=== PATIENT | female | born 1950 | race Caucasian/White ===

== ENCOUNTER → 2023-05-17 12:20 | Outpatient (REF) | payer MEDICARE, OTHER, SELFPAY | LOC: WOUND 12:20 | PROVIDERS: ATTENDING PHYSICIAN Surgery; FAMILY PHYSICIAN Internal Medicine | DX: L97.122 Non-pressure chronic ulcer of left thigh with fat layer exposed (principal); L97.812 Non-pressure chronic ulcer of other part of right lower leg with fat layer exposed; L97.821 Non-pressure chronic ulcer of other part of left lower leg limited to breakdown of skin; C44.719 Basal cell carcinoma of skin of left lower limb, including hip; C76.51 Malignant neoplasm of right lower limb; G62.0 Drug-induced polyneuropathy; M06.9 Rheumatoid arthritis, unspecified; Z79.01 Long term (current) use of anticoagulants | CPT/HCPCS: 88305; 11042; 11102; 88341; 88342; 99214 ==

== ENCOUNTER 2023-05-19 12:19 | Emergency (ER) | payer MEDICARE, OTHER, SELFPAY ==
[2023-05-19 12:35] VITALS: BP 118/71
[2023-05-19 13:00] VITALS: BP 105/64
[2023-05-19 13:30] VITALS: BP 100/63
--- NOTE | 2023-05-19 13:46 | ED.GENMED ---
History of Present Illness
<SKYLA Valiente - Last Filed: 05/19/23 14:01>
General
Chief Complaint: Musculo-Skeletal Complaint
Source: patient
Exam Limitations: none
Time Seen by Provider: 05/19/23 13:24
Nursing documentation reviewed up to this point in time: agreed with
Travel History
Have you had any contact with someone who has COVID-19?: No
Do you have any symptoms of coronavirus? Fever > 100 degrees, chills, cough, shortness of breath, sore throat, loss of taste or smell, muscle aches, or headache?: No
History of Present Illness
History of Present Illness:
Patient is a 73 year old female with PMH of osteoporosis, colon and bladder cancer, HTN, CKD, RA presents reporting right sided arm pain and weakness x 3 days. Patient reports the pain in the right upper arm is constant and describes it as 'aching'
and 'shooting.' Patient reports the pain sometimes radiates into the neck and clavicle. Patient reports any movement of the arm makes it worse. Patient tried acetaminophen, heating pad, ice packs, and fentanyl patch with no improvement. Patient
reports she has been doing exercises to increase her strength including walking with a walker. Patient denies trauma to the affected area and rates the pain at 10/10. Patient denies numbness, tingling, neck pain, chest pain, SOB, and skin changes.
Past History
<SKYLA Valiente - Last Filed: 05/19/23 14:01>
Past History
ED Past Medical History: Cancer (currently receiving Bladder CA treatment with Keytruda the past 2.5 years and receives treatment every 3 weeks. Colon cancer, uterine cancer), Psychiatric (Depression, anxiety OCD), Other (Lower extremity DVT,
kidney stones, urinary retention, osteoporosis, SBO, Ankle/leg fractures. Compression fractures, SBO, PICC line, Chronic low back pain,) and Other (Chronic low back pain/sacral pain, lumbar and sacral compression fractures; chronic narcotic
dependence, ambulatory dysfunction utilizes walker, Ileostomy, Fistula between bladder and vagina)
ED Past Surgical History: Appendectomy (Questionable), Bowel resection (Small intestinal CA, Another resection Nov 2015, Stebts Dec 11 2015,), Cholecystectomy (questionable), Gynecological (Hysterectomy), Orthopedic (Bilateral hip replacements.
Back fusion, lumbar Vertebral plasty, left total knee replacement July 2019,), Urological (Kidney stents) and Other (Ileostomy, Green field filter)
Social History
Tobacco: Non-smoker
Alcohol: None
Drug: None
Personal: Single
Living: with family
Employment: Disabled
Family History
Family History: Cancer (mother and sister breast cancer) and Other (Noncontributory)
Phy Exam
<SKYLA Valiente - Last Filed: 05/19/23 14:01>
General Physical Exam
General Presentation: well appearing
General age: appears stated age
General Skin: warm
General Habitus: frail
General Mental: alert
General Hydration: appears well hydrated
Cardiovascular Exam
Cardiovascular Exam: regular rate/rhythm and no edema
Pulmonary Exam
Pulmonary Exam: lungs clear
Musculoskeletal Exam
Musculoskeletal Exam: neck pain (intermittently), no edema and other (extremely limited ROM on right arm)
Skin Exam
Skin Exam: warm/dry and no rash
Course
<SKYLA Valiente - Last Filed: 05/19/23 14:01>
Orders/Labs/Results
Orders:
Orders
05/19/23 13:58
Humerus, Right 2 Views [CR Humerus - Right Min 2 View*] Urgent
Comment:
Reason For Exam: pain
05/19/23 14:14
Fentanyl Citrate/Pf [Sublimaze] 50 mcg IV NOW STA
Shoulder, Right 2 Views [CR Shoulder - Right Min 2 View] Urgent
Comment:
Reason For Exam: hx cancer, pain
05/19/23 14:56
Periph Venous Upr Ext Right US [US Periph Venous UPPER Ext RT] Urgent
Comment:
Reason For Exam: PAIN, SWELLING, HX CANCER
05/19/23 15:21
BMP [Basic Metabolic Panel] Stat
CBC/No Diff [Complete Blood Count/No Diff] Stat
05/19/23 16:41
0.9% Sodium Chloride 500 ml [Nss] 500 ml IV BOLUS
Abnormal Lab Results
05/19/23
15:21
RBC 4.01 L 10^6/uL
(4.20-5.40)
Hgb 11.4 L g/dL
(12.0-16.0)
Hct 34.7 L %
(37.0-47.0)
MCHC 32.9 L g/dL
(33.0-37.0)
Sodium 132 L mmol/L
(135-145)
Chloride 97 L mmol/L
(98-107)
BUN 49 H mg/dl
(7-17)
Creatinine 1.5 H mg/dL
(0.6-1.0)
05/19/23 15:21
05/19/23 15:21
Vital Signs
Initial and Last Documented VS:
Initial Vital Signs
Temp Pulse Resp BP Pulse Ox
98.2 F 65 18 118/71 97
05/19/23 12:35 05/19/23 12:35 05/19/23 12:35 05/19/23 12:35 05/19/23 12:35
Last Documented Vital Signs
Temp Pulse Resp BP Pulse Ox
98.2 F 84 16 109/64 95
05/19/23 12:35 05/19/23 20:04 05/19/23 20:04 05/19/23 20:04 05/19/23 20:04
<Erika Garcia MD - Last Filed: 06/10/23 09:52>
Orders/Labs/Results
Orders:
Orders
05/19/23 13:58
Humerus, Right 2 Views [CR Humerus - Right Min 2 View*] Urgent
Comment:
Reason For Exam: pain
05/19/23 14:14
Fentanyl Citrate/Pf [Sublimaze] 50 mcg IV NOW STA
Shoulder, Right 2 Views [CR Shoulder - Right Min 2 View] Urgent
Comment:
Reason For Exam: hx cancer, pain
05/19/23 14:56
Periph Venous Upr Ext Right US [US Periph Venous UPPER Ext RT] Urgent
Comment:
Reason For Exam: PAIN, SWELLING, HX CANCER
05/19/23 15:21
BMP [Basic Metabolic Panel] Stat
CBC/No Diff [Complete Blood Count/No Diff] Stat
05/19/23 16:41
0.9% Sodium Chloride 500 ml [Nss] 500 ml IV BOLUS
Abnormal Lab Results
05/19/23
15:21
RBC 4.01 L 10^6/uL
(4.20-5.40)
Hgb 11.4 L g/dL
(12.0-16.0)
Hct 34.7 L %
(37.0-47.0)
MCHC 32.9 L g/dL
(33.0-37.0)
Sodium 132 L mmol/L
(135-145)
Chloride 97 L mmol/L
(98-107)
BUN 49 H mg/dl
(7-17)
Creatinine 1.5 H mg/dL
(0.6-1.0)
05/19/23 15:21
05/19/23 15:21
Vital Signs
Initial and Last Documented VS:
Initial Vital Signs
Temp Pulse Resp BP Pulse Ox
98.2 F 65 18 118/71 97
05/19/23 12:35 05/19/23 12:35 05/19/23 12:35 05/19/23 12:35 05/19/23 12:35
Last Documented Vital Signs
Temp Pulse Resp BP Pulse Ox
98.2 F 84 16 109/64 95
05/19/23 12:35 05/19/23 20:04 05/19/23 20:04 05/19/23 20:04 05/19/23 20:04
<Erika Garcia MD - Last Filed: 06/10/23 09:52>
*Critical Care Note
Total Time (30-74mins, 75-104mins- exclusive of procedures): Not Applicable
ED Attending Note
<SKYLA Valiente - Last Filed: 05/19/23 14:01>
-
Portions of this chart may have been created with voice recognition software.� Occasional wrong word or��sound alike� substitutions may have occurred due to the inherent limitations of voice recognition software.
<Erika Garcia MD - Last Filed: 06/10/23 09:52>
ED Attending Note
Patient seen and examined by attending physician: Yes
I performed a history and physical exam of patient and discussed management with resident, I reviewed resident's note and agree with documented findings and plan of care.: Yes
ED Attending Note:
73-year-old female with complaints of progressive right upper extremity pain since Wednesday. She has been using a walker more more recently and thought it may be related to increased use of her arm. However, given the extent of pain today she was
unable to use her walker properly. She denies numbness, tingling, focal weakness, recent trauma. The pain is mostly in the upper humerus/shoulder area but sometimes will radiate to the neck area. She denies chest pain or shortness of breath.
Patient wears a fentanyl patch for pain and took 2 Tylenol today without relief of symptoms. On exam, patient awake alert pleasant. Tenderness to palpation noted throughout the mid humerus extending proximally to shoulder area without bruising,
deformity. Sensation intact to light touch. No tenderness to palpation or abnormalities noted from the elbow distally. Clavicle nontender. Heart regular rate and rhythm. Differential diagnosis includes pathologic fracture, met, DVT, etc.
Patient presents to the Emergency Department with __right arm pain
Number and Complexity of Problems Addressed at the Encounter
� Chronic conditions affecting care:cancer
� Acute Exacerbation and/or Progression of Chronic Illness:
� Differential Diagnosis includes: Pathologic fracture, met, DVT, etc.
Amount and/or Complexity of Data to be Reviewed and Analyzed
� I performed an independent evaluation of and my interpretation is:
EKG:
CT:
Xrays:nad
Laboratory Studies:mild dehydration, anemia baseline
Other:There is a tubular fluid collection which extends along the anterior margin of the right humerus. Distally, there is an irregular ovoid mass with intermediate echogenicity, measuring approximately 4.1 x 5.1 x 1.2 cm. This
mass could represent a hematoma. Another possibility would be a retracted torn distal biceps tendon. The fluid within the upper arm could represent hematoma, as it is minimally complex. Differential consideration would be complex fluid within the
biceps tendon sheath.
IMPRESSION: No evidence for deep venous thrombosis of the right upper extremity.
� Review of other/old records reveals:
� Clinical information was obtained by an independent historian: Sister and caregiver who is at bedside
� Prescriptions/Medications Considered but not given:
� Further testing considered but not performed:
Risk of Complications and/or Morbidity or Mortality of Patient Management
� Social determinants of health affecting care:
� Discussion with other providers (PCP, Hospitalists, Consultants, etc):
� Escalation of care including admission/observation vs risk of discharge considered: Ultrasound consistent with possible biceps tendon tear or hematoma. Will provide a sling for patient and recommend Ortho follow-up. Patient
is neurovascularly intact. Pain well-managed. Will add as needed for breakthrough pain medication in addition to her baseline 25 mics fentanyl patch. Discussed with patient portance of follow-up and reasons return to the ER. They do have Narcan
at home
Discharge Plan
Departure
Patient Disposition: Home (Routine Discharge)
Date of Disposition: 05/19/23
Time of Disposition: 19:37
Patient with high blood pressure during this ER visit?: No
Condition: Good
Discharge Problem:
Arm pain
Instructions: Muscle Strain (DC), How to Use a Shoulder Sling
Prescriptions:
New
morphine 15 mg tablet
15 mg PO Q12H PRN (Reason: Pain) Qty: 13 0RF
No Action
magnesium oxide 400 MG capsule
800 mg PO BID
levetiracetam 250 mg Tablet
250 mg PO NOON
diphenoxylate-atropine [Lomotil] 2.5-0.025 mg Tablet
2 tab PO TID
Patient Comments:
02/08/2023: last filled 12/29/22, 540 tabs for 90 days from [facility]
sodium bicarbonate 650 mg Tablet
650 mg PO DAILY
prednisone 10 mg tablet
10 mg PO PRN PRN (Reason: joint pain)
gabapentin 400 mg capsule
400 mg PO TID
cyanocobalamin (vitamin B-12) 1,000 mcg/mL solution
1,000 mcg SC MONTHLY
prochlorperazine maleate [Compazine] 5 mg Tablet
5 mg PO TID PRN (Reason: nausea)
fentanyl 25 mcg/hr patch 72 hour
1 patch topical Q72H Qty: 5 0RF
Patient Comments:
02/08/2023: last filled 01/14/23, 10 patches for 30 days from [facility]
morphine 15 mg tablet
7.5 mg PO Q8H PRN (Reason: moderate-severe pain) Qty: 20 0RF
Patient Comments:
02/08/2023: last filled 11/17/22, 15 tabs for 10 days from [facility]
Santyl 250 unit/gram ointment
1 applic topical DAILY PRN (Reason: bed wound)
Sandostatin LAR Depot 20 mg Suspension,Extended Rel Recon
20 mg IM Q4W
Rx Instructions:
last dose: 05/27/2023
doxycycline hyclate 100 mg Tablet
100 mg PO DAILY Qty: 0 0RF
Referrals:
Amaury Chavez MD [Family Provider] -
Activity Restrictions/Additional Instructions:
YOU HAVE ABNORMALITIES ON YOUR ULTRASOUND THAT SUGGEST INJURY TO YOUR BICEPS TENDON. PLEASE SEE THE ORTHOPEDIC DOCTOR SOON YOU CAN. IF YOU DEVELOP REDNESS, WARMTH, SWELLING, INCREASING/NEW PAIN, NUMBNESS, OR OTHER WORRISOME SIGNS, GO TO THE
ER IMMEDIATELY!
Interventions
Interventions:
*Risk Screen - Suicide Last Done: 05/19/23 12:39
*General Assessment Last Done: 05/19/23 12:39
*Neglect/Abuse Screening Last Done: 05/19/23 12:39
ED- Fall Risk Assessment Last Done: 05/19/23 22:26
*ED COVID-19 Vaccine History Last Done: 05/19/23 12:41
*Nursing Disposition Last Done: 05/19/23 22:27
ED-Musculoskeletal Assessment Last Done: 05/19/23 12:41
Discharge Date and Time
Discharge Date/Time: 05/19/23 22:27
[2023-05-19 14:54] VITALS: BP 107/64
[2023-05-19 15:39] VITALS: BP 105/65
[2023-05-19] MEDS: SUBLIMAZE 50 MCG IV (15:40)
[2023-05-19 15:42] LABS: Hematocrit 34.7 % (37.0-47.0); Hemoglobin 11.4 g/dL (12.0-16.0); Mean Corp Hgb Conc. 32.9 g/dL (33.0-37.0); Mean Corpuscular Hgb 28.4 pg (27.0-31.0); Mean Corpuscular Volume 86.5 fL (81.0-99.0); Mean Platelet Volume 9.9 fL (7.4-10.4); Platelet Count 232 10^3/uL (130-400); Red Blood Cell Count 4.01 10^6/uL (4.20-5.40); Red Cell Dist. Width 14.4 % (11.5-14.5)
[2023-05-19 16:08] LABS: Blood Urea Nitrogen 49 mg/dl (7-17); Calcium 8.6 mg/dl (8.4-10.2); Carbon Dioxide 28 mmol/L (22-30); Chloride 97 mmol/L (98-107); Glucose 93 mg/dl (70-99); Potassium 4.8 mmol/L (3.5-5.1); Sodium 132 mmol/L (135-145); eGFR 36.34
[2023-05-19] MEDS: NSS 500 IV (16:52)
[2023-05-19 20:04] VITALS: BP 109/64
== END 2023-05-19 22:27 | disposition home or self-care (01) ==
LOC: EMR 12:19
PROVIDERS: EMERGENCY PHYSICIAN Emergency Medicine; FAMILY PHYSICIAN Internal Medicine
DX: M79.601 Pain in right arm (principal)
CPT/HCPCS: 99285; 96374; 96361; 73030; 73060; 80048; 85027; 93971

== ENCOUNTER → 2023-05-24 10:48 | Outpatient (REF) | payer MEDICARE, OTHER, SELFPAY | LOC: WOUND 10:48 | PROVIDERS: ATTENDING PHYSICIAN Surgery; FAMILY PHYSICIAN Internal Medicine | DX: L97.812 Non-pressure chronic ulcer of other part of right lower leg with fat layer exposed (principal); L97.821 Non-pressure chronic ulcer of other part of left lower leg limited to breakdown of skin; G62.9 Polyneuropathy, unspecified; G62.0 Drug-induced polyneuropathy; M06.9 Rheumatoid arthritis, unspecified; Z85.038 Personal history of other malignant neoplasm of large intestine; Z79.01 Long term (current) use of anticoagulants | CPT/HCPCS: 11042 ==

== ENCOUNTER → 2023-05-31 11:36 | Outpatient (REF) | payer MEDICARE, OTHER, SELFPAY ==
[2023-05-31 12:03] LABS: ALT (SGPT) 11 U/L (0-35); AST (SGOT) 23 U/L (14-36); Albumin 3.7 g/dl (3.5-5.0); Alkaline Phosphatase 125 U/L (38-126); Blood Urea Nitrogen 46 mg/dl (7-17); Carbon Dioxide 29 mmol/L (22-30); Chloride 101 mmol/L (98-107); Glucose 99 mg/dl (70-99); Magnesium 1.8 mg/dl (1.6-2.3); Phosphorus 4.6 mg/dl (2.5-4.5); Sodium 139 mmol/L (135-145); Total Bilirubin 0.5 mg/dl (0.2-1.3); eGFR 33.63
[2023-05-31 12:18] LABS: Potassium 4.5 mmol/L (3.5-5.1)
== END ==
LOC: WOUND 11:36
PROVIDERS: ATTENDING PHYSICIAN Surgery; FAMILY PHYSICIAN Internal Medicine; REFERRING PHYSICIAN Internal Medicine Endocrinology, Diabetes & Metabolism
DX: L97.812 Non-pressure chronic ulcer of other part of right lower leg with fat layer exposed (principal); L97.821 Non-pressure chronic ulcer of other part of left lower leg limited to breakdown of skin; Z85.038 Personal history of other malignant neoplasm of large intestine; Z79.01 Long term (current) use of anticoagulants; G62.9 Polyneuropathy, unspecified; M06.9 Rheumatoid arthritis, unspecified
CPT/HCPCS: 36415; 80053; 83735; 84100; 97597

== ENCOUNTER → 2023-06-08 11:08 | Outpatient (REF) | payer MEDICARE, OTHER, SELFPAY | LOC: WOUND 11:08 | PROVIDERS: ATTENDING PHYSICIAN Surgery; FAMILY PHYSICIAN Internal Medicine | DX: L97.812 Non-pressure chronic ulcer of other part of right lower leg with fat layer exposed (principal); L97.821 Non-pressure chronic ulcer of other part of left lower leg limited to breakdown of skin; G62.9 Polyneuropathy, unspecified; G62.0 Drug-induced polyneuropathy; M06.9 Rheumatoid arthritis, unspecified; Z79.01 Long term (current) use of anticoagulants; Z85.038 Personal history of other malignant neoplasm of large intestine | CPT/HCPCS: 99212 ==

== ENCOUNTER 2023-06-15 10:29 | Inpatient (IN) | payer MEDICARE, OTHER, SELFPAY ==
[2023-06-14] VITALS (10 sets, daily range): BP systolic 89–133; BP diastolic 59–82; BMI 22.4; BMI 20.3
--- NOTE | 2023-06-14 15:05 | W.IMMPOSTOP ---
Surgical Immed Post Op Note
-
Primary Surgeon: Chandrakant
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
Post-op Diagnosis: Same
Procedure Performed: cysto + bilateral ureteral stent exchange
Anesthesia Type: IV sedation
Specimen / Cultures: None/None
Estimated Blood Loss: None
Drains:
1. 6Fr x 20 cm JJ right ureteral stent
2. 6Fr x 22 cm JJ left ureteral stent
Complications: None
Operative Findings: see op note
--- NOTE | 2023-06-14 16:10 | PTCARENOTE ---
Received pt from PACU with RN at bedside, VSS, 96% on 2Lo2, pt resting comfortably with sister at bedside.
[2023-06-14] MEDS: NEURONTIN 200 MG PO ×2 (16:25→22:26)
[2023-06-14] MEDS: LOMOTIL 2 TABLET PO ×2 (16:25→22:27)
[2023-06-14] MEDS: DURAGESIC 25 MCG/HR PATCH 1 PATCH TRANSDERM (18:15)
[2023-06-14] MEDS: MAG-TAB SR 168 MG PO (22:27)
[2023-06-14] MEDS: KEPPRA 250 MG PO (22:28)
[2023-06-14] MEDS: TYLENOL 650 MG PO (22:29)
[2023-06-15 03:00] VITALS: BP 127/86
[2023-06-15 05:40] LABS: % Basophils 0.5 % (0-2); % Eosinophils 2.2 % (0-6); % Immature Granulocytes 0.2 % (0-0.5); % Monocytes 11.9 % (1.7-9.3); % Neutrophils 70.2 % (42.2-75.2); Absolute Eosinophils 0.1 10^3/uL (0-0.7); Absolute Lymphocytes 0.8 10^3/uL (1.2-3.4); Absolute Monocytes 0.7 10^3/uL (0.1-0.6); Absolute Neutrophils 3.9 10^3/uL (1.4-6.5); Hematocrit 32.9 % (37.0-47.0); Hemoglobin 10.6 g/dL (12.0-16.0); Mean Corp Hgb Conc. 32.2 g/dL (33.0-37.0); Mean Corpuscular Hgb 28.2 pg (27.0-31.0); Mean Corpuscular Volume 87.5 fL (81.0-99.0); Mean Platelet Volume 9.8 fL (7.4-10.4); Nucleated Red Blood Cells % 0 %; Platelet Count 184 10^3/uL (130-400); Red Blood Cell Count 3.76 10^6/uL (4.20-5.40); Red Cell Dist. Width 14.3 % (11.5-14.5); White Blood Cell Count 5.5 10^3/uL (4.8-10.8)
[2023-06-15 06:15] LABS: Blood Urea Nitrogen 44 mg/dl (7-17); Calcium 8.5 mg/dl (8.4-10.2); Carbon Dioxide 31 mmol/L (22-30); Chloride 93 mmol/L (98-107); Estimated Creatinine Clearance 22 ml/min; Glucose 121 mg/dl (70-99); Potassium 4.4 mmol/L (3.5-5.1); Sodium 132 mmol/L (135-145); eGFR 36.34
[2023-06-15 07:11] VITALS: BP 93/71
[2023-06-15] MEDS: SODIUM BICARBONATE 650 MG PO (08:58)
[2023-06-15] MEDS: KEPPRA 250 MG PO (08:59)
[2023-06-15] MEDS: NEURONTIN 200 MG PO ×2 (08:59→15:56)
[2023-06-15] MEDS: LOMOTIL 2 TABLET PO ×2 (08:59→15:56)
[2023-06-15] MEDS: VIBRAMYCIN 100 MG PO (08:59)
[2023-06-15] MEDS: MAG-TAB SR 168 MG PO (08:59)
--- NOTE | 2023-06-15 10:16 | CM ---
Reviewed the chart notes and spoke with the patient at the bedside. The patient resides with her sister in a two story home with two steps to enter. The patient resides on the first floor with half bath. The patient has a hospital bed,
wheelchair, and rolling walker. The patient has had [facility] in the past and been to [facility], [facility], and [facility] for rehab. The patient has a caregiver five days a weeks for four hours per day through [facility].
The patient confirmed her pharmacy of choice is the [facility]. CM continues to be available to patient/family and is monitoring medical plan for needs at discharge.
Plan: The patient anticipates being discharged today to home with no needs. The patient's sister will provide transportation.
--- NOTE | 2023-06-15 10:18 | W.DS.TRANS ---
DC Summary - [employer]
-
Discharge Instructions:
Sleep Apnea Risk Low
Discharge Diagnosis/Procedures bilateral hydronephrosis and ureteral strictures
s/p bilateral ureteral stent exchange 06/13
Diet Regular
Activity As tolerated
Driving Restrictions No driving
Bathing Restrictions None
Blood Work n/a
Wound Care n/a (from urologic standpoint), resume home
wound care as prior to admission
Instructions:
Stand-Alone Forms:
Changes to Home Medications: No
Discharge Medications:
DC Medications w/original date entered in [facility]
magnesium oxide 800 mg PO BID Supplement 01/27/21
levetiracetam 250 mg tablet 250 mg PO NOON Neurological Condition 12/04/21
diphenoxylate-atropine 2.5 mg-0.025 mg tablet (Lomotil) 2 tab PO TID Gastrointestinal issue 12/08/21
sodium bicarbonate 650 mg tablet 650 mg PO DAILY Electrolyte Repletion 12/08/21
cyanocobalamin (vitamin B-12) 1,000 mcg/mL injection solution 1,000 mcg SC MONTHLY Supplement 11/05/22
gabapentin 400 mg capsule 400 mg PO TID Neurological Condition 11/05/22
prednisone 10 mg tablet 10 mg PO PRN PRN joint pain 11/05/22
prochlorperazine maleate 5 mg tablet (Compazine) 5 mg PO TID PRN nausea 11/05/22
fentanyl 25 mcg/hr transdermal patch 1 patch topical Q72H Pain #5 ea 11/17/22
morphine 15 mg immediate release tablet 7.5 mg PO Q8H PRN moderate-severe pain #20 tabs 11/17/22
collagenase clostridium histo. 250 unit/gram topical ointment (Santyl) 1 applic topical DAILY PRN bed wound 02/08/23
octreotide,microspheres 20 mg intramuscular susp, extended release (Sandostatin LAR Depot) 20 mg IM Q4W Ileostomy 02/09/23
doxycycline hyclate 100 mg tablet 100 mg PO DAILY Ortho prophylaxis #0 tabs 02/13/23
morphine 15 mg immediate release tablet 15 mg PO Q12H PRN Pain #13 tabs 05/19/23
Home Medication Changes
Pending Results: No
[2023-06-15 11:10] VITALS: BP 104/70
[2023-06-15 15:06] VITALS: BP 99/70
--- NOTE | 2023-06-15 16:51 | VATNOTE ---
Right SQ port flushed withh 500 units of heparin and deaccessed
== END 2023-06-15 17:06 | disposition home or self-care (01) | DRG 660 ==
LOC: 2 NORTH 10:29
PROVIDERS: ADMITTING PHYSICIAN Surgery
PROC: 0TP98DZ Removal of Intraluminal Device from Ureter, Via Natural or Artificial Opening Endoscopic (ICD-10-PCS; 2023-06-14)
PROC: 0T788DZ Dilation of Bilateral Ureters with Intraluminal Device, Via Natural or Artificial Opening Endoscopic (ICD-10-PCS; 2023-06-14)
DX: N13.1 Hydronephrosis with ureteral stricture, not elsewhere classified (principal); N82.0 Vesicovaginal fistula; N39.498 Other specified urinary incontinence
CPT/HCPCS: 74018; 76000; 80048; 85025; C2617

== ENCOUNTER 2023-08-11 13:12 | Emergency (ER) | payer MEDICARE, OTHER, SELFPAY ==
[2023-08-11] VITALS (18 sets, daily range): BP systolic 102–136; BP diastolic 60–87; BMI 21.9
--- NOTE | 2023-08-11 13:58 | ED.GENMED ---
History of Present Illness
General
Chief Complaint: Breathing Problem
Source: patient
Exam Limitations: none
Time Seen by Provider: 08/11/23 13:35
Nursing documentation reviewed up to this point in time: agreed with
Travel History
Have you had any contact with someone who has COVID-19?: No
Do you have any symptoms of coronavirus? Fever > 100 degrees, chills, cough, shortness of breath, sore throat, loss of taste or smell, muscle aches, or headache?: No
History of Present Illness
History of Present Illness:
Patient presents to ED secondary to generalized fatigue, weakness, shortness of breath, with exertion or when standing up over the past 2 days. Patient states that she has had number of similar symptoms in the past, secondary to either anemia
requiring transfusion or dehydration. Denies chest pain. Denies nausea, vomiting, or diarrhea. Denies recent change in medications or diet. Denies increased leg swelling or pain. Patient does have history of blood clots, and has IVC filter in
place. Patient had been on anticoagulation, but it has been discontinued.
Past History
Past History
ED Past Medical History: Cancer (currently receiving Bladder CA treatment with Keytruda the past 2.5 years and receives treatment every 3 weeks. Colon cancer, uterine cancer), Psychiatric (Depression, anxiety OCD), Other (Lower extremity DVT,
kidney stones, urinary retention, osteoporosis, SBO, Ankle/leg fractures. Compression fractures, SBO, PICC line, Chronic low back pain,) and Other (Chronic low back pain/sacral pain, lumbar and sacral compression fractures; chronic narcotic
dependence, ambulatory dysfunction utilizes walker, Ileostomy, Fistula between bladder and vagina)
ED Past Surgical History: Appendectomy (Questionable), Bowel resection (Small intestinal CA, Another resection Nov 2015, Stebts Dec 11 2015,), Cholecystectomy (questionable), Gynecological (Hysterectomy), Orthopedic (Bilateral hip replacements.
Back fusion, lumbar Vertebral plasty, left total knee replacement July 2019,), Urological (Kidney stents) and Other (Ileostomy, Green field filter)
Social History
Tobacco: Non-smoker
Alcohol: None
Drug: None
Personal: Single
Living: with family
Employment: Disabled
Family History
Family History: Cancer (mother and sister breast cancer) and Other (Noncontributory)
Review of Systems
Review of Systems
Allergies reviewed?: Yes
All Other Systems: ROS reviewed and negative except as documented in HPI and ROS
Constitutional: Reports fatigue; Denies fever
EENT: Reports no symptoms
Respiratory: Reports trouble breathing
Cardiac: Reports no symptoms
ABD/GI: Reports no symptoms
: Reports no symptoms
Musculoskeletal: Reports no symptoms
Skin: Reports no symptoms
Neurological: Reports weakness; Denies dizzy or headache
Phy Exam
Physical Exam
Physical Exam:
Physical Exam
General: no apparent distress, not acutely ill. afebrile.
Head: nc/at. eomi
Neck: supple. no meningeal signs.
Heart: s1/s2 regular rate and rhythm, no murmur. equal radial pulses.
Lungs: no acute respiratory distress. clear bilaterally
Abdomen: normal bowel sounds. not tender. ileostomy bag in place.
Neuro: alert and oriented. no focal neurological deficits
Skin: no rash
Psychiatric: well kept. interactive and cooperative
Extremities: no edema. no calf tenderness.
Scores
Heart Failure Risk
Heart Failure Risk Score: Not Applicable
Course
Orders/Labs/Results
Orders:
Orders
08/11/23 13:46
Electrocardiogram (*1) Urgent
Reason for Study: Fatigue / Weakness
EKG- Treatment ONCE
0.9% Sodium Chloride 500 ml [Nss] 500 ml IV BOLUS
08/11/23 14:01
Complete Blood Count/With Diff Urgent
Comprehensive Metabolic Panel Urgent
D-Dimer Urgent
Magnesium Urgent
TSH Urgent
Troponin I Urgent
08/11/23 15:55
US Legs, Bilateral [US Periph Venous LOWER Ext Marino] Urgent
Comment:
Reason For Exam: leg swelling w elevated d-dimer
Abnormal Lab Results
08/11/23
14:01
RBC 4.08 L 10^6/uL
(4.20-5.40)
Hgb 11.6 L g/dL
(12.0-16.0)
Hct 35.6 L %
(37.0-47.0)
MCHC 32.6 L g/dL
(33.0-37.0)
Monocytes % 10.7 H %
(1.7-9.3)
D-Dimer 1.99 H ug/mlFEU
(0.00-0.50)
Chloride 96 L mmol/L
(98-107)
BUN 29 H mg/dl
(7-17)
Creatinine 1.5 H mg/dL
(0.6-1.0)
Alkaline Phosphatase 127 H U/L
(38-126)
Albumin 3.4 L g/dl
(3.5-5.0)
08/11/23 14:01
08/11/23 14:01
Vital Signs
Initial and Last Documented VS:
Initial Vital Signs
Pulse Resp BP
85 17 132/87
08/11/23 13:17 08/11/23 13:17 08/11/23 13:17
Last Documented Vital Signs
Temp Pulse Resp BP Pulse Ox
98.6 F 82 18 107/70 95
08/11/23 13:19 08/11/23 20:30 08/11/23 14:15 08/11/23 20:30 08/11/23 17:30
MDM/Problems Addressed
MDM/Problems Addressed:
Patient with an unremarkable workup in ED, including blood work. Patient also remains hemodynamically stable without any acute distress. Patient given IV fluids and meal, with subjective improvement symptoms. Patient will be discharged home in
stable condition, with recommendation to follow-up with PCP for reevaluation.
*Critical Care Note
Total Time (30-74mins, 75-104mins- exclusive of procedures): Not Applicable
ED Attending Note
-
Portions of this chart may have been created with voice recognition software.� Occasional wrong word or��sound alike� substitutions may have occurred due to the inherent limitations of voice recognition software.
Discharge Plan
Departure
Patient Disposition: Home (Routine Discharge)
Date of Disposition: 08/11/23
Time of Disposition: 19:43
Patient with high blood pressure during this ER visit?: Yes
Discharge Problem:
Weakness
Instructions: Weakness ED
Prescriptions:
No Action
magnesium oxide 400 MG capsule
800 mg PO BID
levetiracetam 250 mg Tablet
250 mg PO NOON
diphenoxylate-atropine [Lomotil] 2.5-0.025 mg Tablet
2 tab PO TID
Patient Comments:
02/08/2023: last filled 12/29/22, 540 tabs for 90 days from [facility]
sodium bicarbonate 650 mg Tablet
650 mg PO DAILY
prednisone 10 mg tablet
10 mg PO PRN PRN (Reason: joint pain)
gabapentin 400 mg capsule
400 mg PO TID
cyanocobalamin (vitamin B-12) 1,000 mcg/mL solution
1,000 mcg SC MONTHLY
prochlorperazine maleate [Compazine] 5 mg Tablet
5 mg PO TID PRN (Reason: nausea)
fentanyl 25 mcg/hr patch 72 hour
1 patch topical Q72H Qty: 5 0RF
Patient Comments:
02/08/2023: last filled 01/14/23, 10 patches for 30 days from [facility]
morphine 15 mg tablet
7.5 mg PO Q8H PRN (Reason: moderate-severe pain) Qty: 20 0RF
Patient Comments:
02/08/2023: last filled 11/17/22, 15 tabs for 10 days from [facility]
Santyl 250 unit/gram ointment
1 applic topical DAILY PRN (Reason: bed wound)
Sandostatin LAR Depot 20 mg Suspension,Extended Rel Recon
20 mg IM Q4W
Rx Instructions:
last dose: 05/27/2023
doxycycline hyclate 100 mg Tablet
100 mg PO DAILY Qty: 0 0RF
morphine 15 mg tablet
15 mg PO Q12H PRN (Reason: Pain) Qty: 13 0RF
Referrals:
Amaury Chavez MD [Family Provider] -
Activity Restrictions/Additional Instructions:
As discussed, please follow-up with your primary care physician for continual evaluation and treatment.
Interventions
Interventions:
*Risk Screen - Suicide Last Done: 08/11/23 13:19
*General Assessment Last Done: 08/11/23 13:19
*Neglect/Abuse Screening Last Done: 08/11/23 13:19
ED- Fall Risk Assessment Last Done: 08/11/23 13:19
ED- Cardiac Assessment Last Done: 08/11/23 14:26
ED- Pulmonary Assessment Last Done: 08/11/23 13:19
Discharge Date and Time
Print Language: KYRGYZ
[2023-08-11] MEDS: NSS 500 IV (14:09)
[2023-08-11 14:10] LABS: % Basophils 0.6 % (0-2); % Eosinophils 1.5 % (0-6); % Immature Granulocytes 0.2 % (0-0.5); % Lymphocytes 26.2 % (20.5-51.1); % Monocytes 10.7 % (1.7-9.3); % Neutrophils 60.8 % (42.2-75.2); Absolute Eosinophils 0.1 10^3/uL (0-0.7); Absolute Lymphocytes 1.4 10^3/uL (1.2-3.4); Absolute Monocytes 0.6 10^3/uL (0.1-0.6); Absolute Neutrophils 3.3 10^3/uL (1.4-6.5); Hematocrit 35.6 % (37.0-47.0); Hemoglobin 11.6 g/dL (12.0-16.0); Mean Corp Hgb Conc. 32.6 g/dL (33.0-37.0); Mean Corpuscular Hgb 28.4 pg (27.0-31.0); Mean Corpuscular Volume 87.3 fL (81.0-99.0); Mean Platelet Volume 9.6 fL (7.4-10.4); Nucleated Red Blood Cells % 0 %; Platelet Count 233 10^3/uL (130-400); Red Blood Cell Count 4.08 10^6/uL (4.20-5.40); Red Cell Dist. Width 14.1 % (11.5-14.5); White Blood Cell Count 5.4 10^3/uL (4.8-10.8)
[2023-08-11 14:27] LABS: D-Dimer 1.99 ug/mlFEU (0.00-0.50)
[2023-08-11 14:42] LABS: Troponin I < 0.012 ng/ml
[2023-08-11 14:48] LABS: ALT (SGPT) < 10 U/L (0-35); AST (SGOT) 24 U/L (14-36); Albumin 3.4 g/dl (3.5-5.0); Alkaline Phosphatase 127 U/L (38-126); Blood Urea Nitrogen 29 mg/dl (7-17); Calcium 8.8 mg/dl (8.4-10.2); Carbon Dioxide 30 mmol/L (22-30); Chloride 96 mmol/L (98-107); Estimated Creatinine Clearance 22 ml/min; Glucose 76 mg/dl (70-99); Magnesium 1.8 mg/dl (1.6-2.3); Potassium 3.8 mmol/L (3.5-5.1); Sodium 135 mmol/L (135-145); Total Bilirubin 0.5 mg/dl (0.2-1.3); Total Protein 6.7 g/dl (6.3-8.2); eGFR 36.34
[2023-08-11 15:23] LABS: TSH 2.31 uIU/ml (0.47-4.68)
== END 2023-08-11 22:24 | disposition home or self-care (01) ==
LOC: EMR 13:12
PROVIDERS: EMERGENCY PHYSICIAN Emergency Medicine; FAMILY PHYSICIAN Internal Medicine
DX: R53.1 Weakness (principal); R06.02 Shortness of breath; R53.83 Other fatigue; M79.89 Other specified soft tissue disorders; R03.0 Elevated blood-pressure reading, without diagnosis of hypertension; C67.9 Malignant neoplasm of bladder, unspecified; M54.50 Low back pain, unspecified; F32.A Depression, unspecified; F41.9 Anxiety disorder, unspecified; F42.9 Obsessive-compulsive disorder, unspecified; M81.0 Age-related osteoporosis without current pathological fracture; G89.29 Other chronic pain; Z85.038 Personal history of other malignant neoplasm of large intestine; Z85.42 Personal history of malignant neoplasm of other parts of uterus; Z86.718 Personal history of other venous thrombosis and embolism; Z87.442 Personal history of urinary calculi; Z90.49 Acquired absence of other specified parts of digestive tract; Z98.1 Arthrodesis status; Z96.652 Presence of left artificial knee joint; Z96.643 Presence of artificial hip joint, bilateral; Z88.1 Allergy status to other antibiotic agents; Z88.5 Allergy status to narcotic agent; Z88.0 Allergy status to penicillin; Z88.8 Allergy status to other drugs, medicaments and biological substances
CPT/HCPCS: 99284; 96360; 80053; 83735; 84443; 84484; 85025; 85379; 93005; 93970

== ENCOUNTER 2023-11-15 06:35 | Day surgery (SDC) | payer MEDICARE, OTHER, SELFPAY ==
[2023-11-15] VITALS (12 sets, daily range): BP systolic 75–112; BP diastolic 50–77; BMI 19.5
[2023-11-15 14:12] LABS: Hematocrit 35.7 % (37.0-47.0); Hemoglobin 11.9 g/dL (12.0-16.0); Mean Corp Hgb Conc. 33.3 g/dL (33.0-37.0); Mean Corpuscular Hgb 28.5 pg (27.0-31.0); Mean Corpuscular Volume 85.4 fL (81.0-99.0); Mean Platelet Volume 10.1 fL (7.4-10.4); Platelet Count 203 10^3/uL (130-400); Red Blood Cell Count 4.18 10^6/uL (4.20-5.40); White Blood Cell Count 5.9 10^3/uL (4.8-10.8)
[2023-11-15] MEDS: NORMOSOL-R 1000 IV (14:21)
[2023-11-15 14:26] LABS: ALT (SGPT) 14 U/L (0-35); AST (SGOT) 27 U/L (14-36); Albumin 3.2 g/dl (3.5-5.0); Alkaline Phosphatase 148 U/L (38-126); Blood Urea Nitrogen 30 mg/dl (7-17); Calcium 8.4 mg/dl (8.4-10.2); Carbon Dioxide 26 mmol/L (22-30); Chloride 98 mmol/L (98-107); Estimated Creatinine Clearance 25 ml/min; Glucose 96 mg/dl (70-99); Potassium 4.3 mmol/L (3.5-5.1); Sodium 131 mmol/L (135-145); Total Bilirubin 0.9 mg/dl (0.2-1.3); Total Protein 6.3 g/dl (6.3-8.2); eGFR 39.48
--- NOTE | 2023-11-15 16:01 | W.IMMPOSTOP ---
Surgical Immed Post Op Note
-
Primary Surgeon: Chandrakant
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
Post-op Diagnosis: Same
Procedure Performed: cysto + bilateral ureteral stent exchange
Anesthesia Type: IV sedation
Specimen / Cultures: None/None
Estimated Blood Loss: None
Drains:
1. 6Fr x 20 cm JJ right ureteral stent
2. 6Fr x 22 cm JJ left ureteral stent
Complications: None
Operative Findings: see op note
D/w Hospitalist.
Admit o/n per usual protocol for observation w/ AM labs.
--- NOTE | 2023-11-15 16:58 | SUR.PHASEI ---
patient in pacu post op stent exchange. known history of VRE. cachexia - optifoam over garry prominences on back, dressing at coccyx bedsore, repostioned, diaper on - continuous leaking of urine from fistula. Await hospitalist for admission
orders.
--- NOTE | 2023-11-15 19:11 | CON.HOSP ---
Family Physician
-
Family Physician: NOT KNOW UNKNOWN - PT DOES
Chief Complaint
-
Medical Mgmt
History of Present Illness
73F bedbound ext pmhx including Bladder Uterine Colon Ca s/p Ileostomy b/l ureteral stents chronic vesicular vaginal fistula Seizure CKD3 Neuropathy Chronic Pain Opioid Dependent short bowel syndrome presents for routine scheduled exchange ureteral
stents with Urology, admitted post-procedure observation given medical complexity. Hospitalist consulted for medical management. VSS, preop labs unremarkable, patient appears to have tolerated procedure well. Denies any new acute issues
post-procedure.
Medical History
Past Medical History
Past Medical History: Reports Other (as above)
Past Surgical History: Reports Other (as above)
Social History
Tobacco: Non-smoker
Alcohol: None
Drug: None
Living: With Family
Family History
Family History: Reviewed & Not Pertinent (reviewed)
Allergies / Home Medications
Allergies reflects when Allergies were last updated in [facility].
Home Medications with original date entered in [facility]
Allergy/Medication List:
Allergies
Allergy/AdvReac Type Severity Reaction Status Date / Time
Androgenic Anabolic Steroid Allergy Shortness Verified 11/15/23 13:40
of Breath
baclofen Allergy near Verified 11/15/23 13:40
;never
woke up
Corticosteroids Allergy can take Verified 11/15/23 13:40
(Glucocorticoids) PO, not
injection
cyclobenzaprine Allergy Hives Verified 11/15/23 13:40
[From Flexeril]
hydromorphone Allergy VOMITING Verified 11/15/23 13:40
hydromorphone HCl Allergy Vomiting Verified 11/15/23 13:40
[From Dilaudid]
mirabegron Allergy itching Verified 11/15/23 13:40
rash
nitrofurantoin Allergy Rash Verified 11/15/23 13:40
[From Macrobid]
omeprazole Allergy FLUSHING, Verified 11/15/23 13:40
HIVES
ondansetron HCl [From Zofran] Allergy VOMITING Verified 11/15/23 13:40
Penicillins Allergy Shortness Verified 11/15/23 13:40
of Breath
ranitidine Allergy flushing, Verified 11/15/23 13:40
hives
vancomycin Allergy Itching Verified 11/15/23 13:40
Home Medications
magnesium oxide 1,200 mg PO TID Supplement 01/27/21
diphenoxylate-atropine 2.5 mg-0.025 mg tablet (Lomotil) 2 tab PO BID Gastrointestinal issue 12/08/21
cyanocobalamin (vitamin B-12) 1,000 mcg/mL injection solution 1,000 mcg SC MONTHLY Supplement 11/05/22
gabapentin 400 mg capsule 400 mg PO BID Neurological Condition 11/05/22
prednisone 10 mg tablet 10 mg PO PRN PRN joint pain 11/05/22
prochlorperazine maleate 5 mg tablet (Compazine) 5 mg PO TID PRN nausea 11/05/22
octreotide,microspheres 20 mg intramuscular susp, extended release (Sandostatin LAR Depot) 20 mg IM Q4W Ileostomy 02/09/23
doxycycline hyclate 100 mg tablet 100 mg PO DAILY Ortho prophylaxis #0 tabs 02/13/23
morphine 15 mg immediate release tablet 15 mg PO Q12H PRN Pain #13 tabs 05/19/23
acetaminophen 325 mg tablet (Tylenol) 500 mg PO Q4H PRN pain 11/10/23
famotidine 20 mg tablet 20 mg PO DAILY PRN indigestion 11/10/23
famotidine 20 mg tablet (Pepcid) 20 mg PO DAILY PRN indigestion 11/10/23
fosfomycin tromethamine 3 gram oral packet 3 g PO ONCE 11/10/23
furosemide 20 mg tablet 20 mg PO DAILY PRN edema 11/10/23
loperamide 2 mg capsule 2 mg PO DAILY PRN diarrhea 11/10/23
loperamide 2 mg tablet 4 mg PO BID 11/10/23
vitamins A,C,I-nzed-oesaxu 2,148 mcg-113 mg-45 mg-17.4 mg tablet (PreserVision AREDS) 2 tab PO BID 11/10/23
fentanyl 25 mcg/hr transdermal patch 1 patch transdermal Q72H 11/15/23
Physical Exam
Vital Signs
Vital Signs
Temp Pulse Resp BP Pulse Ox
97.8 F 75 18 112/64 96
11/15/23 17:51 11/15/23 17:51 11/15/23 17:51 11/15/23 17:51 11/15/23 17:51
Laboratory Results
-
Laboratory Results
11/15/23 13:49
11/15/23 13:49
Total Bilirubin 0.9 mg/dl (0.2-1.3) 11/15/23 13:49
AST 27 U/L (14-36) 11/15/23 13:49
ALT 14 U/L (0-35) 11/15/23 13:49
Alkaline Phosphatase 148 U/L (38-126) H 11/15/23 13:49
Impression / Plan
-
Physical Exam
General: No acute distress appears comfortable at this time
HEENT: NormoCephalic, Moist mucous membranes and Atraumatic
Respiratory: Clear
Cardiac: S1/S2 and Regular Rhythm; No Murmur or Rub
GI: soft nontender bowel sounds present ileostomy present
Musculoskeletal: No Clubbing, No Cyanosis and No Edema
Skin: No Rash
Neuro: AOx3 conversant coherent
IMPRESSION:
73F bedbound ext pmhx including Bladder Uterine Colon Ca s/p Ileostomy b/l ureteral stents chronic vesicular vaginal fistula Seizure CKD3 Neuropathy Chronic Pain Opioid Dependent short bowel syndrome presents for routine scheduled exchange ureteral
stents with Urology, admitted post-procedure observation given medical complexity. Hospitalist consulted for medical management. VSS, preop labs unremarkable, patient appears to have tolerated procedure well. Denies any new acute issues
post-procedure.
PLAN:
#History of recurrent/intermittent gross hematuria/ history of bilateral JJ stents/ history of bilateral ureteral stricture due to radiation for uterine cancer/ history of metastatic bladder cancer
-completed routine exchange ureteral stents 11/14
-cont post-op care as per Urology primary
#Left total hip revision, March 2020, complicated by infected hematoma with MRSA, status post washout May 27, 2020,� completed six weeks of IV daptomycin
-cont home oral suppressive therapy, doxycycline.
# Chronic Anemia mild
monitor H&H
appears stable at this time
# CKD stage III
-Renal function stable
-cont to monitor
# History of bowel resection with ileostomy for colon cancer 1994
History of high output ileostomy
-ok to resume home Monthly octreotide on dc, consider administration inpt if stay is prolonged
-Continue loperamide lomotil
# History of distal right femur fracture
# Mild Hyponatremia
monitor
#Chronic pain opiate dependent
-Continue Fentanyl patch 25mcg.
# Severe protein calorie malnutrition
#History of seizures
-off Keppra for the past month w/o sz activity as per patient
-1st and last sz due to adverse effect Baclofen years ago also as per patient
# History of DVT/PE
#Hx IVC filter
# History of presbyesophagus/H. pylori gastritis
-Continue Protonix
#Osteoporosis
# Neuropathy
-Continue home gabapentin dose reduced from 400 mg to 300 mg BID d/t Cr Clearance
# Hx of Stage II sacral decubitus ulcer
DNR
DVT prophylaxis� SCD
Regular diet
I spent a total of 75 minutes with the patient or on the floor. More than 50% of this time involved counseling and coordination of care.
[2023-11-15] MEDS: DURAGESIC 25 MCG/HR PATCH 1 PATCH TRANSDERM (20:54)
[2023-11-15] MEDS: IMODIUM 4 MG PO (22:27)
[2023-11-15] MEDS: NEURONTIN 300 MG PO (22:27)
[2023-11-15] MEDS: LOMOTIL 2 TABLET PO (22:27)
[2023-11-16 03:24] VITALS: BP 94/57
[2023-11-16 04:37] LABS: Hematocrit 33.4 % (37.0-47.0); Hemoglobin 11.3 g/dL (12.0-16.0); Mean Corp Hgb Conc. 33.8 g/dL (33.0-37.0); Mean Corpuscular Hgb 29.7 pg (27.0-31.0); Mean Corpuscular Volume 87.7 fL (81.0-99.0); Mean Platelet Volume 10.1 fL (7.4-10.4); Platelet Count 164 10^3/uL (130-400); Red Blood Cell Count 3.81 10^6/uL (4.20-5.40); Red Cell Dist. Width 14.8 % (11.5-14.5)
[2023-11-16 05:03] LABS: Blood Urea Nitrogen 32 mg/dl (7-17); Calcium 8.3 mg/dl (8.4-10.2); Carbon Dioxide 22 mmol/L (22-30); Chloride 99 mmol/L (98-107); Estimated Creatinine Clearance 25 ml/min; Glucose 176 mg/dl (70-99); Magnesium 1.5 mg/dl (1.6-2.3); Phosphorus 2.9 mg/dl (2.5-4.5); Potassium 4.8 mmol/L (3.5-5.1); Sodium 131 mmol/L (135-145); eGFR 39.48
[2023-11-16 07:28] VITALS: BP 102/57
[2023-11-16] MEDS: VIBRAMYCIN 100 MG PO (07:31)
[2023-11-16] MEDS: NEURONTIN 300 MG PO (07:31)
[2023-11-16] MEDS: LOMOTIL 2 TABLET PO (07:32)
[2023-11-16] MEDS: IMODIUM 4 MG PO (07:32)
[2023-11-16] MEDS: MAG-TAB SR 168 MG PO (07:32)
--- NOTE | 2023-11-16 09:54 | W.PN.HOSP.TC ---
Today's Communication/Plan
-
discharge
Assessment / Plan
Assessment / Plan
Physical Exam
General: No acute distress appears comfortable at this time
HEENT: NormoCephalic, Moist mucous membranes and Atraumatic
Respiratory: Clear
Cardiac: S1/S2 and Regular Rhythm; No Murmur or Rub
GI: soft nontender bowel sounds present ileostomy present
Musculoskeletal: No Clubbing, No Cyanosis and No Edema
Skin: No Rash
Neuro: AOx3 conversant coherent
IMPRESSION:
73F bedbound ext pmhx including Bladder Uterine Colon Ca s/p Ileostomy b/l ureteral stents chronic vesicular vaginal fistula Seizure CKD3 Neuropathy Chronic Pain Opioid Dependent short bowel syndrome presents for routine scheduled exchange ureteral
stents with Urology, admitted post-procedure observation given medical complexity. Hospitalist consulted for medical management. VSS, preop labs unremarkable, patient appears to have tolerated procedure well. Denies any new acute issues
post-procedure.
PLAN:
#History of recurrent/intermittent gross hematuria/ history of bilateral JJ stents/ history of bilateral ureteral stricture due to radiation for uterine cancer/ history of metastatic bladder cancer
-completed routine exchange ureteral stents 11/14
-Stable for discharge as per Urology primary
#Hypomagnesemia
Repleted with IV supplementation
home PO magnesium supplementation resumed
#Left total hip revision, March 2020, complicated by infected hematoma with MRSA, status post washout May 27, 2020,� completed six weeks of IV daptomycin
-cont home oral suppressive therapy, doxycycline.
# Chronic Anemia mild
monitor H&H
appears stable at this time
# CKD stage III
-Renal function stable
# History of bowel resection with ileostomy for colon cancer 1994
History of high output ileostomy
-ok to resume home Monthly octreotide on dc
-Continue loperamide lomotil
# History of distal right femur fracture
# Mild Hyponatremia
monitor
#Chronic pain opiate dependent
-Continue Fentanyl patch 25mcg.
# Severe protein calorie malnutrition
#History of seizures
-off Keppra for the past month w/o sz activity as per patient
-1st and last sz due to adverse effect Baclofen years ago also as per patient
# History of DVT/PE
#Hx IVC filter
# History of presbyesophagus/H. pylori gastritis
-Continue Protonix
#Osteoporosis
# Neuropathy
-Continue home gabapentin dose reduced from 400 mg to 300 mg BID d/t Cr Clearance
# Hx of Stage II sacral decubitus ulcer
DNR
DVT prophylaxis� SCD
Regular diet
Medically stable for discharge.
I spent a total of 40 minutes with the patient or on the floor. More than 50% of this time involved counseling and coordination of care.
Anticipated Discharge: Today
Subjective/Interval History
-
Date of Service: November 16, 2023
Seen and examined at bedside in no acute distress. denies new acute issues at this time. reports overall feeling well. Eager to go home.
Objective Data
-
Labs:
Laboratory Results
11/16/23
04:04
WBC 6.0
Hgb 11.3 L
Hct 33.4 L
Plt Count 164
Sodium 131 L
Potassium 4.8
Chloride 99
Carbon Dioxide 22
BUN 32 H
Creatinine 1.4 H
Glucose 176 H
Calcium 8.3 L
Vital Signs:
Vital Signs
Temp Pulse Resp BP Pulse Ox
97.8 F 68 17 102/57 97
11/16/23 07:28 11/16/23 07:28 11/16/23 07:28 11/16/23 07:28 11/16/23 07:28
I&O
11/15/23 11/16/23 11/17/23
06:59 06:59 06:59
Output Total 200 / 200
Balance -200 / -200
[2023-11-16] MEDS: MAGNESIUM SULFATE 50 IV (10:28)
[2023-11-16 10:56] VITALS: BP 104/64
--- NOTE | 2023-11-16 12:16 | CM ---
Case management following for discharge planning
Met with pt at bedside
Pt reports she lives with her sister in a 2 story home. Ramp access, with FF set-up
Pt reports she needs assist with ADL's, transfers, mostly wheel chair bound, occasionally uses rolling walker
Has paid care-taker 4 hrs/d M-F - [facility]
Receiving Palliative Care thru [place]
DME - hospital bed, wheel chair, rolling walker, ostomy supplies
SNF - [facility] in past
HH - Current with [facility] in past
PCP - Dr Juan Chavez
Kimmy - Rodrigo
Pt will have ride home at discharge with sister
Given information from area [facility] - home care-takers
Plan - anticipate home with LUNA payne/Syd
--- NOTE | 2023-11-16 13:24 | W.DS.TRANS ---
DC Summary - On Call Pharmacy Technician
-
Discharge Instructions:
Sleep Apnea Risk Low
Discharge Diagnosis/Procedures bilateral ureteral obstruction s/p bilateral
stent exchange 11/14
Diet Regular
Activity As tolerated
Driving Restrictions No driving
Bathing Restrictions None
Instructions:
Stand-Alone Forms:
Changes to Home Medications: No
Discharge Medications:
DC Medications w/original date entered in [facility]
magnesium oxide 1,200 mg PO TID Supplement 01/27/21
diphenoxylate-atropine 2.5 mg-0.025 mg tablet (Lomotil) 2 tab PO BID Gastrointestinal issue 12/08/21
cyanocobalamin (vitamin B-12) 1,000 mcg/mL injection solution 1,000 mcg SC MONTHLY Supplement 11/05/22
gabapentin 400 mg capsule 400 mg PO BID Neurological Condition 11/05/22
prednisone 10 mg tablet 10 mg PO PRN PRN joint pain 11/05/22
prochlorperazine maleate 5 mg tablet (Compazine) 5 mg PO TID PRN nausea 11/05/22
octreotide,microspheres 20 mg intramuscular susp, extended release (Sandostatin LAR Depot) 20 mg IM Q4W Ileostomy 02/09/23
doxycycline hyclate 100 mg tablet 100 mg PO DAILY Ortho prophylaxis #0 tabs 02/13/23
morphine 15 mg immediate release tablet 15 mg PO Q12H PRN Pain #13 tabs 05/19/23
acetaminophen 325 mg tablet (Tylenol) 500 mg PO Q4H PRN pain 11/10/23
famotidine 20 mg tablet 20 mg PO DAILY PRN indigestion 11/10/23
famotidine 20 mg tablet (Pepcid) 20 mg PO DAILY PRN indigestion 11/10/23
fosfomycin tromethamine 3 gram oral packet 3 g PO ONCE URINARY TRACT INFECTION 11/10/23
furosemide 20 mg tablet 20 mg PO DAILY PRN edema 11/10/23
loperamide 2 mg capsule 2 mg PO DAILY PRN diarrhea 11/10/23
loperamide 2 mg tablet 4 mg PO BID diarrhea 11/10/23
vitamins A,C,N-osyb-qovxpu 2,148 mcg-113 mg-45 mg-17.4 mg tablet (PreserVision AREDS) 2 tab PO BID Supplement 11/10/23
fentanyl 25 mcg/hr transdermal patch 1 patch transdermal Q72H Pain 11/15/23
Home Medication Changes
Pending Results: No
--- NOTE | 2023-11-16 13:25 | W.PN.UPDATE ---
Update Note
Progress Note Update
11/14: s/p bilateral ureteral stent exchange (uncomplicated).
CBC/BMP normal on AM labs.
Plan:
- OK to d/c home (via transportation as patient is bed-bound)
- F/U in 02/2024 w/ Dr. Stallings to schedule q5-6 mo stent exchange in 03/2024
[2023-11-16 15:09] VITALS: BP 114/63
== END 2023-11-16 15:25 | disposition home or self-care (01) ==
LOC: SDS 06:35
PROVIDERS: ATTENDING PHYSICIAN Surgery; CONSULT PHYSICIAN Internal Medicine
DX: N13.1 Hydronephrosis with ureteral stricture, not elsewhere classified (principal); N82.0 Vesicovaginal fistula; E83.42 Hypomagnesemia; D63.1 Anemia in chronic kidney disease; N18.30 Chronic kidney disease, stage 3 unspecified; F11.20 Opioid dependence, uncomplicated; G89.29 Other chronic pain; K90.829 Short bowel syndrome, unspecified; W88.1XXA Exposure to radioactive isotopes, initial encounter; E87.1 Hypo-osmolality and hyponatremia; E43 Unspecified severe protein-calorie malnutrition; R56.9 Unspecified convulsions; M81.0 Age-related osteoporosis without current pathological fracture; G62.9 Polyneuropathy, unspecified; Z66 Do not resuscitate; Z68.1 Body mass index [BMI] 19.9 or less, adult; Z79.899 Other long term (current) drug therapy; Z79.82 Long term (current) use of aspirin; Z86.711 Personal history of pulmonary embolism; Z86.718 Personal history of other venous thrombosis and embolism
CPT/HCPCS: 52332; 74018; 76000; 80048; 80053; 83735; 84100; 85027; C2617

== ENCOUNTER 2024-02-17 12:17 | Inpatient (IN) | payer MEDICARE, OTHER, SELFPAY ==
[2024-02-15 18:01] VITALS: BP 119/85
[2024-02-15 18:40] VITALS: BMI 21.6
--- NOTE | 2024-02-15 19:14 | ED.GENMED ---
History of Present Illness
General
Chief Complaint: Musculo-Skeletal Complaint
Source: patient
Exam Limitations: none
Time Seen by Provider: 02/15/24 18:37
Nursing documentation reviewed up to this point in time: agreed with
History of Present Illness
History of Present Illness:
73-year-old female with past medical history of dementia, previous bowel obstruction, renal failure, multiple low back surgeries and significant decreased function chronically of the lower extremities presenting to the emergency department today
with concerns of discomfort to her left heel and ankle that occurred when stepping. She typically is able to stand and pivot for transfer into a wheelchair she is does not walk at baseline. She felt her ankle invert and felt sharp pain and a
crunch. Denies additional concerns or additional injuries did not fall.
Past History
Past History
ED Past Medical History: Cancer (currently receiving Bladder CA treatment with Keytruda the past 2.5 years and receives treatment every 3 weeks. Colon cancer, uterine cancer), Psychiatric (Depression, anxiety OCD), Other (Lower extremity DVT,
kidney stones, urinary retention, osteoporosis, SBO, Ankle/leg fractures. Compression fractures, SBO, PICC line, Chronic low back pain,) and Other (Chronic low back pain/sacral pain, lumbar and sacral compression fractures; chronic narcotic
dependence, ambulatory dysfunction utilizes walker, Ileostomy, Fistula between bladder and vagina)
ED Past Surgical History: Appendectomy (Questionable), Bowel resection (Small intestinal CA, Another resection Nov 2015, Stebts Dec 11 2015,), Cholecystectomy (questionable), Gynecological (Hysterectomy), Orthopedic (Bilateral hip replacements.
Back fusion, lumbar Vertebral plasty, left total knee replacement July 2019,), Urological (Kidney stents) and Other (Ileostomy, Green field filter)
Social History
Tobacco: Non-smoker
Alcohol: None
Drug: None
Personal: Single
Living: with family
Employment: Disabled
Family History
Family History: Cancer (mother and sister breast cancer) and Other (Noncontributory)
Review of Systems
Review of Systems
Allergies reviewed?: Yes
All Other Systems: ROS reviewed and negative except as documented in HPI and ROS
Phy Exam
Physical Exam
Physical Exam:
GENERAL: Alert , in no apparent distress
EYE: pupils equal and reactive
NECK: Supple, no significant adenopathy.
ENT: o/p clr, mmm.
CARDIAC: Regular rate and rhythm .
LUNGS: Clear breath sounds bilaterally, no acute respiratory distress, no wheezes/rales/rhonchi
ABDOMEN: Soft, without focal tenderness, no r/g, no cvat
NEUROLOGICAL: Alert and oriented, no focal neuro deficits
SKIN: Warm and dry, skin intact.
MUSCULOSKELETAL: Vague discomfort to the left ankle but no obvious redness or swelling no tenderness throughout the foot walters or hip patient is unable to move on her own but she claims this is her baseline. No edema, well perfused.
PSYCH: Normal and appropriate interaction.
Course
Orders/Labs/Results
Orders:
Orders
02/15/24 19:02
Ankle, left 3 view CR [CR Ankle - Left Min 3 Views ] Urgent
Comment:
Reason For Exam: ankel pain after inversion injury
CR Foot - Left Min 3 Views Urgent
Comment:
Reason For Exam: foot pain
Hip, Left 2-3 Views [CR Hip - LT w/wo Pel 2-3 Vw*] Urgent
Comment:
Reason For Exam: left hip pain hx of dislocation
Include a pelvis x-ray?: Yes
02/15/24 20:42
Acetaminophen [Tylenol] 650 mg PO NOW STA
Morphine Sulfate 15 mg PO NOW STA
02/15/24 21:28
BMP [Basic Metabolic Panel] Urgent
CBC/With Diff [Complete Blood Count/With Diff] Urgent
02/15/24 21:35
Case Management Consult ONCE
Case Management Consult: Penitentiary Placement
Pt Eval And Treat Urgent
Activity Level: Ambulate
Abnormal Lab Results
02/15/24
21:28
RBC 3.84 L 10^6/uL
(4.20-5.40)
Hgb 11.1 L g/dL
(12.0-16.0)
Hct 34.5 L %
(37.0-47.0)
MCHC 32.2 L g/dL
(33.0-37.0)
Abs Immat Gran (auto) 0.1 H 10^3/uL
(0-0.05)
Immature Gran % 0.8 H %
(0-0.5)
Lymphocytes % 17.1 L %
(20.5-51.1)
02/15/24 21:28
Vital Signs
Initial and Last Documented VS:
Initial Vital Signs
Temp Pulse Resp BP Pulse Ox
99 F 93 16 119/85 95
02/15/24 18:01 02/15/24 18:01 02/15/24 18:01 02/15/24 18:01 02/15/24 18:01
Last Documented Vital Signs
Temp Pulse Resp BP Pulse Ox
99 F 93 16 119/85 95
02/15/24 18:01 02/15/24 18:01 02/15/24 18:01 02/15/24 18:01 02/15/24 18:01
MDM/Problems Addressed
MDM/Problems Addressed:
73-year-old female presenting to the emergency department today with concerns of ankle and foot discomfort after stepping awkwardly when trying to stand and pivot into her wheelchair prior to arrival. Vague discomfort to the left ankle mainly to
the lateral malleolus. She was also concerned that her hip had some mild discomfort into her ER stay. X-ray was ordered of the hip as well. X-ray is read as injury of the ankle foot and hip. There was a questionable line through the calcaneus
unclear if this could represent an acute injury or not. Patient claims that she did have symptoms to the area was unable to stand up. She claims that at baseline she stands and pivots at home but has significant issues with ambulation at baseline.
With her current symptoms she is unable to perform the necessities for life at her current living situation. Considering this patient will be brought in for PT and case management consult.
*Critical Care Note
Total Time (30-74mins, 75-104mins- exclusive of procedures): Not Applicable
ED Attending Note
-
Portions of this chart may have been created with voice recognition software.� Occasional wrong word or��sound alike� substitutions may have occurred due to the inherent limitations of voice recognition software.
Discharge Plan
Departure
Patient Disposition: Admit
Date of Disposition: 02/15/24
Time of Disposition: 21:47
Admit to: Med/Surg
Admit to doctor: Trent
Presentation/result/management discussed w/ accepting MD/DO: Hospitalist
Patient with high blood pressure during this ER visit?: No
Condition: Good
Covid-19: Not Applicable
Discharge Problem:
Foot injury, Ambulatory dysfunction
Prescriptions:
No Action
magnesium oxide 400 MG capsule
800 mg PO DAILY
diphenoxylate-atropine [Lomotil] 2.5-0.025 mg Tablet
2 tab PO BID
Patient Comments:
02/08/2023: last filled 12/29/22, 540 tabs for 90 days from [facility]
prednisone 10 mg tablet
10 mg PO DAILYPRN PRN (Reason: joint pain)
cyanocobalamin (vitamin B-12) 1,000 mcg/mL solution
1,000 mcg SC MONTHLY
prochlorperazine maleate [Compazine] 5 mg Tablet
5 mg PO TIDPRN PRN (Reason: nausea)
octreotide,microspheres [Sandostatin LAR Depot] 20 mg Suspension,Extended Rel Recon
20 mg IM Q4W
doxycycline hyclate 100 mg Tablet
100 mg PO DAILY Qty: 0 0RF
loperamide 2 mg Tablet
4 mg PO BID
famotidine [Pepcid] 20 mg Tablet
20 mg PO DAILYPRN PRN (Reason: indigestion)
furosemide 20 mg Tablet
20 mg PO MOWEFR PRN (Reason: edema)
PreserVision AREDS 2,148 mcg-113 mg-45 mg-17.4mg Tablet
2 tab PO BID
fentanyl 25 mcg/hr Patch 72 Hour
25 mcg TRANSDERMAL Q72H
Patient Comments:
due to be changed on 11/16/23
gabapentin 300 mg Capsule
300 mg PO BID 30 Days Qty: 60 0RF
acetaminophen 500 mg Tablet
500 mg PO Q6HPRN PRN (Reason: mild pain)
magnesium oxide 400 mg (241.3 mg magnesium) tablet
400 mg PO QPM
pantoprazole 40 mg Tablet,Delayed Release (Dr/Ec)
40 mg PO BIDPRN PRN (Reason: reflux)
morphine 15 mg tablet
15 mg PO [id number] PRN (Reason: breakthrough pain)
Referrals:
Juan Sullivan PA-C [Family Provider] -
Interventions
Interventions:
*Risk Screen - Suicide Last Done: 02/15/24 18:01
*General Assessment Last Done: 02/15/24 18:01
*Neglect/Abuse Screening Last Done: 02/15/24 18:01
ED-Musculoskeletal Assessment Last Done: 02/15/24 18:41
Discharge Date and Time
Print Language: EMIRATI
[2024-02-15] MEDS: TYLENOL 650 MG PO (20:48)
--- NOTE | 2024-02-15 21:43 | HPS.HSE ---
Family Physician
-
Family Physician: Juan Sullivan PA-C
Chief Complaint
-
left heel and akle pain
History of Present Illness
73-year-old female with past medical history of dementia, previous bowel obstruction, renal failure, multiple low back surgeries and significant decreased function chronically of the lower extremities presenting to the emergency department today
with concerns of discomfort to her left heel and ankle that occurred when getting out of the car to the wheelchair. his LE got twisted as she was getting out of car to chair. since then, she can not bear any weight on left LE. She typically is able
to stand and pivot for transfer into a wheelchair she is does not walk at baseline. denied any fall. denied CHAN,dizzy or syncopal episode. denied fever, chills, chest pain, sob. denied abdominal pain,n ,v,d.denied dysuria or hematuria.
radiological workup negative for acute fractures. admitting for further management.
Medical History
Past Medical History
Past Medical History: Reports Other
Additional Past Medical History:
colon cancer
peripheral neuropathy
intestinal malabsorption
blader cancer
Luis A Anmol syndrome
OCD
DVT
anemia
short bowel syndrome
kidney stones
UTI
ureteral stricture
htn
ckd
orthostatic hypotension
depression
rheumatoid arthritics
Past Surgical History: Reports Other
Additional Past Surgical History:
lithotripsy
spinal fusion
b/l hip replacement
vertebroplasty
intestinal resection
ileostomy
b/l ureteral stents
MOHS surgery
knee replacement
skin surgery
collar bone surgery
ankle surgery
left cataract surgery
Social History
Tobacco: Non-smoker
Alcohol: None
Drug: None
Personal: Single
Living: With Family
Family History
Family History: Not pertinent
Allergies / Home Medications
Allergies reflects when Allergies were last updated in [facility].
Home Medications with original date entered in [facility]
Allergy/Medication List:
Allergies
Allergy/AdvReac Type Severity Reaction Status Date / Time
Androgenic Anabolic Steroid Allergy Shortness Verified 02/15/24 18:05
of Breath
baclofen Allergy near Verified 02/15/24 18:05
;never
woke up
Corticosteroids Allergy can take Verified 02/15/24 18:05
(Glucocorticoids) PO, not
injection
cyclobenzaprine Allergy Hives Verified 02/15/24 18:05
[From Flexeril]
hydromorphone Allergy VOMITING Verified 02/15/24 18:05
hydromorphone HCl Allergy Vomiting Verified 02/15/24 18:05
[From Dilaudid]
mirabegron Allergy itching Verified 02/15/24 18:05
rash
nitrofurantoin Allergy Rash Verified 02/15/24 18:05
[From Macrobid]
omeprazole Allergy FLUSHING, Verified 02/15/24 18:05
HIVES
ondansetron HCl [From Zofran] Allergy VOMITING Verified 02/15/24 18:05
Penicillins Allergy Shortness Verified 02/15/24 18:05
of Breath
ranitidine Allergy flushing, Verified 02/15/24 18:05
hives
vancomycin Allergy Itching Verified 02/15/24 18:05
Home Medications
magnesium oxide 800 mg PO DAILY Supplement 01/27/21
diphenoxylate-atropine 2.5 mg-0.025 mg tablet (Lomotil) 2 tab PO BID Gastrointestinal issue 12/08/21
cyanocobalamin (vitamin B-12) 1,000 mcg/mL injection solution 1,000 mcg SC MONTHLY Supplement 11/05/22
prednisone 10 mg tablet 10 mg PO DAILYPRN PRN joint pain 11/05/22
prochlorperazine maleate 5 mg tablet (Compazine) 5 mg PO TIDPRN PRN nausea 11/05/22
octreotide,microspheres 20 mg intramuscular susp, extended release (Sandostatin LAR Dep[place]) 20 mg IM Q4W Ileostomy 02/09/23
doxycycline hyclate 100 mg tablet 100 mg PO DAILY Ortho prophylaxis #0 tabs 02/13/23
famotidine 20 mg tablet (Pepcid) 20 mg PO DAILYPRN PRN indigestion 11/10/23
furosemide 20 mg tablet 20 mg PO MOWEFR PRN edema 11/10/23
loperamide 2 mg tablet 4 mg PO BID diarrhea 11/10/23
vitamins A,C,H-jsqz-rashch 2,148 mcg-113 mg-45 mg-17.4 mg tablet (PreserVision AREDS) 2 tab PO BID Supplement 11/10/23
fentanyl 25 mcg/hr transdermal patch 25 mcg transdermal Q72H Pain 11/15/23
gabapentin 300 mg capsule 300 mg PO BID 30 days #60 caps 11/16/23
acetaminophen 500 mg tablet 500 mg PO Q6HPRN PRN mild pain 02/15/24
magnesium oxide 400 mg (241.3 mg magnesium) tablet 400 mg PO QPM 02/15/24
morphine 15 mg immediate release tablet 15 mg PO [id number] PRN breakthrough pain 02/15/24
pantoprazole 40 mg tablet,delayed release 40 mg PO BIDPRN PRN reflux 02/15/24
Review of Systems
-
Constitutional: Reports No Symptoms
EENT: Reports No Symptoms
Respiratory: Reports No Symptoms
Cardiac: Reports No Symptoms
Abdomen/GI: Reports No Symptoms
: Reports No Symptoms
Musculoskeletal: Reports Other (left ankle heel pain)
Skin: Reports No Symptoms
Neurological: Reports No Symptoms
Endocrine: Reports No Symptoms
Hematologic/Lymphatic: Reports No Symptoms
Psych: Reports No Symptoms
Physical Exam
Vital Signs
Vital Signs
Temp Pulse Resp BP Pulse Ox
99 F 93 16 119/85 95
11/19/24 18:01 02/15/24 18:01 02/15/24 18:01 02/15/24 18:01 02/15/24 18:01
Physical Exam
General: Well Developed, Well Nourished and No Apparent Distress
HEENT: NormoCephalic, Moist mucous membranes and Atraumatic
Respiratory: Clear
Cardiac: S1/S2 and Regular Rhythm; No Murmur or Rub
GI: Soft, Non Tender, Non Distended and Normal Bowel Sounds; No Organomegaly
Rectal: Deferred by Provider
Musculoskeletal: No Clubbing, No Cyanosis and Other (right LE shortened, left LE in brace)
Skin: No Rash
Neuro: AO x 3 and Nonfocal/grossly intact
Psych: Calm
Data Reviewed
-
Diagnostic Radiology: Report Reviewed by me
Lab Data: Labs Reviewed by me
Impression/Plan
-
#left heel injury possible calcaneal fracture
#ambulatory dysfunction
-PT/OT consult
-boot placed
-follow up with podiatry as outpatient.
-Hip x ray with No radiographic evidence for complication of bilateral total hip arthroplasties.
-foot x ray with No radiographic evidence for an acute osseous abnormality of the left foot or ankle within the limitations of severe osseous demineralization.
-ankle x ray with No radiographic evidence for an acute osseous abnormality of the left foot or ankle within the limitations of severe osseous demineralization.
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
-completed routine exchange ureteral stents 11/14
#Left total hip revision, March 2020, complicated by infected hematoma with MRSA, status post washout May 27, 2020,� completed six weeks of IV daptomycin
-cont home oral suppressive therapy, doxycycline.
# Chronic Anemia mild
-monitor H&H
-appears stable at this time
# CKD stage III
-Renal function stable
# History of bowel resection with ileostomy for colon cancer 1994
-History of high output ileostomy
# History of distal right femur fracture
#Chronic pain opiate dependent
-Continue Fentanyl patch 25mcg.
-continue morphine
# Severe protein calorie malnutrition
#History of seizures
-off Keppra for the past month w/o sz activity as per patient
-1st and last sz due to adverse effect Baclofen years ago also as per patient
# History of DVT/PE
#Hx IVC filter
# History of presbyesophagus/H. pylori gastritis
-Continue Protonix
#Osteoporosis
# Neuropathy
-Continue home gabapentin dose
# Hx of Stage II sacral decubitus ulcer
DNR
DVT prophylaxis� heparin sq
Regular diet
[2024-02-15 21:45] LABS: % Basophils 0.3 % (0-2); % Eosinophils 2.1 % (0-6); % Immature Granulocytes 0.8 % (0-0.5); % Lymphocytes 17.1 % (20.5-51.1); % Monocytes 8.8 % (1.7-9.3); % Neutrophils 70.9 % (42.2-75.2); Absolute Eosinophils 0.2 10^3/uL (0-0.7); Absolute Immature Granulocytes 0.1 10^3/uL (0-0.05); Absolute Lymphocytes 1.2 10^3/uL (1.2-3.4); Absolute Monocytes 0.6 10^3/uL (0.1-0.6); Absolute Neutrophils 5.1 10^3/uL (1.4-6.5); Hematocrit 34.5 % (37.0-47.0); Hemoglobin 11.1 g/dL (12.0-16.0); Mean Corp Hgb Conc. 32.2 g/dL (33.0-37.0); Mean Corpuscular Hgb 28.9 pg (27.0-31.0); Mean Corpuscular Volume 89.8 fL (81.0-99.0); Mean Platelet Volume 10.1 fL (7.4-10.4); Nucleated Red Blood Cells % 1.4 %; Platelet Count 164 10^3/uL (130-400); Red Blood Cell Count 3.84 10^6/uL (4.20-5.40); Red Cell Dist. Width 14.1 % (11.5-14.5); White Blood Cell Count 7.1 10^3/uL (4.8-10.8)
[2024-02-15 22:16] LABS: Blood Urea Nitrogen 27 mg/dl (7-17); Calcium 8.4 mg/dl (8.4-10.2); Carbon Dioxide 30 mmol/L (22-30); Chloride 98 mmol/L (98-107); Estimated Creatinine Clearance 24 ml/min; Glucose 89 mg/dl (70-99); Potassium 3.8 mmol/L (3.5-5.1); Sodium 135 mmol/L (135-145); eGFR 39.48
--- NOTE | 2024-02-15 22:19 | W.PN.UPDATE ---
Update Note
Progress Note Update
This is an addendum to the H&P written by Keeley Go on 02/15/2024. Patient seen and examined independently with SENIOR BIOSTATISTICIAN/GROUP LEADER.
73-year-old female past medical history of extensive past medical history of bladder cancer previously on Keytruda, colon cancer status post ileostomy, uterine cancer, bilateral ureteral stent status post periodic exchange, chronic vesicular vaginal
fistula, seizures, esophagitis, depression, anxiety, OCD, DVT, CKD, urinary retention, femur fracture status post bilateral hip replacement, presenting with left foot injury and discomfort to her heel after she twisted her left ankle.
X-rays of foot/ankle formally read as unremarkable but ER spoke with radiology who describes possible nondisplaced calcaneal fracture which correlates at the site of her severe pain. Boot placed on left foot. PT/OT, case management. She can
follow-up with podiatry.
[2024-02-15 22:37] VITALS: BP 99/62
[2024-02-15] MEDS: MORPHINE SULFATE 15 MG PO (22:47)
[2024-02-16 00:30] VITALS: BP 109/73
[2024-02-16 00:40] VITALS: BMI 21.8
[2024-02-16] MEDS: DURAGESIC 25 MCG/HR PATCH 1 PATCH TRANSDERM (01:24)
--- NOTE | 2024-02-16 03:14 | PTCARENOTE ---
Received pt from the ED via stretcher, pulled over to hospital bed by staff x3. Pt reports she is WC bound at baseline and is typically able to stand and pivot to her chair, but after 'twisting' her ankle in a parking lot earlier this afternoon, she
was unable to transfer on her own. Pt AAOx3, c/o 8/10 pain to her L ankle/heel with movement/pressure. Pt presents with b/l knee braces from home and a boot to the L foot which pt states was placed in the ED. Ileostomy present R abd, pt performs
care independently, 150mL yellow/green stool emptied. Pt with kyphosis; multiple silicone border foams present along her spine which pt states her homemaking rehabilitation consultant placed on Wednesday, skin prepped and foams replaced with C/D/I dressings. New dressings
placed on previous healing pressure ulcers. Remainder of assessment as documented. Placed pt on static over lay. Pt oriented to unit and call nicholas, resting comfortably in bed, call nicholas within reach.
[2024-02-16 06:00] VITALS: BMI 22.5
[2024-02-16 07:56] VITALS: BP 108/67
[2024-02-16] MEDS: MORPHINE SULFATE 15 MG PO (08:43)
[2024-02-16] MEDS: HEPARIN 5000 UNITS SC ×2 (08:44→20:50)
[2024-02-16] MEDS: NEURONTIN 300 MG PO ×2 (08:44→20:50)
[2024-02-16] MEDS: VIBRAMYCIN 100 MG PO (08:44)
[2024-02-16] MEDS: LOMOTIL 2 TABLET PO ×2 (08:45→20:50)
[2024-02-16] MEDS: MAG-TAB SR 168 MG PO (08:45)
[2024-02-16] MEDS: IMODIUM 4 MG PO ×2 (08:45→20:50)
[2024-02-16] MEDS: OCUVITE SOFTGEL 1 CAP PO ×2 (08:45→20:50)
[2024-02-16 10:03] VITALS: BP 120/84
[2024-02-16 10:04] VITALS: BP 120/84; PULSE 87; O2SAT 97
--- NOTE | 2024-02-16 11:43 | W.PN.HOSP.TC ---
Today's Communication/Plan
-
Monitor vital signs
see plan
PT/OT recommending SNF
Pain control
dc planning
Assessment / Plan
Assessment / Plan
General: Well Developed, Well Nourished and No Apparent Distress
HEENT: NormoCephalic, Moist mucous membranes and Atraumatic
Respiratory: Clear
Cardiac: S1/S2 and Regular Rhythm; No Murmur or Rub
GI: Soft, Non Tender, Non Distended and Normal Bowel Sounds
Musculoskeletal: No Clubbing, No Cyanosis and Other (right LE shortened, left LE in brace)
Neuro: AO x 3 and Nonfocal/grossly intact
Psych: Calm
left heel injury suspected subte calcaneal fracture
#ambulatory dysfunction
-PT/OT following
-boot placed
-follow up with podiatry as outpatient.
-Hip x ray with No radiographic evidence for complication of bilateral total hip arthroplasties.
-foot x ray with No radiographic evidence for an acute osseous abnormality of the left foot or ankle within the limitations of severe osseous demineralization.
-ankle x ray with No radiographic evidence for an acute osseous abnormality of the left foot or ankle within the limitations of severe osseous demineralization.
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
-completed routine exchange ureteral stents 11/14
#Left total hip revision, March 2020, complicated by infected hematoma with MRSA, status post washout May 27, 2020,� completed six weeks of IV daptomycin
-cont home oral suppressive therapy, doxycycline.
# Chronic Anemia mild
monitor
# CKD stage III
-Renal function stable
# History of bowel resection with ileostomy for colon cancer 1994
-History of high output ileostomy
# History of distal right femur fracture
#Chronic pain opiate dependent
-Continue Fentanyl patch 25mcg.
-continue morphine
# Severe protein calorie malnutrition
#History of seizures
-off Keppra for the past month w/o sz activity as per patient
-1st and last sz due to adverse effect Baclofen years ago also as per patient
# History of DVT/PE
#Hx IVC filter
# History of presbyesophagus/H. pylori gastritis
-Continue Protonix
#Osteoporosis
# Neuropathy
-Continue home gabapentin dose
# Hx of Stage II sacral decubitus ulcer
DNR
DVT prophylaxis� heparin sq
PT/OT rec SNF
Anticipated Discharge: Within 24 hours
Subjective/Interval History
-
Date of Service: February 16, 2024
has pain
Objective Data
-
Vital Signs:
Vital Signs
Temp Pulse Resp BP Pulse Ox
98.8 F 96 16 108/67 96
02/16/24 07:56 02/16/24 07:56 02/16/24 07:56 02/16/24 07:56 02/16/24 10:00
I&O
02/15/24 02/16/24 02/17/24
06:59 06:59 06:59
Intake Total 720 / 720
Output Total 275 / 275
Balance 445 / 445
[2024-02-16 15:02] VITALS: BMI 21.8
[2024-02-16 15:32] VITALS: BP 100/60
--- NOTE | 2024-02-16 16:35 | CM ---
Patient seen at bedside with sister.
IA completed. MOORE form explained & signed. In chart
Lives in a 2 story home with sister - ramp to enter, 1st floor set up with hospital bed
Has private aides Wednesday through Wednesday from 8:30am to 12:30 pm through [facility] [place]
PLOF: wheelchair, ambulate with walker short distances. States had just started with [facility]
DME: Hospital bed, w/c, walker
Had [facility] in past, [facility] in past
Patient is observation - will need to see if she qualifies for [facility]
PCP: Juan Chavez
Pharmacy: [facility]
PLAN: SNF, pending bed availability
[2024-02-16] MEDS: MAG-TAB SR 84 MG PO (17:42)
[2024-02-16] MEDS: TYLENOL 650 MG PO (18:14)
[2024-02-16 23:11] VITALS: BP 95/65
[2024-02-17 03:11] VITALS: BP 113/71
[2024-02-17 04:15] LABS: Urine Albumin 2+ (Neg - Trace); Urine Bilirubin Negative (Negative); Urine Character Very Cloudy (Clear); Urine Color Yellow; Urine Glucose Negative (Negative); Urine Ketone Negative (Negative); Urine Leukocyte 2+ (Negative); Urine Nitrite Negative (Negative); Urine Occult Blood 4+ (Negative); Urine Specific Gravity 1.015 (<1.030); Urine Urobilinogen Negative (Neg - 1+)
[2024-02-17 04:38] LABS: Urine Amorphous Seen; Urine Mucus Many; Urine Squamous Cell >30 /LPF (Few); Urine White Cell >100 /HPF (0-5)
[2024-02-17 04:39] LABS: Urine Bacteria Many (Negative)
[2024-02-17 04:42] LABS: Urine Urothelial Cell SEEN /LPF (FEW)
[2024-02-17 05:36] VITALS: BMI 22.5
[2024-02-17 06:39] LABS: % Basophils 0.5 % (0-2); % Eosinophils 1.2 % (0-6); % Immature Granulocytes 0.2 % (0-0.5); % Lymphocytes 15.5 % (20.5-51.1); % Neutrophils 68.6 % (42.2-75.2); Absolute Eosinophils 0.1 10^3/uL (0-0.7); Absolute Lymphocytes 0.6 10^3/uL (1.2-3.4); Absolute Monocytes 0.6 10^3/uL (0.1-0.6); Absolute Neutrophils 2.8 10^3/uL (1.4-6.5); Hematocrit 32.3 % (37.0-47.0); Mean Corpuscular Hgb 28.7 pg (27.0-31.0); Mean Corpuscular Volume 92.6 fL (81.0-99.0); Mean Platelet Volume 10.3 fL (7.4-10.4); Nucleated Red Blood Cells % 0 %; Platelet Count 138 10^3/uL (130-400); Red Blood Cell Count 3.49 10^6/uL (4.20-5.40); Red Cell Dist. Width 14.1 % (11.5-14.5); White Blood Cell Count 4.1 10^3/uL (4.8-10.8)
[2024-02-17 06:55] LABS: Blood Urea Nitrogen 33 mg/dl (7-17); Calcium 7.8 mg/dl (8.4-10.2); Carbon Dioxide 32 mmol/L (22-30); Chloride 95 mmol/L (98-107); Estimated Creatinine Clearance 20 ml/min; Glucose 92 mg/dl (70-99); Potassium 3.7 mmol/L (3.5-5.1); Sodium 134 mmol/L (135-145); eGFR 31.27
[2024-02-17 07:10] VITALS: BP 88/50
[2024-02-17] MEDS: MAG-TAB SR 168 MG PO (08:19)
[2024-02-17] MEDS: VIBRAMYCIN 100 MG PO (08:19)
[2024-02-17] MEDS: OCUVITE SOFTGEL 1 CAP PO ×2 (08:21→21:20)
[2024-02-17] MEDS: NEURONTIN 300 MG PO ×2 (08:21→21:20)
[2024-02-17] MEDS: LOMOTIL 2 TABLET PO ×2 (08:21→21:20)
[2024-02-17] MEDS: HEPARIN 5000 UNITS SC ×2 (08:22→21:20)
[2024-02-17] MEDS: IMODIUM 4 MG PO ×2 (08:22→21:20)
[2024-02-17 08:36] VITALS: BP 110/70
[2024-02-17] MEDS: NSS 1000 IV (08:40)
--- NOTE | 2024-02-17 11:34 | W.PN.HOSP.TC ---
Today's Communication/Plan
-
Monitor vital signs
see plan
Fosfomycin
Follow cultures
PT/OT
May need SNF
Assessment / Plan
Assessment / Plan
General: Well Developed, Well Nourished and No Apparent Distress
HEENT: NormoCephalic, Moist mucous membranes and Atraumatic
Respiratory: Clear
Cardiac: S1/S2 and Regular Rhythm; No Murmur or Rub
GI: Soft, Non Tender, Non Distended and Normal Bowel Sounds
Musculoskeletal: No Clubbing, No Cyanosis and Other (right LE shortened, left LE in brace)
Neuro: AO x 3 and Nonfocal/grossly intact
Psych: Calm
left heel injury suspected subte calcaneal fracture
#ambulatory dysfunction
-PT/OT following
-boot placed
-follow up with podiatry as outpatient.
-Hip x ray with No radiographic evidence for complication of bilateral total hip arthroplasties.
-foot x ray with No radiographic evidence for an acute osseous abnormality of the left foot or ankle within the limitations of severe osseous demineralization.
-ankle x ray with No radiographic evidence for an acute osseous abnormality of the left foot or ankle within the limitations of severe osseous demineralization.
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
-completed routine exchange ureteral stents 11/14
Fever 02/15
follow bcx and urine cx
has fistula for which she follows up with urology; for UTI she takes fosfomycin at times; awaiting urine cx; fevers could be 2/2 UTI
#Left total hip revision, March 2020, complicated by infected hematoma with MRSA, status post washout May 27, 2020,� completed six weeks of IV daptomycin
-cont home oral suppressive therapy, doxycycline.
# Chronic Anemia mild
monitor
# CKD stage III
-Renal function stable
# History of bowel resection with ileostomy for colon cancer 1994
-History of high output ileostomy
# History of distal right femur fracture
#Chronic pain opiate dependent
-Continue Fentanyl patch 25mcg.
-continue morphine
# Severe protein calorie malnutrition
#History of seizures
-off Keppra for the past month w/o sz activity as per patient
-1st and last sz due to adverse effect Baclofen years ago also as per patient
# History of DVT/PE
#Hx IVC filter
# History of presbyesophagus/H. pylori gastritis
-Continue Protonix
#Osteoporosis
# Neuropathy
-Continue home gabapentin dose
# Hx of Stage II sacral decubitus ulcer
DNR
DVT prophylaxis� heparin sq
PT/OT rec SNF
Anticipated Discharge: Within 24 hours
Subjective/Interval History
-
Date of Service: February 17, 2024
has some pain
Objective Data
-
Labs:
Laboratory Results
02/17/24
05:46
WBC 4.1 L
Hgb 10.0 L
Hct 32.3 L
Plt Count 138
Sodium 134 L
Potassium 3.7
Chloride 95 L
Carbon Dioxide 32 H
BUN 33 H
Creatinine 1.7 H
Glucose 92
Calcium 7.8 L
Vital Signs:
Vital Signs
Temp Pulse Resp BP Pulse Ox
98.4 F 96 16 110/70 92
02/17/24 07:10 02/17/24 08:36 02/17/24 07:10 02/17/24 08:36 02/17/24 07:10
I&O
02/16/24 02/17/24 02/18/24
06:59 06:59 06:59
Intake Total 720 / 720 960 / 960
Output Total 275 / 275 105 / 105
Balance 445 / 445 855 / 855
--- NOTE | 2024-02-17 11:58 | CM ---
Addendum entered by Irma Rios 02/17/24 12:24:
IMM explained & signed. In chart
Addendum entered by Irma Rios 02/17/24 12:15:
tt from Dr. Mulligan that patient is inpatient status today.
Original Note:
Patient seen at bedside.
Observation status. Discussed Medicare guidelines of 3 night inpatient stay to qualify for SNF.
[facility] does participate in the waiver.
tt [facility] liaison to see if the patient qualifies for [facility] waiver.
Will await response
Referrals in [facility].
tt Dr. Sheets
PLAN: SNF, awaiting response from liaison regarding waiver program since patient is under obs status currently.
[2024-02-17] MEDS: MONUROL 3 GM PO (13:25)
[2024-02-17] MEDS: MORPHINE SULFATE 15 MG PO (14:34)
[2024-02-17] MEDS: LIDOCAINE 4% PATCH 1 PATCH TOPICAL (15:00)
[2024-02-17 15:10] VITALS: BP 101/66
[2024-02-17] MEDS: MAG-TAB SR 84 MG PO (17:31)
[2024-02-17 23:25] VITALS: BP 117/79
[2024-02-18] MEDS: MORPHINE SULFATE 15 MG PO ×2 (02:36→14:15)
[2024-02-18 06:00] VITALS: BMI 22.7
[2024-02-18 06:33] LABS: % Basophils 0.3 % (0-2); % Eosinophils 2.3 % (0-6); % Immature Granulocytes 0.3 % (0-0.5); % Lymphocytes 25.8 % (20.5-51.1); % Monocytes 16.2 % (1.7-9.3); % Neutrophils 55.1 % (42.2-75.2); Absolute Eosinophils 0.1 10^3/uL (0-0.7); Absolute Monocytes 0.6 10^3/uL (0.1-0.6); Absolute Neutrophils 2.1 10^3/uL (1.4-6.5); Hematocrit 32.5 % (37.0-47.0); Hemoglobin 10.2 g/dL (12.0-16.0); Mean Corp Hgb Conc. 31.4 g/dL (33.0-37.0); Mean Corpuscular Hgb 28.7 pg (27.0-31.0); Mean Corpuscular Volume 91.3 fL (81.0-99.0); Nucleated Red Blood Cells % 0 %; Platelet Count 143 10^3/uL (130-400); Red Blood Cell Count 3.56 10^6/uL (4.20-5.40); White Blood Cell Count 3.9 10^3/uL (4.8-10.8)
[2024-02-18 06:53] LABS: Blood Urea Nitrogen 30 mg/dl (7-17); Calcium 7.9 mg/dl (8.4-10.2); Carbon Dioxide 28 mmol/L (22-30); Chloride 95 mmol/L (98-107); Estimated Creatinine Clearance 20 ml/min; Glucose 100 mg/dl (70-99); Potassium 3.9 mmol/L (3.5-5.1); Sodium 135 mmol/L (135-145); eGFR 31.27
[2024-02-18 07:10] VITALS: BP 103/71
[2024-02-18] MEDS: NEURONTIN 300 MG PO ×2 (08:11→20:06)
[2024-02-18] MEDS: HEPARIN 5000 UNITS SC ×2 (08:12→20:05)
[2024-02-18] MEDS: OCUVITE SOFTGEL 1 CAP PO ×2 (08:12→20:06)
[2024-02-18] MEDS: LOMOTIL 2 TABLET PO ×2 (08:12→20:05)
[2024-02-18] MEDS: MAG-TAB SR 168 MG PO (08:12)
[2024-02-18] MEDS: IMODIUM 4 MG PO ×2 (08:12→20:06)
[2024-02-18] MEDS: LIDOCAINE 4% PATCH 1 PATCH TOPICAL (08:13)
[2024-02-18] MEDS: VIBRAMYCIN 100 MG PO (08:13)
--- NOTE | 2024-02-18 12:09 | W.PN.HOSP.TC ---
Today's Communication/Plan
-
monitor vitals
see plan
follow urine cx
pain control
hopeful dc to rehab tomorrow
Assessment / Plan
Assessment / Plan
General: Well Developed, Well Nourished and No Apparent Distress
HEENT: NormoCephalic, Moist mucous membranes and Atraumatic
Respiratory: Clear
Cardiac: S1/S2 and Regular Rhythm; No Murmur or Rub
GI: Soft, Non Tender, Non Distended and Normal Bowel Sounds
Musculoskeletal: No Clubbing, No Cyanosis and Other (right LE shortened, left LE in brace)
Neuro: AO x 3 and Nonfocal/grossly intact
Psych: Calm
left heel injury suspected subte calcaneal fracture
#ambulatory dysfunction
-PT/OT following
-boot placed
-follow up with podiatry as outpatient.
-Hip x ray with No radiographic evidence for complication of bilateral total hip arthroplasties.
-foot x ray with No radiographic evidence for an acute osseous abnormality of the left foot or ankle within the limitations of severe osseous demineralization.
-ankle x ray with No radiographic evidence for an acute osseous abnormality of the left foot or ankle within the limitations of severe osseous demineralization.
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
-completed routine exchange ureteral stents 11/[address] Cordero from urology and he will follow-up patient outpatient for routine stent exchange
Fever 02/15
follow bcx NGTD and urine cx growing gram-negative bacilli
has fistula for which she follows up with urology; for UTI she takes fosfomycin at times; awaiting urine cx; fevers could be 2/2 UTI
#Left total hip revision, March 2020, complicated by infected hematoma with MRSA, status post washout May 27, 2020,� completed six weeks of IV daptomycin
-cont home oral suppressive therapy, doxycycline.
# Chronic Anemia mild
monitor
# CKD stage III
-monitor renal function
# History of bowel resection with ileostomy for colon cancer 1994
-History of high output ileostomy
# History of distal right femur fracture
#Chronic pain opiate dependent
-Continue Fentanyl patch 25mcg.
-continue morphine
# Severe protein calorie malnutrition
#History of seizures
-off Keppra for the past month w/o sz activity as per patient
-1st and last sz due to adverse effect Baclofen years ago also as per patient
# History of DVT/PE
#Hx IVC filter
# History of presbyesophagus/H. pylori gastritis
-Continue Protonix
#Osteoporosis
# Neuropathy
-Continue home gabapentin dose
# Hx of Stage II sacral decubitus ulcer
DNR
DVT prophylaxis� heparin sq
PT/OT rec SNF
Anticipated Discharge: Within 24 hours
Subjective/Interval History
-
Date of Service: February 18, 2024
has pain
Objective Data
-
Labs:
Laboratory Results
02/18/24
06:23
WBC 3.9 L
Hgb 10.2 L
Hct 32.5 L
Plt Count 143
Sodium 135
Potassium 3.9
Chloride 95 L
Carbon Dioxide 28
BUN 30 H
Creatinine 1.7 H
Glucose 100 H
Calcium 7.9 L
Vital Signs:
Vital Signs
Temp Pulse Resp BP Pulse Ox
98.4 F 93 16 103/71 95
02/18/24 07:10 02/18/24 07:10 02/18/24 07:10 02/18/24 07:10 02/18/24 07:10
I&O
02/17/24 02/18/24 02/19/24
06:59 06:59 06:59
Intake Total 960 / 960 1860 / 1860
Output Total 105 / 105 1050 / 1050
Balance 855 / 855 810 / 810
--- NOTE | 2024-02-18 12:14 | PN.CDI ---
CDI
- -
CDI:
Physician Documentation Request
Admit Date: 02/17/24 12:17
Dear Doctor Sudeep,
Patient presented to ED with concerns for left heel and ankle discomfort. Found to have left heel injury 'suspected subte calcaneal fracture'
Left foot and ankle study also showed 'Significant diffuse osseous demineralization'
Please provide further specificity regarding the diagnosis of fracture:
Etiology
Traumatic
Pathologic due to osteoporosis
Due to a combination of trauma and a pathological process
but the trauma alone would not likely have been sufficient
to cause the fracture
Use of terms such as suspected, likely, concern for, or probable (associated with a specific diagnosis that is being evaluated, monitored, or treated as if it exists) are acceptable and can be coded in the inpatient setting, when documented at the
time of discharge.
Thank you,
Tayler Branham RN, BSN
CDI Specialist
tiger text
Please use your independent medical judgment in providing your response.
--- NOTE | 2024-02-18 12:18 | PN.CDI ---
CDI
- -
CDI:
Physician Documentation Request
Admit Date: 02/17/24 12:17
Dear Doctor Sudeep,
Hospitalist progress note includes a diagnosis of severe protein calorie malnutrition
RD notes state 'Met with patient. Patient eats a regular diet. Appetite is good. Possible 1-3 lb weight gain over past 3 months.'
To ensure the quality of the medical record, based on the above information and the recognized standards for malnutrition , could you please verify in your progress notes which of the following responses best reflects the patient's nutritional
status:
Severe Malnutrition is/was present and is a clinical diagnosis (please provide additional support in the medical record)
No nutritional deficiency
Other (please specify)
[place] Criteria ([facility] Hospitalist 2017)
2 or more criteria must be present for either
non severe or severe malnutrition
Note that the criteria differs related to the
presence of an acute or chronic illness
Acute Illness Chronic Illness
Energy Intake Non Severe: <75% for >7 days Non Severe: <75% for >1 month
Severe: <50% for >5 days Severe: <75% for >1 month
Weight Loss Non Severe: 1-2% over 1 week Non Severe: 5% over 1 month
5% over 1 month 7.5% over 3 months
7.5% over 3 months 10% over 6 months
1 year N/A 20% over 1 year
Severe: >2% over 1 week Severe: >5% over 1 month
>5% over 1 month >7.5% over 3 months
>7.5% over 3 months >10% over 6 months
1 year N/A >20% over 1 year
Body Fat Non Severe: Mild Decrease Non Severe: Mild Loss
Severe: Moderate Decrease Severe: Severe Loss
Muscle Mass Non Severe: Mild Decrease Non Severe: Mild Loss
Severe: Moderate Decrease Severe: Severe Loss
Fluid Accumulation Non Severe: Mild Accumulation Non Severe: Mild Accumulation
Severe: Moderate to severe Severe: Moderate to severe
accumulation accumulation
Reduced Electronic Pagination System Operator Strength Non Severe: N/A Non Severe: N/A
Severe: Measurably reduced Severe: Measurably reduced
Use of terms such as suspected, likely, concern for, or probable (associated with a specific diagnosis that is being evaluated, monitored, or treated as if it exists) are acceptable and can be coded in the inpatient setting, when documented at the
time of discharge.
Thank you,
Tayler Branham RN, BSN
CDI Specialist
tiger text
Please use your independent medical judgment in providing your response.
--- NOTE | 2024-02-18 12:23 | PN.CDI ---
CDI
- -
CDI:
Physician Documentation Request
Admit Date: 02/17/24 12:17
Dear Doctor Sudeep,
Patient admitted for possible uti, ambulatory dysfunction. History of CKD III.
Creatinine results:
Laboratory Tests
02/15/24 02/17/24 02/18/24
21:28 05:46 06:23
Creatinine 1.4 H 1.7 H 1.7 H
Could you please provide a diagnosis that supports the above lab abnormalities and additional evaluation/ monitoring:
GRACIELA
Abnormal lab value clinically insignificant
Other
Criteria for GRACIELA*
1 Increase in serum creatinine by > or = to 0.3 mg/dL (> or = to 26.5 micromol/L) within 48 hours, OR
2 Increase in serum creatinine to > or = to 1.5 times baseline, which is known or presumed to have occurred within 7 days, OR
3 Urine volume < 0.5 nL/kg/hour for six hours
Use of terms such as suspected, likely, concern for, or probable (associated with a specific diagnosis that is being evaluated, monitored, or treated as if it exists) are acceptable and can be coded in the inpatient setting, when documented at the
time of discharge.
Thank you,
Tayler Branham RN, BSN
CDI Specialist
tiger text
Please use your independent medical judgment in providing your response.
--- NOTE | 2024-02-18 12:53 | CM ---
Addendum entered by Irma Rios 02/18/24 15:44:
Call from [facility] - they are unable to accept patient, no bed availability
Spoke with Julieta from [facility] & they can accept & have bed available patient on Wednesday
Patient agreeable to [facility]
transportation forms on chart
PLAN: [facility]
Report #: [phone]
Fax #: [phone]
Call electrician front & ask for nursing stock supervisor - [phone]
Original Note:
Patient seen at bedside with sister Jordyn
referrals in [facility]
Call placed to Selene liaison at [facility] regarding bed availability
Patient prefers [facility]
PLAN: SNF, pending bed availability
[2024-02-18 15:18] VITALS: BP 117/77
[2024-02-18] MEDS: MAG-TAB SR 84 MG PO (17:51)
[2024-02-18] MEDS: COMPAZINE 5 MG IV (20:44)
[2024-02-18 23:18] VITALS: BP 106/70
[2024-02-19] MEDS: DURAGESIC 25 MCG/HR PATCH 1 PATCH TRANSDERM (00:14)
[2024-02-19] MEDS: MORPHINE SULFATE 15 MG PO ×2 (02:29→14:29)
[2024-02-19 06:00] VITALS: BMI 22.9
[2024-02-19 07:55] VITALS: BP 94/58
[2024-02-19] MEDS: LOMOTIL 2 TABLET PO (08:10)
[2024-02-19] MEDS: IMODIUM 4 MG PO (08:11)
[2024-02-19] MEDS: NEURONTIN 300 MG PO (08:11)
[2024-02-19] MEDS: OCUVITE SOFTGEL 1 CAP PO (08:11)
[2024-02-19] MEDS: MAG-TAB SR 168 MG PO (08:11)
[2024-02-19] MEDS: VIBRAMYCIN 100 MG PO (08:11)
[2024-02-19] MEDS: HEPARIN 5000 UNITS SC ×2 (08:12→19:51)
[2024-02-19] MEDS: LIDOCAINE 4% PATCH 1 PATCH TOPICAL (08:12)
[2024-02-19 08:21] LABS: % Basophils 0.3 % (0-2); % Immature Granulocytes 0.3 % (0-0.5); % Lymphocytes 14.9 % (20.5-51.1); % Monocytes 11.7 % (1.7-9.3); % Neutrophils 71.8 % (42.2-75.2); Absolute Eosinophils 0.1 10^3/uL (0-0.7); Absolute Lymphocytes 0.9 10^3/uL (1.2-3.4); Absolute Monocytes 0.7 10^3/uL (0.1-0.6); Absolute Neutrophils 4.1 10^3/uL (1.4-6.5); Hematocrit 32.7 % (37.0-47.0); Hemoglobin 10.8 g/dL (12.0-16.0); Mean Corpuscular Hgb 29.3 pg (27.0-31.0); Mean Corpuscular Volume 88.6 fL (81.0-99.0); Mean Platelet Volume 10.5 fL (7.4-10.4); Nucleated Red Blood Cells % 0 %; Platelet Count 160 10^3/uL (130-400); Red Blood Cell Count 3.69 10^6/uL (4.20-5.40); White Blood Cell Count 5.7 10^3/uL (4.8-10.8)
[2024-02-19 09:19] LABS: Blood Urea Nitrogen 34 mg/dl (7-17); Calcium 8.4 mg/dl (8.4-10.2); Carbon Dioxide 29 mmol/L (22-30); Chloride 93 mmol/L (98-107); Estimated Creatinine Clearance 19 ml/min; Glucose 97 mg/dl (70-99); Potassium 4.4 mmol/L (3.5-5.1); Sodium 134 mmol/L (135-145)
--- NOTE | 2024-02-19 11:03 | W.PN.HOSP.TC ---
Addendum entered and electronically signed by Gera Sheets MD 02/19/24 18:08:
Patient had some abdominal discomfort and nausea. Obstruction series concerning for possible obstruction. NPO. Check CT abdomen/pelvis with p.o. contrast. Discussed with patient and RN. If CT positive for obstruction then will need surgery
evaluation. Currently patient is feeling a little better than before and denies any nausea and vomiting.
Original Note:
Today's Communication/Plan
-
Monitor vital signs see plan
Gentle hydration
Monitor renal function
PT/OT
Pain control
Urine culture
Hopeful DC tomorrow
Assessment / Plan
Assessment / Plan
General: Well Developed, Well Nourished and No Apparent Distress
HEENT: NormoCephalic, Moist mucous membranes and Atraumatic
Respiratory: Clear
Cardiac: S1/S2 and Regular Rhythm; No Murmur or Rub
GI: Soft, Non Tender, Non Distended and Normal Bowel Sounds
Musculoskeletal: No Clubbing, No Cyanosis and Other (right LE shortened, left LE in brace)
Neuro: AO x 3 and Nonfocal/grossly intact
Psych: Calm
left heel injury suspected subte calcaneal fracture, appears both traumatic and pathologic due to osteoporosis
#ambulatory dysfunction
-PT/OT following
-boot placed
-follow up with podiatry as outpatient.
-Hip x ray with No radiographic evidence for complication of bilateral total hip arthroplasties.
-foot x ray with No radiographic evidence for an acute osseous abnormality of the left foot or ankle within the limitations of severe osseous demineralization.
-ankle x ray with No radiographic evidence for an acute osseous abnormality of the left foot or ankle within the limitations of severe osseous demineralization.
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
-completed routine exchange ureteral stents 11/[address] Cordero from urology and he will follow-up patient outpatient for routine stent exchange
Fever 11/20
follow bcx NGTD and urine cx growing gram-negative bacilli
has fistula for which she follows up with urology; for UTI she takes fosfomycin at times; awaiting urine cx; fevers could be 2/2 UTI
#Left total hip revision, March 2020, complicated by infected hematoma with MRSA, status post washout May 27, 2020,� completed six weeks of IV daptomycin
-cont home oral suppressive therapy, doxycycline.
# Chronic Anemia mild
monitor
# GRACIELA on CKD stage III
-monitor renal function
gentle hydration
# History of bowel resection with ileostomy for colon cancer 1994
-History of high output ileostomy
# History of distal right femur fracture
#Chronic pain opiate dependent
-Continue Fentanyl patch 25mcg.
-continue morphine
# Severe protein calorie malnutrition
#History of seizures
-off Keppra for the past month w/o sz activity as per patient
-1st and last sz due to adverse effect Baclofen years ago also as per patient
# History of DVT/PE
#Hx IVC filter
# History of presbyesophagus/H. pylori gastritis
-Continue Protonix
Severe protein calorie malnutrition
#Osteoporosis
# Neuropathy
-Continue home gabapentin dose
# Hx of Stage II sacral decubitus ulcer
DNR
DVT prophylaxis� heparin sq
PT/OT rec SNF
I spent a total of 52 minutes with the patient or on the floor. More than 50% of this time involved counseling and coordination of care.
Anticipated Discharge: Within 24 hours
Subjective/Interval History
-
Date of Service: February 19, 2024
has mild nausea
Objective Data
-
Labs:
Laboratory Results
02/19/24
07:59
WBC 5.7
Hgb 10.8 L
Hct 32.7 L
Plt Count 160
Sodium 134 L
Potassium 4.4
Chloride 93 L
Carbon Dioxide 29
BUN 34 H
Creatinine 1.8 H
Glucose 97
Calcium 8.4
Vital Signs:
Vital Signs
Temp Pulse Resp BP Pulse Ox
98.5 F 103 14 94/58 95
02/19/24 07:55 02/19/24 07:55 02/19/24 07:55 02/19/24 07:55 02/19/24 07:55
I&O
02/18/24 02/19/24 02/20/24
06:59 06:59 06:59
Intake Total 1860 / 1860 960 / 960
Output Total 1050 / 1050 400 / 400
Balance 810 / 810 560 / 560
--- NOTE | 2024-02-19 11:04 | CM ---
Chart reviewed.
Pt to d/c to [facility] tomorrow
Transport forms on chart
IMM on chart
Per hospitalist, pt should be able to d/c tomorrow
CM confirmed w/ [facility] that pt has a bed tomorrow and are aware of pt's admission
[facility]
Report #: [phone]
Fax #: [phone]
Call front office developer & ask for nursing [employer] supervisor - [phone]
Plan: [facility] via ambulance
[2024-02-19] MEDS: NSS 1000 IV (12:33)
[2024-02-19] MEDS: COMPAZINE 5 MG IV (14:28)
[2024-02-19 15:21] VITALS: BP 97/64
[2024-02-19] MEDS: MYLICON 80 MG PO (16:30)
[2024-02-19] MEDS: MAG-TAB SR 84 MG PO (17:19)
[2024-02-19] MEDS: OMNIPAQUE 50 ML PO (18:34)
[2024-02-19] MEDS: NEURONTIN PO (19:39)
[2024-02-19] MEDS: OCUVITE SOFTGEL PO (19:39)
[2024-02-19] MEDS: IMODIUM PO (19:52)
[2024-02-19] MEDS: LOMOTIL PO (19:52)
[2024-02-19] MEDS: TYLENOL 650 MG PO (22:51)
[2024-02-19 23:19] VITALS: BP 114/75
[2024-02-20] MEDS: MORPHINE SULFATE 15 MG PO (03:52)
[2024-02-20 06:00] VITALS: BMI 23.5
[2024-02-20 07:15] VITALS: BP 86/60
[2024-02-20 07:57] VITALS: BP 86/60
[2024-02-20 08:14] LABS: % Basophils 0.3 % (0-2); % Eosinophils 1.7 % (0-6); % Immature Granulocytes 0.3 % (0-0.5); % Lymphocytes 10.9 % (20.5-51.1); % Monocytes 14.9 % (1.7-9.3); % Neutrophils 71.9 % (42.2-75.2); Absolute Eosinophils 0.1 10^3/uL (0-0.7); Absolute Lymphocytes 0.6 10^3/uL (1.2-3.4); Absolute Monocytes 0.9 10^3/uL (0.1-0.6); Absolute Neutrophils 4.2 10^3/uL (1.4-6.5); Hematocrit 30.6 % (37.0-47.0); Hemoglobin 10.3 g/dL (12.0-16.0); Mean Corp Hgb Conc. 33.7 g/dL (33.0-37.0); Mean Corpuscular Hgb 29.7 pg (27.0-31.0); Mean Corpuscular Volume 88.2 fL (81.0-99.0); Mean Platelet Volume 10.2 fL (7.4-10.4); Nucleated Red Blood Cells % 0 %; Platelet Count 161 10^3/uL (130-400); Red Blood Cell Count 3.47 10^6/uL (4.20-5.40); White Blood Cell Count 5.8 10^3/uL (4.8-10.8)
[2024-02-20 08:21] VITALS: BP 94/60
[2024-02-20] MEDS: MAG-TAB SR PO (08:23)
[2024-02-20] MEDS: OCUVITE SOFTGEL PO (08:23)
[2024-02-20] MEDS: NEURONTIN PO (08:23)
[2024-02-20 08:53] LABS: Blood Urea Nitrogen 37 mg/dl (7-17); Carbon Dioxide 26 mmol/L (22-30); Chloride 92 mmol/L (98-107); Estimated Creatinine Clearance 19 ml/min; Glucose 89 mg/dl (70-99); Potassium 4.6 mmol/L (3.5-5.1); Sodium 130 mmol/L (135-145)
[2024-02-20] MEDS: HEPARIN 5000 UNITS SC ×2 (09:23→20:32)
[2024-02-20] MEDS: VIBRAMYCIN 100 MG PO (09:23)
[2024-02-20] MEDS: LIDOCAINE 4% PATCH 1 PATCH TOPICAL (09:23)
[2024-02-20] MEDS: NSS 1000 IV ×2 (09:24→22:01)
--- NOTE | 2024-02-20 10:58 | W.PN.HOSP.TC ---
Addendum entered and electronically signed by Gera Sheets MD 02/20/24 11:49:
start cipro for UTI
Original Note:
Today's Communication/Plan
-
monitor vitals
see plan
surgery consulted
NPO
IVF
check EKG for qTC
Follow fever curve
Assessment / Plan
Assessment / Plan
General: Well Developed, Well Nourished and No Apparent Distress
HEENT: NormoCephalic, Moist mucous membranes and Atraumatic
Respiratory: Clear
Cardiac: S1/S2 and Regular Rhythm; No Murmur or Rub
GI: Soft, Non Tender, + colostomy
Musculoskeletal: No Clubbing, No Cyanosis and Other (right LE shortened, left LE in brace)
Neuro: AO x 3 and Nonfocal/grossly intact
Psych: Calm
left heel injury suspected subtle calcaneal fracture, appears both traumatic and pathologic due to osteoporosis
#ambulatory dysfunction
-PT/OT following
-boot placed; reporting pain is better
-follow up with podiatry as outpatient.
-Hip x ray with No radiographic evidence for complication of bilateral total hip arthroplasties.
-foot x ray with No radiographic evidence for an acute osseous abnormality of the left foot or ankle within the limitations of severe osseous demineralization.
-ankle x ray with No radiographic evidence for an acute osseous abnormality of the left foot or ankle within the limitations of severe osseous demineralization.
Nausea and abdominal pain started 02/[address] abdomen with possible SBO. Surgery consulted
NPO; currently not vomiting; if persistent then will require NGT
per patient she had multiple SBP in past and get resolve with conservative measures
IVF
# History of bowel resection with ileostomy for colon cancer 1994
-History of high output ileostomy
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
-completed routine exchange ureteral stents 11/[address] Cordero from urology and he will follow-up patient outpatient for routine stent exchange
fever again overnight 02/18; check bcx. denies any complaints currently
urine cx grew klebsiella before; check Qtc
has fistula for which she follows up with urology; for UTI she takes fosfomycin at times
if persistent fevers then would need ID evaluation
#Left total hip revision, March 2020, complicated by infected hematoma with MRSA, status post washout May 27, 2020,� completed six weeks of IV daptomycin
-cont home oral suppressive therapy, doxycycline.
# Chronic Anemia mild
monitor
# GRACIELA on CKD stage III
-monitor renal function; could be ATN too from hypotension. check urine lytes,eos
gentle hydration
bladder scan normal
hyponatremia
monitor
# History of distal right femur fracture
#Chronic pain opiate dependent
-Continue Fentanyl patch 25mcg.
-continue morphine
# Severe protein calorie malnutrition
#History of seizures
-off Keppra for the past month w/o sz activity as per patient
-1st and last sz due to adverse effect Baclofen years ago also as per patient
# History of DVT/PE
#Hx IVC filter
# History of presbyesophagus/H. pylori gastritis
-Continue Protonix
Severe protein calorie malnutrition
#Osteoporosis
# Neuropathy
-Continue home gabapentin dose
# Hx of Stage II sacral decubitus ulcer
DNR
DVT prophylaxis� heparin sq
PT/OT rec SNF
I spent a total of 53 minutes with the patient or on the floor. More than 50% of this time involved counseling and coordination of care.
Anticipated Discharge: > 48 hours
Subjective/Interval History
-
Date of Service: February 20, 2024
denies pain
Objective Data
-
Labs:
Laboratory Results
02/20/24
07:48
WBC 5.8
Hgb 10.3 L
Hct 30.6 L
Plt Count 161
Sodium 130 L
Potassium 4.6
Chloride 92 L
Carbon Dioxide 26
BUN 37 H
Creatinine 1.8 H
Glucose 89
Calcium 8.0 L
Vital Signs:
Vital Signs
Temp Pulse Resp BP Pulse Ox
98.8 F 102 16 94/60 97
02/20/24 07:15 02/20/24 08:21 02/20/24 07:15 02/20/24 08:21 02/20/24 07:15
I&O
02/19/24 02/20/24 02/21/24
06:59 06:59 06:59
Intake Total 960 / 960 1680 / 1680
Output Total 400 / 400 1405 / 1405
Balance 560 / 560 275 / 275
--- NOTE | 2024-02-20 12:44 | CON.GS ---
Consultation
-
Date/Time Consultation Requested: 02/20/2024, 10: 58
Date/Time Consultation Performed: 02/20/2024, 1430
Requesting Provider: Kane Sheets MD
Performing Provider: Juan Forde MD
Reason for Consultation: Small bowel obstruction
Medical History
-
Chief Complaint: Abdominal pain
History of Present Illness:
73-year-old female presents to [facility] on 02/15/2024 due to left heel and ankle pain that occurred when walking. She is typically wheelchair-bound but occasionally can stand and pivot. She felt a sharp pain and a crunch which brought her
to the ER. She was admitted due to the left heel injury and a possible calcaneal fracture was discovered. She was placed in a boot. She developed nausea and abdominal pain yesterday. She was made NPO. Abdominal x-ray yesterday shows prominent,
gas/fluid loops of bowel projecting over the lower abdomen and upper pelvis. She then underwent a CT of the abdomen and pelvis without contrast. This showed multiple dilated small bowel loops throughout the abdomen without discrete transition
point identified, noting that visualization within the pelvis slightly limited due to streak artifact. Findings remain suspicious for developing small bowel obstruction. The patient has a history of over 20 small bowel obstructions in the past,
and has always been treated with nonsurgical measures. She states she never had an ngt placed during a SBO and 'rode it out'.
Of multiple prior surgeries which includes a colectomy for colon cancer [place] [address] S[place]. She has remained with a high output ileostomy. She also notes a parastomal hernia which comes and goes. Currently her WBC is 5.8. She had a
temperature of 101.7 yesterday evening. She is currently afebrile. She has been intermittently tachycardic throughout her stay ranging from 100s to 120s. Her blood pressure remains normotensive to hypotensive which she has had on previous
admissions. She is currently not that hungry. She feels mildly bloated. She has been burping intermittently. There is flatus in her stoma. She has had some liquid output in her bag. We have been consulted for further surgical opinion.
Past Medical History
Past Medical History: Cancer (colon, bladder), HTN, Psychiatric (Depression) and Other (Peripheral neuropathy, malabsorption,Freeman Anmol syndrome, OCD, history of DVT, anemia, short-bowel syndrome, kidney stones, UTI, ureteral stricture, CKD,
hypotension, rheumatoid arthritis)
Past Surgical History: Bowel Resection and Other (Lithotripsy, spinal fusion, bilateral hip replacement, vertebroplasty, ileostomy, ureteral stents, Mohs surgery, knee replacement, skin surgery, collarbone surgery, ankle surgery, left cataract
surgery)
Social History
Tobacco: Non-Smoker
Alcohol: None
Drug: None
Personal: Single
Family History
Family History: Reviewed & Not Pertinent
Allergies / Home Medications
Allergy/AdvReac Type Severity Reaction Status Date / Time
Androgenic Anabolic Steroid Allergy Shortness Verified 02/15/24 18:05
of Breath
baclofen Allergy near Verified 02/15/24 18:05
;never
woke up
Corticosteroids Allergy can take Verified 02/15/24 18:05
(Glucocorticoids) PO, not
injection
cyclobenzaprine Allergy Hives Verified 02/15/24 18:05
[From Flexeril]
hydromorphone Allergy VOMITING Verified 02/15/24 18:05
hydromorphone HCl Allergy Vomiting Verified 02/15/24 18:05
[From Dilaudid]
mirabegron Allergy itching Verified 02/15/24 18:05
rash
nitrofurantoin Allergy Rash Verified 02/15/24 18:05
[From Macrobid]
omeprazole Allergy FLUSHING, Verified 02/15/24 18:05
HIVES
ondansetron HCl [From Zofran] Allergy VOMITING Verified 02/15/24 18:05
Penicillins Allergy Shortness Verified 02/15/24 18:05
of Breath
ranitidine Allergy flushing, Verified 02/15/24 18:05
hives
vancomycin Allergy Itching Verified 02/15/24 18:05
�Medication �Instructions �Recorded �Confirmed �Type
magnesium oxide 800 mg PO DAILY Supplement 01/27/21 02/15/24 History
diphenoxylate-atropine 2.5 2 tab PO BID Gastrointestinal issue 12/08/21 02/15/24 History
mg-0.025 mg tablet (Lomotil)
cyanocobalamin (vitamin B-12) 1,000 mcg SC MONTHLY Supplement 11/05/22 02/15/24 History
1,000 mcg/mL injection solution
prednisone 10 mg tablet 10 mg PO DAILYPRN PRN joint pain 11/05/22 02/15/24 History
prochlorperazine maleate 5 mg 5 mg PO TIDPRN PRN nausea 11/05/22 02/15/24 History
tablet (Compazine)
octreotide,microspheres 20 mg 20 mg IM Q4W Ileostomy 02/09/23 02/15/24 History
intramuscular susp, extended
release (Sandostatin LAR Depot)
doxycycline hyclate 100 mg tablet 100 mg PO DAILY Ortho prophylaxis 02/13/23 02/15/24 Rx
#0 tabs
famotidine 20 mg tablet (Pepcid) 20 mg PO DAILYPRN PRN indigestion 11/10/23 02/15/24 History
furosemide 20 mg tablet 20 mg PO MOWEFR PRN edema 11/10/23 02/15/24 History
loperamide 2 mg tablet 4 mg PO BID diarrhea 11/10/23 02/15/24 History
vitamins A,C,H-dfnu-kyxneg 2,148 2 tab PO BID Supplement 11/10/23 02/15/24 History
mcg-113 mg-45 mg-17.4 mg tablet
(PreserVision AREDS)
fentanyl 25 mcg/hr transdermal 25 mcg transdermal Q72H Pain 11/15/23 02/15/24 History
patch
gabapentin 300 mg capsule 300 mg PO BID 30 days #60 caps 11/16/23 02/15/24 Rx
acetaminophen 500 mg tablet 500 mg PO Q6HPRN PRN mild pain 02/15/24 02/15/24 History
magnesium oxide 400 mg (241.3 mg 400 mg PO QPM 02/15/24 02/15/24 History
magnesium) tablet
morphine 15 mg immediate release 15 mg PO [id number] PRN breakthrough 02/15/24 02/15/24 History
tablet pain
pantoprazole 40 mg tablet,delayed 40 mg PO BIDPRN PRN reflux 02/15/24 02/15/24 History
release
Review of Systems
-
History Source: Patient
Abdomen/GI: Abdominal Pain and Nausea
Musculoskeletal: Joint Pain (LLE)
A 10 point review of systems was completed, and was negative except as per HPI.
Physical Exam
Vital Signs
Temp Pulse Resp BP Pulse Ox
98.8 F 102 16 94/60 97
02/20/24 07:15 02/20/24 08:21 02/20/24 07:15 02/20/24 08:21 02/20/24 07:15
02/19/24 02/20/24 02/21/24
06:59 06:59 06:59
Actual Weight 51.301 kg 52.798 kg
Body Mass Index (BMI) 23.5
Lab Results
02/20/24 07:48
02/20/24 07:48
WBC 5.8 10^3/uL (4.8-10.8) 02/20/24 07:48
Hgb 10.3 g/dL (12.0-16.0) L 02/20/24 07:48
Hct 30.6 % (37.0-47.0) L 02/20/24 07:48
Plt Count 161 10^3/uL (130-400) 02/20/24 07:48
Abs Immat Gran (auto) 0.0 10^3/uL (0-0.05) 02/20/24 07:48
Neutrophils % 71.9 % (42.2-75.2) 02/20/24 07:48
Physical Exam
General: Well Developed, Well Nourished and No Apparent Distress
GI: Soft, Non Tender and Distended (mild)
Neuro: AO x 3
Psych: Calm
Data Reviewed
-
CT Scan: Image Personally Visualized and interpreted, Report Reviewed by me and Discussed with Patient
Labs: Labs Reviewed by me, Discussed with Physician and Discussed with Patient
Assessment / Plan
-
Assessment: 73 yo female with a history of a colectomy in 1984 due to colon cancer status post ileostomy presents to [facility] several days ago due to left ankle pain, developed nausea and abdominal pain yesterday and found to have a small
bowel obstruction on CT
Plan:
-No plans for urgent surgery at this time
-Will continue to monitor without NG tube. If she vomits she will require a nasogastric tube.
-IV antibiotics per primary team
-Hold senna
-Abdominal xrays in AM to see progression of oral contrast
-Remain NPO for now
-Will follow
[2024-02-20] MEDS: CIPRO 250 MG PO (12:50)
[2024-02-20 15:10] VITALS: BP 96/58
[2024-02-20 17:41] LABS: Urine Sodium 20 mmol/L (30-90)
[2024-02-20 18:57] LABS: Body Fluid for Eosinophils No Eosinophils seen
[2024-02-20] MEDS: MORPHINE SULFATE 1 MG IV (20:36)
[2024-02-20] MEDS: MYLICON 80 MG PO (22:01)
[2024-02-20] MEDS: COMPAZINE 5 MG IV (22:03)
[2024-02-20 23:20] VITALS: BP 108/62
[2024-02-21] MEDS: CIPRO 250 MG PO ×2 (00:59→13:05)
[2024-02-21] MEDS: BenGay-Like 1 APPLIC TOPICAL (01:47)
[2024-02-21 06:00] VITALS: BMI 23.7
[2024-02-21] MEDS: MORPHINE SULFATE 1 MG IV ×3 (06:12→15:30)
[2024-02-21 06:51] LABS: % Basophils 0.2 % (0-2); % Eosinophils 2.5 % (0-6); % Immature Granulocytes 0.4 % (0-0.5); % Lymphocytes 11.4 % (20.5-51.1); % Monocytes 13.9 % (1.7-9.3); % Neutrophils 71.6 % (42.2-75.2); Absolute Eosinophils 0.1 10^3/uL (0-0.7); Absolute Lymphocytes 0.6 10^3/uL (1.2-3.4); Absolute Monocytes 0.7 10^3/uL (0.1-0.6); Absolute Neutrophils 3.8 10^3/uL (1.4-6.5); Hematocrit 31.3 % (37.0-47.0); Mean Corp Hgb Conc. 31.9 g/dL (33.0-37.0); Mean Corpuscular Hgb 29.2 pg (27.0-31.0); Mean Corpuscular Volume 91.5 fL (81.0-99.0); Mean Platelet Volume 10.1 fL (7.4-10.4); Nucleated Red Blood Cells % 0 %; Platelet Count 171 10^3/uL (130-400); Red Blood Cell Count 3.42 10^6/uL (4.20-5.40); Red Cell Dist. Width 14.5 % (11.5-14.5); White Blood Cell Count 5.3 10^3/uL (4.8-10.8)
[2024-02-21 07:10] VITALS: BP 107/61
[2024-02-21 07:24] LABS: Blood Urea Nitrogen 38 mg/dl (7-17); Calcium 7.9 mg/dl (8.4-10.2); Carbon Dioxide 17 mmol/L (22-30); Chloride 99 mmol/L (98-107); Estimated Creatinine Clearance 18 ml/min; Glucose 48 mg/dl (70-99); Potassium 4.6 mmol/L (3.5-5.1); Sodium 133 mmol/L (135-145); eGFR 27.37
[2024-02-21 07:30] VITALS: BP 103/68
[2024-02-21] MEDS: DEXTROSE 50% SYRINGE 25 GRAMS IV (07:42)
[2024-02-21] MEDS: HEPARIN 5000 UNITS SC ×2 (08:22→19:58)
[2024-02-21] MEDS: LIDOCAINE 4% PATCH 1 PATCH TOPICAL (08:22)
[2024-02-21] MEDS: VIBRAMYCIN 100 MG PO (08:22)
[2024-02-21 08:31] LABS: Glucose - Point of Care 180 mg/dl (70-99)
--- NOTE | 2024-02-21 08:42 | W.PN.HOSP.TC ---
Today's Communication/Plan
-
see bold
Assessment / Plan
Assessment / Plan
Gen: NAD, AAOx3, appears chronically ill malnourished.
Eyes: EOMI, PERRLA, no scleral icterus.
Neck: supple.
CV: RRR, +S1/S2, no m/r/g.
Resp: CTAB, no rales, wheezes, or rhonchi.
Abd: +BS, soft, RUQ TTP (at hernia site), ND
Skin: No rashes.
Neuro: CN 2-12 intact, non-focal.
Psych: Normal mood and affect.
L hip Xray: No radiographic evidence for complication of bilateral total hip arthroplasties.
L foot/ankle Xray: No radiographic evidence for an acute osseous abnormality of the left foot or ankle within the limitations of severe osseous demineralization.
OBST series 02/19/24: Multiple prominent, gas-filled loops of bowel projecting over the lower abdomen/upper pelvis suspicious for bowel obstruction.
CT A/P 02/19/24: Multiple dilated small bowel loops throughout the abdomen without discrete transition point identified, noting that visualization within the pelvis is significantly limited due to streak artifact. Findings remain suspicious for
developing small bowel obstruction.
Ileus vs SBO:
-nausea and abd pain started 02/18
-imaging above
-surgery following
-NPO/IVFs (change to D5NS with hypoglycemia 02/20AM)
-note h/o bowel resection with ileostomy for colon cancer 1994
-h/o high output ileostomy
Ambulatory dysfunction due to L heel injury:
-suspected subtle calcaneal fracture, appears both traumatic and pathologic due to osteoporosis
-PT/OT
-boot placed; reporting pain is better
-f/u with podiatry as outpatient
Acute UTI:
-cont Cipro based on UCxs
-BCx 02/16/24 NGTD, BCx 02/20/24 pending
-fever resolved
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
GRACIELA on CKD4:
-Cr worsening, now with AGMA
-c/s renal
-cont IVFs
Other problems:
h/o B/L JJ stents, h/o B/L ureteral stricture due to XRT for uterine cancer, history of metastatic bladder cancer: s/p routine exchange of ureteral stents 11/15/23, outpt f/u with Uro
L total hip revision, March 2020, complicated by infected hematoma with MRSA, status post washout 05/27/20, completed six weeks of IV daptomycin. Cont home oral suppressive doxycycline.
Chronic Anemia
Hyponatremia, mild
h/o distal R femur fracture
Chronic pain, chronic opioid use with dependence: cont Fentanyl patch/morphine
Severe protein calorie malnutrition
h/o seizures: off Keppra for the past month w/o sz activity as per patient. 1st and last sz due to adverse effect Baclofen years ago also as per patient.
h/o DVT/PE s/p IVC filter
h/o presbyesophagus/H. pylori gastritis: cont PPI
Osteoporosis
Neuropathy: cont neurontin
h/o Stage II sacral decubitus ulcer
DNR/heparin
Anticipated Discharge: > 48 hours
Subjective/Interval History
-
Date of Service: February 21, 2024
Denies chest pain or shortness of breath. Complains of right lower chest and right upper quadrant abdominal pain that is worse with movement and inspiration.
Objective Data
-
Labs:
Laboratory Results
02/21/24
06:29
WBC 5.3
Hgb 10.0 L
Hct 31.3 L
Plt Count 171
Sodium 133 L
Potassium 4.6
Chloride 99
Carbon Dioxide 17 L
BUN 38 H
Creatinine 1.9 H
Glucose 48 L*
Calcium 7.9 L
Vital Signs:
Vital Signs
Temp Pulse Resp BP Pulse Ox
98.1 F 97 16 107/61 92
02/21/24 07:10 02/21/24 07:10 02/21/24 07:10 02/21/24 07:10 02/21/24 07:10
I&O
02/20/24 02/21/24 02/22/24
06:59 06:59 06:59
Intake Total 1680 / 1680 860 / 860
Output Total 1405 / 1405 450 / 450
Balance 275 / 275 410 / 410
[2024-02-21] MEDS: D5/0.9% SODIUM CHLORIDE 1000 IV ×2 (09:39→19:58)
--- NOTE | 2024-02-21 10:08 | W.CON.NEPH ---
Consultation
-
Date/Time Consultation Requested: 02/21/2024 10:00 AM
Date/Time Consultation Performed: 02/21/2024 10:00 AM
Requesting Provider: Dr. Calderon
Performing Provider: Dr. Pollock
Reason for Consultation: Acute kidney injury
Medical History
-
Chief Complaint: Acute kidney injury
History of Present Illness:
73-year-old female with past medical history of dementia, previous bowel obstruction, renal failure, multiple low back surgeries and significant decreased function chronically of the lower extremities presenting to the emergency department today
with concerns of discomfort to her left heel and ankle that occurred when getting out of the car to the wheelchair. his LE got twisted as she was getting out of car to chair. since then, she can not bear any weight on left LE. She typically is able
to stand and pivot for transfer into a wheelchair she is does not walk at baseline. denied any fall. denied CHAN,dizzy or syncopal episode. denied fever, chills, chest pain, sob. denied abdominal pain,n ,v,d.denied dysuria or hematuria. She is
chronically maintained on steroid therapy for arthritis pains. She appears to chronically be on furosemide 20 mg 3 times weekly for ongoing edema.she has a past medical history of chronic kidney disease stage III maintains a baseline creatinine
between 1.4-1.7. Over the course of her hospitalization her creatinine is up to 1.9 and nephrology was consulted.
Past Medical History
colon cancer
peripheral neuropathy
intestinal malabsorption
blader cancer
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
OCD
DVT
anemia
short bowel syndrome
kidney stones
UTI
ureteral stricture
htn
ckd 3 (1.6)
orthostatic hypotension
depression
rheumatoid arthritics
Past Surgical History: Reports Other
Additional Past Surgical History:
lithotripsy
spinal fusion
b/l hip replacement
vertebroplasty
intestinal resection
ileostomy
b/l ureteral stents
MOHS surgery
knee replacement
skin surgery
collar bone surgery
ankle surgery
left cataract surgery
Social History
Tobacco: Non-Smoker
Alcohol: None
Family History
no ckd
Allergies / Home Medications
Allergy/AdvReac Type Severity Reaction Status Date / Time
Androgenic Anabolic Steroid Allergy Shortness Verified 02/15/24 18:05
of Breath
baclofen Allergy near Verified 02/15/24 18:05
;never
woke up
Corticosteroids Allergy can take Verified 02/15/24 18:05
(Glucocorticoids) PO, not
injection
cyclobenzaprine Allergy Hives Verified 02/15/24 18:05
[From Flexeril]
hydromorphone Allergy VOMITING Verified 02/15/24 18:05
hydromorphone HCl Allergy Vomiting Verified 02/15/24 18:05
[From Dilaudid]
mirabegron Allergy itching Verified 02/15/24 18:05
rash
nitrofurantoin Allergy Rash Verified 02/15/24 18:05
[From Macrobid]
omeprazole Allergy FLUSHING, Verified 02/15/24 18:05
HIVES
ondansetron HCl [From Zofran] Allergy VOMITING Verified 02/15/24 18:05
Penicillins Allergy Shortness Verified 02/15/24 18:05
of Breath
ranitidine Allergy flushing, Verified 02/15/24 18:05
hives
vancomycin Allergy Itching Verified 02/15/24 18:05
�Medication �Instructions �Recorded �Confirmed �Type
magnesium oxide 800 mg PO DAILY Supplement 01/27/21 02/15/24 History
diphenoxylate-atropine 2.5 2 tab PO BID Gastrointestinal issue 12/08/21 02/15/24 History
mg-0.025 mg tablet (Lomotil)
cyanocobalamin (vitamin B-12) 1,000 mcg SC MONTHLY Supplement 11/05/22 02/15/24 History
1,000 mcg/mL injection solution
prednisone 10 mg tablet 10 mg PO DAILYPRN PRN joint pain 11/05/22 02/15/24 History
prochlorperazine maleate 5 mg 5 mg PO TIDPRN PRN nausea 11/05/22 02/15/24 History
tablet (Compazine)
octreotide,microspheres 20 mg 20 mg IM Q4W Ileostomy 02/09/23 02/15/24 History
intramuscular susp, extended
release (Sandostatin LAR Depot)
doxycycline hyclate 100 mg tablet 100 mg PO DAILY Ortho prophylaxis 02/13/23 02/15/24 Rx
#0 tabs
famotidine 20 mg tablet (Pepcid) 20 mg PO DAILYPRN PRN indigestion 11/10/23 02/15/24 History
furosemide 20 mg tablet 20 mg PO MOWEFR PRN edema 11/10/23 02/15/24 History
loperamide 2 mg tablet 4 mg PO BID diarrhea 11/10/23 02/15/24 History
vitamins A,C,U-nrig-kldssf 2,148 2 tab PO BID Supplement 11/10/23 02/15/24 History
mcg-113 mg-45 mg-17.4 mg tablet
(PreserVision AREDS)
fentanyl 25 mcg/hr transdermal 25 mcg transdermal Q72H Pain 11/15/23 02/15/24 History
patch
gabapentin 300 mg capsule 300 mg PO BID 30 days #60 caps 11/16/23 02/15/24 Rx
acetaminophen 500 mg tablet 500 mg PO Q6HPRN PRN mild pain 02/15/24 02/15/24 History
magnesium oxide 400 mg (241.3 mg 400 mg PO QPM 02/15/24 02/15/24 History
magnesium) tablet
morphine 15 mg immediate release 15 mg PO [id number] PRN breakthrough 02/15/24 02/15/24 History
tablet pain
pantoprazole 40 mg tablet,delayed 40 mg PO BIDPRN PRN reflux 02/15/24 02/15/24 History
release
Review of Systems
-
History Source: Patient
All other systems: Negative unless noted
Abdomen/GI: Other (Ileostomy, right-sided ventral hernia)
: Other (Chronic incontinence)
Skin: Other (Sacral decub)
Physical Exam
Vital Signs
Vital Signs
Temp Pulse Resp BP Pulse Ox
98.1 F 97 16 107/61 92
02/21/24 07:10 02/21/24 07:10 02/21/24 07:10 02/21/24 07:10 02/21/24 07:10
Lab Results
02/21/24 06:29
02/21/24 06:29
WBC 5.3 10^3/uL (4.8-10.8) 02/21/24 06:29
RBC 3.42 10^6/uL (4.20-5.40) L 02/21/24 06:29
Hgb 10.0 g/dL (12.0-16.0) L 02/21/24 06:29
Hct 31.3 % (37.0-47.0) L 02/21/24 06:29
Plt Count 171 10^3/uL (130-400) 02/21/24 06:29
Sodium 133 mmol/L (135-145) L 02/21/24 06:29
Potassium 4.6 mmol/L (3.5-5.1) 02/21/24 06:29
Chloride 99 mmol/L (98-107) 02/21/24 06:29
Carbon Dioxide 17 mmol/L (22-30) L 02/21/24 06:29
BUN 38 mg/dl (7-17) H 02/21/24 06:29
Creatinine 1.9 mg/dL (0.6-1.0) H 02/21/24 06:
eGFR 27.37 02/21/24 06:29
Glucose 48 mg/dl (70-99) L* 02/21/24 06:29
Calcium 7.9 mg/dl (8.4-10.2) L 02/21/24 06:29
Physical Exam
General: AOx3, Nontoxic , NAD
HEENT: PERRL, EOMI, Anicteric, Conjunctivae Clear, Ear/Nose Intact, Hearing Normal, Oropharynx Clear/Moist, Dentition Intact, Facial Symmetry, Neck Supple, Neck: Trachea Midline, No JVD and No Thyromegaly, no Bruits
Respiratory: Clear to auscultation bilaterally with normal lung excursion
Cardiac: S1/S2 and Regular Rate/Rhythm
Breast: Deferred by me
Abdomen: Soft, Nontender, Nondistended, Normal Bowel Sounds and No Hepatosplenomegaly, ileostomy, right sided protruding hernia
Rectal: Deferred by Provider
Genito-urinary: No Costovertebral Tenderness
Extremities: No Clubbing, No Cyanosis and Noted pretibial Edema., left heel ulceration
Skin: Sacral decub
Neuro: Nonfocal/Grossly Intact, CN II-XII (Intact) and Strength (Musculoskeletal exam 5 out of 5 both upper and lower extremities)
Hematologic/Lymphatic: No Cervical Lymphadenopathy, No Submandibular Lymphadenopathy and No Supraclavicular Lymphadenopathy
Psych: Mood/afflect pleasant, Insight/judgement good and Appropriate
Vascular: plus 1 pedal and radial pulses
Data Reviewed
-
CT Scan: Other (Abdominal CT scan obtained and reviewed right-sided ostomy noted multiple small bowel loops consistent with possible small bowel obstruction bilateral ureteral stents without noted hydronephrosis)
Labs: Labs Reviewed by me (BMP CBC)
Old Records: Reviewed (Creatinine from October 2023:1.4)
Assessment/Plan
-
Impression
Acute kidney injury
CKD stage IIIb with baseline creatinine 1.4-1.6
Metabolic acidosis
SBO vs Ileus
Left heel injury with ambulatory dysfunction
UTI
h/o B/L JJ stents, h/o B/L ureteral stricture due to XRT for uterine cancer, history of metastatic bladder cancer: s/p routine exchange of ureteral stents 11/15/23, outpt f/u with Uro
L total hip revision, March 2020, complicated by infected hematoma with MRSA, status post washout 05/27/20, completed six weeks of IV daptomycin. Cont home oral suppressive doxycycline.
Chronic Anemia
Hyponatremia
h/o distal R femur fracture
Chronic pain, chronic opioid use with dependence: cont Fentanyl patch/morphine
Severe protein calorie malnutrition
h/o seizures: off Keppra for the past month w/o sz activity as per patient. 1st and last sz due to adverse effect Baclofen years ago also as per patient.
h/o DVT/PE s/p IVC filter
h/o presbyesophagus/H. pylori gastritis: cont PPI
Osteoporosis
Neuropathy: cont neurontin
h/o Stage II sacral decubitus ulcer
Plan:
GRACIELA:
-Likely hemodynamically mediated i.e. prerenal stimulus
-Fractional excretion of sodium not consistent with prerenal state
-I's and O's not even recorded
-Check postvoid bladder scan
-No obstruction of kidneys by CT scan review
-holding lasix, on D5NS
[2024-02-21] MEDS: COMPAZINE 5 MG IV (10:13)
--- NOTE | 2024-02-21 11:50 | CM ---
Met with patient at bedside.
CT abd/pelvis
tt Julieta at [facility] & updated
Plan: SNF, pending bed availability
[2024-02-21 12:55] VITALS: BP 117/74; PULSE 105; PULSE 111; O2SAT 96
[2024-02-21 14:08] LABS: Glucose - Point of Care 141 mg/dl (70-99)
--- NOTE | 2024-02-21 15:22 | W.PN.GS2 ---
Today's Communication / Plan
-
Trial of clears
Assessment / Plan
-
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
abdominal pain, belching found to have small bowel obstruction, likely adhesive.
AM x-ray demonstrates passage of oral contrast and no residual obstructive pattern. Patient still mildly distended but clinically improved.
Will trial clears.
Continue checking daily BMP, CBC mag and Phos.
If nauseous, n.p.o., and please place NG tube.
Surgery will continue to follow.
Time Spent
Total Time Spent with Patient (in minutes): 30
Subjective Data
-
Date of Service: February 21, 2024
Interval Events:
No acute events overnight. Slept well. Pain Controlled. Denies Nausea/Vomiting, +bowel function.
Objective Data
-
Intake and Output
02/20/24 02/21/24 02/22/24
06:59 06:59 06:59
Intake Total 1680 / 1680 860 / 860
Output Total 1405 / 1405 450 / 450
Balance 275 / 275 410 / 410
Intake:
Oral fluids 480 / 480 120 / 120
IV fluids (Total) 1200 / 1200 740 / 740
Output:
Liquid stool amount 1405 / 1405 450 / 450
Ileostomy 1405 / 1405 450 / 450
Other:
How many times incontinent 3
MODERATE amount urine
How many times incontinent 2
SATURATED amount urine
Vital Signs
Temp Pulse Resp BP Pulse Ox
98.1 F 97 16 107/61 92
02/21/24 07:10 02/21/24 07:10 02/21/24 07:10 02/21/24 07:10 02/21/24 07:10
Lab Results
02/21/24 06:29
02/21/24 06:29
Calcium 7.9 mg/dl (8.4-10.2) L 02/21/24 06:29
Physical Exam
-
GENERAL/NEURO: Awake, Alert, no distress
CHEST: Unlabored breathing on RA
ABDOMEN: Soft, mildly distended, soft reducible but tender parastomal hernia. Stomal hernia with bowel sweat and air in the bag.
[2024-02-21 15:35] VITALS: BP 123/74
[2024-02-21 19:30] VITALS: BP 103/68
[2024-02-21 23:34] VITALS: BP 104/67
[2024-02-22] MEDS: MORPHINE SULFATE 1 MG IV ×3 (00:07→22:00)
[2024-02-22] MEDS: CIPRO 250 MG PO ×3 (00:07→23:19)
[2024-02-22] MEDS: DURAGESIC 25 MCG/HR PATCH 1 PATCH TRANSDERM (00:07)
[2024-02-22] MEDS: D5/0.9% SODIUM CHLORIDE 1000 IV ×2 (05:38→16:00)
[2024-02-22 06:00] VITALS: BMI 24.4
[2024-02-22 06:45] LABS: Blood Urea Nitrogen 30 mg/dl (7-17); Calcium 8.2 mg/dl (8.4-10.2); Carbon Dioxide 22 mmol/L (22-30); Chloride 103 mmol/L (98-107); Estimated Creatinine Clearance 22 ml/min; Glucose 155 mg/dl (70-99); Magnesium 1.7 mg/dl (1.6-2.3); Phosphorus 3.3 mg/dl (2.5-4.5); Potassium 3.9 mmol/L (3.5-5.1); Sodium 137 mmol/L (135-145); eGFR 36.34
[2024-02-22 07:05] VITALS: BP 117/68
--- NOTE | 2024-02-22 07:30 | W.PN.HOSP.TC ---
Today's Communication/Plan
-
see bold
Assessment / Plan
Assessment / Plan
Gen: NAD, AAOx3, appears chronically ill malnourished.
Eyes: EOMI, PERRLA, no scleral icterus.
Neck: supple.
CV: remains RRR, +S1/S2, no m/r/g.
Resp: remains CTAB, no rales, wheezes, or rhonchi.
Abd: +BS, soft, R-sided TTP, ND
Skin: No rashes.
Neuro: CN 2-12 intact, non-focal.
Psych: Normal mood and affect.
L hip Xray: No radiographic evidence for complication of bilateral total hip arthroplasties.
L foot/ankle Xray: No radiographic evidence for an acute osseous abnormality of the left foot or ankle within the limitations of severe osseous demineralization.
OBST series 02/19/24: Multiple prominent, gas-filled loops of bowel projecting over the lower abdomen/upper pelvis suspicious for bowel obstruction.
CT A/P 02/19/24: Multiple dilated small bowel loops throughout the abdomen without discrete transition point identified, noting that visualization within the pelvis is significantly limited due to streak artifact. Findings remain suspicious for
developing small bowel obstruction.
Ileus vs SBO:
-nausea and abd pain started 02/18
-imaging above
-surgery following
-cont IVFs (D5NS with hypoglycemia 02/20AM)
-clears
-note h/o bowel resection with ileostomy for colon cancer 1994
-h/o high output ileostomy
Ambulatory dysfunction due to L heel injury:
-suspected subtle calcaneal fracture, appears both traumatic and pathologic due to osteoporosis
-PT/OT
-boot placed
-f/u with podiatry as outpatient
Acute UTI:
-cont Cipro (started 02/19/25) for 5-7 days based on UCxs
-BCx 02/16/24 NGTD, BCx 02/20/24 pending
-fever resolved
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
GRACIELA on CKD4:
-Cr improving, AGMA resolved
-cont IVFs
-renal following
Other problems:
h/o B/L JJ stents, h/o B/L ureteral stricture due to XRT for uterine cancer, history of metastatic bladder cancer: s/p routine exchange of ureteral stents 11/15/23, outpt f/u with Uro
L total hip revision, March 2020, complicated by infected hematoma with MRSA, status post washout 05/27/20, completed six weeks of IV daptomycin. Cont home oral suppressive doxycycline.
Chronic Anemia
Hyponatremia, resolved
h/o distal R femur fracture
Chronic pain, chronic opioid use with dependence: cont Fentanyl patch
Severe protein calorie malnutrition
h/o seizures: off Keppra for the past month w/o sz activity as per patient. 1st and last sz due to adverse effect Baclofen years ago also as per patient.
h/o DVT/PE s/p IVC filter
h/o presbyesophagus/H. pylori gastritis: cont PPI
Osteoporosis
Neuropathy: neurontin on hold
h/o Stage II sacral decubitus ulcer
DNR/heparin
Anticipated Discharge: > 48 hours
Subjective/Interval History
-
Date of Service: February 22, 2024
Abdominal pain slightly better than yesterday.
Objective Data
-
Labs:
Laboratory Results
02/22/24
05:59
Sodium 137
Potassium 3.9
Chloride 103
Carbon Dioxide 22
BUN 30 H
Creatinine 1.5 H
Glucose 155 H
Calcium 8.2 L
Vital Signs:
Vital Signs
Temp Pulse Resp BP Pulse Ox
98.3 F 97 16 104/67 93
02/21/24 23:34 02/21/24 23:34 02/22/24 02:40 02/21/24 23:34 02/22/24 02:40
I&O
02/21/24 02/22/24 02/23/24
06:59 06:59 06:59
Intake Total 860 / 860 3240 / 3240
Output Total 450 / 450
Balance 410 / 410 3215 / 3215
--- NOTE | 2024-02-22 09:32 | W.PN.CRS1 ---
Today's Communication / Plan
-
remain on clears
ensure
ngt if vomiting
Assessment/Plan
-
This is a 73-year-old female with Luis A-Anmol syndrome and history of colon cancer status post subtotal colectomy with permanent ileostomy, hysterectomy followed by radiation with a known vesicovaginal fistula, bladder cancer who presents with
abdominal pain, belching found to have small bowel obstruction, likely adhesive.
-Continue clears today given nausea, added Ensure
-May require TPN in the next day or two if cannot tolerate a diet
-If vomits, n.p.o., and please place NG tube.
-Surgery will continue to follow.
Subjective Data
Subjective Data
Date of Service: February 22, 2024
Patient states she 'spit up' this morning. She is nauseous. She has been coughing. She does not have that great of an appetite today.
Objective Data
-
Vital Signs
Temp Pulse Resp BP Pulse Ox
98.1 F 96 16 117/68 94
02/22/24 07:05 02/22/24 07:05 02/22/24 07:05 02/22/24 07:05 02/22/24 07:05
Intake & Output
02/21/24 02/22/24 02/23/24
06:59 06:59 06:59
Intake Total 860 / 860 3240 / 3240
Output Total 450 / 450 25 / 25
Balance 410 / 410 3215 / 3215
Intake:
Oral fluids 120 / 120 840 / 840
IV fluids (Total) 740 / 740 2400 / 2400
Output:
Liquid stool amount 450 / 450 25 / 25
Ileostomy 450 / 450 25 / 25
Other:
How many times incontinent 1
MODERATE amount urine
How many times incontinent 2 1
SATURATED amount urine
Lab Results
02/21/24 06:29
02/22/24 05:59
Physical Exam
-
General: No Acute Distress and AOx3
Abdomen: Soft, Distended (Mild) and Other (Reducible parastomal hernia)
Skin: Warm and Dry
[2024-02-22] MEDS: VIBRAMYCIN 100 MG PO (09:34)
[2024-02-22] MEDS: LIDOCAINE 4% PATCH 1 PATCH TOPICAL (09:34)
[2024-02-22] MEDS: HEPARIN 5000 UNITS SC ×2 (09:35→21:00)
--- NOTE | 2024-02-22 13:22 | W.PN.NEPH.PH ---
Today's Communication / Plan
-
Maintain IV fluid
Creatinine at baseline
Diuretics currently held
Assessment/Plan
-
Impression
Acute kidney injury
CKD stage IIIb with baseline creatinine 1.4-1.6
Metabolic acidosis
SBO vs Ileus
Left heel injury with ambulatory dysfunction
UTI
h/o B/L JJ stents, h/o B/L ureteral stricture due to XRT for uterine cancer, history of metastatic bladder cancer: s/p routine exchange of ureteral stents 11/15/23, outpt f/u with Uro
L total hip revision, March 2020, complicated by infected hematoma with MRSA, status post washout 05/27/20, completed six weeks of IV daptomycin. Cont home oral suppressive doxycycline.
Chronic Anemia
Hyponatremia
h/o distal R femur fracture
Chronic pain, chronic opioid use with dependence: cont Fentanyl patch/morphine
Severe protein calorie malnutrition
h/o seizures: off Keppra for the past month w/o sz activity as per patient. 1st and last sz due to adverse effect Baclofen years ago also as per patient.
h/o DVT/PE s/p IVC filter
h/o presbyesophagus/H. pylori gastritis: cont PPI
Osteoporosis
Neuropathy: cont neurontin
h/o Stage II sacral decubitus ulcer
Plan:
GRACIELA:
-Creatinine now down to baseline of 1.5
-Weights up, urine output not accurately recorded, will give lasix 20mg po today, and repeat prn
-Likely hemodynamically mediated i.e. prerenal stimulus, labile
-Fractional excretion of sodium not consistent with prerenal state
-Checked postvoid bladder scan
-No obstruction of kidneys by CT scan review
-continue D5NS (po intake poor)
-will likely require TPN
-
-
Date of Service: February 22, 2024
CC / HPI / ROS
-
Chief Complaint:
Acute kidney injury
CKD (1.4)
History of Present Illness:
Creatinine down to 1.5
Hemodynamically labile
Review of Systems:
Subjectively nonoliguric
Weights up
No chest pain or shortness of breath
some abdominal pain
Ileostomy
Labs
-
Labs:
WBC 5.3 10^3/uL (4.8-10.8) 02/21/24 06:29
RBC 3.42 10^6/uL (4.20-5.40) L 02/21/24 06:29
Hgb 10.0 g/dL (12.0-16.0) L 02/21/24 06:29
Hct 31.3 % (37.0-47.0) L 02/21/24 06:29
Plt Count 171 10^3/uL (130-400) 02/21/24 06:29
Sodium 137 mmol/L (135-145) 02/22/24 05:59
Potassium 3.9 mmol/L (3.5-5.1) 02/22/24 05:59
Chloride 103 mmol/L (98-107) 02/22/24 05:59
Carbon Dioxide 22 mmol/L (22-30) 02/22/24 05:59
BUN 30 mg/dl (7-17) H 02/22/24 05:59
Creatinine 1.5 mg/dL (0.6-1.0) H 02/22/24 05:59
eGFR 36.34 02/22/24 05:59
Glucose 155 mg/dl (70-99) H 02/22/24 05:59
Calcium 8.2 mg/dl (8.4-10.2) L 02/22/24 05:59
Phosphorus 3.3 mg/dl (2.5-4.5) 02/22/24 05:59
Physical Exam
-
Vital Signs:
Vital Signs
Temp Pulse Resp BP Pulse Ox
98.1 F 96 16 117/68 94
02/22/24 07:05 02/22/24 07:05 02/22/24 07:05 02/22/24 07:05 02/22/24 07:05
Cardiovascular:: Regular rate and rhythm
Respiratory:: Bilateral: CTA
Lung Excursion:: Normal
Abdomen:: Distended and Soft
Bowel Sounds:: Decreased
Extremity Edema:: +1: Bilateral:
Garcia Catheter: No
Other Findings::
gI: ileostomy
[2024-02-22] MEDS: LASIX 20 MG PO (14:09)
--- NOTE | 2024-02-22 14:19 | CM ---
Patient seen at bedside
clears, IV fluids, may require tpn
CM to continue to follow
PT rec SNF
PLAN: Discharge when medically stable, SNF
[2024-02-22 15:10] VITALS: BP 123/66
[2024-02-22 23:16] VITALS: BP 115/72
[2024-02-23] MEDS: COMPAZINE 5 MG IV ×2 (00:21→08:10)
--- NOTE | 2024-02-23 03:56 | DOWNTIME ---
There was a [employer] Downtime on 02/23/2024 from 0100 to 02/23/2024 at 0350. Downtime documentation of patient's care, including medication administrations, has been reconciled in the electronic record per guidelines. Refer to the
patient's paper chart under the miscellaneous tab to see printed paper medication records and downtime forms.
[2024-02-23] MEDS: D5/0.9% SODIUM CHLORIDE 1000 IV (04:04)
--- NOTE | 2024-02-23 04:06 | PTCARENOTE ---
Patient had 2 episodes of vomiting after being turned in bed. This RN explained MD plan regarding NGT. Patient continues to refuse NGT. Compazine administered.
[2024-02-23 05:59] VITALS: BMI 25.3
[2024-02-23 07:12] LABS: Blood Urea Nitrogen 22 mg/dl (7-17); Calcium 8.6 mg/dl (8.4-10.2); Carbon Dioxide 23 mmol/L (22-30); Chloride 105 mmol/L (98-107); Estimated Creatinine Clearance 27 ml/min; Glucose 137 mg/dl (70-99); Magnesium 1.5 mg/dl (1.6-2.3); Phosphorus 2.7 mg/dl (2.5-4.5); Potassium 3.6 mmol/L (3.5-5.1); Sodium 138 mmol/L (135-145); eGFR 39.48
[2024-02-23 07:59] VITALS: BP 119/100
--- NOTE | 2024-02-23 08:20 | W.PN.HOSP.TC ---
Today's Communication/Plan
-
see bold
Assessment / Plan
Assessment / Plan
Gen: NAD, AAOx3, appears chronically ill malnourished.
Eyes: EOMI, PERRLA, no scleral icterus.
Neck: supple.
CV: continues to remain RRR, +S1/S2, no m/r/g.
Resp: continues to remain CTAB, no rales, wheezes, or rhonchi.
Abd: remains +BS, soft, R-sided TTP, ND
Skin: No rashes.
Neuro: CN 2-12 intact, non-focal.
Psych: Normal mood and affect.
L hip Xray: No radiographic evidence for complication of bilateral total hip arthroplasties.
L foot/ankle Xray: No radiographic evidence for an acute osseous abnormality of the left foot or ankle within the limitations of severe osseous demineralization.
OBST series 02/19/24: Multiple prominent, gas-filled loops of bowel projecting over the lower abdomen/upper pelvis suspicious for bowel obstruction.
CT A/P 02/19/24: Multiple dilated small bowel loops throughout the abdomen without discrete transition point identified, noting that visualization within the pelvis is significantly limited due to streak artifact. Findings remain suspicious for
developing small bowel obstruction.
Ileus vs SBO:
-nausea and abd pain started 02/18
-imaging above
-surgery following
-cont IVFs (D5NS with hypoglycemia )
-Note, pt with vomiting overnight and refused NGT. Will d/w surgery. NPO for now until today's surgery eval.
-note h/o bowel resection with ileostomy for colon cancer 1994
-h/o high output ileostomy
Ambulatory dysfunction due to L heel injury:
-suspected subtle calcaneal fracture, appears both traumatic and pathologic due to osteoporosis
-PT/OT
-boot placed
-f/u with podiatry as outpatient
Acute UTI:
-cont Cipro (started 02/19/25) for 5-7 days based on UCxs
-BCx 02/16/24 NGTD, BCx 02/20/24 pending
-fever resolved
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
GRACIELA on CKD4:
-Cr improving, AGMA resolved
-cont IVFs
-renal following
Other problems:
h/o B/L JJ stents, h/o B/L ureteral stricture due to XRT for uterine cancer, history of metastatic bladder cancer: s/p routine exchange of ureteral stents 11/15/23, outpt f/u with Uro
L total hip revision, March 2020, complicated by infected hematoma with MRSA, status post washout 05/27/20, completed six weeks of IV daptomycin. Cont home oral suppressive doxycycline.
Chronic Anemia
Hyponatremia, resolved
h/o distal R femur fracture
Chronic pain, chronic opioid use with dependence: cont Fentanyl patch
Severe protein calorie malnutrition
h/o seizures: off Keppra for the past month w/o sz activity as per patient. 1st and last sz due to adverse effect Baclofen years ago also as per patient.
h/o DVT/PE s/p IVC filter
h/o presbyesophagus/H. pylori gastritis: cont PPI
Osteoporosis
Neuropathy: neurontin on hold
h/o Stage II sacral decubitus ulcer
DNR/heparin
Due to the patient's overwhelming burden of pathology and poor performance/functional status in the setting of severe protein calorie malnutrition, the patient is hospice appropriate. Consult palliative care.
Total time spent on today's encounter was 50 minutes which included time spent in counseling the patient/family regarding diagnosis and treatment plan as listed above, goals of care, and symptom management. Case was discussed with nursing staff,
specialists, and care coordinators/case management. All labs and imaging personally reviewed by me. Remainder the time spent in detailed review of previous records, lab data, imaging, and other medical provider documentation.
Anticipated Discharge: > 48 hours
Subjective/Interval History
-
Date of Service: February 23, 2024 (late signature)
Pt had vomiting overnight, refused NGT.
Objective Data
-
Labs:
Laboratory Results
02/23/24
06:25
Sodium 138
Potassium 3.6
Chloride 105
Carbon Dioxide 23
BUN 22 H
Creatinine 1.4 H
Glucose 137 H
Calcium 8.6
Vital Signs:
Vital Signs
Temp Pulse Resp BP Pulse Ox
97.6 F 53 17 119/100 96
02/23/24 07:59 02/23/24 07:59 02/23/24 07:59 02/23/24 07:59 02/23/24 07:59
I&O
02/22/24 02/23/24 02/24/24
06:59 06:59 06:59
Intake Total 3240 / 3240 3050 / 3050
Output Total
Balance 3215 / 3215 3040 / 3040
[2024-02-23] MEDS: LIDOCAINE 4% PATCH 1 PATCH TOPICAL (09:09)
[2024-02-23] MEDS: HEPARIN 5000 UNITS SC ×2 (09:09→20:40)
[2024-02-23] MEDS: MORPHINE SULFATE 1 MG IV ×3 (09:10→18:20)
[2024-02-23] MEDS: VIBRAMYCIN PO ×2 (09:10→12:27)
--- NOTE | 2024-02-23 10:20 | W.CON.PAL ---
Consultation
-
Date/Time Consultation Requested: 02/22
Date/Time Consultation Performed: 02/22
Requesting Provider: Kvng
Performing Provider: Rosemary aPtiño
Reason for Consult: Goals of Care Discussion
Reason for Admission
Illness Course/HPI
73 year old F with PMH of multiple previous bowel obstructions, bladder cancer s/p Keytruda, colon cancer s/p ileostomy, uterine cancer, bilateral ureteral stent with periodic exchange, chronic vesicular vaginal fistula, seizures, esophagitis,
depression, anxiety, DVT, CKD, urinary retention, multiple low back surgeries admitted with discomfort in her left heel and ankle that occurred when getting out of the car to the wheelchair. Per report, twisted her ankle as she was getting out of
the car and then was unable to bear any weight on LLE.
Upon admission, radiological workup initially negative for acute fractures. On second look, + nondisplaced calcaneal fracture. Boot placed on left foot.
Was planned for rehab then developed fever 02/15 - started on abx for UTI. Then developed N/V - flat plate concerning for SBO. S/p CT which confirmed. Seen by surgery - recommended no operative intervention. Developed GRACIELA for which nephrology is
following - lasix on hold.
Now improving GRACIELA and improving obstruction. Tolerating clears with plans to advance diet as tolerated.
Consult for GOC.
Pain & Symptom Assessment
[place] Symptom Scale 0=none, 10=worst
Pain: 4
Appetite: 6
Objective Data
-
Objective Data:
Vital Signs
Temp Pulse Resp BP Pulse Ox
97.6 F 53 17 119/100 96
02/23/24 07:59 02/23/24 07:59 02/23/24 07:59 02/23/24 07:59 02/23/24 07:59
Laboratory Results
02/21/24 06:29
02/23/24 06:25
Urine Color Yellow 02/17/24 03:58
Urine Clarity Very cloudy (Clear) 02/17/24 03:58
Urine pH 6.0 (5.0-9.0) 02/17/24 03:58
Ur Specific [place] 1.015 (<1.030) 02/17/24 03:58
Urine Ketones Negative (Negative) 02/17/24 03:58
Urine Bilirubin Negative (Negative) 02/17/24 03:58
Palliative Performance Scale
Palliative Performance Scale:
PPS Level Ambulation Activity & Evidence of Disease Self Care Intake Conscious Level
100% Full Normal Activity & Work; Full Intake Full
No Evidence of Disease
90% Full Normal Activity & Work; Full Normal Full
Some Evidence of Disease
80% Full Normal Activity with Effort Full Normal or Full
Some Evidence of Disease Reduced
70% Reduced Unable Normal Job/Work Full Normal or Full
Significant Disease Reduced
60% Reduced Unable Hobby/Housework Occasional Normal or Full or Confusion
Significant Disease Assistance Reduced
50% Mainly Sit/Lie Unable to do Any Work Considerable Normal or Full or Confusion
Extensive Disease Assistance Req'd Reduced
40% Mainly in Bed Unable to do Most Activity Mainly Assistance Normal or Full or Drowsy;
Extensive Disease Reduced +/- Confusion
30% Totally Bed Unable to do Any Activity Total Care Normal or Full or Drowsy;
Bound Extensive Disease Reduced +/- Confusion
20% Totally Bed Bound Unable to do Any Activity Total Care Minimal to Full or Drowsy;
Extensive Disease Sips +/- Confusion
10% Totally Bed Bound Unable to do Any Activity Total Care Mouth Care Drowsy or Coma;
Extensive Disease Only +/- Confusion
0%
PPS Score Level:
Palliative Performance Score Response
Palliative Performance Score Response: 50%
Physical Exam
-
General: Comfortable, Conversant and Appears Chronically Ill
HEENT: Normocephalic
Cardiac: Regular Rhythm
Peripheral Vascular: Edema, Right Lower Extremity and Edema, Left Lower Extremity
GI: Soft and Tender
Skin: Warm
Neuro: AO x 3
Psych: Calm
Assessment / Plan
-
Assessment/Plan:
73 year old F with history of multiple cancers, multiple bowel obstructions admitted with LLE heel pain now with SBO.
- known to our team as an outpatient
- seen at bedside with no family. Reports she was feeling better yesterday than she is today. Was tolerating full liquids, then feels like she took too much and then vomited. States plan for later today is NG placement with the hopes that her bowel
obstruction resolves. She states she was told this was the only hope for her to get out of the hospital and make it home which scared her.
- her pain is well controlled right now on fentanyl patch and PRN iv morphine.
- goals currently are to get NG tube and see how the next few days go.
- will continue to follow her progress
Care Reviewed
Data Reviewed
Radiology procedure: Image Reviewed
Medical Tests: I reviewed
Reviewed with: Patient
[2024-02-23] MEDS: CIPRO PO (12:27)
[2024-02-23] MEDS: MAGNESIUM SULFATE 50 IV (12:36)
--- NOTE | 2024-02-23 12:50 | W.PN.GS2 ---
Today's Communication / Plan
-
NGT, SBFT
Assessment / Plan
-
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
abdominal pain, belching found to have small bowel obstruction, likely adhesive.
Prior x-ray demonstrates passage of oral contrast and no residual obstructive pattern. Patient has not been able to increase PO intake and continues with emesis
Plan:
NGT
NPO/IVF
SBFT
PRN pain meds/antiemetics
DVT ppx
Surgery will continue to follow.
Subjective Data
-
Date of Service: February 23, 2024
No improvement. Continues to have poor appetite, poor PO intake, episodes of small emesis intermittently including last night. She is passing liquid stools.
Objective Data
-
Intake and Output
02/22/24 02/23/24 02/24/24
06:59 06:59 06:59
Intake Total 3240 / 3240 3050 / 3050
Output Total
Balance 3215 / 3215 3040 / 3040
Intake:
Oral fluids 840 / 840 830 / 830
IV fluids (Total) 2400 / 2400 2220 / 2220
Output:
Liquid stool amount
Ileostomy
Other:
Number of approximated MODERATE 3
amounts of urine
How many times incontinent 1
MODERATE amount urine
How many times incontinent 1 1
SATURATED amount urine
Number of immeasurable emeses? 1
Vital Signs
Temp Pulse Resp BP Pulse Ox
97.6 F 53 17 119/100 96
02/23/24 07:59 02/23/24 07:59 02/23/24 07:59 02/23/24 07:59 02/23/24 07:59
Lab Results
02/21/24 06:29
02/23/24 06:25
Calcium 8.6 mg/dl (8.4-10.2) 02/23/24 06:25
Phosphorus 2.7 mg/dl (2.5-4.5) 02/23/24 06:25
Magnesium 1.5 mg/dl (1.6-2.3) L 02/23/24 06:25
Physical Exam
-
Gen: NAD
Abd: soft, nd, nt
[2024-02-23 15:32] VITALS: BP 124/72
--- NOTE | 2024-02-23 17:20 | W.PN.NEPH.PH ---
Today's Communication / Plan
-
lasix, decrease IVF rate
Assessment/Plan
-
Impression
Acute kidney injury
CKD stage IIIb with baseline creatinine 1.4-1.6
Metabolic acidosis
SBO vs Ileus
Left heel injury with ambulatory dysfunction
UTI
h/o B/L JJ stents, h/o B/L ureteral stricture due to XRT for uterine cancer, history of metastatic bladder cancer: s/p routine exchange of ureteral stents 11/15/23, outpt f/u with Uro
L total hip revision, March 2020, complicated by infected hematoma with MRSA, status post washout 05/27/20, completed six weeks of IV daptomycin. Cont home oral suppressive doxycycline.
Chronic Anemia
Hyponatremia
h/o distal R femur fracture
Chronic pain, chronic opioid use with dependence: cont Fentanyl patch/morphine
Severe protein calorie malnutrition
h/o seizures: off Keppra for the past month w/o sz activity as per patient. 1st and last sz due to adverse effect Baclofen years ago also as per patient.
h/o DVT/PE s/p IVC filter
h/o presbyesophagus/H. pylori gastritis: cont PPI
Osteoporosis
Neuropathy: cont neurontin
h/o Stage II sacral decubitus ulcer
Plan:
GRACIELA:
-Creatinine now down to baseline of 1.4
-Weights up, urine output not accurately recorded,
will give lasix 20mg IV today, and repeat prn, decrease IVF rate
Checked postvoid bladder scan
-No obstruction of kidneys by CT scan review
NGT aplced today -surg follows, SBFT today
replace mg
d/.w nursing and pt
-
-
Date of Service: February 23, 2024
CC / HPI / ROS
-
Chief Complaint:
Acute kidney injury
CKD (1.4)
History of Present Illness:
Creatinine down to 1.4
Hemodynamically labile
wt is up
Review of Systems:
No chest pain or shortness of breath
some abdominal pain
Ileostomy
Labs
-
Labs:
WBC 5.3 10^3/uL (4.8-10.8) 02/21/24 06:29
RBC 3.42 10^6/uL (4.20-5.40) L 02/21/24 06:29
Hgb 10.0 g/dL (12.0-16.0) L 02/21/24 06:
Hct 31.3 % (37.0-47.0) L 02/21/24 06:29
Plt Count 171 10^3/uL (130-400) 02/21/24 06:29
Sodium 138 mmol/L (135-145) 02/23/24 06:25
Potassium 3.6 mmol/L (3.5-5.1) 02/23/24 06:25
Chloride 105 mmol/L (98-107) 02/23/24 06:25
Carbon Dioxide 23 mmol/L (22-30) 02/23/24 06:25
BUN 22 mg/dl (7-17) H 02/23/24 06:25
Creatinine 1.4 mg/dL (0.6-1.0) H 02/23/24 06:25
eGFR 39.48 02/23/24 06:25
Glucose 137 mg/dl (70-99) H 02/23/24 06:25
Calcium 8.6 mg/dl (8.4-10.2) 02/23/24 06:25
Phosphorus 2.7 mg/dl (2.5-4.5) 02/23/24 06:25
Physical Exam
-
Vital Signs:
Vital Signs
Temp Pulse Resp BP Pulse Ox
98.3 F 92 18 124/72 93
02/23/24 15:32 02/23/24 15:32 02/23/24 15:32 02/23/24 15:32 02/23/24 15:32
Cardiovascular:: Regular rate and rhythm
Respiratory:: Bilateral: CTA (decreased BS)
Lung Excursion:: Normal
Abdomen:: Distended, Soft and Tender (mild gen)
Extremity Edema:: +3: Bilateral:
Garcia Catheter: No
[2024-02-23] MEDS: LASIX 20 MG IV (17:42)
[2024-02-23] MEDS: CIPRO 200 MG 100 IV (17:42)
[2024-02-23] MEDS: VIBRAMYCIN 260 MG IV (20:41)
[2024-02-23 23:36] VITALS: BP 130/73
[2024-02-24] MEDS: D5/0.9% SODIUM CHLORIDE 1000 IV ×2 (01:11→22:03)
[2024-02-24] MEDS: MORPHINE SULFATE 1 MG IV (01:55)
[2024-02-24 05:23] VITALS: BMI 24.8
[2024-02-24] MEDS: CIPRO 200 MG 100 IV ×2 (05:35→17:29)
[2024-02-24 06:11] LABS: Blood Urea Nitrogen 19 mg/dl (7-17); Calcium 8.6 mg/dl (8.4-10.2); Carbon Dioxide 25 mmol/L (22-30); Chloride 106 mmol/L (98-107); Estimated Creatinine Clearance 26 ml/min; Glucose 118 mg/dl (70-99); Phosphorus 2.7 mg/dl (2.5-4.5); Sodium 142 mmol/L (135-145); eGFR 43.15
[2024-02-24 07:24] VITALS: BP 143/82
[2024-02-24] MEDS: KCL 270 MEQ IV (08:40)
[2024-02-24] MEDS: VIBRAMYCIN 260 MG IV ×2 (08:41→20:51)
[2024-02-24] MEDS: HEPARIN 5000 UNITS SC ×2 (08:41→20:51)
[2024-02-24] MEDS: LIDOCAINE 4% PATCH 1 PATCH TOPICAL (08:41)
--- NOTE | 2024-02-24 09:07 | W.PN.HOSP.TC ---
Today's Communication/Plan
-
see bold
Assessment / Plan
Assessment / Plan
Gen: remains NAD, AAOx3, appears chronically ill malnourished.
Eyes: EOMI, PERRLA, no scleral icterus.
Neck: supple.
CV: RRR, +S1/S2, no m/r/g.
Resp: CTAB, no rales, wheezes, or rhonchi.
Abd: remains +BS, soft, NT to very light palpation, ND
Skin: No rashes.
Neuro: CN 2-12 intact, non-focal.
Psych: Normal mood and affect.
L hip Xray: No radiographic evidence for complication of bilateral total hip arthroplasties.
L foot/ankle Xray: No radiographic evidence for an acute osseous abnormality of the left foot or ankle within the limitations of severe osseous demineralization.
OBST series 02/19/24: Multiple prominent, gas-filled loops of bowel projecting over the lower abdomen/upper pelvis suspicious for bowel obstruction.
CT A/P 02/19/24: Multiple dilated small bowel loops throughout the abdomen without discrete transition point identified, noting that visualization within the pelvis is significantly limited due to streak artifact. Findings remain suspicious for
developing small bowel obstruction.
Ileus vs SBO:
-nausea and abd pain started 02/18
-imaging above
-surgery following
-cont IVFs (D5NS with hypoglycemia 02/20AM)
-cont NGT (output of 2100cc in last 24 hours)
-note h/o bowel resection with ileostomy for colon cancer 1994
-h/o high output ileostomy
Ambulatory dysfunction due to L heel injury:
-suspected subtle calcaneal fracture, appears both traumatic and pathologic due to osteoporosis
-PT/OT
-boot placed
-f/u with podiatry as outpatient
Acute UTI:
-cont Cipro (started 02/19/25) for 5-7 days based on UCxs
-BCx 02/16/24 NGTD, BCx 02/20/24 pending
-fever resolved
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
GRACIELA on CKD4:
-GRACIELA and AGMA resolved with IVFs
-renal following
Other problems:
Hypokalemia: IV K
h/o B/L JJ stents, h/o B/L ureteral stricture due to XRT for uterine cancer, history of metastatic bladder cancer: s/p routine exchange of ureteral stents 11/15/23, outpt f/u with Uro
L total hip revision, March 2020, complicated by infected hematoma with MRSA, status post washout 05/27/20, completed six weeks of IV daptomycin. Cont home oral suppressive doxycycline.
Chronic Anemia
Hyponatremia, resolved
h/o distal R femur fracture
Chronic pain, chronic opioid use with dependence: cont Fentanyl patch
Severe protein calorie malnutrition
h/o seizures: off Keppra for the past month w/o sz activity as per patient. 1st and last sz due to adverse effect Baclofen years ago also as per patient.
h/o DVT/PE s/p IVC filter
h/o presbyesophagus/H. pylori gastritis: cont PPI
Osteoporosis
Neuropathy: neurontin on hold
h/o Stage II sacral decubitus ulcer
DNR/heparin
Due to the patient's overwhelming burden of pathology and poor performance/functional status in the setting of severe protein calorie malnutrition, the patient is hospice appropriate. Palliative care following.
Anticipated Discharge: > 48 hours
Subjective/Interval History
-
Date of Service: February 24, 2024
No new complaints.
Objective Data
-
Labs:
Laboratory Results
02/24/24
05:26
Sodium 142
Potassium 3.0 L
Chloride 106
Carbon Dioxide 25
BUN 19 H
Creatinine 1.3 H
Glucose 118 H
Calcium 8.6
Vital Signs:
Vital Signs
Temp Pulse Resp BP Pulse Ox
97.8 F 88 18 143/82 95
02/24/24 07:24 02/24/24 07:24 02/24/24 07:24 02/24/24 07:24 02/24/24 07:24
I&O
02/23/24 02/24/24 02/25/24
06:59 06:59 06:59
Intake Total 3050 / 3050 1540 / 1540
Output Total 2102 / 2102
Balance 3040 / 3040 -563 / -563
--- NOTE | 2024-02-24 11:36 | W.PN.GS2 ---
Today's Communication / Plan
-
`
Assessment / Plan
-
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
fistula, bladder cancer who presents with abdominal pain, belching found to have small bowel obstruction, likely adhesive versus related to parastomal hernia.
No clinical signs of immediate bowel compromise or threat
AFVSS
Placed Garcia catheter in ileostomy and blew up balloon with 8 mL. After placing there appears to be some bilious/enteric contents now draining into ostomy appliance.
NG tube flushed and image to confirm remains in functional position
Plan:
Maintain NGT decompression
Monitor ileostomy output now that decompressing distal ileum with Garcia catheter as well
NPO/IVF
Follow-up abdominal x-rays tomorrow
PRN pain meds/antiemetics
DVT ppx
Subjective Data
-
Date of Service: February 24, 2024
Patient seen and examined.
Tolerating NG tube which had significant output overnight but then decreased
No significant ileostomy output in 36 -48 hours
Objective Data
-
Intake and Output
02/23/24 02/24/24 02/25/24
06:59 06:59 06:59
Intake Total 3050 / 3050 1540 / 1540
Output Total 210 / 210
Balance 3040 / 3040 -563 / -563
Intake:
Oral fluids 830 / 830 0 / 0
IV fluids (Total) 2220 / 2220 1080 / 1080
IV piggybacks 460 / 460
Output:
Liquid stool amount
Ileostomy
Gastrointestinal tube output ( 2099
Total)
[place] 2099 2099
Urine, Garcia 3 / 3
Other:
Number of approximated MODERATE 3 3
amounts of urine
Number of approximated LARGE 4
amounts of urine
How many times incontinent 1
MODERATE amount urine
How many times incontinent 1 2
SATURATED amount urine
Number of immeasurable emeses? 1
Vital Signs
Temp Pulse Resp BP Pulse Ox
97.8 F 88 18 143/82 95
02/24/24 07:24 02/24/24 07:24 02/24/24 07:24 02/24/24 07:24 02/24/24 07:24
Lab Results
02/21/24 06:29
02/24/24 05:26
Calcium 8.6 mg/dl (8.4-10.2) 02/24/24 05:26
Phosphorus 2.7 mg/dl (2.5-4.5) 02/24/24 05:26
Magnesium 2.0 mg/dl (1.6-2.3) 02/24/24 05:26
Physical Exam
-
NAD AAOx3
ABD: Softly distended, tenderness palpation localized to parastomal hernia area but area remains soft. Some voluntary guarding. Tympanitic. No percussion tenderness.
Appliance removed. Ileostomy mucosa pink. Attempted to digitized but mucosa is tight. Utilized Garcia catheter to intubate ileostomy and flush. Placed 8 mL of fluid in balloon and secured. Some bilious/enteric contents have begun to drain into
ostomy bag with catheter now in place.
--- NOTE | 2024-02-24 13:36 | W.PN.NEPH.PH ---
Today's Communication / Plan
-
lasix once k repleted
Assessment/Plan
-
Impression
Acute kidney injury
CKD stage IIIb with baseline creatinine 1.4-1.6
Metabolic acidosis
SBO vs Ileus
Left heel injury with ambulatory dysfunction
UTI
h/o B/L JJ stents, h/o B/L ureteral stricture due to XRT for uterine cancer, history of metastatic bladder cancer: s/p routine exchange of ureteral stents 11/15/23, outpt f/u with Uro
L total hip revision, March 2020, complicated by infected hematoma with MRSA, status post washout 05/27/20, completed six weeks of IV daptomycin. Cont home oral suppressive doxycycline.
Chronic Anemia
Hyponatremia
h/o distal R femur fracture
Chronic pain, chronic opioid use with dependence: cont Fentanyl patch/morphine
Severe protein calorie malnutrition
h/o seizures: off Keppra for the past month w/o sz activity as per patient. 1st and last sz due to adverse effect Baclofen years ago also as per patient.
h/o DVT/PE s/p IVC filter
h/o presbyesophagus/H. pylori gastritis: cont PPI
Osteoporosis
Neuropathy: cont neurontin
h/o Stage II sacral decubitus ulcer
Plan:
GRACIELA:
-Creatinine now down to baseline of 1.3
-Weights decreasing, urine output not accurately recorded,
will give lasix 20mg IV today again after replacing k, and repeat prn
gentle IVF while NPO
Checked postvoid bladder scan
-No obstruction of kidneys by CT scan review
NGT with suction -surg follows, decompressed ileum
replaced mg
d/.w nursing and pt
-
-
Date of Service: February 24, 2024
CC / HPI / ROS
-
Chief Complaint:
Acute kidney injury
CKD (1.4)
History of Present Illness:
Creatinine down to 1.3
Hemodynamically labile
wt is down
Review of Systems:
No chest pain or shortness of breath
some abdominal pain-improving
Ileostomy draining after manipulation this am by surg
Labs
-
Labs:
WBC 5.3 10^3/uL (4.8-10.8) 02/21/24 06:29
RBC 3.42 10^6/uL (4.20-5.40) L 02/21/24 06:29
Hgb 10.0 g/dL (12.0-16.0) L 02/21/24 06:29
Hct 31.3 % (37.0-47.0) L 02/21/24 06:29
Plt Count 171 10^3/uL (130-400) 02/21/24 06:29
Sodium 142 mmol/L (135-145) 02/24/24 05:26
Potassium 3.0 mmol/L (3.5-5.1) L 02/24/24 05:26
Chloride 106 mmol/L (98-107) 02/24/24 05:26
Carbon Dioxide 25 mmol/L (22-30) 02/24/24 05:26
BUN 19 mg/dl (7-17) H 02/24/24 05:26
Creatinine 1.3 mg/dL (0.6-1.0) H 02/24/24 05:26
eGFR 43.15 02/24/24 05:26
Glucose 118 mg/dl (70-99) H 02/24/24 05:26
Calcium 8.6 mg/dl (8.4-10.2) 02/24/24 05:26
Phosphorus 2.7 mg/dl (2.5-4.5) 02/24/24 05:26
Physical Exam
-
Vital Signs:
Vital Signs
Temp Pulse Resp BP Pulse Ox
97.8 F 88 18 143/82 95
02/24/24 07:24 02/24/24 07:24 02/24/24 07:24 02/24/24 07:24 02/24/24 07:24
Cardiovascular:: Regular rate and rhythm
Respiratory:: Bilateral: CTA (decreased)
Lung Excursion:: Normal
Abdomen:: Distended and Soft
Extremity Edema:: +2: Bilateral:
Garcia Catheter: No
[2024-02-24 15:20] VITALS: BP 141/80
[2024-02-24 23:49] VITALS: BP 158/84
[2024-02-25] MEDS: DURAGESIC 25 MCG/HR PATCH 1 PATCH TRANSDERM (00:23)
[2024-02-25 05:05] LABS: Blood Urea Nitrogen 15 mg/dl (7-17); Carbon Dioxide 26 mmol/L (22-30); Chloride 109 mmol/L (98-107); Estimated Creatinine Clearance 31 ml/min; Glucose 107 mg/dl (70-99); Sodium 144 mmol/L (135-145); eGFR 52.73
[2024-02-25 05:30] VITALS: BMI 24.9
[2024-02-25] MEDS: CIPRO 200 MG 100 IV ×2 (05:38→17:46)
[2024-02-25 07:10] VITALS: BP 147/70
--- NOTE | 2024-02-25 08:50 | W.PN.GS2 ---
Addendum entered and electronically signed by Venancio Becker MD 02/25/24 16:43:
Patient seen and examined this a.m. with nurse practitioner. This is a delayed entry.
Overall Ms. Best is feeling a bit better than yesterday. Less abdominal pain. No nausea. Some ileostomy outputs.
AFVSS
NAD AAOx3
ABD: Softly distended, still tympanitic. Mild tenderness but no rebound rigidity or guarding. Right-sided parastomal hernia end ileostomy with liquid stool. Garcia catheter intubation of ileostomy removed and appliance replaced.
Assessment/plan: 73-year-old female with probable adhesive small bowel obstruction or potentially adhesions in the vicinity of her parastomal hernia although this is generally reducible.
Some clinical improvement with ileostomy function now
Abdominal x-ray show persistent small bowel distention and residual contrast
Maintain NG tube
Start TPN as uncertain how long patient will have to remain without enteral nutrition
Poor/challenging surgical candidate therefore all efforts will be made for nonoperative management even if it is prolonged course as long as there is no immediate signs of bowel threat or compromise
Original Note:
Today's Communication / Plan
-
NGT
Start TPN
Assessment / Plan
-
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
fistula, bladder cancer who presents with abdominal pain, belching found to have small bowel obstruction, likely adhesive versus related to parastomal hernia.
No clinical signs of immediate bowel compromise or threat
AFVSS
XR with retained PO contrast still present
Pain improving
Garcia removed from ileostomy
Plan:
Maintain NGT decompression
Monitor ileostomy output
Continue NPO
Will start TPN today, add on mag/phos to labs this am
Follow-up abdominal x-rays tomorrow
PRN pain meds/antiemetics
DVT ppx
Subjective Data
-
Date of Service: February 25, 2024
Patient seen and examined at bedside with Dr. Becker. Pain starting to improve. Denies active nausea.
Objective Data
-
Intake and Output
02/24/24 02/25/24 02/26/24
06:59 06:59 06:59
Intake Total 1540 / 1540 2287 / 2287
Output Total 2103 / 2103 945 / 945
Balance -563 / -563 1342 / 1342
Intake:
Oral fluids 0 / 0
IV fluids (Total) 1080 / 1080 1287 / 1287
IV piggybacks 460 / 460 880 / 880
Amount instilled into GI Tube ( 120 / 120
Total)
[place] 120 / 120
Output:
Liquid stool amount 320 / 320
Ileostomy 320 / 320
Gastrointestinal tube output ( 2099 / 2099 625 / 625
Total)
[place] 2099 625 / 625
Urine, Garcia 3 / 3
Other:
Number of approximated MODERATE 3
amounts of urine
Number of approximated LARGE 4
amounts of urine
How many times incontinent 1
MODERATE amount urine
How many times incontinent 2 2
SATURATED amount urine
Vital Signs
Temp Pulse Resp BP Pulse Ox
97.5 F 71 17 147/70 92
02/25/24 07:10 02/25/24 07:10 02/25/24 07:10 02/25/24 07:10 02/25/24 07:10
Lab Results
02/21/24 06:29
02/25/24 03:56
Calcium 8.0 mg/dl (8.4-10.2) L 02/25/24 03:56
Phosphorus 2.7 mg/dl (2.5-4.5) 02/24/24 05:26
Magnesium 2.0 mg/dl (1.6-2.3) 02/24/24 05:26
Physical Exam
-
NAD AAOx3
ABD: Softly distended, tenderness to palpation localized to parastomal hernia area but area remains soft. Some voluntary guarding. Tympanitic. No percussion tenderness.
NGT with bilious outputs
Appliance removed. Ileostomy mucosa pink. Garcia removed from stoma. Some bilious/enteric contents have begun to drain into ostomy bag but not much flatus.
[2024-02-25] MEDS: HEPARIN 5000 UNITS SC ×2 (09:20→20:55)
[2024-02-25] MEDS: VIBRAMYCIN 260 MG IV ×2 (09:21→20:55)
[2024-02-25] MEDS: LIDOCAINE 4% PATCH TOPICAL (09:30)
[2024-02-25] MEDS: KCL 270 MEQ IV (09:43)
[2024-02-25 09:55] LABS: Magnesium 1.6 mg/dl (1.6-2.3); Phosphorus 2.1 mg/dl (2.5-4.5); Triglycerides 69 mg/dl (10-149)
--- NOTE | 2024-02-25 10:28 | W.PN.NEPH.PH ---
Addendum entered and electronically signed by Renee Wiseman MD 02/25/24 10:33:
phos will be adjusted in TPN
Original Note:
Today's Communication / Plan
-
d/c IVF when starts TPN
TPN per surg, replace k
prn lasix
Assessment/Plan
-
Impression
Acute kidney injury
CKD stage IIIb with baseline creatinine 1.4-1.6
Metabolic acidosis
SBO vs Ileus
Left heel injury with ambulatory dysfunction
UTI
h/o B/L JJ stents, h/o B/L ureteral stricture due to XRT for uterine cancer, history of metastatic bladder cancer: s/p routine exchange of ureteral stents 11/15/23, outpt f/u with Uro
L total hip revision, March 2020, complicated by infected hematoma with MRSA, status post washout 05/27/20, completed six weeks of IV daptomycin. Cont home oral suppressive doxycycline.
Chronic Anemia
Hyponatremia
h/o distal R femur fracture
Chronic pain, chronic opioid use with dependence: cont Fentanyl patch/morphine
Severe protein calorie malnutrition
h/o seizures: off Keppra for the past month w/o sz activity as per patient. 1st and last sz due to adverse effect Baclofen years ago also as per patient.
h/o DVT/PE s/p IVC filter
h/o presbyesophagus/H. pylori gastritis: cont PPI
Osteoporosis
Neuropathy: cont neurontin
h/o Stage II sacral decubitus ulcer
Plan:
GRACIELA:
-Creatinine now down to baseline of 1.1
-Weights no sig change, urine output not accurately recorded,
replace k
gentle IVF while NPO, noted TPN to start tonight and d/c IVF then
prn lasix, stable resp status
Checked postvoid bladder scan
NGT with suction -surg follows, bad xray improving
d/.w nursing and pt
-
-
Date of Service: February 25, 2024
CC / HPI / ROS
-
Chief Complaint:
Acute kidney injury
CKD (1.4)
History of Present Illness:
Creatinine down to 1.1
Hemodynamically stable
wt no change
Review of Systems:
No chest pain or shortness of breath
some abdominal pain-improving
Labs
-
Labs:
WBC 5.3 10^3/uL (4.8-10.8) 02/21/24 06:29
RBC 3.42 10^6/uL (4.20-5.40) L 02/21/24 06:29
Hgb 10.0 g/dL (12.0-16.0) L 02/21/24 06:29
Hct 31.3 % (37.0-47.0) L 02/21/24 06:29
Plt Count 171 10^3/uL (130-400) 02/21/24 06:29
Sodium 144 mmol/L (135-145) 02/25/24 03:56
Potassium 3.0 mmol/L (3.5-5.1) L 02/25/24 03:56
Chloride 109 mmol/L (98-107) H 02/25/24 03:56
Carbon Dioxide 26 mmol/L (22-30) 02/25/24 03:56
BUN 15 mg/dl (7-17) 02/25/24 03:56
Creatinine 1.1 mg/dL (0.6-1.0) H 02/25/24 03:56
eGFR 52.73 02/25/24 03:56
Glucose 107 mg/dl (70-99) H 02/25/24 03:56
Calcium 8.0 mg/dl (8.4-10.2) L 02/25/24 03:56
Phosphorus 2.1 mg/dl (2.5-4.5) L 02/25/24 03:56
Physical Exam
-
Vital Signs:
Vital Signs
Temp Pulse Resp BP Pulse Ox
97.5 F 71 17 147/70 92
02/25/24 07:10 02/25/24 07:10 02/25/24 07:10 02/25/24 07:10 02/25/24 07:10
Cardiovascular:: Regular rate and rhythm
Respiratory:: Bilateral: CTA (anteriorly)
Lung Excursion:: Normal
Abdomen:: Nontender and Soft
Extremity Edema:: +2: Bilateral:
Garcia Catheter: No
[2024-02-25] MEDS: MAGNESIUM SULFATE 50 IV (10:42)
[2024-02-25] MEDS: MORPHINE SULFATE 1 MG IV ×2 (10:52→23:08)
--- NOTE | 2024-02-25 11:19 | W.PN.HOSP.TC ---
Today's Communication/Plan
-
see bold
Assessment / Plan
Assessment / Plan
Gen: Continues to remain NAD, AAOx3, appears chronically ill malnourished.
Eyes: EOMI, PERRLA, no scleral icterus.
Neck: supple.
CV: Remains RRR, +S1/S2, no m/r/g.
Resp: CTAB, no rales, wheezes, or rhonchi.
Abd: Continues to remain +BS, soft, NT to very light palpation, ND
Skin: No rashes.
Neuro: CN 2-12 intact, non-focal.
Psych: Normal mood and affect.
L hip Xray: No radiographic evidence for complication of bilateral total hip arthroplasties.
L foot/ankle Xray: No radiographic evidence for an acute osseous abnormality of the left foot or ankle within the limitations of severe osseous demineralization.
OBST series 02/19/24: Multiple prominent, gas-filled loops of bowel projecting over the lower abdomen/upper pelvis suspicious for bowel obstruction.
CT A/P 02/19/24: Multiple dilated small bowel loops throughout the abdomen without discrete transition point identified, noting that visualization within the pelvis is significantly limited due to streak artifact. Findings remain suspicious for
developing small bowel obstruction.
Ileus vs SBO:
-nausea and abd pain started 02/18
-imaging above
-surgery following
-cont IVFs (D5NS with hypoglycemia 02/20AM) until TPN starts
-cont NGT
-note h/o bowel resection with ileostomy for colon cancer 1994
-h/o high output ileostomy
Ambulatory dysfunction due to L heel injury:
-suspected subtle calcaneal fracture, appears both traumatic and pathologic due to osteoporosis
-PT/OT
-boot placed
-f/u with podiatry as outpatient
Acute UTI:
-cont Cipro (started 02/19/25) for 5-7 days based on UCxs
-BCx 02/16/24 NGTD, BCx 02/20/24 pending
-fever resolved
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
GRACIELA on CKD4:
-GRACIELA and AGMA resolved with IVFs
-renal following
Other problems:
Hypokalemia: IV K
h/o B/L JJ stents, h/o B/L ureteral stricture due to XRT for uterine cancer, history of metastatic bladder cancer: s/p routine exchange of ureteral stents 11/15/23, outpt f/u with Uro
L total hip revision, March 2020, complicated by infected hematoma with MRSA, status post washout 05/27/20, completed six weeks of IV daptomycin. Cont home oral suppressive doxycycline.
Chronic Anemia
Hyponatremia, resolved
h/o distal R femur fracture
Chronic pain, chronic opioid use with dependence: cont Fentanyl patch
Severe protein calorie malnutrition
h/o seizures: off Keppra for the past month w/o sz activity as per patient. 1st and last sz due to adverse effect Baclofen years ago also as per patient.
h/o DVT/PE s/p IVC filter
h/o presbyesophagus/H. pylori gastritis: cont PPI
Osteoporosis
Neuropathy: neurontin on hold
h/o Stage II sacral decubitus ulcer
DNR/heparin
Due to the patient's overwhelming burden of pathology and poor performance/functional status in the setting of severe protein calorie malnutrition, the patient is hospice appropriate. Palliative care following.
Anticipated Discharge: > 48 hours
Subjective/Interval History
-
Date of Service: February 25, 2024
Denies chest pain. Reported some shortness of breath due to phlegm stuck in her throat earlier today when she was laying flat.
Objective Data
-
Labs:
Laboratory Results
02/25/24
03:56
Sodium 144
Potassium 3.0 L
Chloride 109 H
Carbon Dioxide 26
BUN 15
Creatinine 1.1 H
Glucose 107 H
Calcium 8.0 L
Vital Signs:
Vital Signs
Temp Pulse Resp BP Pulse Ox
97.5 F 71 17 147/70 92
02/25/24 07:10 02/25/24 07:10 02/25/24 07:10 02/25/24 07:10 02/25/24 07:10
I&O
02/24/24 02/25/24 02/26/24
06:59 06:59 06:59
Intake Total 1540 / 1540 2287 / 2287
Output Total 2103 / 2103 945 / 945
Balance -563 / -563 1342 / 1342
--- NOTE | 2024-02-25 12:15 | W.PN.PAL2 ---
Today's Communication
-
NG placed wednesday
planned for TPN today
Assessment / Plan
-
Assessment/Plan:
- NG placed Wednesday - with decreasing output but remains bilious
- daily xrays, surgery managing NG
- TPN to start today
- patient hopefuly for resolution of SBO
- will follow
Objective Data
-
Objective Data:
Vital Signs
Temp Pulse Resp BP Pulse Ox
97.5 F 71 17 147/70 92
02/25/24 07:10 02/25/24 07:10 02/25/24 07:10 02/25/24 07:10 02/25/24 07:10
Laboratory Results
02/25/24 03:56
Urine Color Yellow 02/17/24 03:58
Urine Clarity Very cloudy (Clear) 02/17/24 03:58
Urine pH 6.0 (5.0-9.0) 02/17/24 03:58
Ur Specific [place] 1.015 (<1.030) 02/17/24 03:58
Urine Ketones Negative (Negative) 02/17/24 03:58
Urine Bilirubin Negative (Negative) 02/17/24 03:58
Palliative Performance Scale
Palliative Performance Scale:
PPS Level Ambulation Activity & Evidence of Disease Self Care Intake Conscious Level
100% Full Normal Activity & Work; Full Intake Full
No Evidence of Disease
90% Full Normal Activity & Work; Full Normal Full
Some Evidence of Disease
80% Full Normal Activity with Effort Full Normal or Full
Some Evidence of Disease Reduced
70% Reduced Unable Normal Job/Work Full Normal or Full
Significant Disease Reduced
60% Reduced Unable Hobby/Housework Occasional Normal or Full or Confusion
Significant Disease Assistance Reduced
50% Mainly Sit/Lie Unable to do Any Work Considerable Normal or Full or Confusion
Extensive Disease Assistance Req'd Reduced
40% Mainly in Bed Unable to do Most Activity Mainly Assistance Normal or Full or Drowsy;
Extensive Disease Reduced +/- Confusion
30% Totally Bed Unable to do Any Activity Total Care Normal or Full or Drowsy;
Bound Extensive Disease Reduced +/- Confusion
20% Totally Bed Bound Unable to do Any Activity Total Care Minimal to Full or Drowsy;
Extensive Disease Sips +/- Confusion
10% Totally Bed Bound Unable to do Any Activity Total Care Mouth Care Drowsy or Coma;
Extensive Disease Only +/- Confusion
0%
PPS Score Level:
Physical Exam
-
General: Conversant and Appears Chronically Ill
HEENT: Normocephalic
Cardiac: Regular Rhythm
Peripheral Vascular: No Edema
Musculoskeletal: Muscle Wasting
Skin: Warm
Neuro: AO x 3
Psych: Calm
Care Reviewed
Data Reviewed
Medical Tests: I reviewed
Reviewed with: Patient
[2024-02-25 12:22] LABS: Hematocrit 29.2 % (37.0-47.0); Hemoglobin 9.7 g/dL (12.0-16.0); Mean Corp Hgb Conc. 33.2 g/dL (33.0-37.0); Mean Corpuscular Volume 87.2 fL (81.0-99.0); Mean Platelet Volume 9.4 fL (7.4-10.4); Platelet Count 249 10^3/uL (130-400); Red Blood Cell Count 3.35 10^6/uL (4.20-5.40); Red Cell Dist. Width 14.5 % (11.5-14.5); White Blood Cell Count 6.1 10^3/uL (4.8-10.8)
[2024-02-25] MEDS: POTASSIUM PHOSPHATE 259.0909 MEQ IV (14:08)
[2024-02-25 15:00] VITALS: BP 133/76
--- NOTE | 2024-02-25 15:18 | CM ---
Chart reviewed: anticipated DC > 48 hours; TPN started; NGT; IVF. Per Attending' notes, patient is hospice appropriate; palliative care following
[2024-02-25 20:53] LABS: Glucose - Point of Care 103 mg/dl (70-99)
[2024-02-25] MEDS: Parenteral Nutrition, Central 810 IV (22:47)
[2024-02-26] MEDS: D5/0.9% SODIUM CHLORIDE IV (01:21)
[2024-02-26 01:46] LABS: Glucose - Point of Care 126 mg/dl (70-99)
[2024-02-26] MEDS: MORPHINE SULFATE 1 MG IV ×5 (03:02→22:01)
[2024-02-26 03:41] VITALS: BP 153/85
[2024-02-26] MEDS: CIPRO 200 MG 100 IV ×2 (05:14→20:43)
[2024-02-26 05:41] VITALS: BMI 24.5
[2024-02-26 07:02] VITALS: BP 140/79
--- NOTE | 2024-02-26 08:12 | W.PN.HOSP.TC ---
Today's Communication/Plan
-
see bold
Assessment / Plan
Assessment / Plan
Gen: NAD, AAOx3, appears chronically ill malnourished.
Eyes: EOMI, PERRLA, no scleral icterus.
Neck: supple.
CV: Continues to remain RRR, +S1/S2, no m/r/g.
Resp: Remains CTAB, no rales, wheezes, or rhonchi.
Abd: Hypoactive BS, soft, NT to very light palpation, ND
Skin: No rashes.
Neuro: CN 2-12 intact, non-focal.
Psych: Normal mood and affect.
L hip Xray: No radiographic evidence for complication of bilateral total hip arthroplasties.
L foot/ankle Xray: No radiographic evidence for an acute osseous abnormality of the left foot or ankle within the limitations of severe osseous demineralization.
OBST series 02/19/24: Multiple prominent, gas-filled loops of bowel projecting over the lower abdomen/upper pelvis suspicious for bowel obstruction.
CT A/P 02/19/24: Multiple dilated small bowel loops throughout the abdomen without discrete transition point identified, noting that visualization within the pelvis is significantly limited due to streak artifact. Findings remain suspicious for
developing small bowel obstruction.
Ileus vs SBO:
-nausea and abd pain started 02/18
-imaging above
-surgery following
-cont TPN
-cont NGT
-note h/o bowel resection with ileostomy for colon cancer 1994
-h/o high output ileostomy
Ambulatory dysfunction due to L heel injury:
-suspected subtle calcaneal fracture, appears both traumatic and pathologic due to osteoporosis
-PT/OT
-boot placed
-f/u with podiatry as outpatient
Acute UTI:
-cont Cipro (started 02/19/25) for 7 days based on UCxs
-BCx 02/16/24 NGTD, BCx 02/20/24 pending
-fever resolved
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
GRACIELA on CKD4:
-GRACIELA and AGMA resolved with IVFs
-renal following
Other problems:
Hypokalemia: s/p IV K
h/o B/L JJ stents, h/o B/L ureteral stricture due to XRT for uterine cancer, history of metastatic bladder cancer: s/p routine exchange of ureteral stents 11/15/23, outpt f/u with Uro
L total hip revision, March 2020, complicated by infected hematoma with MRSA, status post washout 05/27/20, completed six weeks of IV daptomycin. Cont home oral suppressive doxycycline.
Chronic Anemia
Hyponatremia, resolved
h/o distal R femur fracture
Chronic pain, chronic opioid use with dependence: cont Fentanyl patch
Severe protein calorie malnutrition
h/o seizures: off Keppra for the past month w/o sz activity as per patient. 1st and last sz due to adverse effect Baclofen years ago also as per patient.
h/o DVT/PE s/p IVC filter
h/o presbyesophagus/H. pylori gastritis: cont PPI
Osteoporosis
Neuropathy: neurontin on hold
h/o Stage II sacral decubitus ulcer
DNR/heparin
Due to the patient's overwhelming burden of pathology and poor performance/functional status in the setting of severe protein calorie malnutrition, the patient is hospice appropriate. Palliative care following.
Anticipated Discharge: > 48 hours
Subjective/Interval History
-
Date of Service: February 26, 2024
No new complaints. Patient states that NG tube output has been minimal and the color is changed to brown. Denies abdominal pain currently.
Objective Data
-
Labs:
Laboratory Results
02/26/24
06:00
WBC Pending
Hgb Pending
Hct Pending
Plt Count Pending
Sodium Pending
Potassium Pending
Chloride Pending
Carbon Dioxide Pending
BUN Pending
Creatinine Pending
Glucose Pending
Calcium Pending
Vital Signs:
Vital Signs
Temp Pulse Resp BP Pulse Ox
97.8 F 79 18 140/79 96
02/26/24 07:02 02/26/24 07:02 02/26/24 07:02 02/26/24 07:02 02/26/24 07:02
I&O
02/25/24 02/26/24 02/27/24
06:59 06:59 06:59
Intake Total 2287 / 2287 716 / 716
Output Total 945 / 945 785 / 785
Balance 1342 / 1342 -69 / -69
[2024-02-26] MEDS: HEPARIN 5000 UNITS SC ×2 (08:54→20:44)
[2024-02-26] MEDS: VIBRAMYCIN 260 MG IV ×2 (08:55→22:25)
[2024-02-26] MEDS: LIDOCAINE 4% PATCH 1 PATCH TOPICAL (08:55)
[2024-02-26 09:08] LABS: Glucose - Point of Care 116 mg/dl (70-99)
[2024-02-26 09:17] LABS: Hematocrit 31.5 % (37.0-47.0); Hemoglobin 10.5 g/dL (12.0-16.0); Mean Corp Hgb Conc. 33.3 g/dL (33.0-37.0); Mean Corpuscular Hgb 28.8 pg (27.0-31.0); Mean Corpuscular Volume 86.5 fL (81.0-99.0); Mean Platelet Volume 8.9 fL (7.4-10.4); Platelet Count 267 10^3/uL (130-400); Red Blood Cell Count 3.64 10^6/uL (4.20-5.40); Red Cell Dist. Width 14.6 % (11.5-14.5); White Blood Cell Count 8.2 10^3/uL (4.8-10.8)
[2024-02-26 09:54] LABS: Blood Urea Nitrogen 20 mg/dl (7-17); Calcium 8.4 mg/dl (8.4-10.2); Carbon Dioxide 24 mmol/L (22-30); Chloride 108 mmol/L (98-107); Estimated Creatinine Clearance 34 ml/min; Glucose 125 mg/dl (70-99); Phosphorus 2.8 mg/dl (2.5-4.5); Potassium 3.8 mmol/L (3.5-5.1); Sodium 144 mmol/L (135-145); eGFR 59.12
--- NOTE | 2024-02-26 10:54 | W.PN.NEPH.PH ---
Today's Communication / Plan
-
Lasix 20 mg IV
follow BMP
Assessment/Plan
-
Impression
Acute kidney injury
CKD stage IIIb with baseline creatinine 1.4-1.6
Metabolic acidosis
SBO vs Ileus
Left heel injury with ambulatory dysfunction
UTI
h/o B/L JJ stents, h/o B/L ureteral stricture due to XRT for uterine cancer, history of metastatic bladder cancer: s/p routine exchange of ureteral stents 11/15/23, outpt f/u with Uro
L total hip revision, March 2020, complicated by infected hematoma with MRSA, status post washout 05/27/20, completed six weeks of IV daptomycin. Cont home oral suppressive doxycycline.
Chronic Anemia
Hyponatremia
h/o distal R femur fracture
Chronic pain, chronic opioid use with dependence: cont Fentanyl patch/morphine
Severe protein calorie malnutrition
h/o seizures: off Keppra for the past month w/o sz activity as per patient. 1st and last sz due to adverse effect Baclofen years ago also as per patient.
h/o DVT/PE s/p IVC filter
h/o presbyesophagus/H. pylori gastritis: cont PPI
Osteoporosis
Neuropathy: cont neurontin
h/o Stage II sacral decubitus ulcer
Plan:
GRACIELA:
-Creatinine now down to baseline of 1.0
-Weights ~54kg
-replaced k yesterday
-Patient feels more short of breath, will provide 20 mg of IV Lasix
Checked postvoid bladder scan
NGT with suction -surg follows, bad xray improving
d/.w nursing and pt
-
-
Date of Service: February 26, 2024
CC / HPI / ROS
-
Chief Complaint:
Acute kidney injury
CKD (1.4)
History of Present Illness:
Creatinine down to 1.0
Hemodynamically stable
Review of Systems:
Noted shortness of breath with minimal exertion
some abdominal pain-improving
Labs
-
Labs:
WBC 8.2 10^3/uL (4.8-10.8) 02/26/24 09:08
RBC 3.64 10^6/uL (4.20-5.40) L 02/26/24 09:08
Hgb 10.5 g/dL (12.0-16.0) L 02/26/24 09:08
Hct 31.5 % (37.0-47.0) L 02/26/24 09:08
Plt Count 267 10^3/uL (130-400) 02/26/24 09:08
Sodium 144 mmol/L (135-145) 02/26/24 09:08
Potassium 3.8 mmol/L (3.5-5.1) D 02/26/24 09:08
Chloride 108 mmol/L (98-107) H 02/26/24 09:08
Carbon Dioxide 24 mmol/L (22-30) 02/26/24 09:08
BUN 20 mg/dl (7-17) H 02/26/24 09:08
Creatinine 1.0 mg/dL (0.6-1.0) 02/26/24 09:08
eGFR 59.12 02/26/24 09:08
Glucose 125 mg/dl (70-99) H 02/26/24 09:08
Calcium 8.4 mg/dl (8.4-10.2) 02/26/24 09:08
Phosphorus 2.8 mg/dl (2.5-4.5) 02/26/24 09:08
Physical Exam
-
Vital Signs:
Vital Signs
Temp Pulse Resp BP Pulse Ox
97.8 F 79 18 140/79 96
02/26/24 07:02 02/26/24 07:02 02/26/24 07:02 02/26/24 07:02 02/26/24 07:02
Cardiovascular:: Regular rate and rhythm
Respiratory:: Bilateral: CTA (anteriorly)
Lung Excursion:: Normal
Abdomen:: Nontender and Soft
Extremity Edema:: +2: Bilateral:
Garcia Catheter: No
--- NOTE | 2024-02-26 10:55 | W.PN.GS2 ---
Addendum entered and electronically signed by Venancio Becker MD 02/26/24 17:46:
Patient seen and examined this morning with surgical CASH CHECKER. Agree with documented progress note. This is a delayed entry.
Patient states that she has subjectively noted a bit of improvement in her previous abdominal pain but not resolved.
Ostomy functioning not at baseline but there is some activity intermittently.
AFVSS
NAD AAOx3
ABD: Softly distended, tenderness palpation but no rebound or guarding
Soft parastomal hernia with some tenderness on palpation
A bit of liquid and gas in ileostomy appliance
Assessment/plan: 73-year-old female with probable adhesive small bowel obstruction; moderate to high-grade but partial
Began having further discussions with patient that there is possibility of her obstruction not alleviating itself with conservative measures.
There are no indications for urgent surgical management such as bowel perforation, ischemia or immediate threat
Recommended that Ms. Best begin to think about treatment preferences if her obstruction were to remain persistent despite our current care.
Continue TPN
Continue NG tube decompression
Supportive care
Original Note:
Today's Communication / Plan
-
NPO/NGT/TPN
Assessment / Plan
-
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
fistula, bladder cancer who presents with abdominal pain, belching found to have small bowel obstruction, likely adhesive versus related to parastomal hernia.
No clinical signs of immediate bowel compromise or threat
AFVSS
XR with retained PO contrast still present on 02/24
Pain improving
Plan:
Maintain NGT decompression
Monitor ileostomy output
Continue NPO
Continue TPN, nutrition following
Follow-up abdominal x-rays tomorrow
PRN pain meds/antiemetics
DVT ppx
Subjective Data
-
Date of Service: February 26, 2024
Patient seen and examined at bedside with her sister present. She notes the pain is improving but she still has it when she sits upright. She denies nausea or vomiting.
Objective Data
-
Intake and Output
02/25/24 02/26/24 02/27/24
06:59 06:59 06:59
Intake Total 2287 / 2287 716 / 716
Output Total 945 / 945 785 / 785
Balance 1342 / 1342 -69 / -69
Intake:
IV fluids (Total) 1287 / 1287 200 / 200
IV piggybacks 880 / 880
TPN/PPN 306 / 306
Amount instilled into GI Tube ( 120 / 120 210 / 210
Total)
Eddy Sump 120 / 120 210 / 210
Output:
Liquid stool amount 320 / 320 110 / 110
Ileostomy 320 / 320 110 / 110
Gastrointestinal tube output ( 625 / 625 675 / 675
Total)
Eddy Sump 625 / 625 675 / 675
Other:
Number of approximated SMALL 1
amounts of urine
Number of approximated MODERATE 1
amounts of urine
How many times incontinent 2 3
SATURATED amount urine
Vital Signs
Temp Pulse Resp BP Pulse Ox
97.8 F 79 18 140/79 96
02/26/24 07:02 02/26/24 07:02 02/26/24 07:02 02/26/24 07:02 02/26/24 07:02
Lab Results
02/26/24 09:08
02/26/24 09:08
Calcium 8.4 mg/dl (8.4-10.2) 02/26/24 09:08
Phosphorus 2.8 mg/dl (2.5-4.5) 02/26/24 09:08
Magnesium 2.0 mg/dl (1.6-2.3) 02/26/24 09:08
Physical Exam
-
NAD AAOx3
ABD: Softly distended, tenderness to palpation localized to parastomal hernia area but area remains soft. Some voluntary guarding. No percussion tenderness.
NGT with bilious outputs
Some bilious/enteric contents have begun to drain into ostomy bag but not much flatus.
[2024-02-26] MEDS: LASIX 20 MG IV (11:33)
[2024-02-26 15:05] VITALS: BP 139/80
[2024-02-26 15:19] LABS: Glucose - Point of Care 122 mg/dl (70-99)
[2024-02-26 19:58] LABS: Glucose - Point of Care 118 mg/dl (70-99)
[2024-02-26] MEDS: Parenteral Nutrition, Central 920 IV (20:40)
[2024-02-26 23:06] VITALS: BP 135/79
[2024-02-27 02:10] LABS: Glucose - Point of Care 127 mg/dl (70-99)
[2024-02-27] MEDS: MORPHINE SULFATE 1 MG IV ×5 (02:21→21:36)
[2024-02-27 06:00] VITALS: BMI 24.3
[2024-02-27 06:55] LABS: Hematocrit 31.4 % (37.0-47.0); Hemoglobin 10.5 g/dL (12.0-16.0); Mean Corp Hgb Conc. 33.4 g/dL (33.0-37.0); Mean Corpuscular Hgb 29.4 pg (27.0-31.0); Mean Platelet Volume 9.5 fL (7.4-10.4); Platelet Count 280 10^3/uL (130-400); Red Blood Cell Count 3.57 10^6/uL (4.20-5.40); Red Cell Dist. Width 14.6 % (11.5-14.5); White Blood Cell Count 10.2 10^3/uL (4.8-10.8)
[2024-02-27 07:04] VITALS: BP 137/71
[2024-02-27 07:09] LABS: Blood Urea Nitrogen 32 mg/dl (7-17); Calcium 8.5 mg/dl (8.4-10.2); Carbon Dioxide 28 mmol/L (22-30); Chloride 106 mmol/L (98-107); Estimated Creatinine Clearance 34 ml/min; Glucose 119 mg/dl (70-99); Magnesium 1.9 mg/dl (1.6-2.3); Phosphorus 3.1 mg/dl (2.5-4.5); Potassium 3.8 mmol/L (3.5-5.1); Sodium 145 mmol/L (135-145); eGFR 59.12
[2024-02-27] MEDS: CIPRO 200 MG 100 IV (07:57)
--- NOTE | 2024-02-27 07:58 | W.PN.HOSP.TC ---
Today's Communication/Plan
-
see bold
Assessment / Plan
Assessment / Plan
Gen: Remains NAD, AAOx3, appears chronically ill malnourished.
Eyes: EOMI, PERRLA, no scleral icterus.
Neck: supple.
CV: RRR, +S1/S2, no m/r/g.
Resp: Continues to remain CTAB, no rales, wheezes, or rhonchi.
Abd: +BS, soft, NT to light palpation, ND
Skin: No rashes.
Neuro: CN 2-12 intact, non-focal.
Psych: Normal mood and affect.
L hip Xray: No radiographic evidence for complication of bilateral total hip arthroplasties.
L foot/ankle Xray: No radiographic evidence for an acute osseous abnormality of the left foot or ankle within the limitations of severe osseous demineralization.
OBST series 02/19/24: Multiple prominent, gas-filled loops of bowel projecting over the lower abdomen/upper pelvis suspicious for bowel obstruction.
CT A/P 02/19/24: Multiple dilated small bowel loops throughout the abdomen without discrete transition point identified, noting that visualization within the pelvis is significantly limited due to streak artifact. Findings remain suspicious for
developing small bowel obstruction.
Abd Xray 02/26/24: No evidence of intestinal obstruction. Postsurgical change.
Probable adhesive small bowel obstruction; moderate to high-grade but partial:
-nausea and abd pain started 02/18
-imaging above noting abd Xray 02/25 with evidence of intestinal obstruction
-surgery following
-cont TPN
-cont NGT
-note h/o bowel resection with ileostomy for colon cancer 1994, h/o high output ileostomy
Ambulatory dysfunction due to L heel injury:
-suspected subtle calcaneal fracture, appears both traumatic and pathologic due to osteoporosis
-PT/OT
-boot placed
-f/u with podiatry as outpatient
Acute UTI:
-completed 7 day course of Cipro on 02/26/24
-BCx 02/16/24 and 02/20/24 NGTD
-fever resolved
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
Other problems:
GRACIELA on CKD3b: GRACIELA and AGMA resolved with IVFs, renal following
Hypokalemia, resolved
h/o B/L JJ stents, h/o B/L ureteral stricture due to XRT for uterine cancer, history of metastatic bladder cancer: s/p routine exchange of ureteral stents 11/15/23, outpt f/u with Uro
L total hip revision, March 2020, complicated by infected hematoma with MRSA, status post washout 05/27/20, completed six weeks of IV daptomycin. Cont home oral suppressive doxycycline.
Chronic Anemia
Hyponatremia, resolved
h/o distal R femur fracture
Chronic pain, chronic opioid use with dependence: cont Fentanyl patch
Severe protein calorie malnutrition
h/o seizures: off Keppra for the past month w/o sz activity as per patient. 1st and last sz due to adverse effect Baclofen years ago also as per patient.
h/o DVT/PE s/p IVC filter
h/o presbyesophagus/H. pylori gastritis: cont PPI
Osteoporosis
Neuropathy: neurontin on hold
h/o Stage II sacral decubitus ulcer
DNR/heparin
Patient Sister updated at bedside.
Due to the patient's overwhelming burden of pathology and poor performance/functional status in the setting of severe protein calorie malnutrition, the patient is hospice appropriate. Palliative care following.
Anticipated Discharge: > 48 hours
Subjective/Interval History
-
Date of Service: February 27, 2024
Patient states she is starting to feel 'movement' in her abdomen. Denies any abdominal pain. Asking for NG tube to be removed.
Objective Data
-
Labs:
Laboratory Results
02/27/24
04:55
WBC 10.2
Hgb 10.5 L
Hct 31.4 L
Plt Count 280
Sodium 145
Potassium 3.8
Chloride 106
Carbon Dioxide 28
BUN 32 H
Creatinine 1.0
Glucose 119 H
Calcium 8.5
Vital Signs:
Vital Signs
Temp Pulse Resp BP Pulse Ox
97.7 F 83 18 137/71 95
02/27/24 07:04 02/27/24 07:04 02/27/24 07:04 02/27/24 07:04 02/27/24 07:04
I&O
02/26/24 02/27/24 02/28/24
06:59 06:59 06:59
Intake Total 716 / 716 800 / 800
Output Total 785 / 785 160 / 160
Balance -69 / -69 640 / 640
[2024-02-27] MEDS: LIDOCAINE 4% PATCH 1 PATCH TOPICAL (09:57)
[2024-02-27] MEDS: VIBRAMYCIN 260 MG IV ×2 (09:57→20:10)
[2024-02-27] MEDS: HEPARIN 5000 UNITS SC ×2 (09:58→20:11)
[2024-02-27 10:04] LABS: Glucose - Point of Care 121 mg/dl (70-99)
--- NOTE | 2024-02-27 10:58 | W.PN.GS2 ---
Today's Communication / Plan
-
`
Assessment / Plan
-
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
fistula, bladder cancer who presents with abdominal pain, belching found to have small bowel obstruction, likely adhesive versus related to parastomal hernia.
No clinical signs of immediate bowel compromise or threat
AFVSS
Lengthy discussions with patient and her sister at bedside. She presents to the hospital already on palliative care. Still uncertainty whether SBO has improved to the point that she will be able to tolerate oral intake to support hydration or
nutritional needs. If she develops recurrent symptoms/persistent symptoms with removal of NG tube that we discussed subsequent treatment options would either be transition to hospice from palliative care or consideration of surgery. From a
surgical standpoint discussed with patient and her sister in detail that entertaining surgery would likely be very challenging both from a surgical standpoint intraoperatively with very high risk for short gut, enterocutaneous fistulas and even
potential for frozen abdomen particularly in the pelvis where she has had radiation and vesicovaginal fistula. In the best case scenario this would likely be a prolonged stay in the intensive care unit, challenging to return to baseline care and
functional status as well as GI tolerance.
After discussions patient has not definitively made decision but advised that she would likely pursue hospice care over surgery which I would advise and agree with as well. Patient's sister at bedside acknowledged Estefany's decision and agreed with
her choice as well.
Plan:
NG tube removed
Trial clear liquid diet
Monitor for tolerance of p.o. intake
If relapse of obstructive symptoms would favor hospice care but will have to definitively discussed with patient if scenario is to arise.
Subjective Data
-
Date of Service: February 27, 2024
Patient seen and examined. Sister at bedside.
Feeling a bit better, no nausea, no abdominal pain
Requesting removal of NG tube
Small intermittent ostomy outputs.
Objective Data
-
Intake and Output
02/26/24 02/27/24 02/28/24
06:59 06:59 06:59
Intake Total 716 / 716 800 / 800
Output Total 785 / 785 160 / 160
Balance -69 / -69 640 / 640
Intake:
IV fluids (Total) 200 / 200 200 / 200
TPN/PPN 306 / 306 420 / 420
Amount instilled into GI Tube ( 210 / 210 180 / 180
Total)
[place] Sump 210 / 210 180 / 180
Output:
Liquid stool amount 110 / 110
Ileostomy 110 / 110
Gastrointestinal tube output ( 675 / 675 160 / 160
Total)
[place] Sump 675 / 675 160 / 160
Other:
Number of approximated SMALL 1
amounts of urine
Number of approximated MODERATE 1 1
amounts of urine
How many times incontinent 1
MODERATE amount urine
How many times incontinent 3 2
SATURATED amount urine
Vital Signs
Temp Pulse Resp BP Pulse Ox
97.7 F 83 18 137/71 95
02/27/24 07:04 02/27/24 07:04 02/27/24 07:04 02/27/24 07:04 02/27/24 07:04
Lab Results
02/27/24 04:55
02/27/24 04:55
Calcium 8.5 mg/dl (8.4-10.2) 02/27/24 04:55
Phosphorus 3.1 mg/dl (2.5-4.5) 02/27/24 04:55
Magnesium 1.9 mg/dl (1.6-2.3) 02/27/24 04:55
Physical Exam
-
NAD AAOx3
ABD: softly protuberant; tympany on percussion; minimal tenderness today. No rebound rigidity or guarding
Right-sided parastomal hernia site softer and less tender as well.
Ileostomy appliance without significant outputs
NG tube in place but nonbilious clear fluid in canister and tubing
--- NOTE | 2024-02-27 13:44 | W.PN.NEPH.PH ---
Today's Communication / Plan
-
No IV Lasix today
Encourage p.o. fluid intake
Follow-up BMP
Assessment/Plan
-
Impression
Acute kidney injury
CKD stage IIIb with baseline creatinine 1.4-1.6
Metabolic acidosis
SBO vs Ileus
Left heel injury with ambulatory dysfunction
UTI
h/o B/L JJ stents, h/o B/L ureteral stricture due to XRT for uterine cancer, history of metastatic bladder cancer: s/p routine exchange of ureteral stents 11/15/23, outpt f/u with Uro
L total hip revision, March 2020, complicated by infected hematoma with MRSA, status post washout 05/27/20, completed six weeks of IV daptomycin. Cont home oral suppressive doxycycline.
Chronic Anemia
Hyponatremia
h/o distal R femur fracture
Chronic pain, chronic opioid use with dependence: cont Fentanyl patch/morphine
Severe protein calorie malnutrition
h/o seizures: off Keppra for the past month w/o sz activity as per patient. 1st and last sz due to adverse effect Baclofen years ago also as per patient.
h/o DVT/PE s/p IVC filter
h/o presbyesophagus/H. pylori gastritis: cont PPI
Osteoporosis
Neuropathy: cont neurontin
h/o Stage II sacral decubitus ulcer
Plan:
GRACIELA:
-Creatinine now down to baseline of 1.0
-Received 20 mg of IV Lasix yesterday, unfortunately patient with exacerbating hypernatremia at 145
-If patient becomes more hyponatremic tomorrow we can adjust due to density of the TPN
-Weight down 0.5kg urine output not recordable
-Replete K as needed
-Patient feels more short of breath, will provide 20 mg of IV Lasix
-Checked postvoid bladder scan
-NG tube now removed, patient encouraged to take more p.o. fluid
-
-
Date of Service: February 27, 2024
CC / HPI / ROS
-
Chief Complaint:
Acute kidney injury
CKD (1.4)
History of Present Illness:
Creatinine down to 1.0
Hemodynamically stable
Serum sodium up to 145
Review of Systems:
Noted shortness of breath with minimal exertion somewhat improved
some abdominal pain-improving
Subjectively nonoliguric
Labs
-
Labs:
WBC 10.2 10^3/uL (4.8-10.8) 02/27/24 04:55
RBC 3.57 10^6/uL (4.20-5.40) L 02/27/24 04:55
Hgb 10.5 g/dL (12.0-16.0) L 02/27/24 04:55
Hct 31.4 % (37.0-47.0) L 02/27/24 04:55
Plt Count 280 10^3/uL (130-400) 02/27/24 04:55
Sodium 145 mmol/L (135-145) 02/27/24 04:55
Potassium 3.8 mmol/L (3.5-5.1) 02/27/24 04:55
Chloride 106 mmol/L (98-107) 02/27/24 04:55
Carbon Dioxide 28 mmol/L (22-30) 02/27/24 04:55
BUN 32 mg/dl (7-17) H 02/27/24 04:55
Creatinine 1.0 mg/dL (0.6-1.0) 02/27/24 04:55
eGFR 59.12 02/27/24 04:55
Glucose 119 mg/dl (70-99) H 02/27/24 04:55
Calcium 8.5 mg/dl (8.4-10.2) 02/27/24 04:55
Phosphorus 3.1 mg/dl (2.5-4.5) 02/27/24 04:55
Physical Exam
-
Vital Signs:
Vital Signs
Temp Pulse Resp BP Pulse Ox
97.7 F 83 18 137/71 95
02/27/24 07:04 02/27/24 07:04 02/27/24 07:04 02/27/24 07:04 02/27/24 07:04
Cardiovascular:: Regular rate and rhythm
Respiratory:: Bilateral: CTA (anteriorly)
Lung Excursion:: Normal
Abdomen:: Soft and Tender (mild)
Bowel Sounds:: Decreased
Extremity Edema:: +2: Bilateral:
Garcia Catheter: No
[2024-02-27 15:03] LABS: Glucose - Point of Care 122 mg/dl (70-99)
[2024-02-27 15:05] VITALS: BP 123/75
[2024-02-27] MEDS: Parenteral Nutrition, Central 920 IV (20:07)
[2024-02-27 20:11] LABS: Glucose - Point of Care 118 mg/dl (70-99)
[2024-02-27 23:33] VITALS: BP 133/74
[2024-02-28 00:10] LABS: Glucose - Point of Care 111 mg/dl (70-99)
[2024-02-28] MEDS: DURAGESIC 25 MCG/HR PATCH 1 PATCH TRANSDERM (00:15)
[2024-02-28] MEDS: MORPHINE SULFATE 1 MG IV ×5 (02:11→20:57)
[2024-02-28 04:57] LABS: Hematocrit 32.9 % (37.0-47.0); Hemoglobin 10.7 g/dL (12.0-16.0); Mean Corp Hgb Conc. 32.5 g/dL (33.0-37.0); Mean Corpuscular Hgb 28.8 pg (27.0-31.0); Mean Corpuscular Volume 88.4 fL (81.0-99.0); Mean Platelet Volume 9.5 fL (7.4-10.4); Platelet Count 284 10^3/uL (130-400); Red Blood Cell Count 3.72 10^6/uL (4.20-5.40); Red Cell Dist. Width 15.1 % (11.5-14.5); White Blood Cell Count 10.6 10^3/uL (4.8-10.8)
[2024-02-28 05:31] LABS: ALT (SGPT) 14 U/L (0-35); AST (SGOT) 29 U/L (14-36); Albumin 3.4 g/dl (3.5-5.0); Alkaline Phosphatase 144 U/L (38-126); Blood Urea Nitrogen 43 mg/dl (7-17); Calcium 8.9 mg/dl (8.4-10.2); Carbon Dioxide 26 mmol/L (22-30); Chloride 106 mmol/L (98-107); Estimated Creatinine Clearance 31 ml/min; Glucose 109 mg/dl (70-99); Magnesium 1.9 mg/dl (1.6-2.3); Phosphorus 3.5 mg/dl (2.5-4.5); Sodium 142 mmol/L (135-145); Total Bilirubin 0.6 mg/dl (0.2-1.3); Total Protein 6.1 g/dl (6.3-8.2); Triglycerides 59 mg/dl (10-149); eGFR 52.73
[2024-02-28 06:00] VITALS: BMI 24.4
--- NOTE | 2024-02-28 06:24 | PTCARENOTE ---
Pt started vomiting, looks like stool. Notified Dr Becker, asked if he would like us to get an abd xray or place NGT again. He said it is up to patient. At this point, pt would like to hold off on another NGT. Explained to patient that if she
continues to drink liquids she could continue to vomit. Pt expressed understanding. Will continue to monitor.
[2024-02-28 07:18] LABS: Glucose - Point of Care 123 mg/dl (70-99)
[2024-02-28 08:15] VITALS: BP 134/78
[2024-02-28] MEDS: COMPAZINE 5 MG IV ×2 (08:38→14:41)
[2024-02-28] MEDS: LIDOCAINE 4% PATCH TOPICAL (08:40)
[2024-02-28] MEDS: VIBRAMYCIN 260 MG IV ×2 (08:41→20:52)
[2024-02-28] MEDS: HEPARIN 5000 UNITS SC ×2 (08:43→20:53)
--- NOTE | 2024-02-28 09:29 | W.PN.GS2 ---
Today's Communication / Plan
-
NPO
Assessment / Plan
-
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
fistula, bladder cancer who presents with abdominal pain, belching found to have small bowel obstruction, likely adhesive versus related to parastomal hernia.
No clinical signs of immediate bowel compromise or threat
AFVSS
After discussions patient has not definitively made decision but advised that she would likely pursue hospice care over surgery. Would like to consider venting PEG tube if nausea/vomiting persists.
Plan:
NPO with sips of clears
Hold off on NGT for now
Will continue discussion with patient on goals of care/hospice
Subjective Data
-
Date of Service: February 28, 2024
Patient seen and examined at bedside. Intermittent nausea but feeling better currently after vomiting around 0600. She has some cramping discomfort but is hearing a lot of gurgling. Some cramping pain in her left side.
Objective Data
-
Intake and Output
02/27/24 02/28/24 02/29/24
06:59 06:59 06:59
Intake Total 800 / 800 1320 / 1320 260 / 260
Output Total 160 / 160
Balance 640 / 640 1320 / 1320 260 / 260
Intake:
Oral fluids 1320 / 1320
IV fluids (Total) 200 / 200
IV piggybacks 260 / 260
TPN/PPN 420 / 420
Amount instilled into GI Tube ( 180 / 180
Total)
Story Sump 180 / 180
Output:
Gastrointestinal tube output ( 160 / 160
Total)
Story Sump 160 / 160
Other:
Number of approximated MODERATE 1
amounts of urine
How many times incontinent 1 2
MODERATE amount urine
How many times incontinent 2 2
SATURATED amount urine
Number of immeasurable emeses? 1
Vital Signs
Temp Pulse Resp BP Pulse Ox
98.3 F 100 18 134/78 98
02/28/24 08:15 02/28/24 08:15 02/28/24 08:15 02/28/24 08:15 02/28/24 08:15
Lab Results
02/28/24 04:32
02/28/24 04:32
Calcium 8.9 mg/dl (8.4-10.2) 02/28/24 04:32
Phosphorus 3.5 mg/dl (2.5-4.5) 02/28/24 04:32
Magnesium 1.9 mg/dl (1.6-2.3) 02/28/24 04:32
Total Bilirubin 0.6 mg/dl (0.2-1.3) 02/28/24 04:32
AST 29 U/L (14-36) 02/28/24 04:32
ALT 14 U/L (0-35) 02/28/24 04:32
Alkaline Phosphatase 144 U/L (38-126) H 02/28/24 04:32
Total Protein 6.1 g/dl (6.3-8.2) L 02/28/24 04:32
Albumin 3.4 g/dl (3.5-5.0) L 02/28/24 04:32
Physical Exam
-
NAD AAOx3
ABD: softly protuberant; tympany on percussion; minimal tenderness. No rebound rigidity or guarding
Right-sided parastomal hernia site soft, minimally tender.
Ileostomy appliance without significant outputs
[2024-02-28 11:27] LABS: Glucose - Point of Care 134 mg/dl (70-99)
--- NOTE | 2024-02-28 11:43 | W.PN.PAL2 ---
Today's Communication
-
PC Follow up, total floor time 40 mins
Estefany was seen in her room with her sister present. they are well known to the palliative care team.
Estefany reports that today pain is stable, however had severe vomiting earlier today. NGT had been removed yesterday and had been started on clears. back to NPO now. feels stomach cramping.
Discussed goals. Estefany shares that she does not want surgical intervention, does not want NGT replaced. She feels that she is burdening her sister with all of her care needs. We discussed hospice care, she is open to meeting with hospice. Discussed
that if she pursues hospice then TPN would stop and focus would be on medications for symptom managemnet. If her nausea improved she could eat for pleasure, but if she was unable to eat/drink fluids her time would be limited. She is agreeable to
hospice consult to discuss further - updated attending. She has visiting reji espinoza 4 hours per day, would need to increase hours.
Assessment / Plan
-
Assessment/Plan:
Goals - comfort oriented, agreeable to hospice informational referral. attending updated.
Code status DNR
Reason for Admission
Illness Course/HPI
Initial COnsult :
73 year old F with PMH of multiple previous bowel obstructions, bladder cancer s/p Keytruda, colon cancer s/p ileostomy, uterine cancer, bilateral ureteral stent with periodic exchange, chronic vesicular vaginal fistula, seizures, esophagitis,
depression, anxiety, DVT, CKD, urinary retention, multiple low back surgeries admitted with discomfort in her left heel and ankle that occurred when getting out of the car to the wheelchair. Per report, twisted her ankle as she was getting out of
the car and then was unable to bear any weight on LLE.
Upon admission, radiological workup initially negative for acute fractures. On second look, + nondisplaced calcaneal fracture. Boot placed on left foot.
Was planned for rehab then developed fever 02/15 - started on abx for UTI. Then developed N/V - flat plate concerning for SBO. S/p CT which confirmed. Seen by surgery - recommended no operative intervention. Developed GRACIELA for which nephrology is
following - lasix on hold.
Functional Status
at her baseline patient was ambulating short distances with walker, required bilateral AFO braces. currently due to swelling unable to wear braces, is non ambulatory.
Goals of Care Discussion
-
Patient able to participate in discussion at time of visit: Yes
Patient's Information Preferences: Fully Involved/Able to Participate
Patient Goals
goals are comfort oriented - agreeable to hospice consult
Pain & Symptom Assessment
-
c/o stomach cramping, nausea earlier today
Objective Data
-
Objective Data:
Vital Signs
Temp Pulse Resp BP Pulse Ox
98.3 F 100 18 134/78 98
02/28/24 08:15 02/28/24 08:15 02/28/24 08:15 02/28/24 08:15 02/28/24 08:15
Laboratory Results
02/28/24 04:32
02/28/24 04:32
Total Protein 6.1 g/dl (6.3-8.2) L 02/28/24 04:32
Albumin 3.4 g/dl (3.5-5.0) L 02/28/24 04:32
Urine Color Yellow 02/17/24 03:58
Urine Clarity Very cloudy (Clear) 02/17/24 03:58
Urine pH 6.0 (5.0-9.0) 02/17/24 03:58
Ur Specific [place] 1.015 (<1.030) 02/17/24 03:58
Urine Ketones Negative (Negative) 02/17/24 03:58
Urine Bilirubin Negative (Negative) 02/17/24 03:58
Palliative Performance Scale
Palliative Performance Scale:
PPS Level Ambulation Activity & Evidence of Disease Self Care Intake Conscious Level
100% Full Normal Activity & Work; Full Intake Full
No Evidence of Disease
90% Full Normal Activity & Work; Full Normal Full
Some Evidence of Disease
80% Full Normal Activity with Effort Full Normal or Full
Some Evidence of Disease Reduced
70% Reduced Unable Normal Job/Work Full Normal or Full
Significant Disease Reduced
60% Reduced Unable Hobby/Housework Occasional Normal or Full or Confusion
Significant Disease Assistance Reduced
50% Mainly Sit/Lie Unable to do Any Work Considerable Normal or Full or Confusion
Extensive Disease Assistance Req'd Reduced
40% Mainly in Bed Unable to do Most Activity Mainly Assistance Normal or Full or Drowsy;
Extensive Disease Reduced +/- Confusion
30% Totally Bed Unable to do Any Activity Total Care Normal or Full or Drowsy;
Bound Extensive Disease Reduced +/- Confusion
20% Totally Bed Bound Unable to do Any Activity Total Care Minimal to Full or Drowsy;
Extensive Disease Sips +/- Confusion
10% Totally Bed Bound Unable to do Any Activity Total Care Mouth Care Drowsy or Coma;
Extensive Disease Only +/- Confusion
0%
PPS Score Level:
Palliative Performance Score Response
Palliative Performance Score Response: 40%
Physical Exam
-
General: Comfortable
Neuro: Awake and Alert
Psych: Calm
--- NOTE | 2024-02-28 12:07 | CM ---
Patient seen at bedside.
Adrianna Smith from Palliative spoke with patient & sister
tt Dr. Sheets
CM consult for hospice completed.
Discussed options & prefers [facility]-referral entered in [facility].
PLAN: hospice to eval.
--- NOTE | 2024-02-28 12:09 | W.PN.NEPH.PH ---
Today's Communication / Plan
-
labs in am, prn lasix
Assessment/Plan
-
Impression
Acute kidney injury
CKD stage IIIb with baseline creatinine 1.4-1.6
Metabolic acidosis
SBO vs Ileus
Left heel injury with ambulatory dysfunction
UTI
h/o B/L JJ stents, h/o B/L ureteral stricture due to XRT for uterine cancer, history of metastatic bladder cancer: s/p routine exchange of ureteral stents 11/15/23, outpt f/u with Uro
L total hip revision, March 2020, complicated by infected hematoma with MRSA, status post washout 05/27/20, completed six weeks of IV daptomycin. Cont home oral suppressive doxycycline.
Chronic Anemia
Hyponatremia
h/o distal R femur fracture
Chronic pain, chronic opioid use with dependence: cont Fentanyl patch/morphine
Severe protein calorie malnutrition
h/o seizures: off Keppra for the past month w/o sz activity as per patient. 1st and last sz due to adverse effect Baclofen years ago also as per patient.
h/o DVT/PE s/p IVC filter
h/o presbyesophagus/H. pylori gastritis: cont PPI
Osteoporosis
Neuropathy: cont neurontin
h/o Stage II sacral decubitus ulcer
Plan:
GRACIELA:
-Creatinine now down to baseline of 1.1
-Received 20 mg of IV Lasix 02/25,
back to NPO with vomiting earlier
sodium improving
TPN per surg
BP stable
lasix prn
palliative care follow, pt thinking of hospice
-
-
Date of Service: February 28, 2024
CC / HPI / ROS
-
Chief Complaint:
Acute kidney injury
CKD (1.4)
History of Present Illness:
Creatinine stable at 1.1
sodium better at 142
Hemodynamically stable
no fever
Review of Systems:
vomited this am, now NPO
edema still
no cp or sob at rest
Labs
-
Labs:
WBC 10.6 10^3/uL (4.8-10.8) 02/28/24 04:32
RBC 3.72 10^6/uL (4.20-5.40) L 02/28/24 04:32
Hgb 10.7 g/dL (12.0-16.0) L 02/28/24 04:32
Hct 32.9 % (37.0-47.0) L 02/28/24 04:32
Plt Count 284 10^3/uL (130-400) 02/28/24 04:32
Sodium 142 mmol/L (135-145) 02/28/24 04:32
Potassium 4.0 mmol/L (3.5-5.1) 02/28/24 04:32
Chloride 106 mmol/L (98-107) 02/28/24 04:32
Carbon Dioxide 26 mmol/L (22-30) 02/28/24 04:32
BUN 43 mg/dl (7-17) H 02/28/24 04:32
Creatinine 1.1 mg/dL (0.6-1.0) H 02/28/24 04:32
eGFR 52.73 02/28/24 04:32
Glucose 109 mg/dl (70-99) H 02/28/24 04:32
Calcium 8.9 mg/dl (8.4-10.2) 02/28/24 04:32
Phosphorus 3.5 mg/dl (2.5-4.5) 02/28/24 04:32
Albumin 3.4 g/dl (3.5-5.0) L 02/28/24 04:32
Physical Exam
-
Vital Signs:
Vital Signs
Temp Pulse Resp BP Pulse Ox
98.3 F 100 18 134/78 98
02/28/24 08:15 02/28/24 08:15 02/28/24 08:15 02/28/24 08:15 02/28/24 08:15
Cardiovascular:: Regular rate and rhythm
Lung Excursion:: Normal (decreased)
Abdomen:: Nontender and Soft
Extremity Edema:: +2: Bilateral:
Garcia Catheter: No
--- NOTE | 2024-02-28 12:39 | W.PN.HOSP.TC ---
Today's Communication/Plan
-
Monitor vital signs see plan
Discussed with patient and sister at bedside, consult geriatric case manager for hospice
Palliative care following
Surgery to see today
Pain control
Assessment / Plan
Assessment / Plan
Gen: Remains NAD, AAOx3, appears chronically ill malnourished.
Eyes: EOMI, PERRLA, no scleral icterus.
Neck: supple.
CV: RRR, +S1/S2, no m/r/g.
Resp: Continues to remain CTAB, no rales, wheezes, or rhonchi.
Abd: + tender
Skin: No rashes.
Neuro: CN 2-12 intact, non-focal.
Psych: Normal mood and affect.
L hip Xray: No radiographic evidence for complication of bilateral total hip arthroplasties.
L foot/ankle Xray: No radiographic evidence for an acute osseous abnormality of the left foot or ankle within the limitations of severe osseous demineralization.
OBST series 02/19/24: Multiple prominent, gas-filled loops of bowel projecting over the lower abdomen/upper pelvis suspicious for bowel obstruction.
CT A/P 02/19/24: Multiple dilated small bowel loops throughout the abdomen without discrete transition point identified, noting that visualization within the pelvis is significantly limited due to streak artifact. Findings remain suspicious for
developing small bowel obstruction.
Abd Xray 02/26/24: No evidence of intestinal obstruction. Postsurgical change.
Probable adhesive small bowel obstruction; moderate to high-grade but partial:
-nausea and abd pain started 02/18
-imaging above noting abd Xray 02/25 with evidence of intestinal obstruction
-surgery following
Did not tolerated clears 02/26, vomiting. Patient does not want another NG tube. Spoke with Dr. Jett, consulted hospice for evaluation.
Patient has been having discussion with surgery regarding further management. Surgery to see today
on TPN
-note h/o bowel resection with ileostomy for colon cancer 1994, h/o high output ileostomy
morphine prn
Ambulatory dysfunction due to L heel injury:
-suspected subtle calcaneal fracture, appears both traumatic and pathologic due to osteoporosis
-PT/OT
-boot placed
-f/u with podiatry as outpatient
Acute UTI:
-completed 7 day course of Cipro on 02/26/24
-BCx 02/16/24 and 02/20/24 NGTD
-fever resolved
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
Other problems:
GRACIELA on CKD3b: GRACIELA and AGMA resolved with IVFs, renal following
Hypokalemia, resolved
h/o B/L JJ stents, h/o B/L ureteral stricture due to XRT for uterine cancer, history of metastatic bladder cancer: s/p routine exchange of ureteral stents 11/15/23, outpt f/u with Uro
L total hip revision, March 2020, complicated by infected hematoma with MRSA, status post washout 05/27/20, completed six weeks of IV daptomycin. Cont home oral suppressive doxycycline.
Chronic Anemia
Hyponatremia, resolved
h/o distal R femur fracture
Chronic pain, chronic opioid use with dependence: cont Fentanyl patch
Severe protein calorie malnutrition
h/o seizures: off Keppra for the past month w/o sz activity as per patient. 1st and last sz due to adverse effect Baclofen years ago also as per patient.
h/o DVT/PE s/p IVC filter
h/o presbyesophagus/H. pylori gastritis: cont PPI
Osteoporosis
Neuropathy: neurontin on hold
h/o Stage II sacral decubitus ulcer
DNR/heparin
Patient Sister updated at bedside.
Due to the patient's overwhelming burden of pathology and poor performance/functional status in the setting of severe protein calorie malnutrition, the patient is hospice appropriate. Palliative care following.
I spent a total of 53 minutes with the patient or on the floor. More than 50% of this time involved counseling and coordination of care.
Anticipated Discharge: 24 - 48 hours
Subjective/Interval History
-
Date of Service: February 28, 2024
Has pain, vomiting this morning
Objective Data
-
Labs:
Laboratory Results
02/28/24
04:32
WBC 10.6
Hgb 10.7 L
Hct 32.9 L
Plt Count 284
Sodium 142
Potassium 4.0
Chloride 106
Carbon Dioxide 26
BUN 43 H
Creatinine 1.1 H
Glucose 109 H
Calcium 8.9
Total Bilirubin 0.6
AST 29
ALT 14
Alkaline Phosphatase 144 H
Vital Signs:
Vital Signs
Temp Pulse Resp BP Pulse Ox
98.3 F 100 18 134/78 98
02/28/24 08:15 02/28/24 08:15 02/28/24 08:15 02/28/24 08:15 02/28/24 08:15
I&O
02/27/24 02/28/24 02/29/24
06:59 06:59 06:59
Intake Total 800 / 800 1320 / 1320 260 / 260
Output Total 160 / 160
Balance 640 / 640 1320 / 1320 260 / 260
[2024-02-28 15:18] VITALS: BP 136/78
[2024-02-28 16:17] LABS: Glucose - Point of Care 132 mg/dl (70-99)
[2024-02-28] MEDS: Parenteral Nutrition, Central 920 IV (20:49)
[2024-02-28 23:49] VITALS: BP 121/71
[2024-02-28 23:59] LABS: Glucose - Point of Care 133 mg/dl (70-99)
[2024-02-29] MEDS: MORPHINE SULFATE 1 MG IV ×5 (00:18→20:27)
[2024-02-29 06:00] VITALS: BMI 24.2
[2024-02-29 06:15] LABS: Glucose - Point of Care 130 mg/dl (70-99)
[2024-02-29 06:41] LABS: Hematocrit 31.4 % (37.0-47.0); Hemoglobin 10.5 g/dL (12.0-16.0); Mean Corp Hgb Conc. 33.4 g/dL (33.0-37.0); Mean Corpuscular Hgb 29.2 pg (27.0-31.0); Mean Corpuscular Volume 87.5 fL (81.0-99.0); Mean Platelet Volume 9.8 fL (7.4-10.4); Platelet Count 248 10^3/uL (130-400); Red Blood Cell Count 3.59 10^6/uL (4.20-5.40)
[2024-02-29 07:10] VITALS: BP 129/79
--- NOTE | 2024-02-29 07:34 | W.PN.GS2 ---
Today's Communication / Plan
-
`
Assessment / Plan
-
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
fistula, bladder cancer who presents with abdominal pain, belching found to have small bowel obstruction, likely adhesive versus related to parastomal hernia.
I have had lengthy discussions with patient over the past few days. Secondary to extensiveness of prior abdominal surgery, pelvic rxt hx and inoperable vesicovaginal fistula we as discussed the challenges of future surgery which essentially are
likely to be prohibitive to satisfactory outcome in which patient returns to even her recent prehospitalization level. Ms. Best is in agreement and if her SBO were to persist she would very likely transition to hospice care. Her sister who she
lives with has been present and supportive during our conversations and is also comfortable with Mr. Best's treatment plan.
AFVSS
most ileostomy output since start of symptoms overnight and subjectively feeling better
Plan: trial of clear liquid diet with supplements again given overnight ostomy output
renewed TPN
advised patient to still meet with hospice care for consult/evaluation as not still not certain obstruction symptoms are resolved to the point she can tolerate adequate PO intake to meet hydration and nutritional needs group home and then can make
more definitive decisions when appropriate.
will follow
Subjective Data
-
Date of Service: February 29, 2024
pt seen and examined
reports significant amount of ileostomy output overnight for the first time in a while
no nausea
sips of liquids at times
abd pain mild
Objective Data
-
Intake and Output
02/28/24 02/29/24 03/01/24
06:59 06:59 06:59
Intake Total 1320 / 1320 380 / 380
Output Total 1125 / 1125
Balance 1320 / 1320 -745 / -745
Intake:
Oral fluids 1320 / 1320 120 / 120
IV piggybacks 260 / 260
Output:
Liquid stool amount 1124
Ileostomy 1124
Other:
How many times incontinent 1
SMALL amount urine
How many times incontinent 2 1
MODERATE amount urine
How many times incontinent 2 1
SATURATED amount urine
Number of immeasurable emeses? 1
Vital Signs
Temp Pulse Resp BP Pulse Ox
98.2 F 89 18 121/71 97
02/28/24 23:49 02/28/24 23:49 02/28/24 23:49 02/28/24 23:49 02/28/24 23:49
Lab Results
02/29/24 05:52
02/28/24 04:32
Calcium 8.9 mg/dl (8.4-10.2) 02/28/24 04:32
Phosphorus 3.5 mg/dl (2.5-4.5) 02/28/24 04:32
Magnesium 1.9 mg/dl (1.6-2.3) 02/28/24 04:32
Total Bilirubin 0.6 mg/dl (0.2-1.3) 02/28/24 04:32
AST 29 U/L (14-36) 02/28/24 04:32
ALT 14 U/L (0-35) 02/28/24 04:32
Alkaline Phosphatase 144 U/L (38-126) H 02/28/24 04:32
Total Protein 6.1 g/dl (6.3-8.2) L 02/28/24 04:32
Albumin 3.4 g/dl (3.5-5.0) L 02/28/24 04:32
Physical Exam
-
NAD AAOx3
ABD: soft, less distended, mild TTP, no R/R/G
stoma with some liquid in appliance
less tenderness at parastomal hernia site
[2024-02-29] MEDS: VIBRAMYCIN 260 MG IV ×2 (09:05→20:28)
[2024-02-29] MEDS: LIDOCAINE 4% PATCH TOPICAL (09:06)
[2024-02-29] MEDS: HEPARIN 5000 UNITS SC ×2 (09:07→20:28)
--- NOTE | 2024-02-29 09:36 | HOSPNOTE ---
Referral received. Met with patient and briefly discussed hospice. She is asking for an official meeting when her sister can be present. She reviewed that her sister will be visiting today and they will determine a time to meet with hospice
tomorrow. Reviewed to let primary RN know of when they would like to meet with hospice tomorrow and hospice will be available. Informal report with primary RN. Hospice will continue to follow.
--- NOTE | 2024-02-29 11:26 | CM ---
Reviewed the chart notes. Diet upgraded to clears. TPN continues. Patient and sister to meet with hospice tomorrow. CM continues to be available to patient/family and is monitoring medical plan for needs at discharge.
Plan: Discharge plans will depend on the patient's progress. Patient has not be able to be evaluated by PT/OT due to ongoing health issues.
--- NOTE | 2024-02-29 11:28 | W.PN.NEPH.PH ---
Today's Communication / Plan
-
follow labs
Assessment/Plan
-
Impression
Acute kidney injury
CKD stage IIIb with baseline creatinine 1.4-1.6
Metabolic acidosis
SBO vs Ileus
Left heel injury with ambulatory dysfunction
UTI
h/o B/L JJ stents, h/o B/L ureteral stricture due to XRT for uterine cancer, history of metastatic bladder cancer: s/p routine exchange of ureteral stents 11/15/23, outpt f/u with Uro
L total hip revision, March 2020, complicated by infected hematoma with MRSA, status post washout 05/27/20, completed six weeks of IV daptomycin. Cont home oral suppressive doxycycline.
Chronic Anemia
Hyponatremia
h/o distal R femur fracture
Chronic pain, chronic opioid use with dependence: cont Fentanyl patch/morphine
Severe protein calorie malnutrition
h/o seizures: off Keppra for the past month w/o sz activity as per patient. 1st and last sz due to adverse effect Baclofen years ago also as per patient.
h/o DVT/PE s/p IVC filter
h/o presbyesophagus/H. pylori gastritis: cont PPI
Osteoporosis
Neuropathy: cont neurontin
h/o Stage II sacral decubitus ulcer
Plan:
GRACIELA:
-Creatinine now down to baseline of 1.1
wt stable, no lasix today
resuming diet per surg
recheck labs today
TPN per surg
BP stable
palliative care follow, pt thinking of hospice
-
-
Date of Service: February 29, 2024
CC / HPI / ROS
-
Chief Complaint:
Acute kidney injury
CKD (1.4)
History of Present Illness:
Creatinine stable at 1.1, no labs today
sodium better at 142
Hemodynamically stable
no fever
hb stable 10.5
1lit out put from ileostomy
Review of Systems:
tolerating liquids today
edema still
no cp or sob at rest
Labs
-
Labs:
WBC 10.0 10^3/uL (4.8-10.8) 02/29/24 05:52
RBC 3.59 10^6/uL (4.20-5.40) L 02/29/24 05:52
Hgb 10.5 g/dL (12.0-16.0) L 02/29/24 05:52
Hct 31.4 % (37.0-47.0) L 02/29/24 05:52
Plt Count 248 10^3/uL (130-400) 02/29/24 05:52
Sodium 142 mmol/L (135-145) 02/28/24 04:32
Potassium 4.0 mmol/L (3.5-5.1) 02/28/24 04:32
Chloride 106 mmol/L (98-107) 02/28/24 04:32
Carbon Dioxide 26 mmol/L (22-30) 02/28/24 04:32
BUN 43 mg/dl (7-17) H 02/28/24 04:32
Creatinine 1.1 mg/dL (0.6-1.0) H 02/28/24 04:32
eGFR 52.73 02/28/24 04:32
Glucose 109 mg/dl (70-99) H 02/28/24 04:32
Calcium 8.9 mg/dl (8.4-10.2) 02/28/24 04:32
Phosphorus 3.5 mg/dl (2.5-4.5) 02/28/24 04:32
Albumin 3.4 g/dl (3.5-5.0) L 02/28/24 04:32
Physical Exam
-
Vital Signs:
Vital Signs
Temp Pulse Resp BP Pulse Ox
98.4 F 114 16 129/79 97
02/29/24 07:10 02/29/24 07:10 02/29/24 07:10 02/29/24 07:10 02/29/24 07:10
Cardiovascular:: Regular rate and rhythm
Respiratory:: Bilateral: CTA (anteriorly)
Lung Excursion:: Normal
Abdomen:: Nontender and Soft
Extremity Edema:: +1: Bilateral:
Garcia Catheter: No
--- NOTE | 2024-02-29 11:35 | W.PN.PAL2 ---
Today's Communication
-
Patient seen at bedside, she reports improved ostomy output, started on clears, so far tolerating.
Plans to meet with hospice - desires meeting tomorrow at 2pm when sister is present.
No new issues reported at this time.
Assessment / Plan
-
Assessment/Plan:
Goals are comfort oriented, planning to meet with hospice tomorrow.
Feeling better today, tolerating clears so far
Objective Data
-
Objective Data:
Vital Signs
Temp Pulse Resp BP Pulse Ox
98.4 F 114 16 129/79 97
02/29/24 07:10 02/29/24 07:10 02/29/24 07:10 02/29/24 07:10 02/29/24 07:10
Laboratory Results
02/29/24 05:52
Total Protein 6.1 g/dl (6.3-8.2) L 02/28/24 04:32
Albumin 3.4 g/dl (3.5-5.0) L 02/28/24 04:32
Urine Color Yellow 02/17/24 03:58
Urine Clarity Very cloudy (Clear) 02/17/24 03:58
Urine pH 6.0 (5.0-9.0) 02/17/24 03:58
Ur Specific [place] 1.015 (<1.030) 02/17/24 03:58
Urine Ketones Negative (Negative) 02/17/24 03:58
Urine Bilirubin Negative (Negative) 02/17/24 03:58
Palliative Performance Scale
Palliative Performance Scale:
PPS Level Ambulation Activity & Evidence of Disease Self Care Intake Conscious Level
100% Full Normal Activity & Work; Full Intake Full
No Evidence of Disease
90% Full Normal Activity & Work; Full Normal Full
Some Evidence of Disease
80% Full Normal Activity with Effort Full Normal or Full
Some Evidence of Disease Reduced
70% Reduced Unable Normal Job/Work Full Normal or Full
Significant Disease Reduced
60% Reduced Unable Hobby/Housework Occasional Normal or Full or Confusion
Significant Disease Assistance Reduced
50% Mainly Sit/Lie Unable to do Any Work Considerable Normal or Full or Confusion
Extensive Disease Assistance Req'd Reduced
40% Mainly in Bed Unable to do Most Activity Mainly Assistance Normal or Full or Drowsy;
Extensive Disease Reduced +/- Confusion
30% Totally Bed Unable to do Any Activity Total Care Normal or Full or Drowsy;
Bound Extensive Disease Reduced +/- Confusion
20% Totally Bed Bound Unable to do Any Activity Total Care Minimal to Full or Drowsy;
Extensive Disease Sips +/- Confusion
10% Totally Bed Bound Unable to do Any Activity Total Care Mouth Care Drowsy or Coma;
Extensive Disease Only +/- Confusion
0%
PPS Score Level:
Palliative Performance Score Response
Palliative Performance Score Response: 30%
Physical Exam
-
Peripheral Vascular: Edema, Right Lower Extremity and Edema, Left Lower Extremity
Neuro: Awake and Alert
Psych: Calm
[2024-02-29 12:26] LABS: Glucose - Point of Care 122 mg/dl (70-99)
[2024-02-29 13:24] LABS: ALT (SGPT) 18 U/L (0-35); AST (SGOT) 31 U/L (14-36); Albumin 3.2 g/dl (3.5-5.0); Alkaline Phosphatase 162 U/L (38-126); Blood Urea Nitrogen 47 mg/dl (7-17); Calcium 8.7 mg/dl (8.4-10.2); Carbon Dioxide 25 mmol/L (22-30); Chloride 106 mmol/L (98-107); Estimated Creatinine Clearance 28 ml/min; Glucose 110 mg/dl (70-99); Potassium 4.3 mmol/L (3.5-5.1); Sodium 141 mmol/L (135-145); Total Bilirubin 0.7 mg/dl (0.2-1.3); Total Protein 5.9 g/dl (6.3-8.2)
--- NOTE | 2024-02-29 13:31 | W.PN.HOSP.TC ---
Today's Communication/Plan
-
Monitor vital signs see plan
Trial of clears
Hospice to meet tomorrow with patient and sister
Pain control
abx
Assessment / Plan
Assessment / Plan
Gen: Remains NAD, AAOx3, appears chronically ill malnourished.
Eyes: EOMI, PERRLA, no scleral icterus.
Neck: supple.
CV: RRR, +S1/S2, no m/r/g.
Resp: Continues to remain CTAB, no rales, wheezes, or rhonchi.
Abd: + tender
Skin: No rashes.
Neuro: CN 2-12 intact, non-focal.
Psych: Normal mood and affect.
L hip Xray: No radiographic evidence for complication of bilateral total hip arthroplasties.
L foot/ankle Xray: No radiographic evidence for an acute osseous abnormality of the left foot or ankle within the limitations of severe osseous demineralization.
OBST series 02/19/24: Multiple prominent, gas-filled loops of bowel projecting over the lower abdomen/upper pelvis suspicious for bowel obstruction.
CT A/P 02/19/24: Multiple dilated small bowel loops throughout the abdomen without discrete transition point identified, noting that visualization within the pelvis is significantly limited due to streak artifact. Findings remain suspicious for
developing small bowel obstruction.
Abd Xray 02/26/24: No evidence of intestinal obstruction. Postsurgical change.
Probable adhesive small bowel obstruction; moderate to high-grade but partial:
-nausea and abd pain started 02/18
-imaging above noting abd Xray 02/25 with evidence of intestinal obstruction
-surgery following
Did not tolerated clears 02/26, vomiting. 02/28 she is feeling better; trial of clears. monitor output. Patient does not want another NG tube. Spoke with Dr. Jett, consulted hospice for evaluation.
Patient has been having discussion with surgery regarding further management. Surgery to see today
on TPN
-note h/o bowel resection with ileostomy for colon cancer 1994, h/o high output ileostomy
morphine prn
Ambulatory dysfunction due to L heel injury:
-suspected subtle calcaneal fracture, appears both traumatic and pathologic due to osteoporosis
-PT/OT
-boot placed
-f/u with podiatry as outpatient
Acute UTI:
-completed 7 day course of Cipro on 02/26/24
-BCx 02/16/24 and 02/20/24 NGTD
-fever resolved
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
Other problems:
GRACIELA on CKD3b: GRACIELA and AGMA resolved with IVFs, renal following
Hypokalemia, resolved
h/o B/L JJ stents, h/o B/L ureteral stricture due to XRT for uterine cancer, history of metastatic bladder cancer: s/p routine exchange of ureteral stents 11/15/23, outpt f/u with Uro
L total hip revision, March 2020, complicated by infected hematoma with MRSA, status post washout 05/27/20, completed six weeks of IV daptomycin. Cont home oral suppressive doxycycline.
Chronic Anemia
Hyponatremia, resolved
h/o distal R femur fracture
Chronic pain, chronic opioid use with dependence: cont Fentanyl patch
Severe protein calorie malnutrition
h/o seizures: off Keppra for the past month w/o sz activity as per patient. 1st and last sz due to adverse effect Baclofen years ago also as per patient.
h/o DVT/PE s/p IVC filter
h/o presbyesophagus/H. pylori gastritis: cont PPI
Osteoporosis
Neuropathy: neurontin on hold
h/o Stage II sacral decubitus ulcer
DNR/heparin
Patient Sister updated at bedside.
Due to the patient's overwhelming burden of pathology and poor performance/functional status in the setting of severe protein calorie malnutrition, the patient is hospice appropriate. Palliative care following.
I spent a total of 51 minutes with the patient or on the floor. More than 50% of this time involved counseling and coordination of care.
Anticipated Discharge: 24 - 48 hours
Subjective/Interval History
-
Date of Service: February 29, 2024
Denies nausea
Objective Data
-
Labs:
Laboratory Results
02/29/24 02/29/24
05:52 11:57
WBC 10.0
Hgb 10.5 L
Hct 31.4 L
Plt Count 248
Sodium 141
Potassium 4.3
Chloride 106
Carbon Dioxide 25
BUN 47 H
Creatinine 1.2 H
Glucose 110 H
Calcium 8.7
Total Bilirubin 0.7
AST 31
ALT 18
Alkaline Phosphatase 162 H
Vital Signs:
Vital Signs
Temp Pulse Resp BP Pulse Ox
98.4 F 114 16 129/79 97
02/29/24 07:10 02/29/24 07:10 02/29/24 07:10 02/29/24 07:10 02/29/24 07:10
I&O
02/28/24 02/29/24 03/01/24
06:59 06:59 06:59
Intake Total 1320 / 1320 380 / 380
Output Total 1125 / 1125
Balance 1320 / 1320 -745 / -745
[2024-02-29 15:05] VITALS: BP 124/78
[2024-02-29 17:10] LABS: Glucose - Point of Care 104 mg/dl (70-99)
[2024-02-29] MEDS: Parenteral Nutrition, Central 1200 IV (21:16)
[2024-02-29 23:00] VITALS: BP 110/71
[2024-02-29 23:59] LABS: Glucose - Point of Care 101 mg/dl (70-99)
[2024-03-01] MEDS: MORPHINE SULFATE 1 MG IV ×7 (00:11→23:22)
[2024-03-01 05:55] LABS: Glucose - Point of Care 130 mg/dl (70-99)
[2024-03-01 06:00] VITALS: BMI 24.3
[2024-03-01 06:28] LABS: Hematocrit 30.3 % (37.0-47.0); Hemoglobin 9.9 g/dL (12.0-16.0); Mean Corp Hgb Conc. 32.7 g/dL (33.0-37.0); Mean Corpuscular Hgb 29.2 pg (27.0-31.0); Mean Corpuscular Volume 89.4 fL (81.0-99.0); Mean Platelet Volume 9.9 fL (7.4-10.4); Platelet Count 223 10^3/uL (130-400); Red Blood Cell Count 3.39 10^6/uL (4.20-5.40); Red Cell Dist. Width 15.2 % (11.5-14.5); White Blood Cell Count 10.8 10^3/uL (4.8-10.8)
[2024-03-01 06:55] LABS: Blood Urea Nitrogen 53 mg/dl (7-17); Calcium 8.8 mg/dl (8.4-10.2); Carbon Dioxide 19 mmol/L (22-30); Chloride 108 mmol/L (98-107); Estimated Creatinine Clearance 31 ml/min; Glucose 115 mg/dl (70-99); Potassium 4.8 mmol/L (3.5-5.1); Sodium 140 mmol/L (135-145); eGFR 52.73
--- NOTE | 2024-03-01 07:24 | W.PN.GS2 ---
Today's Communication / Plan
-
`
Assessment / Plan
-
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
fistula, bladder cancer who presents with abdominal pain, belching found to have small bowel obstruction, likely adhesive versus related to parastomal hernia.
I have had lengthy discussions with patient over the past few days. Secondary to extensiveness of prior abdominal surgery, pelvic rxt hx and inoperable vesicovaginal fistula we as discussed the challenges of future surgery which essentially are
likely to be prohibitive to satisfactory outcome in which patient returns to even her recent prehospitalization level. Ms. Best is in agreement and if her SBO were to persist she would very likely transition to hospice care. Her sister who she
lives with has been present and supportive during our conversations and is also comfortable with Mr. Best's treatment plan.
AFVSS
modest ileostomy function, probable persistent partial SBO
Plan: trial of full liquid diet
renewed TPN - total volume increased to 50ml/hr yesterday; increased Na Acetate 10meq and reduced NaCl 10meq today
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
due to pSBO
Subjective Data
-
Date of Service: March 01, 2024
pt seen and examined
melissa some clears, no nausea, no worsening abdominal pains
ostomy intermittently functioning, not as frequent as normally
Objective Data
-
Intake and Output
02/29/24 03/01/24 03/02/24
06:59 06:59 06:59
Intake Total 380 / 380 2674 / 2674
Output Total 1125 / 1125 510 / 510
Balance -745 / -745 2164 / 2164
Intake:
Oral fluids 120 / 120 2100 / 2100
IV piggybacks 260 / 260
TPN/PPN 57 / 574
Output:
Liquid stool amount 1124 510 / 510
Ileostomy 1124 510 / 510
Other:
How many times incontinent 1
SMALL amount urine
How many times incontinent 1 3
MODERATE amount urine
How many times incontinent 1 1
SATURATED amount urine
Vital Signs
Temp Pulse Resp BP Pulse Ox
98.7 F 98 18 110/71 98
02/29/24 23:00 02/29/24 23:00 02/29/24 23:00 02/29/24 23:00 02/29/24 23:34
Lab Results
03/01/24 06:16
03/01/24 06:16
Calcium 8.8 mg/dl (8.4-10.2) 03/01/24 06:16
Phosphorus 3.5 mg/dl (2.5-4.5) 02/28/24 04:32
Magnesium 1.9 mg/dl (1.6-2.3) 02/28/24 04:32
Total Bilirubin 0.7 mg/dl (0.2-1.3) 02/29/24 11:57
AST 31 U/L (14-36) 02/29/24 11:57
ALT 18 U/L (0-35) 02/29/24 11:57
Alkaline Phosphatase 162 U/L (38-126) H 02/29/24 11:57
Total Protein 5.9 g/dl (6.3-8.2) L 02/29/24 11:57
Albumin 3.2 g/dl (3.5-5.0) L 02/29/24 11:57
Physical Exam
-
NAD AAOx3
ABD: soft, ND. mild TTP, no R/R/G
ileostomy: small quantity of liquid
[2024-03-01 08:11] VITALS: BP 120/73
[2024-03-01] MEDS: HEPARIN 5000 UNITS SC ×2 (08:45→20:15)
[2024-03-01] MEDS: LIDOCAINE 4% PATCH TOPICAL (08:48)
[2024-03-01] MEDS: VIBRAMYCIN 260 MG IV ×2 (09:01→09:04)
[2024-03-01] MEDS: VIBRAMYCIN IV (09:03)
--- NOTE | 2024-03-01 11:26 | W.PN.NEPH.PH ---
Today's Communication / Plan
-
Holding Lasix
Follow BMP
Acetate increased in TPN by surgery for evolving metabolic acidosis
Assessment/Plan
-
Impression
Acute kidney injury
CKD stage IIIb with baseline creatinine 1.4-1.6
Metabolic acidosis
SBO vs Ileus
Left heel injury with ambulatory dysfunction
UTI
h/o B/L JJ stents, h/o B/L ureteral stricture due to XRT for uterine cancer, history of metastatic bladder cancer: s/p routine exchange of ureteral stents 11/15/23, outpt f/u with Uro
L total hip revision, March 2020, complicated by infected hematoma with MRSA, status post washout 05/27/20, completed six weeks of IV daptomycin. Cont home oral suppressive doxycycline.
Chronic Anemia
Hyponatremia
h/o distal R femur fracture
Chronic pain, chronic opioid use with dependence: cont Fentanyl patch/morphine
Severe protein calorie malnutrition
h/o seizures: off Keppra for the past month w/o sz activity as per patient. 1st and last sz due to adverse effect Baclofen years ago also as per patient.
h/o DVT/PE s/p IVC filter
h/o presbyesophagus/H. pylori gastritis: cont PPI
Osteoporosis
Neuropathy: cont neurontin
h/o Stage II sacral decubitus ulcer
Plan:
GRACIELA:
-Creatinine now down to baseline of 1.1
wt stable, no lasix today
resuming diet per surg
TPN per surg , acetate increased for metabolic acidosis
BP stable
palliative care follow, pt thinking of hospice
-
-
Date of Service: March 01, 2024
CC / HPI / ROS
-
Chief Complaint:
Acute kidney injury
CKD (1.4)
History of Present Illness:
Creatinine stable at 1.1, no labs today
sodium better at 140
Hemodynamically stable
no fever
hb at 9.9
0.5 lit out put from ileostomy
Review of Systems:
tolerating liquids today
edema still
no cp or sob at rest
Labs
-
Labs:
WBC 10.8 10^3/uL (4.8-10.8) 03/01/24 06:16
RBC 3.39 10^6/uL (4.20-5.40) L 03/01/24 06:16
Hgb 9.9 g/dL (12.0-16.0) L 03/01/24 06:16
Hct 30.3 % (37.0-47.0) L 03/01/24 06:16
Plt Count 223 10^3/uL (130-400) 03/01/24 06:16
Sodium 140 mmol/L (135-145) 03/01/24 06:16
Potassium 4.8 mmol/L (3.5-5.1) 03/01/24 06:16
Chloride 108 mmol/L (98-107) H 03/01/24 06:16
Carbon Dioxide 19 mmol/L (22-30) L 03/01/24 06:16
BUN 53 mg/dl (7-17) H 03/01/24 06:16
Creatinine 1.1 mg/dL (0.6-1.0) H 03/01/24 06:16
eGFR 52.73 03/01/24 06:16
Glucose 115 mg/dl (70-99) H 03/01/24 06:16
Calcium 8.8 mg/dl (8.4-10.2) 03/01/24 06:16
Phosphorus 3.5 mg/dl (2.5-4.5) 02/28/24 04:32
Albumin 3.2 g/dl (3.5-5.0) L 02/29/24 11:57
Physical Exam
-
Vital Signs:
Vital Signs
Temp Pulse Resp BP Pulse Ox
98.4 F 102 16 120/73 98
03/01/24 08:11 03/01/24 08:11 03/01/24 08:11 03/01/24 08:11 03/01/24 08:11
Cardiovascular:: Regular rate and rhythm
Respiratory:: Bilateral: CTA (anteriorly)
Lung Excursion:: Normal
Abdomen:: Nontender and Soft
Extremity Edema:: +1: Bilateral:
Garcia Catheter: No
[2024-03-01 12:22] LABS: Glucose - Point of Care 98 mg/dl (70-99)
--- NOTE | 2024-03-01 12:26 | CM ---
Patient seen at bedside.
Patient states she and her sister Jordyn have a 2pm meeting with hospice.
Continues on TPN
PLAN: Hospice meeting today at 2pm
--- NOTE | 2024-03-01 12:34 | W.PN.HOSP.TC ---
Today's Communication/Plan
-
Monitor vital signs see plan
Surgery advance diet to full
Hospice to meet today
Pain control
Assessment / Plan
Assessment / Plan
Gen: Remains NAD, AAOx3, appears chronically ill malnourished.
Eyes: EOMI, PERRLA, no scleral icterus.
Neck: supple.
CV: RRR, +S1/S2, no m/r/g.
Resp: Continues to remain CTAB, no rales, wheezes, or rhonchi.
Abd: + tender
Skin: No rashes.
Neuro: CN 2-12 intact, non-focal.
Psych: Normal mood and affect.
L hip Xray: No radiographic evidence for complication of bilateral total hip arthroplasties.
L foot/ankle Xray: No radiographic evidence for an acute osseous abnormality of the left foot or ankle within the limitations of severe osseous demineralization.
OBST series 02/19/24: Multiple prominent, gas-filled loops of bowel projecting over the lower abdomen/upper pelvis suspicious for bowel obstruction.
CT A/P 02/19/24: Multiple dilated small bowel loops throughout the abdomen without discrete transition point identified, noting that visualization within the pelvis is significantly limited due to streak artifact. Findings remain suspicious for
developing small bowel obstruction.
Abd Xray 02/26/24: No evidence of intestinal obstruction. Postsurgical change.
Probable adhesive small bowel obstruction; moderate to high-grade but partial:
-nausea and abd pain started 02/18
-imaging above noting abd Xray 02/25 with evidence of intestinal obstruction
-surgery following
Did not tolerated clears 02/26, vomiting. 02/28 she is feeling better; now on fulls. monitor output. Patient does not want another NG tube. Spoke with Dr. Jett, consulted hospice for evaluation. hospice to meet 03/01
Patient has been having discussion with surgery regarding further management.
on TPN
-note h/o bowel resection with ileostomy for colon cancer 1994, h/o high output ileostomy
morphine prn
Ambulatory dysfunction due to L heel injury:
-suspected subtle calcaneal fracture, appears both traumatic and pathologic due to osteoporosis
-PT/OT
-boot placed
-f/u with podiatry as outpatient
Acute UTI:
-completed 7 day course of Cipro on 02/26/24
-BCx 02/16/24 and 02/20/24 NGTD
-fever resolved
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
Other problems:
GRACIELA on CKD3b: GRACIELA and AGMA resolved with IVFs, renal following
Hypokalemia, resolved
h/o B/L JJ stents, h/o B/L ureteral stricture due to XRT for uterine cancer, history of metastatic bladder cancer: s/p routine exchange of ureteral stents 11/15/23, outpt f/u with Uro
L total hip revision, March 2020, complicated by infected hematoma with MRSA, status post washout 05/27/20, completed six weeks of IV daptomycin. Cont home oral suppressive doxycycline.
Chronic Anemia
Hyponatremia, resolved
h/o distal R femur fracture
Chronic pain, chronic opioid use with dependence: cont Fentanyl patch
Severe protein calorie malnutrition
h/o seizures: off Keppra for the past month w/o sz activity as per patient. 1st and last sz due to adverse effect Baclofen years ago also as per patient.
h/o DVT/PE s/p IVC filter
h/o presbyesophagus/H. pylori gastritis: cont PPI
Osteoporosis
Neuropathy: neurontin on hold
h/o Stage II sacral decubitus ulcer
DNR/heparin
Patient Sister updated at bedside.
Due to the patient's overwhelming burden of pathology and poor performance/functional status in the setting of severe protein calorie malnutrition, the patient is hospice appropriate. Palliative care following. hospice to meet 03/01
I spent a total of 52 minutes with the patient or on the floor. More than 50% of this time involved counseling and coordination of care.
Anticipated Discharge: > 48 hours
Subjective/Interval History
-
Date of Service: March 01, 2024
Denies nausea
Objective Data
-
Labs:
Laboratory Results
03/01/24
06:16
WBC 10.8
Hgb 9.9 L
Hct 30.3 L
Plt Count 223
Sodium 140
Potassium 4.8
Chloride 108 H
Carbon Dioxide 19 L
BUN 53 H
Creatinine 1.1 H
Glucose 115 H
Calcium 8.8
Vital Signs:
Vital Signs
Temp Pulse Resp BP Pulse Ox
98.4 F 102 16 120/73 98
03/01/24 08:11 03/01/24 08:11 03/01/24 08:11 03/01/24 08:11 03/01/24 08:11
I&O
02/29/24 03/01/24 03/02/24
06:59 06:59 06:59
Intake Total 380 / 380 2674 / 2674
Output Total 1125 / 1125 510 / 510
Balance -745 / -745 2164 / 2164
--- NOTE | 2024-03-01 14:13 | HOSPNOTE ---
Spoke with patient and sister about hospice and the philosophy. The patient stated that surgery wanted to keep the patient on TPN for a couple of days and then the patient will either go home with VN and palliative which she has been on or hospice
services. The patient stated she wanted to think about things and will let me know about hospice services. Will continue to follow.
[2024-03-01 15:17] VITALS: BP 116/77
[2024-03-01] MEDS: DURAGESIC 25 MCG/HR PATCH 1 PATCH TRANSDERM (18:06)
[2024-03-01 18:12] LABS: Glucose - Point of Care 128 mg/dl (70-99)
[2024-03-01] MEDS: Parenteral Nutrition, Central 1200 IV (20:58)
[2024-03-01 23:15] VITALS: BP 123/69
[2024-03-02 00:14] LABS: Glucose - Point of Care 102 mg/dl (70-99)
[2024-03-02] MEDS: MORPHINE SULFATE 1 MG IV ×2 (02:52→14:27)
[2024-03-02 04:51] LABS: Blood Urea Nitrogen 53 mg/dl (7-17); Calcium 8.4 mg/dl (8.4-10.2); Carbon Dioxide 24 mmol/L (22-30); Chloride 108 mmol/L (98-107); Estimated Creatinine Clearance 28 ml/min; Glucose 107 mg/dl (70-99); Potassium 4.3 mmol/L (3.5-5.1); Sodium 140 mmol/L (135-145)
[2024-03-02 04:52] LABS: Hematocrit 27.8 % (37.0-47.0); Hemoglobin 8.9 g/dL (12.0-16.0); Mean Corpuscular Hgb 28.7 pg (27.0-31.0); Mean Corpuscular Volume 89.7 fL (81.0-99.0); Mean Platelet Volume 10.1 fL (7.4-10.4); Platelet Count 209 10^3/uL (130-400); Red Cell Dist. Width 15.2 % (11.5-14.5); White Blood Cell Count 9.9 10^3/uL (4.8-10.8)
[2024-03-02 06:00] VITALS: BMI 24.8
[2024-03-02 06:34] LABS: Glucose - Point of Care 131 mg/dl (70-99)
[2024-03-02 07:00] VITALS: BP 134/62
[2024-03-02] MEDS: LIDOCAINE 4% PATCH TOPICAL (08:51)
[2024-03-02] MEDS: HEPARIN 5000 UNITS SC ×2 (08:52→19:55)
[2024-03-02] MEDS: VIBRAMYCIN 260 MG IV (09:12)
--- NOTE | 2024-03-02 11:24 | W.PN.HOSP.TC ---
Today's Communication/Plan
-
Monitor vital signs see plan
Pain management
Continue with fulls for now
eventually wishes to go home on palliative vs hospice
tube feeds
Assessment / Plan
Assessment / Plan
Gen: Remains NAD, AAOx3, appears chronically ill malnourished.
Eyes: EOMI, PERRLA, no scleral icterus.
Neck: supple.
CV: RRR, +S1/S2, no m/r/g.
Resp: Continues to remain CTAB, no rales, wheezes, or rhonchi.
Abd: + tender
Skin: No rashes.
Neuro: CN 2-12 intact, non-focal.
Psych: Normal mood and affect.
L hip Xray: No radiographic evidence for complication of bilateral total hip arthroplasties.
L foot/ankle Xray: No radiographic evidence for an acute osseous abnormality of the left foot or ankle within the limitations of severe osseous demineralization.
OBST series 02/19/24: Multiple prominent, gas-filled loops of bowel projecting over the lower abdomen/upper pelvis suspicious for bowel obstruction.
CT A/P 02/19/24: Multiple dilated small bowel loops throughout the abdomen without discrete transition point identified, noting that visualization within the pelvis is significantly limited due to streak artifact. Findings remain suspicious for
developing small bowel obstruction.
Abd Xray 02/26/24: No evidence of intestinal obstruction. Postsurgical change.
Probable adhesive small bowel obstruction; moderate to high-grade but partial:
-nausea and abd pain started 02/18
-imaging above noting abd Xray 02/25 with evidence of intestinal obstruction
-surgery following
Did not tolerated clears 02/26, vomiting. 02/28 she is feeling better; now on fulls. monitor output. Patient does not want another NG tube. Spoke with Dr. Jett, consulted hospice for evaluation. hospice met 03/01. patient wants to eventually go
home but wants to see if she improves in couple days
Patient has been having discussion with surgery regarding further management.
on TPN
-note h/o bowel resection with ileostomy for colon cancer 1994, h/o high output ileostomy
morphine prn for breakthrough
She used to be on p.o. morphine, added now standing
Ambulatory dysfunction due to L heel injury:
-suspected subtle calcaneal fracture, appears both traumatic and pathologic due to osteoporosis
-PT/OT
-boot placed
-f/u with podiatry as outpatient
Acute UTI:
-completed 7 day course of Cipro on 02/26/24
-BCx 02/16/24 and 02/20/24 NGTD
-fever resolved
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
Other problems:
GRACIELA on CKD3b: GRACIELA and AGMA resolved with IVFs, renal following
Hypokalemia, resolved
h/o B/L JJ stents, h/o B/L ureteral stricture due to XRT for uterine cancer, history of metastatic bladder cancer: s/p routine exchange of ureteral stents 11/15/23, outpt f/u with Uro
L total hip revision, March 2020, complicated by infected hematoma with MRSA, status post washout 05/27/20, completed six weeks of IV daptomycin. Cont home oral suppressive doxycycline.
Chronic Anemia
Hyponatremia, resolved
h/o distal R femur fracture
Chronic pain, chronic opioid use with dependence: cont Fentanyl patch
Severe protein calorie malnutrition
h/o seizures: off Keppra for the past month w/o sz activity as per patient. 1st and last sz due to adverse effect Baclofen years ago also as per patient.
h/o DVT/PE s/p IVC filter
h/o presbyesophagus/H. pylori gastritis: cont PPI
Osteoporosis
Neuropathy: neurontin on hold
h/o Stage II sacral decubitus ulcer
DNR/heparin
Patient Sister updated at bedside.
Due to the patient's overwhelming burden of pathology and poor performance/functional status in the setting of severe protein calorie malnutrition, the patient is hospice appropriate. Palliative care following. hospice met 03/01. no clear decision
yet. wants to see how she does in couple days with diet. she eventually wants to go home either with palliative or hospice
I spent a total of 51 minutes with the patient or on the floor. More than 50% of this time involved counseling and coordination of care.
Anticipated Discharge: > 48 hours
Subjective/Interval History
-
Date of Service: March 02, 2024
Denies nausea
Objective Data
-
Labs:
Laboratory Results
03/02/24
04:10
WBC 9.9
Hgb 8.9 L
Hct 27.8 L
Plt Count 209
Sodium 140
Potassium 4.3
Chloride 108 H
Carbon Dioxide 24
BUN 53 H
Creatinine 1.2 H
Glucose 107 H
Calcium 8.4
Vital Signs:
Vital Signs
Temp Pulse Resp BP Pulse Ox
97.3 F 97 16 134/62 96
03/02/24 07:00 03/02/24 07:00 03/02/24 07:00 03/02/24 07:00 03/02/24 07:00
I&O
03/01/24 03/02/24 03/03/24
06:59 06:59 06:59
Intake Total 2674 / 2674 1200 / 1200
Output Total 510 / 510 300 / 300
Balance 2164 / 2164 900 / 900
[2024-03-02 12:06] LABS: Glucose - Point of Care 108 mg/dl (70-99)
--- NOTE | 2024-03-02 13:06 | W.PN.NEPH.PH ---
Today's Communication / Plan
-
Observe
Holding Lasix for now
Electrolytes balance kidney function stable
Assessment/Plan
-
Impression
Acute kidney injury
CKD stage IIIb with baseline creatinine 1.4-1.6
Metabolic acidosis
SBO vs Ileus
Left heel injury with ambulatory dysfunction
UTI
h/o B/L JJ stents, h/o B/L ureteral stricture due to XRT for uterine cancer, history of metastatic bladder cancer: s/p routine exchange of ureteral stents 11/15/23, outpt f/u with Uro
L total hip revision, March 2020, complicated by infected hematoma with MRSA, status post washout 05/27/20, completed six weeks of IV daptomycin. Cont home oral suppressive doxycycline.
Chronic Anemia
Hyponatremia
h/o distal R femur fracture
Chronic pain, chronic opioid use with dependence: cont Fentanyl patch/morphine
Severe protein calorie malnutrition
h/o seizures: off Keppra for the past month w/o sz activity as per patient. 1st and last sz due to adverse effect Baclofen years ago also as per patient.
h/o DVT/PE s/p IVC filter
h/o presbyesophagus/H. pylori gastritis: cont PPI
Osteoporosis
Neuropathy: cont neurontin
h/o Stage II sacral decubitus ulcer
Plan:
GRACIELA:
-Creatinine now down to baseline of 1.2
wt stable, no lasix today , electrolytes stable
resuming diet per surg
TPN per surg , acetate increased for metabolic acidosis which has improved
BP stable
palliative care follow, pt thinking of hospice
-
-
Date of Service: March 02, 2024
CC / HPI / ROS
-
Chief Complaint:
Acute kidney injury
CKD (1.4)
History of Present Illness:
Creatinine stable at 1.2,
sodium better at 140
Hemodynamically stable
no fever
0.3 lit out put from ileostomy
Review of Systems:
tolerating liquids today
edema still
no cp or sob at rest
Weights fairly stable
Labs
-
Labs:
WBC 9.9 10^3/uL (4.8-10.8) 03/02/24 04:10
RBC 3.10 10^6/uL (4.20-5.40) L 03/02/24 04:10
Hgb 8.9 g/dL (12.0-16.0) L 03/02/24 04:10
Hct 27.8 % (37.0-47.0) L 03/02/24 04:10
Plt Count 209 10^3/uL (130-400) 03/02/24 04:10
Sodium 140 mmol/L (135-145) 03/02/24 04:10
Potassium 4.3 mmol/L (3.5-5.1) 03/02/24 04:10
Chloride 108 mmol/L (98-107) H 03/02/24 04:10
Carbon Dioxide 24 mmol/L (22-30) 03/02/24 04:10
BUN 53 mg/dl (7-17) H 03/02/24 04:10
Creatinine 1.2 mg/dL (0.6-1.0) H 03/02/24 04:10
eGFR 47.50 03/02/24 04:10
Glucose 107 mg/dl (70-99) H 03/02/24 04:10
Calcium 8.4 mg/dl (8.4-10.2) 03/02/24 04:10
Phosphorus 3.5 mg/dl (2.5-4.5) 02/28/24 04:32
Albumin 3.2 g/dl (3.5-5.0) L 02/29/24 11:57
Physical Exam
-
Vital Signs:
Vital Signs
Temp Pulse Resp BP Pulse Ox
97.3 F 97 16 134/62 96
03/02/24 07:00 03/02/24 07:00 03/02/24 07:00 03/02/24 07:00 03/02/24 07:00
Cardiovascular:: Regular rate and rhythm
Respiratory:: Bilateral: CTA (anteriorly)
Lung Excursion:: Normal
Abdomen:: Nontender and Soft
Extremity Edema:: +1: Bilateral:
Garcia Catheter: No
[2024-03-02 15:52] VITALS: BP 117/70
--- NOTE | 2024-03-02 15:54 | CM ---
Patient seen at bedside.
Stated met with hospice yesterday
She stated still deciding. States her sister is going to follow-up with liaison
PLAN: home, still making decision regarding hospice.
[2024-03-02 16:46] LABS: Glucose - Point of Care 101 mg/dl (70-99)
--- NOTE | 2024-03-02 18:18 | W.PN.GS2 ---
Today's Communication / Plan
-
`
Assessment / Plan
-
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
fistula, bladder cancer who presents with abdominal pain, belching found to have small bowel obstruction, likely adhesive versus related to parastomal hernia.
I have had lengthy discussions with patient over the past few days. Secondary to extensiveness of prior abdominal surgery, pelvic rxt hx and inoperable vesicovaginal fistula we as discussed the challenges of future surgery which essentially are
likely to be prohibitive to satisfactory outcome in which patient returns to even her recent prehospitalization level. Ms. Best is in agreement and if her SBO were to persist she would very likely transition to hospice care. Her sister who she
lives with has been present and supportive during our conversations and is also comfortable with Mr. Best's treatment plan.
AFVSS
modest ileostomy function, probable persistent partial SBO
Plan: Maintain full liquid diet and supplements
Renewed TPN -no adjustments today
Discussed with patient and through recommended give it the weekend to see how she does with p.o. tolerance and ostomy function.
--If by Wednesday next week there is still no signs of progression of her partial small bowel obstruction enough to tolerate adequate p.o. intake to maintain hydration and nutrition then would anticipate transition to hospice care at home.
-- If bowel function improves enough to maintain baseline hydration and nutrition (likely would be limited to full liquids and supplements/protein shakes) then plan would likely be discharged on palliative care; although long-term it may be
difficult for her to sustain unless there is significant improvement in GI function.
Subjective Data
-
Date of Service: March 02, 2024
Patient seen and examined.
Intermittent ostomy output. She notices when she moves or turns it tends to empty a bit easier.
There is more gas emptying from her ostomy as well today
Did have some mild nausea fullness after full liquids for lunch but not to the point of vomiting.
Objective Data
-
Intake and Output
03/01/24 03/02/24 03/03/24
06:59 06:59 06:59
Intake Total 2674 / 2674 1200 / 1200 1100 / 1100
Output Total 510 / 510 300 / 300 200 / 200
Balance 2164 / 2164 900 / 900 900 / 900
Intake:
Oral fluids 2100 / 2100 600 / 600 240 / 240
IV piggybacks 260 / 260
TPN/PPN 574 / 574 600 / 600 600 / 600
Output:
Liquid stool amount 510 / 510 300 / 300 200 / 200
Ileostomy 510 / 510 300 / 300 200 / 200
Other:
How many times incontinent 1
SMALL amount urine
How many times incontinent 3 2
MODERATE amount urine
How many times incontinent 1 2 3
SATURATED amount urine
Vital Signs
Temp Pulse Resp BP Pulse Ox
98.3 F 106 20 117/70 99
03/02/24 15:52 03/02/24 15:52 03/02/24 15:52 03/02/24 15:52 03/02/24 15:52
Lab Results
03/02/24 04:10
03/02/24 04:10
Calcium 8.4 mg/dl (8.4-10.2) 03/02/24 04:10
Phosphorus 3.5 mg/dl (2.5-4.5) 02/28/24 04:32
Magnesium 1.9 mg/dl (1.6-2.3) 02/28/24 04:32
Total Bilirubin 0.7 mg/dl (0.2-1.3) 02/29/24 11:57
AST 31 U/L (14-36) 02/29/24 11:57
ALT 18 U/L (0-35) 02/29/24 11:57
Alkaline Phosphatase 162 U/L (38-126) H 02/29/24 11:57
Total Protein 5.9 g/dl (6.3-8.2) L 02/29/24 11:57
Albumin 3.2 g/dl (3.5-5.0) L 02/29/24 11:57
Physical Exam
-
NAD AAOx3
ABD: Soft, mild distention. Minimal tenderness.
Currently ostomy appliance is full of liquid stool and air.
Soft, reducible parastomal hernia. Minimal tenderness.
[2024-03-02] MEDS: MS CONTIN (EXTENDED RELEASE) 15 MG PO (19:55)
[2024-03-02 21:09] LABS: Glucose - Point of Care 101 mg/dl (70-99)
[2024-03-02] MEDS: Parenteral Nutrition, Central 1200 IV (21:25)
[2024-03-02 23:11] VITALS: BP 121/72
[2024-03-02 23:48] LABS: Glucose - Point of Care 110 mg/dl (70-99)
[2024-03-03] MEDS: MORPHINE SULFATE 1 MG IV (01:07)
[2024-03-03] MEDS: FLUSH (NSS) 2 FLUSH IV (01:07)
[2024-03-03 05:02] LABS: Hematocrit 28.1 % (37.0-47.0); Hemoglobin 8.8 g/dL (12.0-16.0); Mean Corp Hgb Conc. 31.3 g/dL (33.0-37.0); Mean Corpuscular Hgb 28.4 pg (27.0-31.0); Mean Corpuscular Volume 90.6 fL (81.0-99.0); Mean Platelet Volume 10.3 fL (7.4-10.4); Platelet Count 200 10^3/uL (130-400); Red Cell Dist. Width 14.9 % (11.5-14.5); White Blood Cell Count 8.7 10^3/uL (4.8-10.8)
[2024-03-03 05:26] LABS: Blood Urea Nitrogen 55 mg/dl (7-17); Calcium 8.4 mg/dl (8.4-10.2); Carbon Dioxide 24 mmol/L (22-30); Chloride 109 mmol/L (98-107); Estimated Creatinine Clearance 28 ml/min; Glucose 109 mg/dl (70-99); Potassium 4.2 mmol/L (3.5-5.1); Sodium 141 mmol/L (135-145)
[2024-03-03 05:58] LABS: Glucose - Point of Care 106 mg/dl (70-99)
[2024-03-03 06:00] VITALS: BMI 24.8
[2024-03-03 07:22] VITALS: BP 130/66
[2024-03-03] MEDS: HEPARIN 5000 UNITS SC ×2 (09:22→20:24)
[2024-03-03] MEDS: MS CONTIN (EXTENDED RELEASE) 15 MG PO ×2 (09:24→20:24)
[2024-03-03] MEDS: VIBRAMYCIN 260 MG IV (09:25)
[2024-03-03] MEDS: LIDOCAINE 4% PATCH TOPICAL (09:29)
--- NOTE | 2024-03-03 10:15 | W.PN.GS2 ---
Addendum entered and electronically signed by Nolan Fong MD 03/03/24 11:43:
I saw and examined the patient.
The [employer] Coordinator's note was reviewed and I agree with the note.
Comment: No specific complaints. Stoma functioning (700cc) yesterday, on todays exam the bag is flat and empty, her abd is soft, nt, and minimally distended; Suggested ensure pudding products, she is willing to try anything that isn't chocolate
flavor. She met briefly with Hospice team but still has many questions for them.
Original Note:
Today's Communication / Plan
-
FLD/TPN
Assessment / Plan
-
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
fistula, bladder cancer who presents with abdominal pain, belching found to have small bowel obstruction, likely adhesive versus related to parastomal hernia.
If SBO were to persist she would very likely transition to hospice care. Her sister who she lives with has been present and supportive during our conversations and is also comfortable with Mr. Best's treatment plan. She did speak briefly to a
engagement liaison but has more questions.
AFVSS
modest ileostomy function, probable persistent partial SBO
Tolerating some fulls but with poor PO intake
Plan: Maintain full liquid diet and supplements
Renewed TPN -no adjustments today
Discussed with patient and through recommended give it the weekend to see how she does with p.o. tolerance and ostomy function.
--If by Wednesday next week there is still no signs of progression of her partial small bowel obstruction enough to tolerate adequate p.o. intake to maintain hydration and nutrition then would anticipate transition to hospice care at home.
-- If bowel function improves enough to maintain baseline hydration and nutrition (likely would be limited to full liquids and supplements/protein shakes) then plan would likely be discharged on palliative care; although long-term it may be
difficult for her to sustain unless there is significant improvement in GI function.
Subjective Data
-
Date of Service: March 03, 2024
Patient seen and examined at bedside with Dr. Fong. Taking in small amounts. Does note abdominal discomfort after meals but with some movement, it has been settling down. No n/v. Output from stoma increased overnight.
Objective Data
-
Intake and Output
03/02/24 03/03/24 03/04/24
06:59 06:59 06:59
Intake Total 1200 / 1200 1880 / 1880
Output Total 300 / 300 700 / 700
Balance 900 / 900 1180 / 1180
Intake:
Oral fluids 600 / 600 420 / 420
IV piggybacks 260 / 260
TPN/PPN 600 / 600 1200 / 1200
Output:
Liquid stool amount 300 / 300 700 / 700
Ileostomy 300 / 300 700 / 700
Other:
How many times incontinent 1
SMALL amount urine
How many times incontinent 2
MODERATE amount urine
How many times incontinent 2 1
SATURATED amount urine
Vital Signs
Temp Pulse Resp BP Pulse Ox
97.9 F 87 16 130/66 99
03/03/24 07:22 03/03/24 07:22 03/03/24 07:22 03/03/24 07:22 03/03/24 07:22
Lab Results
03/03/24 04:45
03/03/24 04:45
Calcium 8.4 mg/dl (8.4-10.2) 03/03/24 04:45
Phosphorus 3.5 mg/dl (2.5-4.5) 02/28/24 04:32
Magnesium 1.9 mg/dl (1.6-2.3) 02/28/24 04:32
Total Bilirubin 0.7 mg/dl (0.2-1.3) 02/29/24 11:57
AST 31 U/L (14-36) 02/29/24 11:57
ALT 18 U/L (0-35) 02/29/24 11:57
Alkaline Phosphatase 162 U/L (38-126) H 02/29/24 11:57
Total Protein 5.9 g/dl (6.3-8.2) L 02/29/24 11:57
Albumin 3.2 g/dl (3.5-5.0) L 02/29/24 11:57
Physical Exam
-
NAD AAOx3
ABD: Soft, mild distention. Minimal tenderness.
Ostomy with liquid stool
Soft, reducible parastomal hernia. Minimal tenderness.
[2024-03-03 12:08] LABS: Glucose - Point of Care 111 mg/dl (70-99)
--- NOTE | 2024-03-03 12:14 | W.PN.HOSP.TC ---
Today's Communication/Plan
-
monitor vitals
see plan
pain control
on fulls; diet per surgery
Assessment / Plan
Assessment / Plan
Gen: Remains NAD, AAOx3, appears chronically ill malnourished.
Eyes: EOMI, PERRLA, no scleral icterus.
Neck: supple.
CV: RRR, +S1/S2, no m/r/g.
Resp: Continues to remain CTAB, no rales, wheezes, or rhonchi.
Abd: + tender
Skin: No rashes.
Neuro: CN 2-12 intact, non-focal.
Psych: Normal mood and affect.
L hip Xray: No radiographic evidence for complication of bilateral total hip arthroplasties.
L foot/ankle Xray: No radiographic evidence for an acute osseous abnormality of the left foot or ankle within the limitations of severe osseous demineralization.
OBST series 02/19/24: Multiple prominent, gas-filled loops of bowel projecting over the lower abdomen/upper pelvis suspicious for bowel obstruction.
CT A/P 02/19/24: Multiple dilated small bowel loops throughout the abdomen without discrete transition point identified, noting that visualization within the pelvis is significantly limited due to streak artifact. Findings remain suspicious for
developing small bowel obstruction.
Abd Xray 02/26/24: No evidence of intestinal obstruction. Postsurgical change.
Probable adhesive small bowel obstruction; moderate to high-grade but partial:
-nausea and abd pain started 02/18
-imaging above noting abd Xray 02/25 with evidence of intestinal obstruction
-surgery following
Did not tolerated clears 02/26, vomiting. 02/28 she is feeling better; now on fulls. monitor output. Patient does not want another NG tube. Spoke with Dr. Jett, consulted hospice for evaluation. hospice met 03/01. patient wants to eventually go
home but wants to see if she improves in couple days
Patient has been having discussion with surgery regarding further management.
on TPN
-note h/o bowel resection with ileostomy for colon cancer 1994, h/o high output ileostomy
morphine prn for breakthrough
She used to be on p.o. morphine, added now standing. goal to limit IV morphine
Ambulatory dysfunction due to L heel injury:
-suspected subtle calcaneal fracture, appears both traumatic and pathologic due to osteoporosis
-PT/OT
-boot placed
-f/u with podiatry as outpatient
Acute UTI:
-completed 7 day course of Cipro on 02/26/24
-BCx 02/16/24 and 02/20/24 NGTD
-fever resolved
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
Other problems:
GRACIELA on CKD3b: GRACIELA and AGMA resolved with IVFs, renal following
Hypokalemia, resolved
h/o B/L JJ stents, h/o B/L ureteral stricture due to XRT for uterine cancer, history of metastatic bladder cancer: s/p routine exchange of ureteral stents 11/15/23, outpt f/u with Uro
L total hip revision, March 2020, complicated by infected hematoma with MRSA, status post washout 05/27/20, completed six weeks of IV daptomycin. Cont home oral suppressive doxycycline.
Chronic Anemia
Hyponatremia, resolved
h/o distal R femur fracture
Chronic pain, chronic opioid use with dependence: cont Fentanyl patch
Severe protein calorie malnutrition
h/o seizures: off Keppra for the past month w/o sz activity as per patient. 1st and last sz due to adverse effect Baclofen years ago also as per patient.
h/o DVT/PE s/p IVC filter
h/o presbyesophagus/H. pylori gastritis: cont PPI
Osteoporosis
Neuropathy: neurontin on hold
h/o Stage II sacral decubitus ulcer
DNR/heparin
Patient Sister updated at bedside.
Due to the patient's overwhelming burden of pathology and poor performance/functional status in the setting of severe protein calorie malnutrition, the patient is hospice appropriate. Palliative care following. hospice met 03/01. no clear decision
yet. wants to see how she does in couple days with diet. she eventually wants to go home either with palliative or hospice
Anticipated Discharge: > 48 hours
Subjective/Interval History
-
Date of Service: March 03, 2024
denies nausea
Objective Data
-
Labs:
Laboratory Results
03/03/24
04:45
WBC 8.7
Hgb 8.8 L
Hct 28.1 L
Plt Count 200
Sodium 141
Potassium 4.2
Chloride 109 H
Carbon Dioxide 24
BUN 55 H
Creatinine 1.2 H
Glucose 109 H
Calcium 8.4
Vital Signs:
Vital Signs
Temp Pulse Resp BP Pulse Ox
97.9 F 87 16 130/66 99
03/03/24 07:22 03/03/24 07:22 03/03/24 07:22 03/03/24 07:22 03/03/24 07:22
I&O
03/02/24 03/03/24 03/04/24
06:59 06:59 06:59
Intake Total 1200 / 1200 1880 / 1880
Output Total 300 / 300 700 / 700
Balance 900 / 900 1180 / 1180
--- NOTE | 2024-03-03 12:17 | W.PN.NEPH.PH ---
Today's Communication / Plan
-
follow labs
observe
Assessment/Plan
-
Impression
Acute kidney injury
CKD stage IIIb with baseline creatinine 1.4-1.6
Metabolic acidosis
SBO vs Ileus
Left heel injury with ambulatory dysfunction
UTI
h/o B/L JJ stents, h/o B/L ureteral stricture due to XRT for uterine cancer, history of metastatic bladder cancer: s/p routine exchange of ureteral stents 11/15/23, outpt f/u with Uro
L total hip revision, March 2020, complicated by infected hematoma with MRSA, status post washout 05/27/20, completed six weeks of IV daptomycin. Cont home oral suppressive doxycycline.
Chronic Anemia
Hyponatremia
h/o distal R femur fracture
Chronic pain, chronic opioid use with dependence: cont Fentanyl patch/morphine
Severe protein calorie malnutrition
h/o seizures: off Keppra for the past month w/o sz activity as per patient. 1st and last sz due to adverse effect Baclofen years ago also as per patient.
h/o DVT/PE s/p IVC filter
h/o presbyesophagus/H. pylori gastritis: cont PPI
Osteoporosis
Neuropathy: cont neurontin
h/o Stage II sacral decubitus ulcer
Plan:
GRACIELA:
-Creatinine now down to baseline of 1.2
wt stable, no lasix today , electrolytes stable
on full liquids per surg
TPN per surg
BP stable
palliative care follow, pt thinking of hospice
will s/o, call with ?s
-
-
Date of Service: March 03, 2024
CC / HPI / ROS
-
Chief Complaint:
Acute kidney injury
CKD (1.4)
History of Present Illness:
Creatinine stable at 1.2,
sodium stable at 141
Hemodynamically stable
no fever
0.7 lit out put from ileostomy
Review of Systems:
tolerating liquids today
edema still
no cp or sob at rest
Weights fairly stable
Labs
-
Labs:
WBC 8.7 10^3/uL (4.8-10.8) 03/03/24 04:45
RBC 3.10 10^6/uL (4.20-5.40) L 03/03/24 04:45
Hgb 8.8 g/dL (12.0-16.0) L 03/03/24 04:45
Hct 28.1 % (37.0-47.0) L 03/03/24 04:45
Plt Count 200 10^3/uL (130-400) 03/03/24 04:45
Sodium 141 mmol/L (135-145) 03/03/24 04:45
Potassium 4.2 mmol/L (3.5-5.1) 03/03/24 04:45
Chloride 109 mmol/L (98-107) H 03/03/24 04:45
Carbon Dioxide 24 mmol/L (22-30) 03/03/24 04:45
BUN 55 mg/dl (7-17) H 03/03/24 04:45
Creatinine 1.2 mg/dL (0.6-1.0) H 03/03/24 04:45
eGFR 47.50 03/03/24 04:45
Glucose 109 mg/dl (70-99) H 03/03/24 04:45
Calcium 8.4 mg/dl (8.4-10.2) 03/03/24 04:45
Phosphorus 3.5 mg/dl (2.5-4.5) 02/28/24 04:32
Albumin 3.2 g/dl (3.5-5.0) L 02/29/24 11:57
Physical Exam
-
Vital Signs:
Vital Signs
Temp Pulse Resp BP Pulse Ox
97.9 F 87 16 130/66 99
03/03/24 07:22 03/03/24 07:22 03/03/24 07:22 03/03/24 07:22 03/03/24 07:22
Cardiovascular:: Regular rate and rhythm
Respiratory:: Bilateral: CTA (anteriorly)
Lung Excursion:: Normal
Abdomen:: Nontender and Soft
Extremity Edema:: +1: Bilateral:
Garcia Catheter: No
--- NOTE | 2024-03-03 13:23 | PTOTSP ---
Pt continues to decline therapy stating she is not up to it. Endorses she is thinking about hospice. Explained to patient that due to repeated refusals, pt will be discharged from OT at this time. Also explained that if pt feels better and indicates
to her physician that she will participate in therapy, the physician can write new orders to restart OT. Pt in agreement with this plan. Discharge from OT at this time.
[2024-03-03] MEDS: VIBRAMYCIN 100 MG PO (13:45)
--- NOTE | 2024-03-03 15:38 | W.PN.PAL2 ---
Today's Communication
-
PC follow up today to discuss patient's decisions on hospice. has not made firm decision yet, received brochures from hospice just now, reviewing. She is leaning towards home with hospice, as she feels she is ready. needs to discuss further with
sister.
Reports bowels are moving. denies new symptoms, doxycyline pill hard to swallow.
Code Status DNR
Assessment / Plan
-
Assessment/Plan:
Patient deciding on hospice services.
total floor time 25 min
Reason for Admission
Illness Course/HPI
Initial COnsult :
73 year old F with PMH of multiple previous bowel obstructions, bladder cancer s/p Keytruda, colon cancer s/p ileostomy, uterine cancer, bilateral ureteral stent with periodic exchange, chronic vesicular vaginal fistula, seizures, esophagitis,
depression, anxiety, DVT, CKD, urinary retention, multiple low back surgeries admitted with discomfort in her left heel and ankle that occurred when getting out of the car to the wheelchair. Per report, twisted her ankle as she was getting out of
the car and then was unable to bear any weight on LLE.
Upon admission, radiological workup initially negative for acute fractures. On second look, + nondisplaced calcaneal fracture. Boot placed on left foot.
Was planned for rehab then developed fever 11/20 - started on abx for UTI. Then developed N/V - flat plate concerning for SBO. S/p CT which confirmed. Seen by surgery - recommended no operative intervention. Developed GRACIELA for which nephrology is
following - lasix on hold.
Functional Status
at her baseline patient was ambulating short distances with walker, required bilateral AFO braces. currently due to swelling unable to wear braces, is non ambulatory.
Goals of Care Discussion
-
Patient able to participate in discussion at time of visit: Yes
Patient Goals
deciding on hospice services
Objective Data
-
Objective Data:
Vital Signs
Temp Pulse Resp BP Pulse Ox
97.9 F 87 16 130/66 99
03/03/24 07:22 03/03/24 07:22 03/03/24 07:22 03/03/24 07:22 03/03/24 07:22
Laboratory Results
03/03/24 04:45
03/03/24 04:45
Total Protein 5.9 g/dl (6.3-8.2) L 02/29/24 11:57
Albumin 3.2 g/dl (3.5-5.0) L 02/29/24 11:57
Urine Color Yellow 02/17/24 03:58
Urine Clarity Very cloudy (Clear) 02/17/24 03:58
Urine pH 6.0 (5.0-9.0) 02/17/24 03:58
Ur Specific [place] 1.015 (<1.030) 02/17/24 03:58
Urine Ketones Negative (Negative) 02/17/24 03:58
Urine Bilirubin Negative (Negative) 02/17/24 03:58
Palliative Performance Scale
Palliative Performance Scale:
PPS Level Ambulation Activity & Evidence of Disease Self Care Intake Conscious Level
100% Full Normal Activity & Work; Full Intake Full
No Evidence of Disease
90% Full Normal Activity & Work; Full Normal Full
Some Evidence of Disease
80% Full Normal Activity with Effort Full Normal or Full
Some Evidence of Disease Reduced
70% Reduced Unable Normal Job/Work Full Normal or Full
Significant Disease Reduced
60% Reduced Unable Hobby/Housework Occasional Normal or Full or Confusion
Significant Disease Assistance Reduced
50% Mainly Sit/Lie Unable to do Any Work Considerable Normal or Full or Confusion
Extensive Disease Assistance Req'd Reduced
40% Mainly in Bed Unable to do Most Activity Mainly Assistance Normal or Full or Drowsy;
Extensive Disease Reduced +/- Confusion
30% Totally Bed Unable to do Any Activity Total Care Normal or Full or Drowsy;
Bound Extensive Disease Reduced +/- Confusion
20% Totally Bed Bound Unable to do Any Activity Total Care Minimal to Full or Drowsy;
Extensive Disease Sips +/- Confusion
10% Totally Bed Bound Unable to do Any Activity Total Care Mouth Care Drowsy or Coma;
Extensive Disease Only +/- Confusion
0%
PPS Score Level:
Physical Exam
-
General: No Apparent Distress and Comfortable
Neuro: Awake and Alert
Psych: Calm
--- NOTE | 2024-03-03 16:26 | CM ---
Patient seen at bedside.
Patient received pamphlets about hospice today.
Still in decision process.
CM to follow up.
PLAN: Home, ? hospice - CM to follow
[2024-03-03 17:49] LABS: Glucose - Point of Care 116 mg/dl (70-99)
--- NOTE | 2024-03-03 19:34 | PTCARENOTE ---
pt c/o increased pain with Doxy IV, changed to PO. pt wanted Compazine PO, Dr. Sheets is concerned d/t SBO with all PO meds. pt did have difficulty swallowing doxy
[2024-03-03] MEDS: Parenteral Nutrition, Central 1200 IV (20:53)
[2024-03-03 22:38] VITALS: BP 120/81
[2024-03-04 00:13] LABS: Glucose - Point of Care 118 mg/dl (70-99)
[2024-03-04 05:31] VITALS: BMI 25.1
[2024-03-04 06:00] VITALS: BMI 25.1
[2024-03-04 06:03] LABS: Glucose - Point of Care 132 mg/dl (70-99)
[2024-03-04 07:10] VITALS: BP 123/67
[2024-03-04] MEDS: LIDOCAINE 4% PATCH TOPICAL (08:49)
[2024-03-04] MEDS: MS CONTIN (EXTENDED RELEASE) 15 MG PO ×2 (08:49→20:36)
[2024-03-04] MEDS: VIBRAMYCIN PO ×2 (08:49)
[2024-03-04] MEDS: HEPARIN 5000 UNITS SC ×2 (08:50→20:36)
[2024-03-04] MEDS: VIBRAMYCIN 100 MG PO (11:18)
[2024-03-04 11:22] LABS: Glucose - Point of Care 96 mg/dl (70-99)
--- NOTE | 2024-03-04 11:26 | W.PN.HOSP.TC ---
Today's Communication/Plan
-
Monitor vital signs see plan
Continue with falls
Pain control
TPN per surgery
Assessment / Plan
Assessment / Plan
Gen: Remains NAD, AAOx3, appears chronically ill malnourished.
Eyes: EOMI, PERRLA, no scleral icterus.
Neck: supple.
CV: RRR, +S1/S2, no m/r/g.
Resp: Continues to remain CTAB, no rales, wheezes, or rhonchi.
Abd: + tender
Skin: No rashes.
Neuro: CN 2-12 intact, non-focal.
Psych: Normal mood and affect.
L hip Xray: No radiographic evidence for complication of bilateral total hip arthroplasties.
L foot/ankle Xray: No radiographic evidence for an acute osseous abnormality of the left foot or ankle within the limitations of severe osseous demineralization.
OBST series 02/19/24: Multiple prominent, gas-filled loops of bowel projecting over the lower abdomen/upper pelvis suspicious for bowel obstruction.
CT A/P 02/19/24: Multiple dilated small bowel loops throughout the abdomen without discrete transition point identified, noting that visualization within the pelvis is significantly limited due to streak artifact. Findings remain suspicious for
developing small bowel obstruction.
Abd Xray 02/26/24: No evidence of intestinal obstruction. Postsurgical change.
Probable adhesive small bowel obstruction; moderate to high-grade but partial:
-nausea and abd pain started 02/18
-imaging above noting abd Xray 02/25 with evidence of intestinal obstruction
-surgery following
Did not tolerated clears 02/26, vomiting. 02/28 she is feeling better; now on fulls. monitor output. Patient does not want another NG tube. Spoke with Dr. Jett, consulted hospice for evaluation. hospice met 03/01. patient wants to eventually go
home but wants to see if she improves in couple days
Patient has been having discussion with surgery regarding further management.
on TPN
-note h/o bowel resection with ileostomy for colon cancer 1994, h/o high output ileostomy
morphine prn for breakthrough
She used to be on p.o. morphine, added now standing. goal to limit IV morphine
Ambulatory dysfunction due to L heel injury:
-suspected subtle calcaneal fracture, appears both traumatic and pathologic due to osteoporosis
-PT/OT; now refusing to participate with PT
-boot placed
-f/u with podiatry as outpatient
Acute UTI:
-completed 7 day course of Cipro on 02/26/24
-BCx 02/16/24 and 02/20/24 NGTD
-fever resolved
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
Other problems:
GRACIELA on CKD3b: GRACIELA and AGMA resolved with IVFs, renal following
Hypokalemia, resolved
h/o B/L JJ stents, h/o B/L ureteral stricture due to XRT for uterine cancer, history of metastatic bladder cancer: s/p routine exchange of ureteral stents 11/15/23, outpt f/u with Uro
L total hip revision, March 2020, complicated by infected hematoma with MRSA, status post washout 05/27/20, completed six weeks of IV daptomycin. Cont home oral suppressive doxycycline.
Chronic Anemia
Hyponatremia, resolved
h/o distal R femur fracture
Chronic pain, chronic opioid use with dependence: cont Fentanyl patch
Severe protein calorie malnutrition
h/o seizures: off Keppra for the past month w/o sz activity as per patient. 1st and last sz due to adverse effect Baclofen years ago also as per patient.
h/o DVT/PE s/p IVC filter
h/o presbyesophagus/H. pylori gastritis: cont PPI
Osteoporosis
Neuropathy: neurontin on hold
h/o Stage II sacral decubitus ulcer
DNR/heparin
Patient Sister updated at bedside.
Due to the patient's overwhelming burden of pathology and poor performance/functional status in the setting of severe protein calorie malnutrition, the patient is hospice appropriate. Palliative care following. hospice met 03/01. no clear decision
yet. wants to see how she does in couple days with diet. she eventually wants to go home either with palliative or hospice
Anticipated Discharge: 24 - 48 hours
Subjective/Interval History
-
Date of Service: March 04, 2024
denies pain
Objective Data
-
Vital Signs:
Vital Signs
Temp Pulse Resp BP Pulse Ox
98.1 F 107 18 123/67 99
03/04/24 07:10 03/04/24 07:10 03/04/24 07:10 03/04/24 07:10 03/04/24 09:50
I&O
03/03/24 03/04/24 03/05/24
06:59 06:59 06:59
Intake Total 1880 / 1880 360 / 360
Output Total 700 / 700 150 / 150
Balance 1180 / 1180 210 / 210
--- NOTE | 2024-03-04 11:33 | W.PN.GS2 ---
Addendum entered and electronically signed by Nolan Fong MD 03/04/24 11:57:
I saw and examined the patient.
The Analysis Reporting Developer's note was reviewed and I agree with the note.
Comment: No complaints. Taking about 50% of her fulls trays. Has not yet received ensure. Will hold TPN tonight in the hopes of stimulating her appetite more. D/w admissions assistant adding enhanced pudding to her tray and d/w nursing to please make sure the
ensure is delivered.
Original Note:
Today's Communication / Plan
-
FLD with supplements
Assessment / Plan
-
Assessment: 73-year-old female with complex past abdominal surgical history; Lovelady-Anmol syndrome and history of colon cancer status post subtotal colectomy with permanent ileostomy, hysterectomy followed by radiation with a known vesicovaginal
fistula, bladder cancer who presents with abdominal pain, belching found to have small bowel obstruction, likely adhesive versus related to parastomal hernia.
If SBO were to persist she would very likely transition to hospice care. Her sister who she lives with has been present and supportive during our conversations and is also comfortable with Mr. Best's treatment plan. She did speak briefly to a
medical liaison but has more questions.
AFVSS
modest ileostomy function, probable persistent partial SBO
Tolerating some fulls but with poor PO intake
Plan: Maintain full liquid diet and supplements
Stop TPN tonight
Change doxycycline to liquid form d/t difficulty with large tablet
-- If bowel function improves enough to maintain baseline hydration and nutrition (likely would be limited to full liquids and supplements/protein shakes) then plan would likely be discharged on palliative care; although long-term it may be
difficult for her to sustain unless there is significant improvement in GI function. Hospice if unable to tolerate much intake.
Subjective Data
-
Date of Service: March 04, 2024
Patient seen and examined at bedside with Dr. Fong. Denies abdominal pain. Does note that she has difficulty swallowing large pills and this gives her some nausea. Denies nausea otherwise. No vomiting. Stoma putting out liquid stool.
Objective Data
-
Intake and Output
03/03/24 03/04/24 03/05/24
06:59 06:59 06:59
Intake Total 1880 / 1880 360 / 360
Output Total 700 / 700 150 / 150
Balance 1180 / 1180 210 / 210
Intake:
Oral fluids 420 / 420 360 / 360
IV piggybacks 260 / 260
TPN/PPN 1200 / 1200
Output:
Liquid stool amount 700 / 700 150 / 150
Ileostomy 700 / 700 150 / 150
Other:
How many times incontinent 5
MODERATE amount urine
How many times incontinent 1 2
SATURATED amount urine
Number of unmeasured liquid
stools
Ileostomy 2
Vital Signs
Temp Pulse Resp BP Pulse Ox
98.1 F 107 18 123/67 99
03/04/24 07:10 03/04/24 07:10 03/04/24 07:10 03/04/24 07:10 03/04/24 09:50
Lab Results
03/03/24 04:45
03/03/24 04:45
Calcium 8.4 mg/dl (8.4-10.2) 03/03/24 04:45
Phosphorus 3.5 mg/dl (2.5-4.5) 02/28/24 04:32
Magnesium 1.9 mg/dl (1.6-2.3) 02/28/24 04:32
Total Bilirubin 0.7 mg/dl (0.2-1.3) 02/29/24 11:57
AST 31 U/L (14-36) 02/29/24 11:57
ALT 18 U/L (0-35) 02/29/24 11:57
Alkaline Phosphatase 162 U/L (38-126) H 02/29/24 11:57
Total Protein 5.9 g/dl (6.3-8.2) L 02/29/24 11:57
Albumin 3.2 g/dl (3.5-5.0) L 02/29/24 11:57
Physical Exam
-
NAD AAOx3
ABD: Soft, mild distention. Minimal tenderness.
Ostomy with liquid stool
Soft, reducible parastomal hernia. Minimal tenderness.
[2024-03-04 15:05] VITALS: BP 120/73
[2024-03-04 17:45] LABS: Glucose - Point of Care 115 mg/dl (70-99)
[2024-03-04] MEDS: DURAGESIC 25 MCG/HR PATCH 1 PATCH TRANSDERM (18:46)
[2024-03-04 23:10] VITALS: BP 119/76
[2024-03-04 23:41] LABS: Glucose - Point of Care 79 mg/dl (70-99)
[2024-03-05 06:08] LABS: Glucose - Point of Care 100 mg/dl (70-99)
[2024-03-05 07:10] VITALS: BP 118/70
[2024-03-05] MEDS: LIDOCAINE 4% PATCH TOPICAL (07:38)
[2024-03-05] MEDS: MS CONTIN (EXTENDED RELEASE) 15 MG PO ×2 (07:40→20:22)
[2024-03-05] MEDS: HEPARIN 5000 UNITS SC ×2 (07:40→20:22)
[2024-03-05] MEDS: VIBRAMYCIN 100 MG PO (07:40)
[2024-03-05 08:25] LABS: % Basophils 0.5 % (0-2); % Eosinophils 0.5 % (0-6); % Immature Granulocytes 0.5 % (0-0.5); % Lymphocytes 9.2 % (20.5-51.1); % Monocytes 9.3 % (1.7-9.3); Absolute Lymphocytes 0.8 10^3/uL (1.2-3.4); Absolute Monocytes 0.8 10^3/uL (0.1-0.6); Absolute Neutrophils 6.8 10^3/uL (1.4-6.5); Hematocrit 31.5 % (37.0-47.0); Hemoglobin 9.8 g/dL (12.0-16.0); Mean Corp Hgb Conc. 31.1 g/dL (33.0-37.0); Mean Corpuscular Hgb 27.8 pg (27.0-31.0); Mean Corpuscular Volume 89.2 fL (81.0-99.0); Mean Platelet Volume 11.1 fL (7.4-10.4); Nucleated Red Blood Cells % 0 %; Platelet Count 193 10^3/uL (130-400); Red Blood Cell Count 3.53 10^6/uL (4.20-5.40); Red Cell Dist. Width 14.9 % (11.5-14.5); White Blood Cell Count 8.5 10^3/uL (4.8-10.8)
[2024-03-05 08:29] LABS: Glucose - Point of Care 106 mg/dl (70-99)
[2024-03-05 08:40] LABS: ALT (SGPT) 18 U/L (0-35); AST (SGOT) 27 U/L (14-36); Albumin 2.9 g/dl (3.5-5.0); Alkaline Phosphatase 236 U/L (38-126); Blood Urea Nitrogen 62 mg/dl (7-17); Calcium 8.7 mg/dl (8.4-10.2); Carbon Dioxide 23 mmol/L (22-30); Chloride 106 mmol/L (98-107); Estimated Creatinine Clearance 29 ml/min; Glucose 105 mg/dl (70-99); Magnesium 2.1 mg/dl (1.6-2.3); Potassium 5.1 mmol/L (3.5-5.1); Sodium 139 mmol/L (135-145); Total Bilirubin 1.3 mg/dl (0.2-1.3); Total Protein 5.9 g/dl (6.3-8.2); eGFR 43.15
--- NOTE | 2024-03-05 10:48 | W.PN.GS2 ---
Addendum entered and electronically signed by Nolan Fong MD 03/05/24 11:20:
I saw and examined the patient.
The Oil Spreader Operator's note was reviewed and I agree with the note.
Comment: Tolerating fulls with boost and enriched puddings, no complaints. Exam benign. Cont current mgmt
Original Note:
Today's Communication / Plan
-
FLD with supplements
Assessment / Plan
-
Assessment: 73-year-old female with complex past abdominal surgical history; [place]-Anmol syndrome and history of colon cancer status post subtotal colectomy with permanent ileostomy, hysterectomy followed by radiation with a known vesicovaginal
fistula, bladder cancer who presents with abdominal pain, belching found to have small bowel obstruction, likely adhesive versus related to parastomal hernia.
If SBO were to persist she would very likely transition to hospice care. Her sister who she lives with has been present and supportive during our conversations and is also comfortable with Mr. Best's treatment plan.
AFVSS
modest ileostomy function, probable persistent partial SBO
Tolerating a little more PO intake with better appetite
Plan: Maintain full liquid diet and supplements, anticipate this will be her diet long chain beamer
Follow off TPN
If bowel function improves enough to maintain baseline hydration and nutrition (likely would be limited to full liquids and supplements/protein shakes) then plan would likely be discharged on palliative care; although long-term it may be difficult
for her to sustain unless there is significant improvement in GI function. Hospice if unable to tolerate much intake.
Subjective Data
-
Date of Service: March 05, 2024
Patient seen and evaluated at bedside with Dr. Fong. symptoms continue to improve. more appetite today, eating small amounts but is focusing on protein shakes/fortified puddings. denies n/v.
Objective Data
-
Intake and Output
03/04/24 03/05/24 03/06/24
06:59 06:59 06:59
Intake Total 360 / 360 1260 / 1260
Output Total 150 / 150 325 / 325
Balance 210 / 210 935 / 935
Intake:
Oral fluids 360 / 360 660 / 660
TPN/PPN 600 / 600
Output:
Liquid stool amount 150 / 150 325 / 325
Ileostomy 150 / 150 325 / 325
Other:
How many times incontinent 5
MODERATE amount urine
How many times incontinent 2 2
SATURATED amount urine
Number of unmeasured liquid
stools
Ileostomy 2
Vital Signs
Temp Pulse Resp BP Pulse Ox
97.9 F 112 17 118/70 100
03/05/24 07:10 03/05/24 07:10 03/05/24 07:10 03/05/24 07:10 03/05/24 07:10
Lab Results
03/05/24 08:04
03/05/24 08:04
Calcium 8.7 mg/dl (8.4-10.2) 03/05/24 08:04
Phosphorus 5.0 mg/dl (2.5-4.5) H 03/05/24 08:04
Magnesium 2.1 mg/dl (1.6-2.3) 03/05/24 08:04
Total Bilirubin 1.3 mg/dl (0.2-1.3) 03/05/24 08:04
AST 27 U/L (14-36) 03/05/24 08:04
ALT 18 U/L (0-35) 03/05/24 08:04
Alkaline Phosphatase 236 U/L (38-126) H 03/05/24 08:04
Total Protein 5.9 g/dl (6.3-8.2) L 03/05/24 08:04
Albumin 2.9 g/dl (3.5-5.0) L 03/05/24 08:04
Physical Exam
-
NAD AAOx3
ABD: Soft, mild distention, nt
Ostomy with liquid stool
Soft, reducible parastomal hernia.
--- NOTE | 2024-03-05 11:41 | W.PN.HOSP.TC ---
Today's Communication/Plan
-
Monitor vital signs
see plan
Continue with falls, ensure per surgery
Pain control
Assessment / Plan
Assessment / Plan
Gen: Remains NAD, AAOx3, appears chronically ill malnourished.
Eyes: EOMI, PERRLA, no scleral icterus.
Neck: supple.
CV: RRR, +S1/S2, no m/r/g.
Resp: Continues to remain CTAB, no rales, wheezes, or rhonchi.
Abd: + tender
Skin: No rashes.
Neuro: CN 2-12 intact, non-focal.
Psych: Normal mood and affect.
L hip Xray: No radiographic evidence for complication of bilateral total hip arthroplasties.
L foot/ankle Xray: No radiographic evidence for an acute osseous abnormality of the left foot or ankle within the limitations of severe osseous demineralization.
OBST series 02/19/24: Multiple prominent, gas-filled loops of bowel projecting over the lower abdomen/upper pelvis suspicious for bowel obstruction.
CT A/P 02/19/24: Multiple dilated small bowel loops throughout the abdomen without discrete transition point identified, noting that visualization within the pelvis is significantly limited due to streak artifact. Findings remain suspicious for
developing small bowel obstruction.
Abd Xray 02/26/24: No evidence of intestinal obstruction. Postsurgical change.
Probable adhesive small bowel obstruction; moderate to high-grade but partial:
-nausea and abd pain started 02/18
-imaging above noting abd Xray 02/25 with evidence of intestinal obstruction
-surgery following
Did not tolerated clears 02/26, vomiting. 02/28 she is feeling better; now on fulls. monitor output. Patient does not want another NG tube. Spoke with Dr. Jett, consulted hospice for evaluation. hospice met 03/01. patient wants to eventually go
home but wants to see if she improves in couple days
Patient has been having discussion with surgery regarding further management.
now off TPN
-note h/o bowel resection with ileostomy for colon cancer 1994, h/o high output ileostomy
morphine prn for breakthrough
She used to be on p.o. morphine, added now standing. goal to limit IV morphine
Ambulatory dysfunction due to L heel injury:
-suspected subtle calcaneal fracture, appears both traumatic and pathologic due to osteoporosis
-PT/OT; now refusing to participate with PT
-boot placed
-f/u with podiatry as outpatient
Acute UTI:
-completed 7 day course of Cipro on 02/26/24
-BCx 02/16/24 and 02/20/24 NGTD
-fever resolved
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
Other problems:
GRACIELA on CKD3b: GRACIELA and AGMA resolved with IVFs, renal following
Hypokalemia, resolved
h/o B/L JJ stents, h/o B/L ureteral stricture due to XRT for uterine cancer, history of metastatic bladder cancer: s/p routine exchange of ureteral stents 11/15/23, outpt f/u with Uro
L total hip revision, March 2020, complicated by infected hematoma with MRSA, status post washout 05/27/20, completed six weeks of IV daptomycin. Cont home oral suppressive doxycycline.
Chronic Anemia
Hyponatremia, resolved
h/o distal R femur fracture
Chronic pain, chronic opioid use with dependence: cont Fentanyl patch
Severe protein calorie malnutrition
h/o seizures: off Keppra for the past month w/o sz activity as per patient. 1st and last sz due to adverse effect Baclofen years ago also as per patient.
h/o DVT/PE s/p IVC filter
h/o presbyesophagus/H. pylori gastritis: cont PPI
Osteoporosis
Neuropathy: neurontin on hold
h/o Stage II sacral decubitus ulcer
DNR/heparin
Patient Sister updated at bedside.
Due to the patient's overwhelming burden of pathology and poor performance/functional status in the setting of severe protein calorie malnutrition, the patient is hospice appropriate. Palliative care following. hospice met 03/01. no clear decision
yet. wants to see how she does in couple days with diet. she eventually wants to go home either with palliative or hospice
Anticipated Discharge: 24 - 48 hours
Subjective/Interval History
-
Date of Service: March 05, 2024
denies nausea
Objective Data
-
Labs:
Laboratory Results
03/05/24
08:04
WBC 8.5
Hgb 9.8 L
Hct 31.5 L
Plt Count 193
Sodium 139
Potassium 5.1
Chloride 106
Carbon Dioxide 23
BUN 62 H
Creatinine 1.3 H
Glucose 105 H
Calcium 8.7
Total Bilirubin 1.3
AST 27
ALT 18
Alkaline Phosphatase 236 H
Vital Signs:
Vital Signs
Temp Pulse Resp BP Pulse Ox
97.9 F 112 17 118/70 100
03/05/24 07:10 03/05/24 07:10 03/05/24 07:10 03/05/24 07:10 03/05/24 07:10
I&O
03/04/24 03/05/24 03/06/24
06:59 06:59 06:59
Intake Total 360 / 360 1260 / 1260
Output Total 150 / 150 325 / 325
Balance 210 / 210 935 / 935
[2024-03-05 11:42] LABS: Glucose - Point of Care 124 mg/dl (70-99)
[2024-03-05 15:10] VITALS: BP 113/69
[2024-03-05] MEDS: MORPHINE SULFATE 1 MG IV ×2 (16:46→23:02)
[2024-03-05 16:59] LABS: Glucose - Point of Care 125 mg/dl (70-99)
[2024-03-05 21:13] LABS: Glucose - Point of Care 197 mg/dl (70-99)
[2024-03-05 22:58] VITALS: BP 135/74
[2024-03-05] MEDS: FLUSH (NSS) 2 FLUSH IV (23:04)
[2024-03-06 05:29] VITALS: BMI 24.8
[2024-03-06 06:59] VITALS: BP 124/74
[2024-03-06 07:42] LABS: Glucose - Point of Care 93 mg/dl (70-99)
[2024-03-06 08:03] LABS: % Basophils 0.3 % (0-2); % Eosinophils 0.3 % (0-6); % Immature Granulocytes 0.4 % (0-0.5); % Lymphocytes 5.5 % (20.5-51.1); % Monocytes 8.4 % (1.7-9.3); % Neutrophils 85.1 % (42.2-75.2); Absolute Immature Granulocytes 0.1 10^3/uL (0-0.05); Absolute Lymphocytes 0.7 10^3/uL (1.2-3.4); Absolute Neutrophils 10.3 10^3/uL (1.4-6.5); Hematocrit 30.3 % (37.0-47.0); Hemoglobin 9.9 g/dL (12.0-16.0); Mean Corp Hgb Conc. 32.7 g/dL (33.0-37.0); Mean Corpuscular Hgb 28.2 pg (27.0-31.0); Mean Corpuscular Volume 86.3 fL (81.0-99.0); Mean Platelet Volume 11.3 fL (7.4-10.4); Nucleated Red Blood Cells % 0.2 %; Platelet Count 213 10^3/uL (130-400); Red Blood Cell Count 3.51 10^6/uL (4.20-5.40); Red Cell Dist. Width 14.6 % (11.5-14.5); White Blood Cell Count 12.1 10^3/uL (4.8-10.8)
[2024-03-06] MEDS: COMPAZINE 5 MG IV (08:47)
[2024-03-06] MEDS: MS CONTIN (EXTENDED RELEASE) 15 MG PO ×2 (08:47→19:44)
[2024-03-06] MEDS: LIDOCAINE 4% PATCH 1 PATCH TOPICAL (08:48)
[2024-03-06] MEDS: HEPARIN 5000 UNITS SC ×2 (08:48→19:44)
[2024-03-06 09:11] LABS: Albumin 2.8 g/dl (3.5-5.0); Estimated Creatinine Clearance 28 ml/min
--- NOTE | 2024-03-06 09:30 | W.PN.GS2 ---
Today's Communication / Plan
-
Fulls with supplements
Assessment / Plan
-
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
fistula, bladder cancer who presents with abdominal pain, belching found to have small bowel obstruction, likely adhesive versus related to parastomal hernia.
If SBO were to persist she would very likely transition to hospice care. Her sister who she lives with has been present and supportive during our conversations and is also comfortable with Mr. Best's treatment plan.
AFVSS
modest ileostomy function although with more flatus today than previous, probable element of persistent partial SBO
Tolerating fulls with supplements (eating 50% of trays or more)
Plan: Maintain full liquid diet and supplements, anticipate this will be her diet custodial
At this point she does seem to be able to maintain some element of baseline hydration and nutrition and can continue on palliative care; although long-term it may be difficult for her to sustain unless there is significant improvement in GI function
Subjective Data
-
Date of Service: March 06, 2024
Patient seen and examined at bedside with Dr. Fay. Denies vomiting. Coughing with sensation that she is gagging with resultant nausea during exam. Notes she has been tolerating the full liquids, not eating large amounts though. Some cramping
after eating which resolves with movement. Passing flatus and liquid stool from ostomy.
Objective Data
-
Intake and Output
03/05/24 03/06/24 03/07/24
06:59 06:59 06:59
Intake Total 1260 / 1260 1020 / 1020
Output Total 325 / 325 575 / 575
Balance 935 / 935 445 / 445
Intake:
Oral fluids 660 / 660 1020 / 1020
TPN/PPN 600 / 600
Output:
Liquid stool amount 325 / 325 575 / 575
Ileostomy 325 / 325 575 / 575
Other:
How many times incontinent 2 3
SATURATED amount urine
Number of unmeasured liquid
stools
Ileostomy 2
Vital Signs
Temp Pulse Resp BP Pulse Ox
98.0 F 102 18 124/74 97
03/06/24 06:59 03/06/24 06:59 03/06/24 06:59 03/06/24 06:59 03/06/24 06:59
Lab Results
03/06/24 07:33
03/06/24 07:33
Calcium 8.7 mg/dl (8.4-10.2) 03/05/24 08:04
Phosphorus 5.0 mg/dl (2.5-4.5) H 03/05/24 08:04
Magnesium 2.1 mg/dl (1.6-2.3) 03/05/24 08:04
Total Bilirubin 1.3 mg/dl (0.2-1.3) 03/05/24 08:04
AST 27 U/L (14-36) 03/05/24 08:04
ALT 18 U/L (0-35) 03/05/24 08:04
Alkaline Phosphatase 236 U/L (38-126) H 03/05/24 08:04
Total Protein 5.9 g/dl (6.3-8.2) L 03/05/24 08:04
Albumin 2.8 g/dl (3.5-5.0) L 03/06/24 07:33
Physical Exam
-
NAD AAOx3
ABD: Soft, ND, nt
Ostomy with liquid stool and flatus
Soft, reducible parastomal hernia.
[2024-03-06] MEDS: VIBRAMYCIN 100 MG PO (09:31)
[2024-03-06 09:33] LABS: ALT (SGPT) 18 U/L (0-35); AST (SGOT) 29 U/L (14-36); Alkaline Phosphatase 226 U/L (38-126); Blood Urea Nitrogen 45 mg/dl (7-17); Calcium 7.5 mg/dl (8.4-10.2); Carbon Dioxide 16 mmol/L (22-30); Chloride 114 mmol/L (98-107); Glucose 82 mg/dl (70-99); Magnesium 1.8 mg/dl (1.6-2.3); Phosphorus 3.9 mg/dl (2.5-4.5); Potassium 3.6 mmol/L (3.5-5.1); Sodium 141 mmol/L (135-145); Triglycerides 58 mg/dl (10-149)
--- NOTE | 2024-03-06 10:53 | W.PN.HOSP.TC ---
Today's Communication/Plan
-
Monitor vital signs
see plan
Pain control
Nauseous this morning, currently feeling better
Continue with fulls with Ensure
Patient wants to speak to hospice again, principal investigator notified
Assessment / Plan
Assessment / Plan
Gen: Remains NAD, AAOx3, appears chronically ill malnourished.
Eyes: EOMI, PERRLA, no scleral icterus.
Neck: supple.
CV: RRR, +S1/S2, no m/r/g.
Resp: Continues to remain CTAB, no rales, wheezes, or rhonchi.
Abd: + tender
Skin: No rashes.
Neuro: CN 2-12 intact, non-focal.
Psych: Normal mood and affect.
L hip Xray: No radiographic evidence for complication of bilateral total hip arthroplasties.
L foot/ankle Xray: No radiographic evidence for an acute osseous abnormality of the left foot or ankle within the limitations of severe osseous demineralization.
OBST series 02/19/24: Multiple prominent, gas-filled loops of bowel projecting over the lower abdomen/upper pelvis suspicious for bowel obstruction.
CT A/P 02/19/24: Multiple dilated small bowel loops throughout the abdomen without discrete transition point identified, noting that visualization within the pelvis is significantly limited due to streak artifact. Findings remain suspicious for
developing small bowel obstruction.
Abd Xray 02/26/24: No evidence of intestinal obstruction. Postsurgical change.
Probable adhesive small bowel obstruction; moderate to high-grade but partial:
-nausea and abd pain started 02/18
-imaging above noting abd Xray 02/25 with evidence of intestinal obstruction
-surgery following
Did not tolerated clears 02/26, vomiting. 02/28 she is feeling better; now on fulls. monitor output. Patient does not want another NG tube. Spoke with Dr. Jett, consulted hospice for evaluation. hospice met 03/01. patient wants to eventually go
home and now she is deciding on hospice. nausea 03/06, suspect persistent SBO. surgery following.
Patient has been having discussion with surgery regarding further management.
now off TPN
-note h/o bowel resection with ileostomy for colon cancer 1994, h/o high output ileostomy
morphine prn for breakthrough
She used to be on p.o. morphine, added now standing. goal to limit IV morphine
Ambulatory dysfunction due to L heel injury:
-suspected subtle calcaneal fracture, appears both traumatic and pathologic due to osteoporosis
-PT/OT; now refusing to participate with PT
-boot placed
-f/u with podiatry as outpatient
Acute UTI:
-completed 7 day course of Cipro on 02/26/24
-BCx 02/16/24 and 02/20/24 NGTD
-fever resolved
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
Other problems:
GRACIELA on CKD3b: GRACIELA and AGMA resolved with IVFs, renal following
Hypokalemia, resolved
h/o B/L JJ stents, h/o B/L ureteral stricture due to XRT for uterine cancer, history of metastatic bladder cancer: s/p routine exchange of ureteral stents 11/15/23, outpt f/u with Uro
L total hip revision, March 2020, complicated by infected hematoma with MRSA, status post washout 05/27/20, completed six weeks of IV daptomycin. Cont home oral suppressive doxycycline.
Chronic Anemia
Hyponatremia, resolved
h/o distal R femur fracture
Chronic pain, chronic opioid use with dependence: cont Fentanyl patch
Severe protein calorie malnutrition
h/o seizures: off Keppra for the past month w/o sz activity as per patient. 1st and last sz due to adverse effect Baclofen years ago also as per patient.
h/o DVT/PE s/p IVC filter
h/o presbyesophagus/H. pylori gastritis: cont PPI
Osteoporosis
Neuropathy: neurontin on hold
h/o Stage II sacral decubitus ulcer
DNR/heparin
Patient Sister updated at bedside.
Due to the patient's overwhelming burden of pathology and poor performance/functional status in the setting of severe protein calorie malnutrition, the patient is hospice appropriate. Palliative care following. hospice met 03/01. no clear decision
yet. Patient want to speak to hospice again 03/06. Hospice notified
Anticipated Discharge: 24 - 48 hours
Subjective/Interval History
-
Date of Service: March 06, 2024
has nausea this morning
Objective Data
-
Labs:
Laboratory Results
03/06/24
07:33
WBC 12.1 H
Hgb 9.9 L
Hct 30.3 L
Plt Count 213
Sodium 141
Potassium 3.6 D
Chloride 114 H
Carbon Dioxide 16 L
BUN 45 H
Creatinine 1.2 H
Glucose 82
Calcium 7.5 L
Total Bilirubin 1.0
AST 29
ALT 18
Alkaline Phosphatase 226 H
Vital Signs:
Vital Signs
Temp Pulse Resp BP Pulse Ox
98.0 F 102 18 124/74 97
03/06/24 06:59 03/06/24 06:59 03/06/24 06:59 03/06/24 06:59 03/06/24 06:59
I&O
03/05/24 03/06/24 03/07/24
06:59 06:59 06:59
Intake Total 1260 / 1260 1020 / 1020
Output Total 325 / 325 575 / 575
Balance 935 / 935 445 / 445
[2024-03-06] MEDS: MORPHINE SULFATE 1 MG IV ×2 (11:16→21:59)
--- NOTE | 2024-03-06 11:41 | HOSPNOTE ---
Spoke with patient and her sister about hospice and the philosophy. The patient is in agreement with hospice and will be discharged on Wednesday to home. Equipment was ordered for delivery tomorrow patient has an aide 4 hours a day that will start
on Wednesday. Transport will be needed OOH DNR will need to be signed. CM and Attending aware of plan. Once patient arrives home one of our nurses will sign patient onto hospice services.
--- NOTE | 2024-03-06 12:57 | W.PN.PAL2 ---
Today's Communication
-
agreeable to hospice
wednesday discharge
Assessment / Plan
-
Assessment/Plan:
seen at bedside with sister present. States they are now agreeable to home hospice, spoke with liaison this morning and plan for wednesday discharge and start of care.
Symptoms managed at this time - had received morphine prior to my arrival and was pain free, a bit drowsy. Intake is poor but tolerating what she can take in.
Pain & Symptom Assessment
[place] Symptom Scale 0=none, 10=worst
Pain: 0
Objective Data
-
Objective Data:
Vital Signs
Temp Pulse Resp BP Pulse Ox
98.0 F 102 18 124/74 97
03/06/24 06:59 03/06/24 06:59 03/06/24 06:59 03/06/24 06:59 03/06/24 06:59
Laboratory Results
03/06/24 07:33
03/06/24 07:33
Total Protein 5.0 g/dl (6.3-8.2) L 03/06/24 07:33
Albumin 2.8 g/dl (3.5-5.0) L 03/06/24 07:33
Urine Color Yellow 02/17/24 03:58
Urine Clarity Very cloudy (Clear) 02/17/24 03:58
Urine pH 6.0 (5.0-9.0) 02/17/24 03:58
Ur Specific [place] 1.015 (<1.030) 02/17/24 03:58
Urine Ketones Negative (Negative) 02/17/24 03:58
Urine Bilirubin Negative (Negative) 02/17/24 03:58
Palliative Performance Scale
Palliative Performance Scale:
PPS Level Ambulation Activity & Evidence of Disease Self Care Intake Conscious Level
100% Full Normal Activity & Work; Full Intake Full
No Evidence of Disease
90% Full Normal Activity & Work; Full Normal Full
Some Evidence of Disease
80% Full Normal Activity with Effort Full Normal or Full
Some Evidence of Disease Reduced
70% Reduced Unable Normal Job/Work Full Normal or Full
Significant Disease Reduced
60% Reduced Unable Hobby/Housework Occasional Normal or Full or Confusion
Significant Disease Assistance Reduced
50% Mainly Sit/Lie Unable to do Any Work Considerable Normal or Full or Confusion
Extensive Disease Assistance Req'd Reduced
40% Mainly in Bed Unable to do Most Activity Mainly Assistance Normal or Full or Drowsy;
Extensive Disease Reduced +/- Confusion
30% Totally Bed Unable to do Any Activity Total Care Normal or Full or Drowsy;
Bound Extensive Disease Reduced +/- Confusion
20% Totally Bed Bound Unable to do Any Activity Total Care Minimal to Full or Drowsy;
Extensive Disease Sips +/- Confusion
10% Totally Bed Bound Unable to do Any Activity Total Care Mouth Care Drowsy or Coma;
Extensive Disease Only +/- Confusion
0%
PPS Score Level:
Physical Exam
-
General: Comfortable, Conversant and Appears Chronically Ill
HEENT: Normocephalic
Respiratory: Clear to Auscultation
Cardiac: Regular Rhythm
Peripheral Vascular: Edema, Right Lower Extremity and Edema, Left Lower Extremity
GI: Soft and Normal Bowel Sounds
Skin: Warm
Neuro: AO x 3
Psych: Calm
Care Reviewed
Data Reviewed
Medical Tests: I reviewed
Reviewed with: Patient and Family
[2024-03-06 15:10] VITALS: BP 114/72
--- NOTE | 2024-03-06 15:38 | CM ---
Met with patient at bedside.
[facility] DNR placed on chart - needs signature - tt hospitalist
Patient will return home on Wednesday with hospice to admit.
Equipment to be delivered tomorrow to the home.
Transportation forms on chart.
PLAN: home on Thursday 03/08 with Hospice
transportation forms on chart. Time TBD
[2024-03-06 17:13] LABS: Glucose - Point of Care 123 mg/dl (70-99)
[2024-03-06 23:31] LABS: Glucose - Point of Care 70 mg/dl (70-99)
[2024-03-06 23:38] VITALS: BP 131/78
[2024-03-07 00:22] LABS: Glucose - Point of Care 130 mg/dl (70-99)
[2024-03-07 00:38] VITALS: BP 131/78
[2024-03-07 05:51] VITALS: BMI 24.2
[2024-03-07 07:32] LABS: Glucose - Point of Care 102 mg/dl (70-99)
--- NOTE | 2024-03-07 07:37 | W.PN.GS2 ---
Today's Communication / Plan
-
-- Maintain full liquid diet and supplements, anticipate this will be her diet [place]
-- Please call with any questions or concerns
Assessment / Plan
-
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
fistula, bladder cancer who presents with abdominal pain, belching found to have small bowel obstruction, likely adhesive versus related to parastomal hernia.
Extensive discussions on options for management. Surgery offered though high risk. Plan for transition to home with hospice.
AFVSS
Modest ileostomy function although with more flatus today than previous, probable element of persistent partial SBO
Tolerating fulls with supplements (eating 50% of trays or more)
Plan:
-- Maintain full liquid diet and supplements, anticipate this will be her diet [place]
-- Please call with any questions or concerns
Subjective Data
-
Date of Service: March 07, 2024
No major complaints. Occasional mild crampy abdominal pain with eating. No nausea or emesis. Continues to produce liquid stool. No fevers.
Objective Data
-
Intake and Output
03/06/24 03/07/24 03/08/24
06:59 06:59 06:59
Intake Total 1020 / 1020 1630 / 1630
Output Total 575 / 575 400 / 400
Balance 445 / 445 1230 / 1230
Intake:
Oral fluids 1020 / 1020 1630 / 1630
Output:
Liquid stool amount 575 / 575 400 / 400
Ileostomy 575 / 575 400 / 400
Other:
Number of approximated MODERATE 2
amounts of urine
How many times incontinent 1
MODERATE amount urine
How many times incontinent 3
SATURATED amount urine
Number of unmeasured liquid
stools
Ileostomy 2 1
Vital Signs
Temp Pulse Resp BP Pulse Ox
99.0 F 116 16 131/78 96
03/06/24 23:38 03/06/24 23:38 03/06/24 23:38 03/06/24 23:38 03/06/24 23:38
Calcium 7.5 mg/dl (8.4-10.2) L 03/06/24 07:33
Phosphorus 3.9 mg/dl (2.5-4.5) 03/06/24 07:33
Magnesium 1.8 mg/dl (1.6-2.3) 03/06/24 07:33
Total Bilirubin 1.0 mg/dl (0.2-1.3) 03/06/24 07:33
AST 29 U/L (14-36) 03/06/24 07:33
ALT 18 U/L (0-35) 03/06/24 07:33
Alkaline Phosphatase 226 U/L (38-126) H 03/06/24 07:33
Total Protein 5.0 g/dl (6.3-8.2) L 03/06/24 07:33
Albumin 2.8 g/dl (3.5-5.0) L 03/06/24 07:33
Physical Exam
-
Gen: NAD, malnourished
Abd: soft, NT/ND, non-peritoneal, ostomy PPV, prior incisions well healed
[2024-03-07 08:00] VITALS: BP 112/73
--- NOTE | 2024-03-07 08:44 | VATNOTE ---
Port reaccess deferred today. Pt going home on hospice 03/08. Will assess need for reaccess at D/C.
[2024-03-07] MEDS: MS CONTIN (EXTENDED RELEASE) 15 MG PO ×2 (08:49→19:20)
[2024-03-07] MEDS: LIDOCAINE 4% PATCH TOPICAL (08:49)
[2024-03-07] MEDS: HEPARIN 5000 UNITS SC ×2 (08:49→19:20)
[2024-03-07] MEDS: VIBRAMYCIN 100 MG PO (08:50)
[2024-03-07 08:57] LABS: % Basophils 0.7 % (0-2); % Eosinophils 0.7 % (0-6); % Immature Granulocytes 0.4 % (0-0.5); % Lymphocytes 10.3 % (20.5-51.1); % Monocytes 11.4 % (1.7-9.3); % Neutrophils 76.5 % (42.2-75.2); Absolute Basophils 0.1 10^3/uL (0-0.2); Absolute Eosinophils 0.1 10^3/uL (0-0.7); Absolute Lymphocytes 0.7 10^3/uL (1.2-3.4); Absolute Monocytes 0.8 10^3/uL (0.1-0.6); Absolute Neutrophils 5.4 10^3/uL (1.4-6.5); Hematocrit 28.6 % (37.0-47.0); Hemoglobin 9.6 g/dL (12.0-16.0); Mean Corp Hgb Conc. 33.6 g/dL (33.0-37.0); Mean Corpuscular Hgb 28.9 pg (27.0-31.0); Mean Corpuscular Volume 86.1 fL (81.0-99.0); Mean Platelet Volume 10.9 fL (7.4-10.4); Nucleated Red Blood Cells % 0 %; Platelet Count 191 10^3/uL (130-400); Red Blood Cell Count 3.32 10^6/uL (4.20-5.40); Red Cell Dist. Width 14.5 % (11.5-14.5)
--- NOTE | 2024-03-07 10:56 | W.PN.HOSP.TC ---
Today's Communication/Plan
-
Monitor vital signs see plan
Pain control
Maintain full liquid diet
Plan for home hospice tomorrow
Assessment / Plan
Assessment / Plan
Gen: Remains NAD, AAOx3, appears chronically ill malnourished.
Eyes: EOMI, PERRLA, no scleral icterus.
Neck: supple.
CV: RRR, +S1/S2, no m/r/g.
Resp: Continues to remain CTAB, no rales, wheezes, or rhonchi.
Abd: + tender
Skin: No rashes.
Neuro: CN 2-12 intact, non-focal.
Psych: Normal mood and affect.
L hip Xray: No radiographic evidence for complication of bilateral total hip arthroplasties.
L foot/ankle Xray: No radiographic evidence for an acute osseous abnormality of the left foot or ankle within the limitations of severe osseous demineralization.
OBST series 02/19/24: Multiple prominent, gas-filled loops of bowel projecting over the lower abdomen/upper pelvis suspicious for bowel obstruction.
CT A/P 02/19/24: Multiple dilated small bowel loops throughout the abdomen without discrete transition point identified, noting that visualization within the pelvis is significantly limited due to streak artifact. Findings remain suspicious for
developing small bowel obstruction.
Abd Xray 02/26/24: No evidence of intestinal obstruction. Postsurgical change.
Probable adhesive small bowel obstruction; moderate to high-grade but partial:
-nausea and abd pain started 02/18
-imaging above noting abd Xray 02/25 with evidence of intestinal obstruction
-surgery following
Did not tolerated clears 02/26, vomiting. 02/28 she is feeling better; now on fulls. monitor output. Patient does not want another NG tube. Spoke with Dr. Jett, consulted hospice for evaluation. Met with hospice. Plan for home hospice 03/08.
nausea 03/06, suspect persistent SBO. surgery following.
now off TPN
-note h/o bowel resection with ileostomy for colon cancer 1994, h/o high output ileostomy
morphine prn for breakthrough
She used to be on p.o. morphine, added now standing. goal to limit IV morphine
Ambulatory dysfunction due to L heel injury:
-suspected subtle calcaneal fracture, appears both traumatic and pathologic due to osteoporosis
-PT/OT; now refusing to participate with PT
-boot placed
-f/u with podiatry as outpatient
Acute UTI:
-completed 7 day course of Cipro on 02/26/24
-BCx 02/16/24 and 02/20/24 NGTD
-fever resolved
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
Other problems:
GRCAIELA on CKD3b: GRACIELA and AGMA resolved with IVFs, renal following
Hypokalemia, resolved
h/o B/L JJ stents, h/o B/L ureteral stricture due to XRT for uterine cancer, history of metastatic bladder cancer: s/p routine exchange of ureteral stents 11/15/23, outpt f/u with Uro
L total hip revision, March 2020, complicated by infected hematoma with MRSA, status post washout 05/27/20, completed six weeks of IV daptomycin. Cont home oral suppressive doxycycline.
Chronic Anemia
Hyponatremia, resolved
h/o distal R femur fracture
Chronic pain, chronic opioid use with dependence: cont Fentanyl patch
Severe protein calorie malnutrition
h/o seizures: off Keppra for the past month w/o sz activity as per patient. 1st and last sz due to adverse effect Baclofen years ago also as per patient.
h/o DVT/PE s/p IVC filter
h/o presbyesophagus/H. pylori gastritis: cont PPI
Osteoporosis
Neuropathy: neurontin on hold
h/o Stage II sacral decubitus ulcer
DNR/heparin
Patient Sister updated at bedside.
Due to the patient's overwhelming burden of pathology and poor performance/functional status in the setting of severe protein calorie malnutrition, the patient is hospice appropriate. Palliative care following. Met with hospice. Plan for home
hospice tomorrow 03/08/2024.
Anticipated Discharge: Within 24 hours
Subjective/Interval History
-
Date of Service: March 07, 2024
denies nausea
Objective Data
-
Labs:
Laboratory Results
03/07/24
08:37
WBC 7.0
Hgb 9.6 L
Hct 28.6 L
Plt Count 191
Sodium Pending
Potassium Pending
Chloride Pending
Carbon Dioxide Pending
BUN Pending
Creatinine Pending
Glucose Pending
Calcium Pending
Vital Signs:
Vital Signs
Temp Pulse Resp BP Pulse Ox
98.5 F 101 18 112/73 97
03/07/24 08:00 03/07/24 08:00 03/07/24 08:00 03/07/24 08:00 03/07/24 08:00
I&O
03/06/24 03/07/24 03/08/24
06:59 06:59 06:59
Intake Total 1020 / 1020 1630 / 1630
Output Total 575 / 575 400 / 400
Balance 445 / 445 1230 / 1230
[2024-03-07 11:00] LABS: Blood Urea Nitrogen 53 mg/dl (7-17); Calcium 8.3 mg/dl (8.4-10.2); Carbon Dioxide 24 mmol/L (22-30); Chloride 105 mmol/L (98-107); Estimated Creatinine Clearance 28 ml/min; Glucose 103 mg/dl (70-99); Phosphorus 4.4 mg/dl (2.5-4.5); Potassium 4.1 mmol/L (3.5-5.1); Sodium 137 mmol/L (135-145)
[2024-03-07 15:00] VITALS: BP 105/74
[2024-03-07] MEDS: MORPHINE SULFATE 1 MG IV ×2 (15:04→22:37)
--- NOTE | 2024-03-07 15:54 | CM ---
IMM explained & signed. In chart.
[facility] DNR signed & on chart.
PLAN: home on Thursday 03/08 with Hospice
transportation forms on chart. Time TBD
[2024-03-07] MEDS: DURAGESIC 25 MCG/HR PATCH 1 PATCH TRANSDERM (18:15)
[2024-03-07 23:23] VITALS: BP 123/76
[2024-03-08 07:10] VITALS: BP 118/71
[2024-03-08] MEDS: MS CONTIN (EXTENDED RELEASE) 15 MG PO (08:26)
[2024-03-08] MEDS: HEPARIN 5000 UNITS SC (08:26)
[2024-03-08] MEDS: LIDOCAINE 4% PATCH TOPICAL (08:26)
--- NOTE | 2024-03-08 09:03 | W.PN.HOSP.TC ---
Today's Communication/Plan
-
Monitor vital signs see plan
Home hospice today
Time of discharge 38 minutes
Assessment / Plan
Assessment / Plan
Gen: Remains NAD, AAOx3, appears chronically ill malnourished.
Eyes: EOMI, PERRLA, no scleral icterus.
Neck: supple.
CV: RRR, +S1/S2, no m/r/g.
Resp: Continues to remain CTAB, no rales, wheezes, or rhonchi.
Abd: + tender
Skin: No rashes.
Neuro: CN 2-12 intact, non-focal.
Psych: Normal mood and affect.
L hip Xray: No radiographic evidence for complication of bilateral total hip arthroplasties.
L foot/ankle Xray: No radiographic evidence for an acute osseous abnormality of the left foot or ankle within the limitations of severe osseous demineralization.
OBST series 02/19/24: Multiple prominent, gas-filled loops of bowel projecting over the lower abdomen/upper pelvis suspicious for bowel obstruction.
CT A/P 02/19/24: Multiple dilated small bowel loops throughout the abdomen without discrete transition point identified, noting that visualization within the pelvis is significantly limited due to streak artifact. Findings remain suspicious for
developing small bowel obstruction.
Abd Xray 02/26/24: No evidence of intestinal obstruction. Postsurgical change.
Probable adhesive small bowel obstruction; moderate to high-grade but partial:
-nausea and abd pain started 02/18
-imaging above noting abd Xray 02/25 with evidence of intestinal obstruction
-surgery following
Did not tolerated clears 02/26, vomiting. 02/28 she is feeling better; now on fulls. monitor output. Patient does not want another NG tube. Spoke with Dr. Jett, consulted hospice for evaluation. Met with hospice. Plan for home hospice 03/08.
nausea 03/06, suspect persistent SBO. surgery following.
now off TPN
-note h/o bowel resection with ileostomy for colon cancer 1994, h/o high output ileostomy
morphine prn for breakthrough
She used to be on p.o. morphine, added now standing. goal to limit IV morphine
Ambulatory dysfunction due to L heel injury:
-suspected subtle calcaneal fracture, appears both traumatic and pathologic due to osteoporosis
-PT/OT; now refusing to participate with PT
-boot placed
-f/u with podiatry as outpatient
Acute UTI:
-completed 7 day course of Cipro on 02/26/24
-BCx 02/16/24 and 02/20/24 NGTD
-fever resolved
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
Other problems:
GRACIELA on CKD3b: GRACIELA and AGMA resolved with IVFs, renal following
Hypokalemia, resolved
h/o B/L JJ stents, h/o B/L ureteral stricture due to XRT for uterine cancer, history of metastatic bladder cancer: s/p routine exchange of ureteral stents 11/15/23, outpt f/u with Uro
L total hip revision, March 2020, complicated by infected hematoma with MRSA, status post washout 05/27/20, completed six weeks of IV daptomycin. Cont home oral suppressive doxycycline.
Chronic Anemia
Hyponatremia, resolved
h/o distal R femur fracture
Chronic pain, chronic opioid use with dependence: cont Fentanyl patch
Severe protein calorie malnutrition
h/o seizures: off Keppra for the past month w/o sz activity as per patient. 1st and last sz due to adverse effect Baclofen years ago also as per patient.
h/o DVT/PE s/p IVC filter
h/o presbyesophagus/H. pylori gastritis: cont PPI
Osteoporosis
Neuropathy: neurontin on hold
h/o Stage II sacral decubitus ulcer
DNR/heparin
Patient Sister updated at bedside.
Due to the patient's overwhelming burden of pathology and poor performance/functional status in the setting of severe protein calorie malnutrition, the patient is hospice appropriate. Palliative care following. Met with hospice. Plan for home
hospice today 03/08/2024.
Anticipated Discharge: Today
Subjective/Interval History
-
Date of Service: March 08, 2024
denies nausea
Objective Data
-
Vital Signs:
Vital Signs
Temp Pulse Resp BP Pulse Ox
98.3 F 98 14 118/71 100
03/08/24 07:10 03/08/24 07:10 03/08/24 07:10 03/08/24 07:10 03/08/24 08:36
I&O
03/07/24 03/08/24 03/09/24
06:59 06:59 06:59
Intake Total 1630 / 1630 1920 / 1920
Output Total 400 / 400 450 / 450
Balance 1230 / 1230 1470 / 1470
--- NOTE | 2024-03-08 09:20 | W.DCSUMMARY ---
Discharge Summary
Discharge Data
Date of Admission: 02/17/24
Date of Discharge: 03/08/24
-
Pending Results: No
Hospital Course
73-year-old female with past medical history of bowel obstruction, CKD, bilateral JJ stents with history of bilateral ureteral stricture due to XRT from uterine cancer, colon cancer status status post bowel resection with ileostomy, metastatic
bladder cancer, left total hip revision, chronic anemia, chronic pain, chronic opioid use with dependence, seizures, DVT/PE, osteoporosis, neuropathy came to the hospital after a fall with left heel injury and subtle calcaneal fracture. Patient was
instructed to follow-up with podiatry outpatient. While patient was in the hospital she also developed urinary tract infection which was treated with antibiotics. She also developed persistent bowel obstruction. She was seen by surgery throughout
hospitalization. Patient's bowel obstruction continue to persist. She was also seen by palliative care. Over time she was able to be started on full liquids and she remained on full liquids on discharge. Her symptoms never resolved so she
decided to pursue hospice. Patient was then later discharged home on home hospice.
Discharge Plan
-
Patient Disposition: Detention/SNF
Discharge Diagnosis/Procedures: Persistent small bowel obstruction
left heel injury suspected subtle calcaneal fracture
Ambulatory dysfunction
Urinary tract infection
History of bilateral JJ stents
UTI
Condition: Fair
Diet: As tolerated and Supplements
Additional Diets: Full liquids/very soft foods with supplement shakes. Avoid fiber.
Activity: With assistance and As tolerated
Driving Restrictions: Not until seen by your Dr
Bathing Restrictions: None
Other Services: Hospice
Referrals:
Mark Villanueva DPM [Specified Professional Personl] -
Russ Stallings MD [Active] -
Amaury Chavez MD [Family Provider] - in less than 1 week
Prescriptions:
New
lidocaine 4 % Adhesive Patch,Medicated
1 patch topical DAILY Qty: 30 0RF
Analgesic [place] (m.salic-menth) 15-10 % Cream
1 applic topical TID PRN (Reason: mild pain) Qty: 28 0RF
Continued
prednisone 10 mg tablet
10 mg PO DAILYPRN PRN (Reason: joint pain)
prochlorperazine maleate [Compazine] 5 mg Tablet
5 mg PO TIDPRN PRN (Reason: nausea)
octreotide,microspheres [Sandostatin [place]] 20 mg Suspension,Extended Rel Recon
20 mg IM Q4W
doxycycline hyclate 100 mg Tablet
100 mg PO DAILY Qty: 0 0RF
loperamide 2 mg Tablet
4 mg PO BID
famotidine [Pepcid] 20 mg Tablet
20 mg PO DAILYPRN PRN (Reason: indigestion)
PreserVision AREDS 2,148 mcg-113 mg-45 mg-17.4mg Tablet
2 tab PO BID
fentanyl 25 mcg/hr Patch 72 Hour
25 mcg TRANSDERMAL Q72H
Patient Comments:
due to be changed on 11/16/23
gabapentin 300 mg Capsule
300 mg PO BID 30 Days Qty: 60 0RF
acetaminophen 500 mg Tablet
500 mg PO Q6HPRN PRN (Reason: mild pain)
pantoprazole 40 mg Tablet,Delayed Release (Dr/Ec)
40 mg PO BIDPRN PRN (Reason: reflux)
furosemide 20 mg Tablet
20 mg PO MOWEFR PRN (Reason: edema or comfort) Qty: 0 0RF
Changed
morphine 15 mg tablet
15 mg PO Q12H Qty: 0 0RF
Discontinued
magnesium oxide 400 MG capsule
800 mg PO DAILY
diphenoxylate-atropine [Lomotil] 2.5-0.025 mg Tablet
2 tab PO BID
Patient Comments:
02/08/2023: last filled 12/29/22, 540 tabs for 90 days from [facility]
cyanocobalamin (vitamin B-12) 1,000 mcg/mL solution
1,000 mcg SC MONTHLY
magnesium oxide 400 mg (241.3 mg magnesium) tablet
400 mg PO QPM
Discharge Orders:
Discharge Patient (As Directed); Ordered 03/08/24
Ordered By: Gera Sheets
Discharge Date and Time
Discharge Date/Time: 03/08/24 11:34
Print Language: LAO
[2024-03-08] MEDS: VIBRAMYCIN 100 MG PO (09:42)
[2024-03-08 10:58] VITALS: BP 110/78
--- NOTE | 2024-03-08 11:35 | CM ---
Patient discharge today home with hospice.
11am transportation time set via ambulance.
[facility] DNR form signed
IMM signed. In chart]
PLAN: home, Hospice
transport at 11am
== END 2024-03-08 11:34 | disposition hospice, home (50) | DRG 542 ==
LOC: 2 NORTH 12:17
PROVIDERS: Internal Medicine; Physician Assistant; Registered Nurse; ADMITTING PHYSICIAN Hospitalist; ATTENDING PHYSICIAN Internal Medicine; CONSULT PHYSICIAN Specialist; CONSULT PHYSICIAN Surgery; EMERGENCY PHYSICIAN Emergency Medicine; FAMILY PHYSICIAN Internal Medicine
PROC: 3E0336Z Introduction of Nutritional Substance into Peripheral Vein, Percutaneous Approach (ICD-10-PCS; 2024-02-25)
DX: M80.072A Age-related osteoporosis with current pathological fracture, left ankle and foot, initial encounter for fracture (principal); E43 Unspecified severe protein-calorie malnutrition; F11.20 Opioid dependence, uncomplicated; N39.0 Urinary tract infection, site not specified; N17.9 Acute kidney failure, unspecified; E87.20 Acidosis, unspecified; E87.1 Hypo-osmolality and hyponatremia; N82.0 Vesicovaginal fistula; K56.51 Intestinal adhesions [bands], with partial obstruction; F03.93 Unspecified dementia, unspecified severity, with mood disturbance; F03.94 Unspecified dementia, unspecified severity, with anxiety; N18.4 Chronic kidney disease, stage 4 (severe); Z66 Do not resuscitate; Z51.5 Encounter for palliative care; Z96.0 Presence of urogenital implants; D63.1 Anemia in chronic kidney disease; G62.9 Polyneuropathy, unspecified; R56.9 Unspecified convulsions; Z99.3 Dependence on wheelchair; Z68.24 Body mass index [BMI] 24.0-24.9, adult; Z98.1 Arthrodesis status; Z96.652 Presence of left artificial knee joint; Z96.643 Presence of artificial hip joint, bilateral; Z95.828 Presence of other vascular implants and grafts; Z93.2 Ileostomy status; Z92.3 Personal history of irradiation; Z90.710 Acquired absence of both cervix and uterus; Z90.49 Acquired absence of other specified parts of digestive tract; Z88.8 Allergy status to other drugs, medicaments and biological substances; Z88.3 Allergy status to other anti-infective agents; Z88.1 Allergy status to other antibiotic agents; Z88.0 Allergy status to penicillin; Z86.718 Personal history of other venous thrombosis and embolism; Z86.711 Personal history of pulmonary embolism; Z85.42 Personal history of malignant neoplasm of other parts of uterus; Z85.038 Personal history of other malignant neoplasm of large intestine; Z79.899 Other long term (current) drug therapy; Z88.5 Allergy status to narcotic agent; Z79.52 Long term (current) use of systemic steroids; B96.1 Klebsiella pneumoniae [K. pneumoniae] as the cause of diseases classified elsewhere; E87.6 Hypokalemia; X50.1XXA Overexertion from prolonged static or awkward postures, initial encounter; C67.9 Malignant neoplasm of bladder, unspecified; G89.29 Other chronic pain; I12.9 Hypertensive chronic kidney disease with stage 1 through stage 4 chronic kidney disease, or unspecified chronic kidney disease; I95.1 Orthostatic hypotension; K21.9 Gastro-esophageal reflux disease without esophagitis; M06.9 Rheumatoid arthritis, unspecified
CPT/HCPCS: 73502; 73610; 73630; 74018; 74022; 74176; 74250; 80048; 80053; 81003; 81015; 81099; 82570; 82962; 83735; 84100; 84300; 84478; 85025; 85027; 87040; 87070; 87077; 87086; 87186; 93005; 97163; 97167; 97530; 97535; 99285

== ENCOUNTER 2024-04-20 00:57 | Inpatient (IN) | payer MEDICARE, OTHER, SELFPAY ==
[2024-04-19] VITALS (8 sets, daily range): BP systolic 127–152; BP diastolic 82–99; BMI 20.1
[2024-04-19 18:58] LABS: % Basophils 0.1 % (0-2); % Eosinophils 0.1 % (0-6); % Immature Granulocytes 0.9 % (0-0.5); % Lymphocytes 2.8 % (20.5-51.1); % Neutrophils 92.1 % (42.2-75.2); Absolute Immature Granulocytes 0.1 10^3/uL (0-0.05); Absolute Lymphocytes 0.3 10^3/uL (1.2-3.4); Absolute Monocytes 0.4 10^3/uL (0.1-0.6); Absolute Neutrophils 8.3 10^3/uL (1.4-6.5); Hematocrit 33.7 % (37.0-47.0); Hemoglobin 11.3 g/dL (12.0-16.0); Mean Corp Hgb Conc. 33.5 g/dL (33.0-37.0); Mean Corpuscular Volume 86.4 fL (81.0-99.0); Nucleated Red Blood Cells % 0 %; Red Cell Dist. Width 18.6 % (11.5-14.5)
[2024-04-19 19:12] LABS: ALT (SGPT) 34 U/L (0-35); AST (SGOT) 25 U/L (14-36); Albumin 3.2 g/dl (3.5-5.0); Alkaline Phosphatase 156 U/L (38-126); Blood Urea Nitrogen 26 mg/dl (7-17); Calcium 7.8 mg/dl (8.4-10.2); Carbon Dioxide 22 mmol/L (22-30); Chloride 101 mmol/L (98-107); Estimated Creatinine Clearance 28 ml/min; Glucose 110 mg/dl (70-99); Lipase 262 U/L (23-300); Potassium 4.5 mmol/L (3.5-5.1); Sodium 131 mmol/L (135-145); Total Bilirubin 1.3 mg/dl (0.2-1.3); eGFR 47.21
[2024-04-19 19:17] LABS: Mean Platelet Volume 9.9 fL (7.4-10.4); Platelet Count 205 10^3/uL (130-400)
--- NOTE | 2024-04-19 20:10 | ED.GENMED ---
History of Present Illness
General
Chief Complaint: Abdominal Pain
Time Seen by Provider: 04/19/24 19:45
History of Present Illness
History of Present Illness:
74yoF hx colon cancer s/p resection with ileostomy, metastatic bladder cancer, bowel obstruction, ckd, bilateral ureteral strictures from uterine cancer s/p bilateral stents presenting with diffuse abdominal pain and decreased output from ileostomy
starting on Sunday 04/16. Pt states today she noticed nothing come out of her ileostomy. Pt denies nauesa or vomiting. Pt states last week she was having blood in urine, discussed with her urologist who put pt on cipro (on day 08/02) which has improved
symptoms. Pt denies fever or chills. Pt states she put herself on a soft diet yesterday and liquid diet today. Pt states she had similar episode in January 2024 during hospitalization and was ultimately discharged on hospice. Pt states her symptoms
improved with no intervention until a few days ago. Pt states she would like to come off of hospice to be evaluated/treated for possible bowel obstruction.
Past History
Past History
ED Past Medical History: Cancer (currently receiving Bladder CA treatment with Keytruda the past 2.5 years and receives treatment every 3 weeks. Colon cancer, uterine cancer), Psychiatric (Depression, anxiety OCD), Other (Lower extremity DVT,
kidney stones, urinary retention, osteoporosis, SBO, Ankle/leg fractures. Compression fractures, SBO, PICC line, Chronic low back pain,) and Other (Chronic low back pain/sacral pain, lumbar and sacral compression fractures; chronic narcotic
dependence, ambulatory dysfunction utilizes walker, Ileostomy, Fistula between bladder and vagina)
ED Past Surgical History: Appendectomy (Questionable), Bowel resection (Small intestinal CA, Another resection Nov 2015, Stebts Dec 11 2015,), Cholecystectomy (questionable), Gynecological (Hysterectomy), Orthopedic (Bilateral hip replacements.
Back fusion, lumbar Vertebral plasty, left total knee replacement July 2019,), Urological (Kidney stents) and Other (Ileostomy, Green field filter)
Social History
Tobacco: Non-smoker
Alcohol: None
Drug: None
Personal: Single
Living: with family
Employment: Disabled
Family History
Family History: Cancer (mother and sister breast cancer) and Other (Noncontributory)
Phy Exam
Physical Exam
Physical Exam:
General: Alert, no acute distress
Head: NCAT
Eyes: clear conjunctiva
Neck: supple
Cardiac: regular rate and rhythm, no murmur
Lungs: clear to auscultation bilaterally. No wheezes, rales, or rhonchi. Speaking full unlabored sentences. No respiratory distress.
Abdomen: soft. ileostomy present with no stool or air in bag. Diffuse tenderness greatest superior to ileostomy. No rebound or guarding.
MSK: no lower extremity edema bilaterally. No deformity
Skin: warm, dry
Neuro: Alert and oriented x3. no focal deficits
Course
Orders/Labs/Results
Orders:
Orders
04/19/24 18:25
Complete Blood Count/With Diff Urgent
Comprehensive Metabolic Panel Urgent
Lipase Urgent
04/19/24 20:08
Urinalysis Reflex To Culture Urgent
Date Specimen was Collected: 04/19/24
Time Specimen was Collected: 22:26
Iohexol [Omnipaque] See Protocol PO NOW STA
04/19/24 20:09
CT Abd/pel W Iv And Oral Contr Urgent
Comment:
Reason For Exam: decreased output from ostomy, r/o obstruction
04/19/24 20:10
0.9% Sodium Chloride 500 ml [Nss] 500 ml IV BOLUS
04/19/24 23:37
GI tube insertion- Treatment ONCE
04/20/24 00:00
CXR Port [CR Chest Portable - 1 View] Urgent
Comment:
Reason For Exam: s/p ng placement
Reason Study Needs to be Portable: Other
If Reason is Other, explain: ng
04/20/24 00:08
Urine Microscopic Reflex Cult Urgent
Urine Culture Urgent
LIU Source: U
Specimen Description:
Date Specimen was Collected: 04/19/24
Time Specimen was Collected: 22:26
04/20/24 00:43
Admit/Transfer Patient As Directed
Co-Sign Provider:
Level of Care: Inpatient admission
Assign to:: Medical/Surgical
Physician / Group: hospitalist
Diagnosis: small bowel obstruction
Reason for Hospitalization: small bowel obtruction
Expected length of stay greater than two midnights?: Yes
ELOS- Estimated Length of Stay in days: 2
I certify the patient meets the requirements for IP care: Yes
PRN Pain Medication Management As Directed
May give lesser potent ordered pain med per pt: Yes
preference::
Protocol:: Medication orders for pain may be administered in a
manner that supports deferring to patient preference
when the pt is:
- Requesting an ordered lesser potent pain medication.
Least to most potent pain medications are defined
as: acetaminophen < NSAID < tramadol < opioids
(morphine, oxycodone, hydromorphone).
- Requesting a lesser dose of the same medication IF
ORDERED.
- Requesting a less intrusive route of administration
if both routes are prescribed by the provider (PO <
IV).
04/20/24 00:44
Code Status As Directed
Resuscitation Status: Do not resuscitate
Reached after discussion with pt or family/Healthcare POA: Yes
DNR Bracelet Application ONCE
04/20/24 00:48
Ciprofloxacin 400 mg/[id number] [Cipro 400 mg] 200 ml IV NOW
04/20/24 01:07
Lactated Ringers [Lr] 1,000 ml IV 75 mls/hr
Lorazepam [Ativan] 0.5 mg IV Q4HPRN PRN
Morphine Sulfate 2 mg IV Q4HPRN PRN
Prochlorperazine [Compazine] 5 mg IV Q6HPRN PRN
04/20/24 01:07
Activity As Directed
Activity Level: With Assistance
Fentanyl Patch Confirmation [id number]
Gastrointestinal Tubes As Directed
Type: Recluse sump
To suction?: Yes
Type of suction: Low intermittent
Irrigate tube?: No
Vital Signs As Directed
Frequency: Per unit guidelines
Pulse Ox/spot Check [RESP] Routine
Quantity: 1
DX Deep Vein Thrombosis Video Routine
04/20/24 Breakfast
NPO
Allow oral meds: No
Allow clear liquids: Sips of Clears
Basic Metabolic Panel IN AM
Complete Blood Count/No Diff IN AM
04/20/24 08:00
Dexamethasone Sod Phosphate [Decadron] 2 mg IV Q24H
FentaNYL 25 MCG/HR PATCH [Duragesic 25 Mcg/Hr Patch] 1 patch TRANSDERM Q72H
Heparin 5,000 units SC Q8
04/20/24 14:00
Ciprofloxacin 400 mg/[id number] [Cipro 400 mg] 200 ml IV Q12H
Abnormal Lab Results
04/19/24 04/20/24
18:25 00:08
RBC 3.90 L 10^6/uL
(4.20-5.40)
Hgb 11.3 L g/dL
(12.0-16.0)
Hct 33.7 L %
(37.0-47.0)
RDW 18.6 H %
(11.5-14.5)
Abs Immat Gran (auto) 0.1 H 10^3/uL
(0-0.05)
Absolute Neuts (auto) 8.3 H 10^3/uL
(1.4-6.5)
Absolute Lymphs (auto) 0.3 L 10^3/uL
(1.2-3.4)
Immature Gran % 0.9 H %
(0-0.5)
Neutrophils % 92.1 H %
(42.2-75.2)
Lymphocytes % 2.8 L %
(20.5-51.1)
Sodium 131 L mmol/L
(135-145)
BUN 26 H mg/dl
(7-17)
Creatinine 1.2 H mg/dL
(0.6-1.0)
Glucose 110 H mg/dl
(70-99)
Calcium 7.8 L mg/dl
(8.4-10.2)
Alkaline Phosphatase 156 H U/L
(38-126)
Total Protein 6.0 L g/dl
(6.3-8.2)
Albumin 3.2 L g/dl
(3.5-5.0)
Ur Occult Blood Reflex 4+ A
(Negative)
Urine Nitrite (Reflex) Positive A
(Negative)
Leukocyte Esterase Rfl 2+ A
(Negative)
Urine WBC (Reflex) >100 A /HPF
(0-5)
Urine Bacteria (Reflex) Many A
(Negative)
Urine Albumin (Reflex) 1+ A
(Neg - Trace)
04/19/24 18:25
04/19/24 18:25
Vital Signs
Initial and Last Documented VS:
Initial Vital Signs
BP Pulse Ox
148/94 97
04/19/24 17:34 04/19/24 17:34
Last Documented Vital Signs
Temp Pulse Resp BP Pulse Ox
98.4 F 87 17 155/102 96
04/19/24 17:35 04/20/24 03:00 04/19/24 18:30 04/20/24 03:00 04/20/24 02:45
MDM/Problems Addressed
Differential Diagnosis Includes:
bowel obstruction, uti, anemia, electrolyte abnormality
MDM/Problems Addressed:
Results reviewed. CT abdomen/pelvis shows Severe distention of small bowel loops, severe distention of the duodenum, and moderate gastric distention. Distention of the small bowel to the level of a right anterior abdominal wall ostomy. A 'small
bowel feces sign' in the distal ileal loop leading to the ostomy and mild wall thickening/mucosal hyperenhancement in the distal ileal loop. Diagnostic possibilities are (1) a partial obstruction at the level of the ostomy (possibly secondary to a
parastomal hernia containing the gallbladder fundus) or (2) an enteritis of the distal ileum and adynamic ileus of the bowel. As read by radiology
On reevaluation, pt denies nausea or vomiting. Reduced parastomal hernia which was soft. Discussed results with pt at bedside who is agreeable for NG tube. Discussed with hospitalist for admission. Notified general surgery
*Critical Care Note
Total Time (30-74mins, 75-104mins- exclusive of procedures): Not Applicable
ED Attending Note
-
Portions of this chart may have been created with voice recognition software.� Occasional wrong word or��sound alike� substitutions may have occurred due to the inherent limitations of voice recognition software.
Discharge Plan
Departure
Patient Disposition: Admit
Date of Disposition: 04/19/24
Time of Disposition: 23:48
Presentation/result/management discussed w/ accepting MD/DO: Hospitalist
Discharge Problem:
Bowel obstruction
Interventions
Interventions:
*Risk Screen - Suicide Last Done: 04/19/24 17:39
*General Assessment Last Done: 04/19/24 17:39
*Neglect/Abuse Screening Last Done: 04/19/24 17:39
ED- Fall Risk Assessment Last Done: 04/19/24 17:38
*ED COVID-19 Vaccine History Last Done: 04/19/24 17:39
GZ-Y[facility]pvo-[facility] Assessment Last Done: 04/19/24 17:38
[2024-04-19] MEDS: OMNIPAQUE 50 ML PO (20:17)
[2024-04-19] MEDS: NSS 500 IV (20:22)
[2024-04-20] VITALS (17 sets, daily range): BP systolic 115–155; BP diastolic 72–102; BMI 19.3
[2024-04-20 00:17] LABS: Urine Albumin 1+ (Neg - Trace); Urine Bilirubin Negative (Negative); Urine Character Slightly Cloudy (Clear); Urine Color Yellow; Urine Glucose Negative (Negative); Urine Ketone Negative (Negative); Urine Leukocyte 2+ (Negative); Urine Nitrite Positive (Negative); Urine Occult Blood 4+ (Negative); Urine Specific Gravity 1.005 (<1.030); Urine Urobilinogen Negative (Neg - 1+)
--- NOTE | 2024-04-20 00:29 | HPS.HSE ---
Family Physician
-
Family Physician: Juan Chavez
Chief Complaint
-
Abdominal pain, reduced output from ostomy
History of Present Illness
This is a pleasant 74-year-old female with extensive past medical history of cancer and intra-abdominal surgeries, has recurrent bowel obstruction, CKD, bilateral JJ stents with history of bilateral ureteral stricture due to XRT from uterine cancer,
colon cancer status status post bowel resection with ileostomy, metastatic bladder cancer, left total hip revision, chronic anemia, chronic pain, chronic opioid use with dependence, seizures, DVT/PE, osteoporosis, neuropathy, bedbound, here for
reduced output from ostomy and abdomen pain.
She reports that since about 4 days ago on Wednesday she has had small drain output from her ostomy. She now has 0 output. She was having some gaseous output couple of days ago but now none. She reported that she has tried multiple remedies at home
including heat application, massage, use of only liquid oral intake without any improvement in the output. She started having some abdominal pain. She denies vomiting. She denies any nausea. She has had no fevers or chills.
Patient reports she has had similar episodes and has had NG tube 3 times in the past. She is not a candidate for surgery given prior surgical interventions.
Patient reports that she gets frequent stent exchanges for ureteral stricture
Fistula. She started having some bleeding from a urine output which is a indication that she needed the exchange which is usually done every 3 to 4 months. She was started on ciprofloxacin for this on 04/14 for 7 day course pending revision.
She was last discharged on home hospice because no further intervention COVID provided. However patient reversed hospice to come into days to give you 1 last trial of conservative measures.
In the emergency department she was afebrile, blood pressure was 140/80 with a pulse of 81 satting 97% on room air. White count was normal hemoglobin was 11.3 with normal platelet count. Electrolytes BUN/creatinine within the normal range. She
has slight abnormalities in the alk phos. Sodium was 131.
A CT of the abdomen pelvis remarkable for severe distention of small bowel loops, duodenum and moderate gastric distention. There seems to be distention to the level of her right anterior abdominal wall ostomy with findings consistent with partial
obstruction at the level of the ostomy possibly secondary to parastomal hernia containing the gallbladder fundus or an enteritis of the distal ileum.
Medical History
Past Medical History
Past Medical History: Reports Cancer (Uterine cancer, colon cancer status post bowel resection with ileostomy, metastatic bladder cancer), Renal Failure (CKD 3, bilateral JJ stents with history of bilateral ureteral stricture due to radiation from
uterine cancer) and Other (Prior DVT/PE)
Additional Past Medical History:
Chronic opioid use with dependence
Past Surgical History: Reports Bowel Resection, Orthopedic and Urological
Social History
Tobacco: Non-smoker
Alcohol: None
Drug: None
Personal: Single
Living: With Family
Employment: Retired
Family History
Family History: Not pertinent
Allergies / Home Medications
Allergies reflects when Allergies were last updated in [facility].
Home Medications with original date entered in [facility]
Allergy/Medication List:
Allergies
Allergy/AdvReac Type Severity Reaction Status Date / Time
Androgenic Anabolic Steroid Allergy Shortness Verified 02/15/24 18:05
of Breath
baclofen Allergy near Verified 02/15/24 18:05
;never
woke up
Corticosteroids Allergy can take Verified 02/15/24 18:05
(Glucocorticoids) PO, not
injection
cyclobenzaprine Allergy Hives Verified 02/15/24 18:05
[From Flexeril]
hydromorphone Allergy VOMITING Verified 02/15/24 18:05
hydromorphone HCl Allergy Vomiting Verified 02/15/24 18:05
[From Dilaudid]
mirabegron Allergy itching Verified 02/15/24 18:05
rash
nitrofurantoin Allergy Rash Verified 02/15/24 18:05
[From Macrobid]
omeprazole Allergy FLUSHING, Verified 02/15/24 18:05
HIVES
ondansetron HCl [From Zofran] Allergy VOMITING Verified 02/15/24 18:05
Penicillins Allergy Shortness Verified 02/15/24 18:05
of Breath
ranitidine Allergy flushing, Verified 02/15/24 18:05
hives
vancomycin Allergy Itching Verified 02/15/24 18:05
Home Medications
prednisone 10 mg tablet 10 mg PO DAILYPRN PRN joint pain 11/05/22
prochlorperazine maleate 5 mg tablet (Compazine) 5 mg PO TIDPRN PRN nausea 11/05/22
octreotide,microspheres 20 mg intramuscular susp, extended release (Sandostatin LAR [place]) 20 mg IM Q4W Ileostomy 02/09/23
doxycycline hyclate 100 mg tablet 100 mg PO DAILY Ortho prophylaxis #0 tabs 02/13/23
famotidine 20 mg tablet (Pepcid) 20 mg PO DAILYPRN PRN indigestion 11/10/23
loperamide 2 mg tablet 4 mg PO BID diarrhea 11/10/23
vitamins A,C,X-sora-elaojo 2,148 mcg-113 mg-45 mg-17.4 mg tablet (PreserVision AREDS) 2 tab PO BID Supplement 11/10/23
fentanyl 25 mcg/hr transdermal patch 25 mcg transdermal Q72H Pain 11/15/23
gabapentin 300 mg capsule 300 mg PO BID 30 days #60 caps 11/16/23
acetaminophen 500 mg tablet 500 mg PO Q6HPRN PRN mild pain 02/15/24
pantoprazole 40 mg tablet,delayed release 40 mg PO BIDPRN PRN reflux 02/15/24
lidocaine 4 % topical patch 1 patch topical DAILY #30 ea 02/18/24
furosemide 20 mg tablet 20 mg PO MOWEFR PRN edema or comfort #0 tabs 03/07/24
methyl salicylate 15 %-menthol 10 % topical cream (Analgesic [place] (m.salic-menthol)) 1 applic topical TID PRN mild pain #28 grams 03/07/24
morphine 15 mg immediate release tablet 15 mg PO Q12H #0 tabs 03/07/24
Review of Systems
-
Unable to obtain full review of systems at this time due to: Dementia
History Source: Patient
Constitutional: Reports No Symptoms
EENT: Reports No Symptoms
Respiratory: Reports No Symptoms
Cardiac: Reports No Symptoms
Abdomen/GI: Reports Abdominal Pain and Constipated
: Reports Dark Urine
Musculoskeletal: Reports No Symptoms
Skin: Reports No Symptoms
Neurological: Reports No Symptoms
Endocrine: Reports No Symptoms
Hematologic/Lymphatic: Reports No Symptoms
Psych: Reports No Symptoms
Physical Exam
Vital Signs
Vital Signs
Temp Pulse Resp BP Pulse Ox
98.4 F 81 17 141/86 97
04/19/24 17:35 04/20/24 00:00 04/19/24 18:30 04/20/24 00:00 04/19/24 23:30
Physical Exam
General: Appears Chronically Ill
HEENT: NormoCephalic, Anicteric, Moist mucous membranes and Atraumatic
Respiratory: Clear
Cardiac: S1/S2 and Regular Rhythm
Breast: Deferred by me
GI: Soft, Normal Bowel Sounds and Ostomy
Rectal: Deferred by Provider
Genito-urinary: Deferred by me
Musculoskeletal: No Cyanosis, Edema, Left Lower Extremity and Edema, Right Lower Extremity
Skin: Warm
Neuro: AO x 3
Hematologic/Lymphatic: No Lymphadenopathy
Psych: Calm
Laboratory Results
-
04/19/24 18:25
04/19/24 18:25
Laboratory Results
Lactic Acid Cancelled 04/19/24 20:08
Total Bilirubin 1.3 mg/dl (0.2-1.3) 04/19/24 18:25
AST 25 U/L (14-36) 04/19/24 18:25
ALT 34 U/L (0-35) 04/19/24 18:25
Alkaline Phosphatase 156 U/L (38-126) H 04/19/24 18:25
Lipase 262 U/L (23-300) 04/19/24 18:25
Data Reviewed
-
CT Scan: Report Reviewed by me
Lab Data: Labs Reviewed by me
Old Records: Reviewed
Impression/Plan
-
IMPRESSION:
74 y.o with h/o bowel resection with end ileostomy, multiple intraabdominal surgerys and recurrent SBO here with episode SBO. She was on hospice at last discharge but reversed it to come in today. Planning to go back on home hospice if able to.
Based on findings unlikely any surgical intervention.
PLAN:
1. SBO -
- admit to med/surg
- NG tube blaced with bilous output
- NPO for now
- IV LR, pain control and antiemetics
- supportive measures
- surgery consulted and notified
2. Ureteral strictures s/pstents - possible uti, on cipro with +U/A but also quite contaminated
- urine cultures sent
- continue cipro iv pending cultures, patient stable from sepsis perspective
- notified urology (Dr. Stallings) as patient feels may require stent exchange, no official consult now, manage bowel issues first, reach out after weekend if stable and they can discuss timing of stent exchange.
DVT PPX - heparin sq
Code status - DNR
[2024-04-20 00:50] LABS: Urine Amorphous Seen; Urine Bacteria Many (Negative); Urine Mucus Many; Urine Squamous Cell >30 /LPF (Few); Urine White Cell >100 /HPF (0-5)
[2024-04-20 00:57] LABS: Urine Yeast SEEN (Negative)
[2024-04-20 00:58] LABS: Urine Urothelial Cell >30 /LPF (FEW)
[2024-04-20] MEDS: CIPRO 400 MG 200 IV ×2 (01:48→14:24)
[2024-04-20] MEDS: LR 1000 IV ×2 (01:49→15:32)
[2024-04-20 05:29] LABS: Hematocrit 33.9 % (37.0-47.0); Hemoglobin 11.4 g/dL (12.0-16.0); Mean Corp Hgb Conc. 33.6 g/dL (33.0-37.0); Mean Corpuscular Hgb 28.7 pg (27.0-31.0); Mean Corpuscular Volume 85.4 fL (81.0-99.0); Mean Platelet Volume 9.4 fL (7.4-10.4); Platelet Count 223 10^3/uL (130-400); Red Blood Cell Count 3.97 10^6/uL (4.20-5.40); Red Cell Dist. Width 18.4 % (11.5-14.5); White Blood Cell Count 8.8 10^3/uL (4.8-10.8)
[2024-04-20 05:32] LABS: Blood Urea Nitrogen 26 mg/dl (7-17); Calcium 7.7 mg/dl (8.4-10.2); Carbon Dioxide 21 mmol/L (22-30); Chloride 97 mmol/L (98-107); Estimated Creatinine Clearance 28 ml/min; Glucose 69 mg/dl (70-99); Sodium 130 mmol/L (135-145); eGFR 47.21
[2024-04-20] MEDS: HEPARIN 5000 UNITS SC ×2 (08:33→16:44)
[2024-04-20] MEDS: DECADRON 2 MG IV (08:33)
[2024-04-20] MEDS: DURAGESIC 25 MCG/HR PATCH 1 PATCH TRANSDERM (08:38)
--- NOTE | 2024-04-20 08:50 | CON.GS ---
Medical History
-
Chief Complaint: Abdominal pain, nausea vomiting, no ostomy output
History of Present Illness:
Patient is a 74-year-old female very well-known to our general surgery service with complex past abdominal surgical history including subtotal colectomy, permanent ileostomy, hysterectomy with pelvic radiation, active vesicovaginal fistula, chronic
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 Most recent hospitalization 02/17/2024 through 03/08/2024. She was initially admitted with cellulitis secondary to chronic pressure heel ulcer, developed
associated ileus/SBO. Ultimately after lengthy discussions with patient due to her expected high surgical risks and medical risks she was transition to hospice care but had partial obstructive symptoms and was able to tolerate p.o. intake.
At today's evaluation Ms. Best states that she has generally done well from an obstructive standpoint after discharge home. She has been able to tolerate liquid and soft foods and her ostomy function returned nearly to baseline. She noticed
this past week some hematuria which is usually her sign that her stents need to be exchanged. She followed up with her urologist via phone call and was started on ciprofloxacin. Rather immediately after starting her antibiotic she states that she
began developing abdominal distention, nausea, anorexia and gradual decreased ostomy outputs to the point that she had no ostomy output over the last 12 to 24 hours prompting emergency department evaluation as she wished to resume treatment for her
symptoms rather than remain on hospice.
At this time her nausea has been alleviated by NG tube decompression. She has some generalized abdominal discomfort a bit worse on the left and right lower quadrant but better than her last hospitalization see states. Ostomy continues without any
significant outputs
Past Medical History
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
UTI, CKD, RA)
Past Surgical History: Other (Numerous bowel resections, permanent end ileostomy, spinal fusion, bilateral hip replacements, vertebroplasty, ureteral stenting, knee replacement, Mohs, ankle surgeries, cataracts)
Social History
Tobacco: Non-Smoker
Alcohol: None
Living: With Family (Lives with her sister who assist with caretaking)
Family History
Family History: Reviewed & Noncontributory
Allergies / Home Medications
Allergy/AdvReac Type Severity Reaction Status Date / Time
Androgenic Anabolic Steroid Allergy Shortness Verified 02/15/24 18:05
of Breath
baclofen Allergy near Verified 02/15/24 18:05
;never
woke up
Corticosteroids Allergy can take Verified 02/15/24 18:05
(Glucocorticoids) PO, not
injection
cyclobenzaprine Allergy Hives Verified 02/15/24 18:05
[From Flexeril]
hydromorphone Allergy VOMITING Verified 02/15/24 18:05
hydromorphone HCl Allergy Vomiting Verified 02/15/24 18:05
[From Dilaudid]
mirabegron Allergy itching Verified 02/15/24 18:05
rash
nitrofurantoin Allergy Rash Verified 02/15/24 18:05
[From Macrobid]
omeprazole Allergy FLUSHING, Verified 02/15/24 18:05
HIVES
ondansetron HCl [From Zofran] Allergy VOMITING Verified 02/15/24 18:05
Penicillins Allergy Shortness Verified 02/15/24 18:05
of Breath
ranitidine Allergy flushing, Verified 02/15/24 18:05
hives
vancomycin Allergy Itching Verified 02/15/24 18:05
�Medication �Instructions �Recorded �Confirmed �Type
prochlorperazine maleate 5 mg 5 mg PO TIDPRN PRN nausea 11/05/22 04/20/24 History
tablet (Compazine)
fentanyl 25 mcg/hr transdermal 25 mcg transdermal Q72H Pain 11/15/23 04/20/24 History
patch
acetaminophen 500 mg tablet 500 mg PO Q8HPRN PRN mild pain 02/15/24 04/20/24 History
furosemide 20 mg tablet 20 mg PO MOWEFR PRN edema or 03/07/24 04/20/24 Rx
comfort #0 tabs
ciprofloxacin HCl 500 mg tablet 500 mg PO BID 04/20/24 04/20/24 History
dexamethasone 2 mg tablet 2 mg PO DAILY 04/20/24 04/20/24 History
lorazepam 0.5 mg tablet 0.5 mg PO HS 04/20/24 04/20/24 History
morphine 100 mg/5 mL oral 5 mg PO Q3HPRN PRN break through 04/20/24 04/20/24 History
concentrate pains
morphine 15 mg immediate release 15 mg PO BID 04/20/24 04/20/24 History
tablet
trazodone 50 mg tablet 75 mg PO HS 04/20/24 04/20/24 History
Review of Systems
-
A 10 point review of systems was completed, and was negative except as per HPI.
Physical Exam
Vital Signs
Temp Pulse Resp BP Pulse Ox
98.4 F 89 17 115/87 97
04/19/24 17:35 04/20/24 06:00 04/19/24 18:30 04/20/24 06:00 04/20/24 05:00
04/19/24 04/20/24 04/21/24
06:59 06:59 06:59
Actual Weight 45.1 kg
Body Mass Index (BMI) 20.1
Lab Results
04/20/24 04:38
04/20/24 04:38
WBC 8.8 10^3/uL (4.8-10.8) 04/20/24 04:38
Hgb 11.4 g/dL (12.0-16.0) L 04/20/24 04:38
Hct 33.9 % (37.0-47.0) L 04/20/24 04:38
Plt Count 223 10^3/uL (130-400) 04/20/24 04:38
Abs Immat Gran (auto) 0.1 10^3/uL (0-0.05) H 04/19/24 18:25
Neutrophils % 92.1 % (42.2-75.2) H 04/19/24 18:25
Physical Exam
General: Well Developed and Other (Chronically ill-appearing, bedbound, but no apparent distress and comfortable)
HEENT: Normocephalic and Other (NG tube in place)
Respiratory: Non Labored Respirations
GI: Soft, Tender (Generalized tenderness greatest on the left side and parastomal area. No rebound, no significant guarding), Distended (Mild distention but not tense) and Other (Right sided ileostomy with appliance but no air or stool in it. Mild
tenderness on palpation. Soft parastomal hernia. Does not feel incarcerated.)
Neuro: AO x 3
Psych: Calm
Data Reviewed
-
CT Scan: Image Personally Visualized and interpreted
Labs: Labs Reviewed by me
Assessment / Plan
-
Assessment: 74-year-old female well-known to our surgical service presenting with recurrent obstructive symptoms either secondary to ileus versus mechanical obstruction.
Poor/high risk surgical candidate from both a surgical standpoint as well as medical due to underlying medical frailty, comorbidities and. Surgical history which would place her at high risk for unavoidable enterotomies, high risk of fistula
formation and worsening short gut/malabsorption. Patient confirms with previous discussions that she wishes to continue to avoid surgical intervention and would likely decline and go back to hospice if symptoms are persistent rather than reconsider
surgery.
Plan: Continue NG tube decompression and supportive care with IV fluid hydration, antiemetics and analgesics as needed
Will follow
--- NOTE | 2024-04-20 12:01 | W.PN.HOSP.TC ---
Today's Communication/Plan
-
Maintain NGT to intermittent low wall suction
NPO strictly
Antiemetics and analgesics
Ativan for anxiety or seizure
Assessment / Plan
Assessment / Plan
74-year-old female with extensive past medical history including intra-abdominal procedures and multiple malignancies that scented to the hospital with recurrent small bowel obstruction, took herself off of hospice.
#Small bowel obstruction
#H/O recurrent SBO
#S/P multiple intra-abdominal surgery
-Highly likely adhesive disease with multiple previous intra-abdominal procedures
-Evaluated by surgery who determined she is not a candidate for surgical intervention, recommended supportive management
-Status post NG tube with adequate output on low wall suction
-Still has some pain though she states it feels improved from admission
-Maintain NGT to intermittent LWS, NPO
-Continue supportive IV fluids, analgesics, antiemetics
-Serial abdomen exams
-To consider comfort measures/morphine drip the patient wishes to go back on hospice
#Concern for UTI
#Ureteral strictures s/p bilateral double-J stent
-Patient stated she felt that she may need a stent exchange
-Was started on ciprofloxacin after urine cultures
-No fevers or leukocytosis as of now
-Trend CBC and temperature curve
-Plan to narrow ciprofloxacin per culture result
-Will discuss stent replacement following resolution of bowel issues
#Seizure disorder
-Will order Ativan as needed for seizure activity while off of hospice
#Anemia of chronic disease
-Baseline hemoglobin near 10
-Secondary to multiple malignancies and chronic medical issues
#Chronic opioid use with dependence
#Chronic pain
#Metastatic bladder cancer
#H/O ovarian cancer s/p XRT C/B ureteral strictures B/L
#H/O colon cancer s/p resection with ileostomy
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
Anticipated Discharge: > 48 hours
Subjective/Interval History
-
Date of Service: April 20, 2024
Seen and examined at the bedside. No acute events reported since admission. AFVSS this morning
Status post NG tube for small bowel obstruction with adequate output on low wall suction.
She states her pain is improved, has been managed by her as needed medications.
She denies any new complaints
Objective Data
-
Labs:
Laboratory Results
04/20/24
04:38
WBC 8.8
Hgb 11.4 L
Hct 33.9 L
Plt Count 223
Sodium 130 L
Potassium 4.0
Chloride 97 L
Carbon Dioxide 21 L
BUN 26 H
Creatinine 1.2 H
Glucose 69 L
Calcium 7.7 L
Vital Signs:
Vital Signs
Temp Pulse Resp BP Pulse Ox
98.4 F 99 17 132/87 97
04/19/24 17:35 04/20/24 08:45 04/19/24 18:30 04/20/24 08:00 04/20/24 08:30
Review of Systems
-
History Source: Patient
All other systems: Reviewed and negative
Physical Exam
-
General: Well Developed, Appears Chronically Ill and Other (Frail-appearing)
HEENT: Normocephalic, Atraumatic and Moist Mucous Membranes
Respiratory: Clear to Auscultation and Non Labored Respirations
Cardiac: S1/S2 and Tachycardic; Negative Murmur, Rub or Gallop
GI: Tender, Distended and Other (Reduced bowel sounds)
Musculoskeletal: No Clubbing, No Cyanosis and No Edema
Skin: Warm, Dry and Normal Turgor; Negative Rash
Neuro: AO x 3 and Nonfocal/Grossly Intact
Psych: Calm
[2024-04-20] MEDS: LR IV (14:38)
[2024-04-20] MEDS: MORPHINE SULFATE 2 MG IV (16:44)
[2024-04-20] MEDS: COMPAZINE 5 MG IV (16:44)
--- NOTE | 2024-04-20 17:00 | PTCARENOTE ---
Received patient from ED into room 2124. Patient AAOX3, VSS, [place] sump NGT set to low intermittent wall suction, draining green output in tubing. NGT flushed per order. Patient NPO, RLQ ileostomy putting out small amount of green/brown liquid
output. B/L buttock pressure injuries noted on assessment, foams applied and wound care consulted. Patient placed on static overlay. Heel foams placed on patient, heels intact. Patient oriented to room and call nicholas, medicated with PRN compazine and
morphine for occasional nausea and chronic back pain - see MAY.
[2024-04-21] MEDS: HEPARIN 5000 UNITS SC ×4 (00:12→23:21)
[2024-04-21] MEDS: CIPRO 400 MG 200 IV ×2 (02:05→14:12)
[2024-04-21 05:06] LABS: % Immature Granulocytes 1.4 % (0-0.5); % Lymphocytes 10.6 % (20.5-51.1); % Monocytes 9.5 % (1.7-9.3); % Neutrophils 78.5 % (42.2-75.2); Absolute Immature Granulocytes 0.1 10^3/uL (0-0.05); Absolute Lymphocytes 0.8 10^3/uL (1.2-3.4); Absolute Monocytes 0.7 10^3/uL (0.1-0.6); Absolute Neutrophils 5.6 10^3/uL (1.4-6.5); Hematocrit 30.7 % (37.0-47.0); Hemoglobin 10.5 g/dL (12.0-16.0); Mean Corp Hgb Conc. 34.2 g/dL (33.0-37.0); Mean Corpuscular Hgb 29.2 pg (27.0-31.0); Mean Corpuscular Volume 85.5 fL (81.0-99.0); Mean Platelet Volume 9.5 fL (7.4-10.4); Nucleated Red Blood Cells % 0 %; Platelet Count 202 10^3/uL (130-400); Red Blood Cell Count 3.59 10^6/uL (4.20-5.40); Red Cell Dist. Width 18.6 % (11.5-14.5); White Blood Cell Count 7.1 10^3/uL (4.8-10.8)
[2024-04-21 06:16] LABS: Blood Urea Nitrogen 30 mg/dl (7-17); Calcium 7.5 mg/dl (8.4-10.2); Carbon Dioxide 19 mmol/L (22-30); Chloride 98 mmol/L (98-107); Estimated Creatinine Clearance 31 ml/min; Glucose 70 mg/dl (70-99); Potassium 3.9 mmol/L (3.5-5.1); Sodium 129 mmol/L (135-145)
[2024-04-21] MEDS: LR 1000 IV ×2 (07:06→13:23)
[2024-04-21 07:30] VITALS: BP 136/77
[2024-04-21] MEDS: DECADRON 2 MG IV (08:42)
[2024-04-21] MEDS: COMPAZINE 5 MG IV (09:01)
--- NOTE | 2024-04-21 10:07 | WOUNDNOTE ---
[facility] RN note: Patient admitted with small bowel obstruction. She has a private aid at home. Plan is possible home with hospice restarted when discharged. Patient has an air mattress at home.
See H&P for complete history.
PMH: cancer, ileostomy, bilateral JJ stents, bilateral ureteral stricture d/t radiation from uterine cancer, metastatic bladder cancer, L total hip revision, anemia, bedbound, chronic pain on opioid, DVT/PE, neuropathy, L heel fracture.
Wound Location and type/assessment: Patient admitted with: unstageable sacral pressure injury pink with yellow/calderon slough and MASD around wound. Heels blanchable red with discolored skin from previous pressure injury.
Appetite: currently NPO. NGT.
Pressure redistribution devices in place: Waffle air overlay. Air chair cushion. Patient allowing folded blanket only to elevate heels.
Plan: Patient incontinent of urine. Mariam care given. Sacral dressing changed. Protective foam applied to heels. Patient turned to L semi side lying position. Heels off bed with folded bath blanket. Patinet at high risk for additional and worsening
of pressure injuries d/t overall medical condition, cachexia.
Will confirm orders with Dr. Seo and discussed with MILO Leal.
Care plan to be updated and will follow as needed.
--- NOTE | 2024-04-21 10:49 | W.PN.GS2 ---
Addendum entered and electronically signed by Nolan Fong MD 04/21/24 16:03:
I saw and examined the patient.
The Litigator's note was reviewed and I agree with the note.
Comment: c/o crampy pain with ngt flush; small amount liquid output from stoma yesterday, nothing since; abd nt/nd; cont npo/ngt/ivf for now
Original Note:
Today's Communication / Plan
-
NPO/NGT
Assessment / Plan
-
Assessment: 74-year-old female well-known to our surgical service presenting with recurrent obstructive symptoms either secondary to ileus versus mechanical obstruction.
Poor/high risk surgical candidate from both a surgical standpoint as well as medical due to underlying medical frailty, comorbidities and again she wishes to continue to avoid surgical intervention and would likely decline and go back to hospice if
symptoms are persistent rather than reconsider surgery.
Plan:
Continue NG tube decompression and supportive care with IV fluid hydration, antiemetics and analgesics as needed
Follow outputs
Will follow
Subjective Data
-
Date of Service: April 21, 2024
Patient seen and examined at bedside with Dr. Fong. Nausea/cramping when NGT was flushed this am. Emptied her ostomy for liquid outputs yesterday but not today.
Objective Data
-
Intake and Output
04/20/24 04/21/24 04/22/24
06:59 06:59 06:59
Intake Total 0 / 0
Output Total 125 / 125
Balance -125 / -125
Intake:
Oral fluids 0 / 0
Output:
Liquid stool amount 125 / 125
Ileostomy 125 / 125
Other:
How many times incontinent 1
SMALL amount urine
How many times incontinent 1
MODERATE amount urine
How many times incontinent 3
SATURATED amount urine
Vital Signs
Temp Pulse Resp BP Pulse Ox
97.8 F 83 16 136/77 100
04/21/24 07:30 04/21/24 07:30 04/21/24 07:30 04/21/24 07:30 04/21/24 07:30
Lab Results
04/21/24 04:58
04/21/24 04:58
Calcium 7.5 mg/dl (8.4-10.2) L 04/21/24 04:58
Total Bilirubin 1.3 mg/dl (0.2-1.3) 04/19/24 18:25
AST 25 U/L (14-36) 04/19/24 18:25
ALT 34 U/L (0-35) 04/19/24 18:25
Alkaline Phosphatase 156 U/L (38-126) H 04/19/24 18:25
Total Protein 6.0 g/dl (6.3-8.2) L 04/19/24 18:25
Albumin 3.2 g/dl (3.5-5.0) L 04/19/24 18:25
Physical Exam
-
Gen: NAD, malnourished
Abd: soft, NT/ND, non-peritoneal, ostomy PPV, prior incisions well healed
[2024-04-21] MEDS: MORPHINE SULFATE 2 MG IV ×2 (10:51→14:18)
--- NOTE | 2024-04-21 11:48 | W.PN.HOSP.TC ---
Addendum entered and electronically signed by Marcus Seo DO 04/21/24 16:56:
CDI:
-Hypovolemic hyponatremia due to SBO and n.p.o. status.
-Unstageable sacral pressure injury, present on arrival
Original Note:
Today's Communication/Plan
-
Continue NGT to intermittent LWS
Serial abdomen exams
Monitor ostomy output
As needed analgesics
Assessment / Plan
Assessment / Plan
74-year-old female with extensive past medical history including intra-abdominal procedures and multiple malignancies that scented to the hospital with recurrent small bowel obstruction, took herself off of hospice.
#Small bowel obstruction
#H/O recurrent SBO
#S/P multiple intra-abdominal surgery
-Highly likely adhesive disease with multiple previous intra-abdominal procedures
-Evaluated by surgery who determined she is not a candidate for surgical intervention, recommended supportive management
-Status post NG tube with adequate output on low wall suction
-Still has some pain though she states it feels improved from admission
-Maintain NGT to intermittent LWS, NPO
-Continue supportive IV fluids, analgesics, antiemetics
-Serial abdomen exams
-To consider comfort measures/morphine drip the patient wishes to go back on hospice
#Concern for UTI
#Ureteral strictures s/p bilateral double-J stent
-Patient stated she felt that she may need a stent exchange
-Was started on ciprofloxacin after urine cultures
-No fevers or leukocytosis as of now
-Trend CBC and temperature curve
-Plan to narrow ciprofloxacin per culture result
-Will discuss stent replacement following resolution of bowel issues
#Seizure disorder
-Will order Ativan as needed for seizure activity while off of hospice
#Anemia of chronic disease
-Baseline hemoglobin near 10
-Secondary to multiple malignancies and chronic medical issues
#Chronic opioid use with dependence
#Chronic pain
#Metastatic bladder cancer
#H/O ovarian cancer s/p XRT C/B ureteral strictures B/L
#H/O colon cancer s/p resection with ileostomy
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
Anticipated Discharge: 24 - 48 hours
Subjective/Interval History
-
Date of Service: April 21, 2024
Seen and examined at the bedside. No acute events reported overnight. AFVSS this morning
Remains without bowel movements per ostomy and patient history. States abdomen moderately painful at time of my eval. Remains on NGT
Denies any new complaints today
Objective Data
-
Labs:
Laboratory Results
04/21/24
04:58
WBC 7.1
Hgb 10.5 L
Hct 30.7 L
Plt Count 202
Sodium 129 L
Potassium 3.9
Chloride 98
Carbon Dioxide 19 L
BUN 30 H
Creatinine 1.1 H
Glucose 70
Calcium 7.5 L
Vital Signs:
Vital Signs
Temp Pulse Resp BP Pulse Ox
97.8 F 83 16 136/77 100
04/21/24 07:30 04/21/24 07:30 04/21/24 07:30 04/21/24 07:30 04/21/24 07:30
I&O
04/20/24 04/21/24 04/22/24
06:59 06:59 06:59
Intake Total 0 / 0
Output Total 125 / 125
Balance -125 / -125
Review of Systems
-
History Source: Patient
All other systems: Reviewed and negative
Physical Exam
-
General: Well Developed, Pain, Appears Chronically Ill and Cachectic
HEENT: Normocephalic, Atraumatic and Moist Mucous Membranes
Respiratory: Clear to Auscultation and Non Labored Respirations
Cardiac: Regular Rhythm and S1/S2; Negative Murmur, Rub or Gallop
GI: Tender, Distended, Ostomy and Other (Reduced bowel sounds)
Musculoskeletal: No Clubbing, No Cyanosis and No Edema
Skin: Warm and Dry; Negative Rash
Neuro: AO x 3 and Nonfocal/Grossly Intact
Psych: Calm
Data Reviewed
-
Labs: Labs Reviewed by me, Discussed with Physician (Surgeon) and Discussed with Patient
--- NOTE | 2024-04-21 13:45 | PTCARENOTE ---
Addendum entered by Mel Murry RN 04/21/24 17:48:
NGT placement confirmed via xray, surgery communicated with this RN stating to pull back NGT 2 cm to see if patient has relief of symptoms/increased output. NGT pulled back 2 cm with assistance of Oswaldo nurse educator, NGT taped and marked at 53 cm
prachi. NGT with green output in tubing, set to low intermittent suction. Patient with no ostomy output but passing gas. Per surgery, will stop flushing NGT. Patient states relief of nausea/discomfort at this time. Per surgery, no portable xray needed
after pulling NGT back 2 cm.
Original Note:
Patient c/o nausea/cramping/discomfort on lower R side of chest rated 7/10 when NGT irrigated per MD order. This RN communicated with MD and surgery team, portable CXR ordered per surgery to confirm NGT placement, one time dose of IV morphine
ordered per MD - see MAY.
[2024-04-21] MEDS: FLUSH (NSS) 2 FLUSH IV (14:18)
--- NOTE | 2024-04-21 15:39 | CM ---
Initial Assessment completed at bedside
Pharmacy verified: [facility] [id number]
Patient and her sister live in a multilevel home; 1st floor set up for patient
PLOF: patient reported that she is bedridden since 01/2024; Incontinent; Visiting [facility] 4 hours/day Wednesday-Wednesday; able to feed and partially dress self
DME: [employer], Wheelchair
SNF Utilization at [facility] 2022; prior to admission she reports that she had VN services from [facility]
Will need Ambulance transport
Plan: discharge plan to be determined pending hospital course; CM will monitor and support the coordination of services if needed
[2024-04-21 15:45] VITALS: BP 135/77
--- NOTE | 2024-04-21 16:26 | PN.CDI ---
CDI
- -
CDI:
Physician Documentation Request
Admit Date: 04/20/24 00:57
Dear Doctor Rayray,
Clinical Indicators:
Patient admitted with small bowel obstruction.
04/21 [facility] RN note, 'Patient admitted with: unstageable sacral pressure injury with yellow/calderon slough and MASD around wound.'
Physician documentation of the type and location of wounds is required for compliant documentation. Based on the above clinical findings and your assessment, please provide the following in your progress note:
1. Location of the ulcer/wound, including laterality.
2. Type (etiology) of ulcer/wound:
- Unstageable Sacral Pressure Injury, POA
- Other
3. If a pressure ulcer, please also include the stage* of the ulcer:
- Stage 1 - Skin intact, non-blanchable redness
- Stage 2 - Partial thickness loss of dermis, includes intact or open blister
- Stage 3 - Full thickness tissue not including bone, tendon or muscle
- Stage 4 - Full thickness tissue loss, including exposed bone, tendon or muscle
- Unstageable - Full thickness loss in which the base of the ulcer is covered by slough (yellow, calderon, lugo, green or brown) and/or eschar (calderon, brown or black) in the wound bed.
- Unable to determine
Use of terms such as suspected, likely, concern for, or probable (associated with a specific diagnosis that is being evaluated, monitored, or treated as if it exists) are acceptable and can be coded in the inpatient setting, when documented at the
time of discharge.
Thank you,
Melissa Felix RN BSN
CDI Specialist
available via tiger text
Please use your independent medical judgment in providing your response.
*Source: National Pressure Ulcer Advisory Panel (NPUAP)
--- NOTE | 2024-04-21 16:31 | PN.CDI ---
CDI
- -
CDI:
Physician Documentation Request
Admit Date: 04/20/24 00:57
Dear Doctor Rayray,
Clinical Indicators:
Patient admitted with small bowel obstruction. PMH includes chronic pain.
IVF: NSS 500 ml bolus x 1, LR maintenance
Sodium levels:
04/19/24 04/20/24 04/21/24
18:25 04:38 04:58
Sodium 131 L 130 L 129 L
Based on the above, could you clarify in the progress notes, the appropriate diagnosis, if significant, that supports the above abnormalities and additional evaluation, monitoring and/or treatment rendered:
Hyponatremia
Abnormal lab value
Other
Use of terms such as suspected, likely, concern for, or probable (associated with a specific diagnosis that is being evaluated, monitored, or treated as if it exists) are acceptable and can be coded in the inpatient setting, when documented at the
time of discharge.
Thank you,
Melissa Felix RN BSN
CDI Specialist
available via tiger text
Please use your independent medical judgment in providing your response.
[2024-04-21] MEDS: DESENEX/MITRAZOL/ZEASORB 1 APPLIC TOPICAL (22:08)
[2024-04-21 23:24] VITALS: BP 130/73
[2024-04-22] MEDS: CIPRO 400 MG 200 IV ×2 (02:25→13:17)
[2024-04-22] MEDS: LR 1000 IV ×2 (02:25→16:44)
[2024-04-22 05:29] LABS: % Eosinophils 0.1 % (0-6); % Immature Granulocytes 1.2 % (0-0.5); % Lymphocytes 12.6 % (20.5-51.1); % Monocytes 10.4 % (1.7-9.3); % Neutrophils 75.7 % (42.2-75.2); Absolute Immature Granulocytes 0.1 10^3/uL (0-0.05); Absolute Lymphocytes 0.9 10^3/uL (1.2-3.4); Absolute Monocytes 0.8 10^3/uL (0.1-0.6); Absolute Neutrophils 5.6 10^3/uL (1.4-6.5); Hematocrit 29.3 % (37.0-47.0); Hemoglobin 9.9 g/dL (12.0-16.0); Mean Corp Hgb Conc. 33.8 g/dL (33.0-37.0); Mean Corpuscular Hgb 29.4 pg (27.0-31.0); Mean Corpuscular Volume 86.9 fL (81.0-99.0); Mean Platelet Volume 9.8 fL (7.4-10.4); Nucleated Red Blood Cells % 0 %; Platelet Count 200 10^3/uL (130-400); Red Blood Cell Count 3.37 10^6/uL (4.20-5.40); Red Cell Dist. Width 18.8 % (11.5-14.5); White Blood Cell Count 7.4 10^3/uL (4.8-10.8)
[2024-04-22 06:00] VITALS: BMI 20.6
[2024-04-22 06:14] LABS: Blood Urea Nitrogen 26 mg/dl (7-17); Carbon Dioxide 20 mmol/L (22-30); Chloride 98 mmol/L (98-107); Estimated Creatinine Clearance 31 ml/min; Glucose 72 mg/dl (70-99); Potassium 3.6 mmol/L (3.5-5.1); Sodium 132 mmol/L (135-145)
[2024-04-22 07:20] VITALS: BP 138/71
[2024-04-22] MEDS: DECADRON 2 MG IV (09:01)
[2024-04-22] MEDS: HEPARIN 5000 UNITS SC ×3 (09:03→23:06)
[2024-04-22] MEDS: FLUSH (NSS) 2 FLUSH IV ×2 (09:04→10:04)
[2024-04-22] MEDS: DESENEX/MITRAZOL/ZEASORB 1 APPLIC TOPICAL (09:24)
[2024-04-22 09:39] VITALS: BMI 19.3
[2024-04-22] MEDS: MORPHINE SULFATE 2 MG IV (10:04)
--- NOTE | 2024-04-22 11:54 | W.PN.HOSP.TC ---
Today's Communication/Plan
-
Continue NGT to LWS
As needed analgesics and antianxiety meds
Further surgical recommendations appreciated
Continue ciprofloxacin and follow urine culture
Assessment / Plan
Assessment / Plan
74-year-old female with extensive past medical history including intra-abdominal procedures and multiple malignancies that scented to the hospital with recurrent small bowel obstruction, took herself off of hospice.
#Small bowel obstruction from likely adhesive disease
#H/O recurrent SBO
#S/P multiple intra-abdominal surgery
-Highly likely adhesive disease with multiple previous intra-abdominal procedures
-Evaluated by surgery who determined she is not a candidate for surgical intervention, recommended supportive management
-Status post NG tube with adequate output on low wall suction
-Still has some pain though she states it feels improved from admission
-Maintain NGT to intermittent LWS, NPO, serial abdomen exams
-Continue supportive IV fluids, analgesics, antiemetics
-To consider comfort measures/morphine drip the patient wishes to go back on hospice
#Concern for UTI
#Ureteral strictures s/p bilateral double-J stent
-Patient stated she felt that she may need a stent exchange
-Was started on ciprofloxacin after urine cultures
-No fevers or leukocytosis as of now
-Trend CBC and temperature curve
-Plan to narrow ciprofloxacin per culture results, day 3 of Abx
-Will discuss stent replacement following resolution of bowel issues
#Seizure disorder
-Will order Ativan as needed for seizure activity while off of hospice
#Anemia of chronic disease
-Baseline hemoglobin near 10
-Secondary to multiple malignancies and chronic medical issues
#Hypovolemic hyponatremia
-Secondary to n.p.o. status due to SBO
-Stable on IV fluids
-Trend BMP
#Unstageable sacral pressure ulcer
-Wound care following
#Chronic opioid use with dependence
#Chronic pain
-Transition to IV medications PRN while inpatient
#Metastatic bladder cancer
#H/O ovarian cancer s/p XRT C/B ureteral strictures B/L
#H/O colon cancer s/p resection with ileostomy
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
Anticipated Discharge: > 48 hours
Subjective/Interval History
-
Date of Service: April 22, 2024
Seen and examined at the bedside. No acute events reported overnight. AFVSS this morning
Still has some abdomen pain, remains with NGT in place. Labs otherwise stable
Denies any new complaints. Requesting pain and anxiety meds
Objective Data
-
Labs:
Laboratory Results
04/22/24
05:21
WBC 7.4
Hgb 9.9 L
Hct 29.3 L
Plt Count 200
Sodium 132 L
Potassium 3.6
Chloride 98
Carbon Dioxide 20 L
BUN 26 H
Creatinine 1.1 H
Glucose 72
Calcium 7.0 L
Vital Signs:
Vital Signs
Temp Pulse Resp BP Pulse Ox
97.9 F 81 15 138/71 97
04/22/24 07:20 04/22/24 07:20 04/22/24 07:20 04/22/24 07:20 04/22/24 08:30
I&O
04/21/24 04/22/24 04/23/24
06:59 06:59 06:59
Intake Total 0 / 0 2184
Output Total 125 / 125 0 / 0
Balance -125 / -125 2184
Review of Systems
-
History Source: Patient
All other systems: Reviewed and negative
Physical Exam
-
General: Well Developed, No Apparent Distress, Appears Chronically Ill and Cachectic
HEENT: Normocephalic, Atraumatic and Moist Mucous Membranes
Respiratory: Clear to Auscultation and Non Labored Respirations
Cardiac: Regular Rhythm and S1/S2; Negative Murmur, Rub or Gallop
GI: Soft, Nontender, Nondistended, Normal Bowel Sounds, Ostomy and Other (NGT in place)
Musculoskeletal: No Clubbing, No Cyanosis and No Edema
Skin: Warm, Dry and Normal Turgor; Negative Rash
Neuro: AO x 3 and Nonfocal/Grossly Intact
Psych: Anxious
Data Reviewed
-
Labs: Labs Reviewed by me and Discussed with Patient
--- NOTE | 2024-04-22 13:34 | W.PN.GS2 ---
Addendum entered and electronically signed by Nolan Fong MD 04/22/24 14:54:
I saw and examined the patient.
The Public Accountant's note was reviewed and I agree with the note.
Comment: Passing gas per stoma, feeling improved, will try clears around clamped tube
Original Note:
Today's Communication / Plan
-
trial of clears
Assessment / Plan
-
Assessment: 74-year-old female well-known to our surgical service presenting with recurrent obstructive symptoms either secondary to ileus versus mechanical obstruction.
Poor/high risk surgical candidate from both a surgical standpoint as well as medical due to underlying medical frailty, comorbidities and again she wishes to continue to avoid surgical intervention and would likely decline and go back to hospice if
symptoms are persistent rather than reconsider surgery.
AFVSS
Stoma productive of flatus, NGT without any ouptuts overnight
Plan:
Clamp NG tube and trial on clears
Return NGT to suction if nauseated/vomiting
Tentative plan for removal of NGT tomorrow if doing well on clamp trial
Will follow
Subjective Data
-
Date of Service: April 22, 2024
Patient seen and examined at bedside with Dr. Fong. Denies n/v. Passing flatus via stoma. No significant pain.
Objective Data
-
Intake and Output
04/21/24 04/22/24 04/23/24
06:59 06:59 06:59
Intake Total 0 / 0 2184
Output Total 125 / 125 0 / 0
Balance -125 / -125 2184
Intake:
Oral fluids 0 / 0
IV fluids (Total) 1724
IV piggybacks 400 / 400
Amount instilled into GI Tube ( 60 / 60
Total)
[place] Sump 60 / 60
Output:
Liquid stool amount 125 / 125
Ileostomy 125 / 125
Gastrointestinal tube output ( 0 / 0
Total)
[place] Sump 0 / 0
Other:
Number of approximated MODERATE 2
amounts of urine
How many times incontinent 1
SMALL amount urine
How many times incontinent 1 1
MODERATE amount urine
How many times incontinent 3 1
SATURATED amount urine
Vital Signs
Temp Pulse Resp BP Pulse Ox
97.9 F 81 15 138/71 97
04/22/24 07:20 04/22/24 07:20 04/22/24 07:20 04/22/24 07:20 04/22/24 08:30
Lab Results
04/22/24 05:21
04/22/24 05:21
Calcium 7.0 mg/dl (8.4-10.2) L 04/22/24 05:21
Total Bilirubin 1.3 mg/dl (0.2-1.3) 04/19/24 18:25
AST 25 U/L (14-36) 04/19/24 18:25
ALT 34 U/L (0-35) 04/19/24 18:25
Alkaline Phosphatase 156 U/L (38-126) H 04/19/24 18:25
Total Protein 6.0 g/dl (6.3-8.2) L 04/19/24 18:25
Albumin 3.2 g/dl (3.5-5.0) L 04/19/24 18:25
Physical Exam
-
Gen: NAD, thin
Abd: soft, NT/ND, non-peritoneal, ostomy PPV with flatus in appliance
[2024-04-22 15:20] VITALS: BP 128/72
[2024-04-22] MEDS: DESENEX/MITRAZOL/ZEASORB 2 APPLIC TOPICAL (22:14)
[2024-04-22 23:26] VITALS: BP 131/82
[2024-04-23] MEDS: CIPRO 400 MG 200 IV ×2 (01:28→14:25)
[2024-04-23 05:42] LABS: % Eosinophils 0.4 % (0-6); % Immature Granulocytes 0.9 % (0-0.5); % Lymphocytes 10.7 % (20.5-51.1); % Monocytes 12.3 % (1.7-9.3); % Neutrophils 75.7 % (42.2-75.2); Absolute Immature Granulocytes 0.1 10^3/uL (0-0.05); Absolute Lymphocytes 0.7 10^3/uL (1.2-3.4); Absolute Monocytes 0.9 10^3/uL (0.1-0.6); Absolute Neutrophils 5.2 10^3/uL (1.4-6.5); Hematocrit 28.7 % (37.0-47.0); Hemoglobin 9.7 g/dL (12.0-16.0); Mean Corp Hgb Conc. 33.8 g/dL (33.0-37.0); Mean Corpuscular Hgb 28.8 pg (27.0-31.0); Mean Corpuscular Volume 85.2 fL (81.0-99.0); Mean Platelet Volume 9.4 fL (7.4-10.4); Nucleated Red Blood Cells % 0 %; Platelet Count 200 10^3/uL (130-400); Red Blood Cell Count 3.37 10^6/uL (4.20-5.40); Red Cell Dist. Width 18.6 % (11.5-14.5); White Blood Cell Count 6.9 10^3/uL (4.8-10.8)
[2024-04-23 06:25] LABS: Blood Urea Nitrogen 21 mg/dl (7-17); Carbon Dioxide 23 mmol/L (22-30); Chloride 101 mmol/L (98-107); Estimated Creatinine Clearance 35 ml/min; Glucose 96 mg/dl (70-99); Potassium 2.9 mmol/L (3.5-5.1); Sodium 133 mmol/L (135-145); eGFR 58.75
[2024-04-23 07:20] VITALS: BP 129/75
[2024-04-23] MEDS: DECADRON 2 MG IV (07:50)
[2024-04-23] MEDS: DURAGESIC 25 MCG/HR PATCH 1 PATCH TRANSDERM (07:51)
[2024-04-23] MEDS: HEPARIN 5000 UNITS SC ×3 (08:08→23:08)
[2024-04-23] MEDS: DESENEX/MITRAZOL/ZEASORB 1 APPLIC TOPICAL ×2 (08:09→20:35)
[2024-04-23] MEDS: KCL 270 MEQ IV ×2 (09:47→13:37)
--- NOTE | 2024-04-23 10:26 | W.PN.GS2 ---
Addendum entered and electronically signed by Nolan Fong MD 04/23/24 13:20:
I saw and examined the patient.
The Film Drying Machine Operator's note was reviewed and I agree with the note.
Comment: Did well clamped for 24 hrs, melissa cld x2. belly soft, nt, nd. NGT DC'ed, stay on cld for today with ensure clear added
Original Note:
Today's Communication / Plan
-
Clears, d/c ngt
Assessment / Plan
-
Assessment: 74-year-old female well-known to our surgical service presenting with recurrent obstructive symptoms either secondary to ileus versus mechanical obstruction.
Poor/high risk surgical candidate from both a surgical standpoint as well as medical due to underlying medical frailty, comorbidities and again she wishes to continue to avoid surgical intervention and would likely decline and go back to hospice if
symptoms are persistent rather than reconsider surgery.
AFVSS
Stoma productive of flatus, NGT removed at bedside
Plan:
Continue CLD with supplements
Follow stoma outputs
Will follow
Subjective Data
-
Date of Service: April 23, 2024
Patient seen and examined at bedside. Denies n/v. Tolerating clears. Passing flatus and liquid green stool from stoma. Denies pain.
Objective Data
-
Intake and Output
04/22/24 04/23/24 04/24/24
06:59 06:59 06:59
Intake Total 2185 / 2185 1565 / 1565
Output Total 0 / 0 450 / 450
Balance 2185 / 2185 1115 / 1115
Intake:
Oral fluids 540 / 540
IV fluids (Total) 1725 / 1725 825 / 825
IV piggybacks 400 / 400 200 / 200
Amount instilled into GI Tube ( 60 / 60
Total)
Staples Sump 60 / 60
Output:
Liquid stool amount 450 / 450
Ileostomy 450 / 450
Gastrointestinal tube output ( 0 / 0
Total)
Staples Sump 0 / 0
Other:
Number of approximated MODERATE 2
amounts of urine
How many times incontinent 1
SMALL amount urine
How many times incontinent 1
MODERATE amount urine
How many times incontinent 1 2
SATURATED amount urine
Vital Signs
Temp Pulse Resp BP Pulse Ox
99.3 F 81 16 129/75 96
04/23/24 07:20 04/23/24 07:20 04/23/24 07:20 04/23/24 07:20 04/23/24 07:20
Lab Results
04/23/24 05:12
04/23/24 05:12
Calcium 7.0 mg/dl (8.4-10.2) L 04/23/24 05:12
Total Bilirubin 1.3 mg/dl (0.2-1.3) 04/19/24 18:25
AST 25 U/L (14-36) 04/19/24 18:25
ALT 34 U/L (0-35) 04/19/24 18:25
Alkaline Phosphatase 156 U/L (38-126) H 04/19/24 18:25
Total Protein 6.0 g/dl (6.3-8.2) L 04/19/24 18:25
Albumin 3.2 g/dl (3.5-5.0) L 04/19/24 18:25
Physical Exam
-
Gen: NAD, thin
Abd: soft, NT/ND, non-peritoneal, ostomy PPV with flatus/liquid stool in appliance
--- NOTE | 2024-04-23 12:24 | W.PN.HOSP.TC ---
Today's Communication/Plan
-
Clear liquid diet
Monitor bowel status
Continue ciprofloxacin
Plan to address urinary stents once SBO resolved
Assessment / Plan
Assessment / Plan
74-year-old female with extensive past medical history including intra-abdominal procedures and multiple malignancies that scented to the hospital with recurrent small bowel obstruction, took herself off of hospice.
#Small bowel obstruction from likely adhesive disease
#H/O recurrent SBO
#S/P multiple intra-abdominal surgery
-Highly likely adhesive disease with multiple previous intra-abdominal procedures
-Evaluated by surgery who determined she is not a candidate for surgical intervention, recommended supportive management
-NGT removed today, was started on clear liquid diet
-Continue supportive IV fluids, analgesics, antiemetics
-Monitor serial abdomen exams
-Not a surgical candidate
#Concern for UTI
#Ureteral strictures s/p bilateral double-J stent
-Patient stated she felt that she may need a stent exchange
-Was started on ciprofloxacin after urine cultures
-No fevers or leukocytosis as of now
-Trend CBC and temperature curve
-Remains on day 4 of ciprofloxacin IV, urine cultures indeterminant
-Will discuss stent replacement following resolution of bowel issues
-Follows with Dr. Stallings
#Seizure disorder
-Will order Ativan as needed for seizure activity while off of hospice
#Anemia of chronic disease
-Baseline hemoglobin near 10
-Secondary to multiple malignancies and chronic medical issues
#Hypovolemic hyponatremia
-Secondary to n.p.o. status due to SBO
-Stable on IV fluids
-Trend BMP
#Unstageable sacral pressure ulcer
-Wound care following
#Chronic opioid use with dependence
#Chronic pain
-Transition to IV medications PRN while inpatient
#Metastatic bladder cancer
#H/O ovarian cancer s/p XRT C/B ureteral strictures B/L
#H/O colon cancer s/p resection with ileostomy
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
CODE STATUS: DNR
Diet: CLD for now
DVT prophylaxis: Subcutaneous heparin
Anticipated Discharge: > 48 hours
Subjective/Interval History
-
Date of Service: April 23, 2024
Seen and examined the bedside. No acute events overnight. AFVSS this morning
NGT removed by surgery today, now on clear liquid diet. Patient with minimal abdomen pain
Denies any new complaints. States her anxiety is currently
Objective Data
-
Labs:
Laboratory Results
04/23/24
05:12
WBC 6.9
Hgb 9.7 L
Hct 28.7 L
Plt Count 200
Sodium 133 L
Potassium 2.9 L
Chloride 101
Carbon Dioxide 23
BUN 21 H
Creatinine 1.0
Glucose 96
Calcium 7.0 L
Vital Signs:
Vital Signs
Temp Pulse Resp BP Pulse Ox
99.3 F 81 16 129/75 96
04/23/24 07:20 04/23/24 07:20 04/23/24 07:20 04/23/24 07:20 04/23/24 07:20
I&O
04/22/24 04/23/24 04/24/24
06:59 06:59 06:59
Intake Total 2185 / 2185 1565 / 1565
Output Total 0 / 0 450 / 450
Balance 2185 / 2185 1115 / 1115
Review of Systems
-
History Source: Patient
All other systems: Reviewed and negative
Physical Exam
-
General: Well Developed, No Apparent Distress, Comfortable, Appears Chronically Ill and Cachectic
HEENT: Normocephalic, Atraumatic and Moist Mucous Membranes
Respiratory: Clear to Auscultation and Non Labored Respirations
Cardiac: Regular Rhythm and S1/S2; Negative Murmur, Rub or Gallop
GI: Soft, Nontender, Nondistended and Normal Bowel Sounds
Musculoskeletal: No Clubbing, No Cyanosis and No Edema
Skin: Warm, Dry, Normal Turgor and Other (Chemo-Port right chest wall without signs of infection); Negative Rash
Neuro: AO x 3 and Nonfocal/Grossly Intact
Psych: Calm
Data Reviewed
-
Labs: Labs Reviewed by me and Discussed with Patient
[2024-04-23 15:20] VITALS: BP 136/78
--- NOTE | 2024-04-23 15:29 | CHAP ---
Estefany is known to this route jumper through Hospice. She has a very positive spirit and outlook, and she welcomed prayer. We especially prayed for peace, as she mentioned being troubled by disturbing dreams. Emotional and spiritual support provided,
along with assurance of our on-going availability.
[2024-04-23 23:38] VITALS: BP 141/78
[2024-04-24] MEDS: CIPRO 400 MG 200 IV ×2 (01:52→14:52)
[2024-04-24 04:54] LABS: % Basophils 0.1 % (0-2); % Eosinophils 0.1 % (0-6); % Immature Granulocytes 1.1 % (0-0.5); % Lymphocytes 13.5 % (20.5-51.1); % Neutrophils 74.2 % (42.2-75.2); Absolute Immature Granulocytes 0.1 10^3/uL (0-0.05); Absolute Monocytes 0.8 10^3/uL (0.1-0.6); Absolute Neutrophils 5.5 10^3/uL (1.4-6.5); Hematocrit 29.5 % (37.0-47.0); Hemoglobin 9.9 g/dL (12.0-16.0); Mean Corp Hgb Conc. 33.6 g/dL (33.0-37.0); Mean Corpuscular Hgb 28.7 pg (27.0-31.0); Mean Corpuscular Volume 85.5 fL (81.0-99.0); Mean Platelet Volume 9.5 fL (7.4-10.4); Nucleated Red Blood Cells % 0 %; Platelet Count 184 10^3/uL (130-400); Red Blood Cell Count 3.45 10^6/uL (4.20-5.40); Red Cell Dist. Width 18.9 % (11.5-14.5); White Blood Cell Count 7.4 10^3/uL (4.8-10.8)
[2024-04-24 05:18] LABS: Blood Urea Nitrogen 17 mg/dl (7-17); Calcium 7.1 mg/dl (8.4-10.2); Carbon Dioxide 25 mmol/L (22-30); Chloride 100 mmol/L (98-107); Estimated Creatinine Clearance 39 ml/min; Glucose 83 mg/dl (70-99); Potassium 3.7 mmol/L (3.5-5.1); Sodium 133 mmol/L (135-145); eGFR > 60.00
[2024-04-24 06:00] VITALS: BMI 20.9
[2024-04-24 07:49] VITALS: BP 122/82
[2024-04-24] MEDS: DECADRON 2 MG IV (08:04)
[2024-04-24] MEDS: DESENEX/MITRAZOL/ZEASORB 1 APPLIC TOPICAL ×2 (08:07→20:18)
[2024-04-24] MEDS: HEPARIN 5000 UNITS SC ×3 (08:07→23:47)
--- NOTE | 2024-04-24 10:51 | W.PN.GS2 ---
Today's Communication / Plan
-
CLD with supplements
Assessment / Plan
-
Assessment: 74-year-old female well-known to our surgical service presenting with recurrent obstructive symptoms either secondary to ileus versus mechanical obstruction.
Poor/high risk surgical candidate from both a surgical standpoint as well as medical due to underlying medical frailty, comorbidities and again she wishes to continue to avoid surgical intervention and would likely decline and go back to hospice if
symptoms are persistent rather than reconsider surgery.
AFVSS
Stoma productive of flatus, NGT removed at bedside
Plan:
Continue CLD with supplements, ADAT to FLD which she is on chronically
Follow stoma outputs
Will follow
Subjective Data
-
Date of Service: April 24, 2024
Patient seen and examined at bedside with Dr. Fay. Stoma with outputs after eating but not overnight. Denies nausea or pain.
Objective Data
-
Intake and Output
04/23/24 04/24/24 04/25/24
06:59 06:59 06:59
Intake Total 1565 / 1565 1610 / 1610
Output Total 450 / 450 460 / 460 75 / 75
Balance 1115 / 1115 1150 / 1150 -75 / -75
Intake:
Oral fluids 540 / 540 930 / 930
IV fluids (Total) 825 / 825 30 / 30
IV piggybacks 200 / 200 650 / 650
Output:
Liquid stool amount 450 / 450 460 / 460 75 / 75
Ileostomy 450 / 450 460 / 460 75 / 75
Other:
How many times incontinent 1
SMALL amount urine
How many times incontinent 2
MODERATE amount urine
How many times incontinent 2 1
SATURATED amount urine
Vital Signs
Temp Pulse Resp BP Pulse Ox
97.8 F 106 16 122/82 98
04/24/24 07:49 04/24/24 07:49 04/24/24 07:49 04/24/24 07:49 04/24/24 07:49
Lab Results
04/24/24 04:31
04/24/24 04:31
Calcium 7.1 mg/dl (8.4-10.2) L 04/24/24 04:31
Total Bilirubin 1.3 mg/dl (0.2-1.3) 04/19/24 18:25
AST 25 U/L (14-36) 04/19/24 18:25
ALT 34 U/L (0-35) 04/19/24 18:25
Alkaline Phosphatase 156 U/L (38-126) H 04/19/24 18:25
Total Protein 6.0 g/dl (6.3-8.2) L 04/19/24 18:25
Albumin 3.2 g/dl (3.5-5.0) L 04/19/24 18:25
Physical Exam
-
Gen: NAD, thin
Abd: soft, NT/ND, non-peritoneal, ostomy PPV with flatus/sm liquid stool in appliance
--- NOTE | 2024-04-24 14:49 | W.PN.HOSP.TC ---
Today's Communication/Plan
-
adv to FLD
Assessment / Plan
Assessment / Plan
74-year-old female with extensive past medical history including intra-abdominal procedures and multiple malignancies that scented to the hospital with recurrent small bowel obstruction, took herself off of hospice.
#Small bowel obstruction from likely adhesive disease
#H/O recurrent SBO
#S/P multiple intra-abdominal surgery
-Highly likely adhesive disease with multiple previous intra-abdominal procedures
-Evaluated by surgery who determined she is not a candidate for surgical intervention, recommended supportive management
-NGT removed, advance to full liquid diet today
-Continue supportive IV fluids, analgesics, antiemetics
-Monitor serial abdomen exams
-Not a surgical candidate
#Concern for UTI
#Ureteral strictures s/p bilateral double-J stent
-Patient stated she felt that she may need a stent exchange
-Was started on ciprofloxacin after urine cultures
-No fevers or leukocytosis as of now
-Trend CBC and temperature curve
-Started on prophylactic ciprofloxacin, recommended by urology�urine cultures negative
-Stent exchange as per urology outpatient, discussed with urology
#Seizure disorder
-Will order Ativan as needed for seizure activity while off of hospice
#Anemia of chronic disease
-Baseline hemoglobin near 10
-Secondary to multiple malignancies and chronic medical issues
#Hypovolemic hyponatremia
-Continue to monitor resuscitation
#Unstageable sacral pressure ulcer
-Wound care following
#Chronic opioid use with dependence
#Chronic pain
-Transition to IV medications PRN while inpatient
#Metastatic bladder cancer
#H/O ovarian cancer s/p XRT C/B ureteral strictures B/L
#H/O colon cancer s/p resection with ileostomy
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
#Hypokalemia
� Monitor and replete
CODE STATUS: DNR
DVT prophylaxis: Subcutaneous heparin
Anticipated Discharge: 24 - 48 hours
Subjective/Interval History
-
Date of Service: April 24, 2024
More output from ostomy, advance diet
Objective Data
-
Labs:
Laboratory Results
04/24/24
04:31
WBC 7.4
Hgb 9.9 L
Hct 29.5 L
Plt Count 184
Sodium 133 L
Potassium 3.7 D
Chloride 100
Carbon Dioxide 25
BUN 17
Creatinine 0.9
Glucose 83
Calcium 7.1 L
Vital Signs:
Vital Signs
Temp Pulse Resp BP Pulse Ox
97.8 F 106 16 122/82 98
04/24/24 07:49 04/24/24 07:49 04/24/24 07:49 04/24/24 07:49 04/24/24 07:49
I&O
04/23/24 04/24/24 04/25/24
06:59 06:59 06:59
Intake Total 1565 / 1565 1610 / 1610
Output Total 450 / 450 460 / 460 75 / 75
Balance 1115 / 1115 1150 / 1150 -75 / -75
Review of Systems
-
History Source: Patient
All other systems: Not reviewed unless documented
Physical Exam
-
General: Well Developed, No Apparent Distress, Comfortable, Appears Chronically Ill and Cachectic
HEENT: Normocephalic, Atraumatic and Moist Mucous Membranes
Respiratory: Clear to Auscultation and Non Labored Respirations
Cardiac: Regular Rhythm and S1/S2; Negative Murmur, Rub or Gallop
GI: Soft, Nontender, Nondistended, Normal Bowel Sounds and Other (Output noted from stoma)
Musculoskeletal: No Clubbing, No Cyanosis and No Edema
Skin: Warm, Dry, Normal Turgor and Other (Chemo-Port right chest wall without signs of infection); Negative Rash
Neuro: AO x 3 and Nonfocal/Grossly Intact
Psych: Calm
Data Reviewed
-
Diagnostic Radiology: Report Reviewed by me
CT Scan: Report Reviewed by me
Labs: Labs Reviewed by me and Discussed with Patient
--- NOTE | 2024-04-24 15:11 | CM ---
Patient seen at bedside.
Prior to hospitalization was at home with hospice. took herself off to come to hospital
Wants to return to home when discharged on hospice.
Referral placed in [facility]
PLAN: Home, with hospice
[2024-04-24 15:48] VITALS: BP 133/76
--- NOTE | 2024-04-24 15:54 | PN.CDI ---
CDI
- -
CDI:
Physician Documentation Request
Admit Date: 04/20/24 00:57
Dear Doctor Sandy,
Clinical Indicators:
Patient admitted with small bowel obstruction.
04/22 note/assessment: Weight 03/07/24 119 lbs 8 oz Current weight: 107 lbs 3 oz
'Pt meets ASPEN criteria for severe protein calorie malnutrition of chronic illness with >5%
wt loss x 1 month, prolonged inadequate intake prior to hospital admit <75% for >1 month'
Based on the above information and your assessment, which of the following most accurately represents the patient's nutritional status?
Severe Protein Calorie Malnutrition
Other (please specify)
Hutchinson Criteria ([facility] Hospitalist 2017)
2 or more criteria must be present for either
non severe or severe malnutrition
Note that the criteria differs related to the
presence of an acute or chronic illness
Acute Illness Chronic Illness
Energy Intake Non Severe: <75% for >7 days Non Severe: <75% for >1 month
Severe: <50% for >5 days Severe: <75% for >1 month
Weight Loss Non Severe: 1-2% over 1 week Non Severe: 5% over 1 month
5% over 1 month 7.5% over 3 months
7.5% over 3 months 10% over 6 months
1 year N/A 20% over 1 year
Severe: >2% over 1 week Severe: >5% over 1 month
>5% over 1 month >7.5% over 3 months
>7.5% over 3 months >10% over 6 months
1 year N/A >20% over 1 year
Body Fat Non Severe: Mild Decrease Non Severe: Mild Loss
Severe: Moderate Decrease Severe: Severe Loss
Muscle Mass Non Severe: Mild Decrease Non Severe: Mild Loss
Severe: Moderate Decrease Severe: Severe Loss
Fluid Accumulation Non Severe: Mild Accumulation Non Severe: Mild Accumulation
Severe: Moderate to severe Severe: Moderate to severe
accumulation accumulation
[employer] Tech Strength Non Severe: N/A Non Severe: N/A
Severe: Measurably reduced Severe: Measurably reduced
Additional criteria that can be used to Determine if Mild or Moderate Malnutrition ([employer] Manual 2018)
Mild Moderate Severe
Albumin gm/dl <3.0 gm/dl <2.5 gm/dl <2.0 gm/dl
Pre Albumin mg/dl <15 gm/dl <10 mg/dl <5.0 mg/dl
BMI <18.5 <17 <16
Use of terms such as suspected, likely, concern for, or probable (associated with a specific diagnosis that is being evaluated, monitored, or treated as if it exists) are acceptable and can be coded in the inpatient setting, when documented at the
time of discharge.
Thank you,
Melissa Felix RN BSN
CDI Specialist
available via tiger text
Please use your independent medical judgment in providing your response.
[2024-04-24 23:47] VITALS: BP 127/79
[2024-04-25] MEDS: CIPRO 400 MG 200 IV (02:16)
[2024-04-25 04:30] LABS: Hematocrit 31.2 % (37.0-47.0); Hemoglobin 10.5 g/dL (12.0-16.0); Mean Corp Hgb Conc. 33.7 g/dL (33.0-37.0); Mean Corpuscular Volume 86.2 fL (81.0-99.0); Mean Platelet Volume 9.4 fL (7.4-10.4); Platelet Count 179 10^3/uL (130-400); Red Blood Cell Count 3.62 10^6/uL (4.20-5.40); Red Cell Dist. Width 19.1 % (11.5-14.5); White Blood Cell Count 9.8 10^3/uL (4.8-10.8)
[2024-04-25 05:46] LABS: Blood Urea Nitrogen 17 mg/dl (7-17); Calcium 7.2 mg/dl (8.4-10.2); Carbon Dioxide 21 mmol/L (22-30); Chloride 102 mmol/L (98-107); Estimated Creatinine Clearance 29 ml/min; Glucose 77 mg/dl (70-99); Potassium 3.9 mmol/L (3.5-5.1); Sodium 132 mmol/L (135-145); eGFR 47.21
[2024-04-25 05:55] VITALS: BMI 20.7
[2024-04-25] MEDS: COMPAZINE 5 MG IV (06:27)
[2024-04-25 07:32] VITALS: BP 145/99
[2024-04-25] MEDS: DECADRON 2 MG IV (08:54)
[2024-04-25] MEDS: HEPARIN 5000 UNITS SC ×3 (08:55→23:53)
[2024-04-25] MEDS: DESENEX/MITRAZOL/ZEASORB 1 APPLIC TOPICAL ×2 (08:56→19:59)
--- NOTE | 2024-04-25 09:39 | W.PN.GS2 ---
Today's Communication / Plan
-
-- LRD
Assessment / Plan
-
Assessment: 74-year-old female well-known to our surgical service presenting with recurrent obstructive symptoms either secondary to ileus versus mechanical obstruction.
Poor/high risk surgical candidate from both a surgical standpoint as well as medical due to underlying medical frailty, comorbidities and again she wishes to continue to avoid surgical intervention and would likely decline and go back to hospice if
symptoms are persistent rather than reconsider surgery.
AFVSS
Stoma productive of flatus, NGT removed at bedside
Plan:
-- LRD
-- Follow stoma outputs
-- Will follow
Subjective Data
-
Date of Service: April 25, 2024
No complaints. Pain well-controlled. Denies worsening abdominal pain. No increased bloating, nausea, or vomiting. Continues to pass flatus and loose stool via ostomy. Patient states that she is on a regular diet at home.
Objective Data
-
Intake and Output
04/24/24 04/25/24 04/26/24
06:59 06:59 06:59
Intake Total 1610 / 1610 1060 / 1060
Output Total 460 / 460 1820 / 1820
Balance 1150 / 1150 -760 / -760
Intake:
Oral fluids 930 / 930 1060 / 1060
IV fluids (Total) 30 / 30
IV piggybacks 650 / 650
Output:
Liquid stool amount 460 / 460 1820 / 1820
Ileostomy 460 / 460 1820 / 1820
Other:
How many times incontinent 1
SMALL amount urine
How many times incontinent 2 2
MODERATE amount urine
How many times incontinent 1 2
SATURATED amount urine
Vital Signs
Temp Pulse Resp BP Pulse Ox
98.1 F 96 17 145/99 97
04/25/24 07:32 04/25/24 08:53 04/25/24 07:32 04/25/24 07:32 04/25/24 07:32
Lab Results
04/25/24 04:21
04/25/24 04:21
Calcium 7.2 mg/dl (8.4-10.2) L 04/25/24 04:21
Total Bilirubin 1.3 mg/dl (0.2-1.3) 04/19/24 18:25
AST 25 U/L (14-36) 04/19/24 18:25
ALT 34 U/L (0-35) 04/19/24 18:25
Alkaline Phosphatase 156 U/L (38-126) H 04/19/24 18:25
Total Protein 6.0 g/dl (6.3-8.2) L 04/19/24 18:25
Albumin 3.2 g/dl (3.5-5.0) L 04/19/24 18:25
Physical Exam
-
Gen: NAD
Abd: soft, NT/ND, non-peritoneal, ostomy PPV - appliance just emptied
Patient has a lao catheter: No
Patient has a central line: No
--- NOTE | 2024-04-25 13:44 | W.PN.HOSP.TC ---
Today's Communication/Plan
-
lrd
Assessment / Plan
Assessment / Plan
74-year-old female with extensive past medical history including intra-abdominal procedures and multiple malignancies that scented to the hospital with recurrent small bowel obstruction, took herself off of hospice.
#Small bowel obstruction from likely adhesive disease
#H/O recurrent SBO
#S/P multiple intra-abdominal surgery
-Highly likely adhesive disease with multiple previous intra-abdominal procedures
-Evaluated by surgery who determined she is not a candidate for surgical intervention, recommended supportive management
-NGT removed, advance to LRD diet
-Continue supportive IV fluids, analgesics, antiemetics
-Monitor serial abdomen exams
-Not a surgical candidate
#Concern for UTI
#Ureteral strictures s/p bilateral double-J stent
-Patient stated she felt that she may need a stent exchange
-Was started on ciprofloxacin after urine cultures
-No fevers or leukocytosis as of now
-Trend CBC and temperature curve
-Started on prophylactic ciprofloxacin, recommended by urology�urine cultures negative
-Stent exchange as per urology outpatient, discussed with urology - can be done outpt
#Seizure disorder
-Will order Ativan as needed for seizure activity while off of hospice
#Anemia of chronic disease
-Baseline hemoglobin near 10
-Secondary to multiple malignancies and chronic medical issues
#Hypovolemic hyponatremia
-Continue to monitor resuscitation
#Unstageable sacral pressure ulcer
-Wound care following
#Chronic opioid use with dependence
#Chronic pain
-Transition to IV medications PRN while inpatient
#Metastatic bladder cancer
#H/O ovarian cancer s/p XRT C/B ureteral strictures B/L
#H/O colon cancer s/p resection with ileostomy
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
#Hypokalemia
� Monitor and replete
CODE STATUS: DNR
DVT prophylaxis: Subcutaneous heparin
Anticipated Discharge: Within 24 hours
Subjective/Interval History
-
Date of Service: April 25, 2024
Tolerating fluid diet, advance to low residue diet
Objective Data
-
Labs:
Laboratory Results
04/25/24
04:21
WBC 9.8
Hgb 10.5 L
Hct 31.2 L
Plt Count 179
Sodium 132 L
Potassium 3.9
Chloride 102
Carbon Dioxide 21 L
BUN 17
Creatinine 1.2 H
Glucose 77
Calcium 7.2 L
Vital Signs:
Vital Signs
Temp Pulse Resp BP Pulse Ox
98.1 F 96 17 145/99 97
04/25/24 07:32 04/25/24 08:53 04/25/24 07:32 04/25/24 07:32 04/25/24 09:44
I&O
04/24/24 04/25/24 04/26/24
06:59 06:59 06:59
Intake Total 1610 / 1610 1060 / 1060
Output Total 460 / 460 1820 / 1820
Balance 1150 / 1150 -760 / -760
Review of Systems
-
History Source: Patient
All other systems: Not reviewed unless documented
Physical Exam
-
General: Well Developed, No Apparent Distress, Comfortable, Appears Chronically Ill and Cachectic
HEENT: Normocephalic, Atraumatic and Moist Mucous Membranes
Respiratory: Clear to Auscultation and Non Labored Respirations
Cardiac: Regular Rhythm and S1/S2; Negative Murmur, Rub or Gallop
GI: Soft, Nontender, Nondistended, Normal Bowel Sounds and Other (Output noted from stoma)
Musculoskeletal: No Clubbing, No Cyanosis and No Edema
Skin: Warm, Dry, Normal Turgor and Other (Chemo-Port right chest wall without signs of infection); Negative Rash
Neuro: AO x 3 and Nonfocal/Grossly Intact
Psych: Calm
Data Reviewed
-
Diagnostic Radiology: Report Reviewed by me
CT Scan: Report Reviewed by me
Labs: Labs Reviewed by me and Discussed with Patient
--- NOTE | 2024-04-25 14:45 | PTCARENOTE ---
Pt on Low residue diet as ordered for lunch. Tolerated well. Denies pain, No c/o N/V noted. plan of care ongoing. call nicholas within reach.
[2024-04-25 15:36] VITALS: BP 119/73
[2024-04-25] MEDS: NSS (PRESERVATIVE FREE) 1 ML IV (19:58)
[2024-04-25] MEDS: ATIVAN 0.5 MG IV (19:58)
[2024-04-25] MEDS: MORPHINE SULFATE 2 MG IV (21:35)
[2024-04-25 23:25] VITALS: BP 127/75
[2024-04-26 04:40] LABS: Hemoglobin 9.7 g/dL (12.0-16.0); Mean Corp Hgb Conc. 33.4 g/dL (33.0-37.0); Mean Corpuscular Volume 86.6 fL (81.0-99.0); Platelet Count 176 10^3/uL (130-400); Red Blood Cell Count 3.35 10^6/uL (4.20-5.40); Red Cell Dist. Width 19.2 % (11.5-14.5); White Blood Cell Count 9.1 10^3/uL (4.8-10.8)
[2024-04-26 06:00] VITALS: BMI 20.6
[2024-04-26 06:22] LABS: Blood Urea Nitrogen 19 mg/dl (7-17); Calcium 6.7 mg/dl (8.4-10.2); Carbon Dioxide 25 mmol/L (22-30); Chloride 103 mmol/L (98-107); Estimated Creatinine Clearance 25 ml/min; Glucose 108 mg/dl (70-99); Potassium 3.8 mmol/L (3.5-5.1); Sodium 135 mmol/L (135-145); eGFR 39.23
--- NOTE | 2024-04-26 06:32 | PTCARENOTE ---
Notified LOCAL SALES ASSOCIATE, Concpecion Momin, via [employer] of pt critical lab value. Calcium 6.7.
[2024-04-26] MEDS: CALCIUM GLUCONATE 100 IV (07:31)
[2024-04-26 07:35] VITALS: BP 122/79
[2024-04-26 08:03] VITALS: BP 122/79
[2024-04-26] MEDS: DECADRON 2 MG IV (08:49)
[2024-04-26] MEDS: DURAGESIC 25 MCG/HR PATCH 1 PATCH TRANSDERM (08:50)
[2024-04-26] MEDS: HEPARIN 5000 UNITS SC (08:51)
[2024-04-26] MEDS: DESENEX/MITRAZOL/ZEASORB 1 APPLIC TOPICAL (08:54)
--- NOTE | 2024-04-26 12:18 | W.PN.HOSP.TC ---
Addendum entered and electronically signed by Balaji Delgado MD 04/28/24 17:09:
severe protein calorie malnutrition
Addendum entered and electronically signed by Balaji Delgado MD 04/26/24 16:45:
[id number]
Original Note:
Today's Communication/Plan
-
dc on [facility]
f/u urology outpt
dc on hospice
Assessment / Plan
Assessment / Plan
74-year-old female with extensive past medical history including intra-abdominal procedures and multiple malignancies that scented to the hospital with recurrent small bowel obstruction, took herself off of hospice.
#Small bowel obstruction from likely adhesive disease
#H/O recurrent SBO
#S/P multiple intra-abdominal surgery
-Highly likely adhesive disease with multiple previous intra-abdominal procedures
-Evaluated by surgery who determined she is not a candidate for surgical intervention, recommended supportive management
-NGT removed, tolerating lowest residue diet, continue
-Continue supportive IV fluids, analgesics, antiemetics
-Monitor serial abdomen exams
-Not a surgical candidate
#Concern for UTI
#Ureteral strictures s/p bilateral double-J stent
-Patient stated she felt that she may need a stent exchange
-Was started on ciprofloxacin after urine cultures�cultures no growth to date; spoke to urology; stop antibiotics
-No fevers or leukocytosis as of now
-Trend CBC and temperature curve
-Stent exchange as per urology outpatient, discussed with urology - can be done outpt - spoke to Dr. Stallings
#Seizure disorder
-hospice dc
#Anemia of chronic disease
-Baseline hemoglobin near 10
-Secondary to multiple malignancies and chronic medical issues
#Hypovolemic hyponatremia
-Continue to monitor resuscitation
#Unstageable sacral pressure ulcer
-Wound care following
#Chronic opioid use with dependence
#Chronic pain
-Transition to IV medications PRN while inpatient
#Metastatic bladder cancer
#H/O ovarian cancer s/p XRT C/B ureteral strictures B/L
#H/O colon cancer s/p resection with ileostomy
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
#Hypokalemia
� Monitor and replete
CODE STATUS: DNR
DVT prophylaxis: Subcutaneous heparin
More than 30 minutes spent in discharge including
Final examination of the patient
Summarizing hospital stay
Instructions for continuing care to all relevant caregivers
Preparation of discharge records, prescriptions, and referral forms
Total time spent (36 in minutes):
Anticipated Discharge: Today
Subjective/Interval History
-
Date of Service: April 26, 2024
No acute events, tolerating low residue diet
Objective Data
-
Labs:
Laboratory Results
04/26/24
04:17
WBC 9.1
Hgb 9.7 L
Hct 29.0 L
Plt Count 176
Sodium 135
Potassium 3.8
Chloride 103
Carbon Dioxide 25
BUN 19 H
Creatinine 1.4 H
Glucose 108 H
Calcium 6.7 L*
Vital Signs:
Vital Signs
Temp Pulse Resp BP Pulse Ox
97.6 F 101 18 122/79 97
04/26/24 07:35 04/26/24 07:35 04/26/24 07:35 04/26/24 07:35 04/26/24 10:04
I&O
04/25/24 04/26/24 04/27/24
06:59 06:59 06:59
Intake Total 1060 / 1060 1080 / 1080
Output Total 1820 / 1820 1075 / 1075
Balance -760 / -760 5 / 5
Review of Systems
-
History Source: Patient
All other systems: Not reviewed unless documented
Physical Exam
-
General: Well Developed, No Apparent Distress, Comfortable, Appears Chronically Ill and Cachectic
HEENT: Normocephalic, Atraumatic and Moist Mucous Membranes
Respiratory: Clear to Auscultation and Non Labored Respirations
Cardiac: Regular Rhythm and S1/S2; Negative Murmur, Rub or Gallop
GI: Soft, Nontender, Nondistended, Normal Bowel Sounds and Other (Output noted from stoma)
Musculoskeletal: No Clubbing, No Cyanosis and No Edema
Skin: Warm, Dry, Normal Turgor and Other (Chemo-Port right chest wall without signs of infection); Negative Rash
Neuro: AO x 3 and Nonfocal/Grossly Intact
Psych: Calm
Data Reviewed
-
Diagnostic Radiology: Report Reviewed by me
CT Scan: Report Reviewed by me
Labs: Labs Reviewed by me and Discussed with Patient
--- NOTE | 2024-04-26 12:20 | W.DS.TRANS ---
DC Summary - [employer]
-
Discharge Instructions:
Discharge Diagnosis/Procedures #Small bowel obstruction from likely adhesive
disease
#H/O recurrent SBO
#S/P multiple intra-abdominal surgery
Diet Low Residue
Activity As tolerated
Instructions:
Stand-Alone Forms:
Changes to Home Medications: Yes
Discharge Medications:
DC Medications w/original date entered in [facility]
prochlorperazine maleate 5 mg tablet (Compazine) 5 mg PO TIDPRN PRN nausea 11/05/22
fentanyl 25 mcg/hr transdermal patch 25 mcg transdermal Q72H Pain 11/15/23
acetaminophen 500 mg tablet 500 mg PO Q8HPRN PRN mild pain 02/15/24
furosemide 20 mg tablet 20 mg PO MOWEFR PRN edema or comfort #0 tabs 03/07/24
dexamethasone 2 mg tablet 2 mg PO DAILY 04/20/24
lorazepam 0.5 mg tablet 0.5 mg PO HS 04/20/24
morphine 100 mg/5 mL oral concentrate 5 mg PO Q3HPRN PRN break through pains 04/20/24
morphine 15 mg immediate release tablet 15 mg PO BID 04/20/24
trazodone 50 mg tablet 75 mg PO HS 04/20/24
Home Medication Changes
stop ciprofloxacin
Pending Results: No
--- NOTE | 2024-04-26 12:35 | CM ---
CM following re: discharge planning.
Reviewed pt's chart, met with pt and pt's sister Jordyn at bedside.
Discharge order noted. Both pt and her sister are aware, expressed their agreement. IMM reviewed placed on chart, pt has a copy.
CM spoke to police liaison and she confirmed that pt is accepted for admission to hospice and will be signed in on hospice when pt is home. Per police liaison, transportation requested for 2:00 p.m. today.
arranged transportation with [employer] time 2:00 p.m. PMNC completed and left with RN. MD is aware to sign out of hospital DNR.
D/C plan: home with hospice
[2024-04-26 13:05] VITALS: BP 131/83
== END 2024-04-26 14:00 | disposition hospice, home (50) | DRG 388 ==
LOC: 2 NORTH 00:57
PROVIDERS: Internal Medicine; Radiology Vascular & Interventional Radiology; Student in an Organized Health Care Education/Training Program; ADMITTING PHYSICIAN Internal Medicine; ATTENDING PHYSICIAN Internal Medicine; EMERGENCY PHYSICIAN Emergency Medicine; FAMILY PHYSICIAN Internal Medicine; OTHER PHYSICIAN Surgery
PROC: 0D9670Z Drainage of Stomach with Drainage Device, Via Natural or Artificial Opening (ICD-10-PCS; 2024-04-20)
DX: K56.50 Intestinal adhesions [bands], unspecified as to partial versus complete obstruction (principal); E43 Unspecified severe protein-calorie malnutrition; C79.9 Secondary malignant neoplasm of unspecified site; E87.1 Hypo-osmolality and hyponatremia; F11.20 Opioid dependence, uncomplicated; R64 Cachexia; N39.0 Urinary tract infection, site not specified; Z66 Do not resuscitate; C67.9 Malignant neoplasm of bladder, unspecified; L89.150 Pressure ulcer of sacral region, unstageable; E86.1 Hypovolemia; G40.909 Epilepsy, unspecified, not intractable, without status epilepticus; G89.29 Other chronic pain; E87.6 Hypokalemia; I12.9 Hypertensive chronic kidney disease with stage 1 through stage 4 chronic kidney disease, or unspecified chronic kidney disease; N18.30 Chronic kidney disease, stage 3 unspecified; N13.5 Crossing vessel and stricture of ureter without hydronephrosis; F32.A Depression, unspecified; F41.9 Anxiety disorder, unspecified; M81.0 Age-related osteoporosis without current pathological fracture; D63.0 Anemia in neoplastic disease; Z96.0 Presence of urogenital implants; Z68.20 Body mass index [BMI] 20.0-20.9, adult; Z98.1 Arthrodesis status; Z96.652 Presence of left artificial knee joint; Z79.52 Long term (current) use of systemic steroids; Z96.643 Presence of artificial hip joint, bilateral; Z93.2 Ileostomy status; Z90.710 Acquired absence of both cervix and uterus; Z90.49 Acquired absence of other specified parts of digestive tract; Z88.8 Allergy status to other drugs, medicaments and biological substances; Z88.3 Allergy status to other anti-infective agents; Z88.1 Allergy status to other antibiotic agents; Z88.0 Allergy status to penicillin; Z86.718 Personal history of other venous thrombosis and embolism; Z86.711 Personal history of pulmonary embolism; Z85.42 Personal history of malignant neoplasm of other parts of uterus; Z85.038 Personal history of other malignant neoplasm of large intestine; Z85.51 Personal history of malignant neoplasm of bladder
CPT/HCPCS: 43752; 71045; 74177; 80048; 80053; 81003; 81015; 83690; 85025; 85027; 87070; 87086; 96360; 96361; 99285; Q9967